=== PATIENT | male | born 1965 | race Two or more races ===

== ENCOUNTER 2024-04-18 05:43 | Inpatient (IN) | payer OTHER ==
[2024-04-18] VITALS (12 sets, daily range): BP systolic 132–178; BP diastolic 79–98; PULSE 90–118; RESP 18–27; TEMP 98.1; O2SAT 85–98
[~2024-04-18] VITALS: Ht 190.5 cm; Wt 109.3 kg
--- NOTE | 2024-04-18 05:54 | ED.PDOC ---
SOB-HPI HPI Comments 59-year-old male with PMHx CHF, COPD, HTN brought in by EMS presents with a chief complaint of SOB. Per EMS, patient woke up this morning and started to have spontaneous onset of SOB. Per EMS, initial saturation was 65% on room air. EMS placed patient on non-rebreather and saturation did not improve. EMS switched patient to CPAP and highest saturation they got was 83%. Patient has been intubated before due to COPD exacerbation. Chief Complaint: Shortness of Breath Time Seen by MD: 05:43 Reviewed notes: Medications, Allergies Information Source: Emergency Med Personnel Mode of Arrival: EMS Severity: Moderate Timing: Minutes Duration: Since onset Context: At Rest PE Risk Factors: None History of: COPD, CHF Prehospital treatment: C-Pap, Oxygen Associated Signs and Symptoms: None Past Medical History PAST MEDICAL HISTORY: CHF, COPD, HTN Surgical History: Denies all surgeries Family History Family History: Reviewed,noncontributory to illness Social History Smoker: Non-Smoker Alcohol: Denies ETOH Use Drugs: Denies Drug Use Lives In: Home Constitutional: denies: chills, diaphoresis, fatigue, fever, malaise, sweats, weakness, others EENTM: denies: blurred vision, double vision, ear bleeding, ear discharge, ear drainage, ear pain, ear ringing, eye pain, eye redness, hearing loss, mouth pain, mouth swelling, nasal discharge, nose bleeding, nose congestion, nose pain, photophobia, tearing, throat pain, throat swelling, voice changes, others Respiratory: reports: shortness of breath; denies: cough, hemoptysis, orthopnea, SOB at rest, SOB with excertion, stridor, wheezing, others Cardiovascular: denies: chest pain, dizzy spells, diaphoresis, Dyspnea on exertion, edema, irregular heart beat, left arm pain, lightheadedness, palpitations, PND, syncope, others Gastrointestinal: denies: abdomen distended, abdominal pain, blood streaked bowels, constipated, diarrhea, dysphagia, difficulty swallowing, hematemesis, melena, nausea, poor appetite, poor fluid intake, rectal bleeding, rectal pain, vomiting, others Genitourinary: denies: burning, dysuria, flank pain, frequency, hematuria, incontinence, penile discharge, penile sore, pain, testicle pain, testicle swelling, urgency, others Neurological: denies: dizziness, fainting, headache, left sided numbness, left sided weakness, numbness, paresthesia, pre-existing deficit, right sided numbness, right sided weakness, seizure, speech problems, tingling, tremors, weakness, others Musculoskeletal: denies: back pain, gout, joint pain, joint swelling, muscle pain, muscle stiffness, neck pain, others Integumetry: denies: bruises, change in color, change in hair/nails, dryness, laceration, lesions, lumps, rash, wounds, others Allergic/Immunocompromised: denies: Difficulty Healing, Frequent Infections, Hives, Itching, others Hematologic/Lymphatic: denies: anemia, blood clots, easy bleeding, easy bruising, swollen glands, others Endocrine: denies: excessive hunger, excessive sweating, excessive thirst, excessive urination, flushing, intolerance to cold, intolerance to heat, unexplained weight gain, unexplained weight loss, others Psychiatric: denies: anxiety, bipolar disorder, depression, hopeless, panic disorder, schizophrenia, sleepless, suicidal, others All Other Systems: Reviewed and Negative Physical Exam General Appearance: No Apparent Distress, Normal HEENT: Normal ENT Inspection, Pharynx Normal, TMs Normal Neck: Full Range of Motion, Non-Tender, Normal, Normal Inspection Respiratory: Chest Non-Tender, Lungs Clear, No Accessory Muscle Use, No Respiratory Distress, Normal Breath Sounds Cardiovascular: No Edema, No JVD, No Murmur, No Gallop, Normal Peripheral Pulses, Regular Rate/Rhythm Breast Exam: Deferred Gastrointestinal: No Organomegaly, Non Tender, No Pulsatile Mass, Normal Bowel Sounds, Soft Genitalia: Deferred Pelvic: Deferred Rectal: Deferred Extremities: No calf tenderness, Normal capillary refill, Normal inspection, Normal range of motion, Non-tender, No pedal edema Musculoskeletal : Apperance: Normal Neurologic: Alert, fur trapper II-XII nml as Tested, No Motor Deficits, Normal Affect, Normal Mood, No Sensory Deficits Cerebellar Function: Normal Reflexes: Normal Skin: Dry, Normal Color, Warm Lymphatic: No Adenopathy Was a procedure done? Was a procedure done?: No Differential Dx Differential Diagnosis: Asthma, Bronchitis, Cardiogenic Shock, CHF, COPD, Pneumonia, Pneumothorax X-Ray, Labs, Meds, VS Vital Signs Date Time Temp Pulse Resp B/P (MAP) Pulse Ox O2 Delivery O2 Flow Rate FiO2 04/18/24 06:47 112 04/18/24 06:45 113 24 185/114 (137) 97 04/18/24 06:30 117 26 223/129 (160) 97 04/18/24 06:15 249/124 04/18/24 06:00 125 30 249/124 (165) 95 04/18/24 05:57 97.6 118 27 252/133 (172) 85 97.6 04/18/24 05:57 118 27 85 Bi-Pap+ 100 100 04/18/24 05:50 119 04/18/24 05:45 120 249/131 Facial BiPAP Mask 100 04/18/24 05:45 97.6 125 30 210/108 (142) 80 Lab Test 04/18/24 06:19 Range/Units White Blood Count Pending Red Blood Count Pending Hemoglobin Pending Hematocrit Pending Mean Corpuscular Volume Pending Mean Corpuscular Hemoglobin Pending Mean Corpuscular Hemoglobin Concent Pending Red Cell Distribution Width Pending Platelet Count Pending Mean Platelet Volume Pending Neutrophils (%) (Auto) Pending Lymphocytes (%) (Auto) Pending Monocytes (%) (Auto) Pending Basophils (%) (Auto) Pending Neutrophils # (Auto) Pending Lymphocytes # (Auto) Pending Monocytes # (Auto) Pending Sodium Level 138 136-145 mmol/L Potassium Level 3.6 3.5-5.1 mmol/L Chloride Level 102 98-107 mmol/L Carbon Dioxide Level 28 20-31 mmol/L Anion Gap 8 5-15 Blood Urea Nitrogen 16 9-23 mg/dL Creatinine 1.75 H 0.700-1.30 mg/dL Glomerular Filtration Rate Calc 45 >90 mL/min BUN/Creatinine Ratio 9.1 L 10.0-20.0 Serum Glucose 165 H 74-106 mg/dL Calcium Level 9.6 8.7-10.4 mg/dL Total Bilirubin 0.4 0.2-1.0 mg/dL Aspartate Amino Transferase (AST) 14 13-40 U/L Alanine Aminotransferase (ALT) 16 7-40 U/L Alkaline Phosphatase 83 46-116 U/L Troponin I High Sensitivity 67 *H </=54 ng/L B-Type Natriuretic Peptide 31.10 0-100 pg/mL Total Protein 8.1 5.7-8.2 g/dL Albumin 4.5 3.2-4.8 g/dL Current Medications Medications (Trade) Dose Ordered Sig/Mari Route Start Time Stop Time Status Last Admin Nitroglycerin (Nitro-Bid) 1 pkg ONCE ONCE TD 04/18/24 06:00 04/18/24 06:02 DC 04/18/24 06:15 Methylprednisolone Sodium Succinate (Solu Medrol) 40 mg ONCE ONCE IV 04/18/24 06:15 04/18/24 06:16 DC 04/18/24 06:19 Time of 1ST Reevaluation: 06:13 Reevaluation 1ST: Unchanged Patient Education/Counseling: Diagnosis, Treatment, Prognosis Family Education/Counseling: No Family Present Departure 1 Departure Time of Disposition: 07:02 (Patient presented with the acute respiratory failure. Patient was setting as he has 5% on room air is placed on BiPAP and patient is feeling improved. Patient had concerns for flash pulmonary edema. Patient was given nitro paste and he has been improving. We will admit patient to the step-down unit for further management) Impression: Primary Impression: Acute respiratory failure Qualified Codes: J96.01 - Acute respiratory failure with hypoxia Disposition: ADMITTED INPATIENT Admit to: [facility] Condition: Guarded Critical Care Note Critical Care Time?: Yes Critical care comment: Acute respiratory failure Authorized and Performed by: Gordon Jimenez MD Total critical care time: Approximately 32 minutes Due to a high probability of clinically significant, life threatening deterioration, the patient required my highest level of preparedness to intervene emergently and I personally spent this critical care time directly and personally managing the patient. This critical care time included obtaining a history; examining the patient; pulse oximetry; ordering and review of studies; arranging urgent treatment with development of a management plan; evaluation of patient's response to treatment; frequent reassessment; and, discussions with other providers. This critical care time was performed to assess and manage the high probability of imminent, life-threatening deterioration that could result in multi-organ failure. It was exclusive of separately billable procedures and treating other patients and teaching time. Please see my other sections and the rest of the note for further information on patient assessment and treatment. Stability Stability form required: No Heart Score Heart Score: Heart Score Response (Comments) Value History N/A 0 EKG N/A 0 Age N/A 0 Risk Factors N/A 0 Troponin N/A 0 Total 0 I personally scribed for GORDON JIMENEZ MD ([email or web address]) on 04/18/24 at 05:54. Electronically submitted by Steve Giraldo ([email or web address]). GORDON JIMENEZ MD Apr 18, 2024 05:54
[2024-04-18] MEDS: NITROGLYCERIN 2% OINT 1GM PKG TD ONE (06:15)
[2024-04-18] MEDS: methylPREDNISolone SOD SUCC 40 MG/ML VL IV ONE (06:19)
--- NOTE | 2024-04-18 06:28 | ECG ---
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
[2024-04-18 06:53] LABS: Hematocrit 41.1 % (41.0-53.0); Hemoglobin 13.1 g/dL (13.5-17.5); Mean Corpuscular Hgb Conc. 31.8 g/dL (32.0-36.0); Mean Corpuscular Volume 84.8 fL (80.0-100.0); Platelet Count (auto) 412 10^3/uL (140-450); Red Blood Cells 4.85 10^6/uL (4.5-5.90); Red Cell Distribution Width 17.5 % (11.8-14.3)
[2024-04-18 06:56] LABS: Alanine Aminotransferase 16 U/L (7-40); Albumin 4.5 g/dL (3.2-4.8); Alkaline Phosphatase 83 U/L (46-116); Anion Gap 8 (5-15); Aspartate Aminotransferase 14 U/L (13-40); BUN/Creatinine Ratio 9.1 (10.0-20.0); Blood Urea Nitrogen 16 mg/dL (9-23); Calcium 9.6 mg/dL (8.7-10.4); Carbon Dioxide 28 mmol/L (20-31); Chloride 102 mmol/L (98-107); Potassium 3.6 mmol/L (3.5-5.1); Sodium 138 mmol/L (136-145)
[2024-04-18 06:57] LABS: Bilirubin, Total 0.4 mg/dL (0.2-1.0); Total Protein 8.1 g/dL (5.7-8.2)
[2024-04-18 06:59] LABS: Glucose 165 mg/dL (74-106)
--- NOTE | 2024-04-18 07:02 | DVH ---
CLINICAL INFORMATION: 59 years old, Male; shortness of breath. TECHNIQUE: Single AP portable chest radiograph was obtained. COMPARISON: None FINDINGS: Lungs: Nonspecific mild perihilar interstitial opacities.Patchy opacity in the right suprahilar regio n, may be infectious or inflammatory in nature. Cardiac: Heart size is within normal limits. Pulmonary vasculature: Unremarkable. Mediastinum/sharon: Unremarkable. Bones: No acute osseous abnormality identified. Other: No other significant findings. IMPRESSION: Patchy opacity in the right suprahilar region, may be infectious or inflammatory in nature. Correlate with clinical findings. If clinically indicated, CT could be obtained to further evaluate.
--- NOTE | 2024-04-18 07:02 | ECG ---
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
[2024-04-18 07:21] LABS: Band Neutrophils % (manual) 0; Basophils % (manual) 0 (0.0-2.0); Blast Cells 0; Metamyelocytes % 0; Myelocytes % 0; Promyelocytes % 0; Reactive Lymphocytes 0
[2024-04-18] MEDS ORDERED: ACETAMINOPHEN 325 MG TAB PO PRN (09:15)
[2024-04-18] MEDS ORDERED: HYDROcodone-ACET 5/325MG TAB PO PRN (09:15)
[2024-04-18] MEDS ORDERED: ONDANSETRON HCL 4 MG/2 ML VIAL IV PRN (09:15)
[2024-04-18] MEDS: methylPREDNISolone SOD SUCC 125 MG/2 ML VL IV ONE (09:30)
--- NOTE | 2024-04-18 09:33 | DVHHP2 ---
History of Present Illness History of Present Illness 59-year-old male with PMHx CHF, COPD, HTN, hypothryoid , is BIBA, presents w c/o SOB x1 day. Per EMS, patient woke up this morning and started to have spontaneous onset of SOB. He has been more short of breath recently and has had worsening sputum production white clear color.. He had a recent viral syndrome with GI symptoms, nausea and vomiting and diarrhea. He has been compliant with his med and using his inhalers daily. His also recently had a viral syndrome upper respiratory. Per EMS, initial saturation was 65% on room air. EMS placed patient on non-rebreather and saturation did not improve. EMS switched patient to CPAP and highest saturation they got was 83%. in ED, able to stablize SpO2 with bipap. Patient has history of intubated due to COPD exacerbation. Negative for other ROS. Denies chest pain, abdominal pain, fevers/chills. Patient quit smoking few years ago, denies illicit drugs or alcohol. Review of Systems Review of Systems Per HPI Allergies: Coded Allergies: Tetracycline (Verified Allergy, Unknown, 04/19/24) Medications Current Medications Medications Dose Ordered Sig/Mari Route Start Time Stop Time Status Last Admin Dose Admin Acetaminophen/ Hydrocodone Bitart 1 tab Q4HP PRN PO 04/18/24 09:15 UNV Ondansetron HCl 4 mg Q4HP PRN IV 04/18/24 09:15 UNV Enoxaparin Sodium 40 mg DAILY SC 04/18/24 10:00 UNV Acetaminophen 650 mg Q6HP PRN PO 04/18/24 09:15 UNV Morphine Sulfate 2 mg Q4HPRN PRN IV 04/18/24 09:15 UNV Pantoprazole Sodium 40 mg DAILY IV 04/18/24 10:00 UNV Albuterol 2.5 mg Q4H NEB 04/18/24 09:30 UNV Ipratropium [place] 0.5 mg Q4HR NEB 04/18/24 10:00 UNV Exam Vital Signs Vital Signs Date Time Temp Pulse Resp B/P (MAP) Pulse Ox O2 Delivery O2 Flow Rate FiO2 04/18/24 08:52 108 27 178/98 97 100 04/18/24 07:40 Facial BiPAP Mask 04/18/24 05:57 97.6 97.6 Exam GEN: Patient is very short of breath, unable to talk. Able to follow commands and secure his airway. Able to be weaned from BiPAP to and NRB HEENT: NC/AT; dry mucous membranes CV: RRR, no m/r/g. LUNGS: Diffuse wheezing in all lung metz expiratory. Also some inspiratory rhonchi. ABD: Soft, NT/ND, NBS, no masses or organomegaly. EXT: skin Warm, well perfused. no rashes. No clubbing, cyanosis, or edema. NEURO: Ambulating with no limitations. No focal deficits. Labs/Xrays Labs Test 04/18/24 09:06 04/18/24 06:19 Range/Units White Blood Count 23.0 H 4.4-10.8 10^3/uL Red Blood Count 4.85 4.5-5.90 10^6/uL Hemoglobin 13.1 L 13.5-17.5 g/dL Hematocrit 41.1 41.0-53.0 % Mean Corpuscular Volume 84.8 80.0-100.0 fL Mean Corpuscular Hemoglobin 27.0 L 28.0-32.0 pg Mean Corpuscular Hemoglobin Concent 31.8 L 32.0-36.0 g/dL Red Cell Distribution Width 17.5 H 11.8-14.3 % Platelet Count 412 140-450 10^3/uL Mean Platelet Volume 7.8 6.9-10.8 fL Neutrophils (%) (Auto) 37.0-80.0 % Lymphocytes (%) (Auto) 10.0-50.0 % Monocytes (%) (Auto) 0.0-12.0 % Eosinophils (%) (Auto) 0.0-7.0 % Basophils (%) (Auto) 0.0-2.0 % Neutrophils # (Auto) 1.6-8.6 10 ^3/uL Lymphocytes # (Auto) 0.4-5.4 10 ^3/uL Monocytes # (Auto) 0-1.3 10 ^3/uL Sodium Level 138 136-145 mmol/L Potassium Level 3.6 3.5-5.1 mmol/L Chloride Level 102 98-107 mmol/L Carbon Dioxide Level 28 20-31 mmol/L Anion Gap 8 5-15 Blood Urea Nitrogen 16 9-23 mg/dL Creatinine 1.75 H 0.700-1.30 mg/dL Glomerular Filtration Rate Calc 45 >90 mL/min BUN/Creatinine Ratio 9.1 L 10.0-20.0 Serum Glucose 165 H 74-106 mg/dL Calcium Level 9.6 8.7-10.4 mg/dL Total Bilirubin 0.4 0.2-1.0 mg/dL Aspartate Amino Transferase (AST) 14 13-40 U/L Alanine Aminotransferase (ALT) 16 7-40 U/L Alkaline Phosphatase 83 46-116 U/L B-Type Natriuretic Peptide 31.10 0-100 pg/mL Total Protein 8.1 5.7-8.2 g/dL Albumin 4.5 3.2-4.8 g/dL Assessment/Plan Assessment/Plan #Acute hypoxic respiratory failure - requiring BiPAP 100%, wean to NRB. #COPD exacerbation - Start Solu-Medrol 40 b.i.d., duo nebs q.4 hours. #CAP, Gram-negative/Gram-positive, atypical likely -flu COVID negative, WBC elevated with neutrophilia left shift, start ceftriaxone azithromycin #Sirs sepsis with end-organ (source respiratory)- IV antibiotics as above #cough - likely acute from COPD vs PNA but at dc hold lisinopril (or change to ARB, ?acei cough?) #Viral gastroenteritis - flu COVID negative, volume resuscitation #Hypertensive emergency- SP nitro paste, continue home meds (hold lisino d/t malachi) #MALACHI: No known baseline, admit creatinine 1.75 . Fluid hydration IV fluid. hold home lisino. #Hyperglycemia-we will likely have hyperglycemia from steroids SSI mild q.4 H #HLD - cont lipitor home dose # hypothyroid - cont synthroid 75mcg. Diet NPO GI prophylaxis Protonix IV 40 daily DVT prophylaxis Lovenox 40 subQ Med tele Full code Plan discussed with: Patient, Spouse My Orders Orders - ADONIS BURNS MD Procedure Category Date Status Time Admit ADMIT 04/18/24 Transmitted 09:15 Code Status CODE 04/18/24 Transmitted 09:15 Hydrocodone-Acet PHA 04/18/24 Logged 5/325mg Tab ([place] 09:15 Ondansetron Hcl PHA 04/18/24 Logged (Zofran) 09:15 Enoxaparin Sodium PHA 04/18/24 Logged (Lovenox) 10:00 Comprehensive LAB 04/19/24 Verified Metabolic Panel 04:00 Npo (Nothing By DIET 04/18/24 Transmitted Mouth) Diet Breakfast Acetaminophen Tablet PHA 04/18/24 Logged (Tylenol Tablet) 09:15 Bedrest With Bathroom ANGEL 04/18/24 In Process Privileg 09:15 Morphine Sulfate PHA 04/18/24 Logged Injection 09:15 Methylprednisolone PHA 04/18/24 Logged Sod Succ (Solu Medrol 09:30 Pantoprazole PHA 04/18/24 Logged (Protonix) 10:00 Albuterol Medneb [facility] 04/18/24 Logged (Ventolin Medneb) 09:30 Ipratropium Medneb [facility] 04/18/24 Logged (Atrovent Medneb) 10:00 Methylprednisolone [facility] 04/18/24 Verified Sod Succ (Solu Medrol 20:00 Date of Service: Apr 18, 2024 Billing Provider: ADONIS BURNS MD Common Visit Codes: [id number] INP/OBS CARE (HIGH) ADONIS BURNS MD Apr 18, 2024 09:33
[2024-04-18] MEDS ORDERED: PRED20TA2 PO (10:22)
[2024-04-18] MEDS ORDERED: LISI20TA56 PO (10:22)
[2024-04-18] MEDS ORDERED: AMLO1TAB22 PO (10:22)
[2024-04-18] MEDS ORDERED: BENZ100C97 PO (10:22)
[2024-04-18] MEDS ORDERED: ATOR-507 PO (10:22)
[2024-04-18] MEDS ORDERED: CHOL20TA PO (10:22)
[2024-04-18] MEDS ORDERED: LEVO25TA6 PO (10:22)
[2024-04-18] MEDS: IPRATROPIUM BROM 0.5 MG/2.5ML INH SOL NEB SCH (10:26)
[2024-04-18] MEDS: ALBUTEROL SULF 2.5 MG/0.5ML(0.5%) NEB SOLN NEB SCH (10:26)
[2024-04-18 11:00] LABS: Rapid Influenza A Negative (Negative); Rapid Influenza B Negative (Negative)
[2024-04-18 11:01] LABS: COVID19 ANTIGEN SOFIA FIA NEGATIVE (NEGATIVE)
[2024-04-18] MEDS: AZITHROMYCIN 500MG/ 250ML 250 ML IV SCH (11:12)
[2024-04-18] MEDS: ENOXAPARIN SOD 40 MG/0.4 ML SYRINGE SC SCH (11:17)
[2024-04-18] MEDS: PANTOPRAZOLE 40 MG/10 ML VIAL INJ IV SCH (11:17)
[2024-04-18] MEDS: IPRATROPIUM BROM 0.5 MG/2.5ML INH SOL ONE (12:13)
[2024-04-18] MEDS: ALBUTEROL SULF 2.5 MG/0.5ML(0.5%) NEB SOLN ONE (12:13)
[2024-04-18 12:18] LABS: Eosinophils % (manual) 36 (0-7); Lymphocytes % (manual) 14 (10.0-50.0); Monocytes % (manual) 7 (0-12); Platelet Estimate Adequate
[2024-04-18] MEDS: amLODIPine BESYLATE 5 MG TAB PO ONE (12:34)
[2024-04-18] MEDS: Benzonatate 100 MG CAPSULES PO SCH (17:06)
[2024-04-18] MEDS: methylPREDNISolone SOD SUCC 40 MG/ML VL IV SCH (21:30)
[2024-04-18] MEDS: ATORVASTATIN 20 MG TAB PO SCH (21:30)
[2024-04-18] MEDS ORDERED: ALBUAER3 IN (23:54)
[2024-04-18] MEDS ORDERED: ALBU0.084 NEB (23:54)
[2024-04-19] VITALS (23 sets, daily range): BP systolic 117–136; BP diastolic 74–88; PULSE 80–102; RESP 18–24; TEMP 97.8–98.8; O2SAT 89–98
[2024-04-19] MEDS: LEVOTHYROXINE SODIUM 25 MCG TAB PO SCH (06:05)
[2024-04-19 06:20] LABS: Alanine Aminotransferase 13 U/L (7-40); Alkaline Phosphatase 68 U/L (46-116); Anion Gap 7 (5-15); BUN/Creatinine Ratio 11.2 (10.0-20.0); Carbon Dioxide 29 mmol/L (20-31); Chloride 105 mmol/L (98-107); Potassium 4.6 mmol/L (3.5-5.1); Sodium 141 mmol/L (136-145)
[2024-04-19 06:22] LABS: Total Protein 7.2 g/dL (5.7-8.2)
[2024-04-19 06:27] LABS: Aspartate Aminotransferase 11 U/L (13-40); Bilirubin, Total 0.2 mg/dL (0.2-1.0); Blood Urea Nitrogen 29 mg/dL (9-23); Glucose 163 mg/dL (74-106)
[2024-04-19] MEDS: amLODIPine BESYLATE 5 MG TAB PO SCH (09:33)
[2024-04-19] MEDS: cefTRIAXone 1GM/50ML D5W 50 ML IV SCH (09:33)
[2024-04-19] MEDS ORDERED: PATIENTS OWN MEDICATION (Atorvastatin Calcium (Lipitor) 1 TAB) PO SCH (10:00)
--- NOTE | 2024-04-19 12:02 | DVHPN2 ---
Subjective The patient is seen at bedside. The patient complained of shortness a breath. Reviewed: Care Plan, H&P, Labs, Medications, Previous Orders, Radiology Changes from previous H/P or p: No Changes Objective Vitals Vital Signs Date Time Temp Pulse Resp B/P (MAP) Pulse Ox O2 Delivery O2 Flow Rate FiO2 04/19/24 09:57 102 20 98 04/19/24 09:54 Nasal Cannula* 4 36 04/19/24 09:33 132/88 04/19/24 08:24 97.8 97.8 Intake/Output Intake and Output 04/19/24 07:00 Intake Total 650 ml Output Total 1000 ml Balance -350 ml Intake Oral 400 ml IV Total 250 ml Output Urine Total 1000 ml General Appearance: Alert, Cooperative, No acute distress HEENT: Atraumatic, PERRLA, EOMI, Mucous membr. moist/pink Neck: Supple Lungs: Clear to auscultation, Normal air movement Cardiovascular: Regular rate, Normal S1, Normal S2, No murmurs, Gallops, Rubs Abdomen: Normal bowel sounds, Soft, No tenderness, No hepatospenomegaly Neuro: Cranial nerves 3-12 NL Psych/Mental Status: Mental status NL Medications Current Medications Medications Dose Ordered Sig/Mari Route Start Time Stop Time Status Last Admin Dose Admin Acetaminophen/ Hydrocodone Bitart 1 tab Q4HP PRN PO 04/18/24 09:15 Ondansetron HCl 4 mg Q4HP PRN IV 04/18/24 09:15 Enoxaparin Sodium 40 mg DAILY SC 04/18/24 10:00 04/19/24 09:32 40 MG Acetaminophen 650 mg Q6HP PRN PO 04/18/24 09:15 Morphine Sulfate 2 mg Q4HPRN PRN IV 04/18/24 09:15 Pantoprazole Sodium 40 mg DAILY IV 04/18/24 10:00 04/19/24 09:32 40 MG Albuterol 2.5 mg Q4H NEB 04/18/24 09:30 04/19/24 09:48 2.5 MG Ipratropium [place] 0.5 mg Q4HR NEB 04/18/24 10:00 04/19/24 09:48 0.5 MG Methylprednisolone Sodium Succinate 40 mg BID IV 04/18/24 20:00 04/19/24 09:32 40 MG Ceftriaxone Sodium 50 ml @ 100 mls/hr DAILY@09 IV 04/19/24 09:00 04/19/24 09:33 100 MLS/HR Azithromycin 250 ml @ 125 mls/hr DAILY IV 04/18/24 10:00 04/19/24 09:32 125 MLS/HR Ipratropium [place] 0.5 mg Q4HPRN PRN NEB 04/18/24 09:45 Albuterol 2.5 mg Q4HPRN PRN NEB 04/18/24 09:45 Amlodipine Besylate 10 mg DAILY PO 04/19/24 10:00 04/19/24 09:33 10 MG Levothyroxine Sodium 75 mcg QAM PO 04/19/24 07:00 04/19/24 06:05 75 MCG Patient Own Medication 1 tab DAILY PO 04/19/24 10:00 UNV Patient Own Medication 1 cap TID PO 04/18/24 14:00 04/19/24 06:05 1 CAP Atorvastatin Calcium 40 mg HS PO 04/18/24 22:00 04/18/24 21:30 40 MG Laboratory Results Laboratory Tests 04/18/24 06:19 04/19/24 05:17 Chemistry Test 04/19/24 05:17 Albumin 4.0 g/dL (3.2-4.8) Calcium Level 10.0 mg/dL (8.7-10.4) Total Protein 7.2 g/dL (5.7-8.2) LFT Test 04/19/24 05:17 Alanine Aminotransferase (ALT) 13 U/L (7-40) Alkaline Phosphatase 68 U/L (46-116) Aspartate Amino Transferase (AST) 11 U/L (13-40) L Total Bilirubin 0.2 mg/dL (0.2-1.0) Labs and/or images reviewed: Labs reviewed by me Assessment/Plan Assessment/Plan #Acute hypoxic respiratory failure - requiring BiPAP 100%, wean to NRB. #COPD exacerbation - Continue Solu-Medrol 40 b.i.d., duo nebs q.4 hours. #CAP, Gram-negative/Gram-positive, atypical likely -flu COVID negative, WBC elevated with neutrophilia left shift, Continue IV antibiotic: Rocephin and azithromax #Sirs sepsis with end-organ (source respiratory)- IV antibiotics as above #cough - likely acute from COPD vs PNA #Viral gastroenteritis - flu COVID negative, volume resuscitation #Hypertensive emergency- SP nitro paste, continue home meds (hold lisino d/t malachi) #MALACHI: No known baseline, admit creatinine 1.75 . Fluid hydration IV fluid. hold home lisinopril. #Hyperglycemia- continue SSI mild q.4 H #HLD - cont lipitor home dose # hypothyroid - cont synthroid 75mcg. Continuing current management. This medical document was created using an electronic medical record system with [employer] dictation system. Although this document has been carefully reviewed, there may still be some phonetic and typographical errors. These areas are purely typographical due to imperfections of the software programs, and do not reflect any compromise in the patient's medical care. Plan discussed with: Patient Date of Service: Apr 19, 2024 Billing Provider: YENI ESQUIVEL MD Common Visit Codes: [id number] INP/OBS CARE(HIGH) YENI ESQUIVEL MD Apr 19, 2024 12:02
[2024-04-20] VITALS (19 sets, daily range): BP systolic 134–161; BP diastolic 85–94; PULSE 88–103; RESP 15–20; TEMP 97.6–98.5; O2SAT 90–100
--- NOTE | 2024-04-20 08:26 | DVHPN2 ---
Subjective The patient is seen at bedside. The patient still complained of shortness a breath. Reviewed: Care Plan, H&P, Labs, Medications, Previous Orders, Radiology Changes from previous H/P or p: No Changes Objective Vitals Vital Signs Date Time Temp Pulse Resp B/P (MAP) Pulse Ox O2 Delivery O2 Flow Rate FiO2 04/20/24 06:06 92 18 100 04/20/24 05:57 Nasal Cannula* 4 36 04/20/24 01:00 98.4 145/85 (105) 98.4 Intake/Output Intake and Output 04/20/24 07:00 Intake Total 1720 ml Output Total 1650 ml Balance 70 ml Intake Oral 1420 ml IV Total 300 ml Output Urine Total 1650 ml # Voids 2 General Appearance: Alert, Cooperative, No acute distress HEENT: Atraumatic, PERRLA, EOMI, Mucous membr. moist/pink Neck: Supple Lungs: Clear to auscultation, Normal air movement Cardiovascular: Regular rate, Normal S1, Normal S2, No murmurs, Gallops, Rubs Abdomen: Normal bowel sounds, Soft, No tenderness, No hepatospenomegaly Neuro: Cranial nerves 3-12 NL Psych/Mental Status: Mental status NL Medications Current Medications Medications Dose Ordered Sig/Mari Route Start Time Stop Time Status Last Admin Dose Admin Acetaminophen/ Hydrocodone Bitart 1 tab Q4HP PRN PO 04/18/24 09:15 Ondansetron HCl 4 mg Q4HP PRN IV 04/18/24 09:15 Enoxaparin Sodium 40 mg DAILY SC 04/18/24 10:00 04/19/24 09:32 40 MG Acetaminophen 650 mg Q6HP PRN PO 04/18/24 09:15 Morphine Sulfate 2 mg Q4HPRN PRN IV 04/18/24 09:15 Pantoprazole Sodium 40 mg DAILY IV 04/18/24 10:00 04/19/24 09:32 40 MG Albuterol 2.5 mg Q4H NEB 04/18/24 09:30 04/20/24 05:57 2.5 MG Ipratropium [place] 0.5 mg Q4HR NEB 04/18/24 10:00 04/20/24 05:57 0.5 MG Methylprednisolone Sodium Succinate 40 mg BID IV 04/18/24 20:00 04/19/24 21:26 40 MG Ceftriaxone Sodium 50 ml @ 100 mls/hr DAILY@09 IV 04/19/24 09:00 04/19/24 09:33 100 MLS/HR Azithromycin 250 ml @ 125 mls/hr DAILY IV 04/18/24 10:00 04/19/24 09:32 125 MLS/HR Ipratropium [place] 0.5 mg Q4HPRN PRN NEB 04/18/24 09:45 Albuterol 2.5 mg Q4HPRN PRN NEB 04/18/24 09:45 Amlodipine Besylate 10 mg DAILY PO 04/19/24 10:00 04/19/24 09:33 10 MG Levothyroxine Sodium 75 mcg QAM PO 04/19/24 07:00 04/20/24 06:47 75 MCG Patient Own Medication 1 tab DAILY PO 04/19/24 10:00 UNV Patient Own Medication 1 cap TID PO 04/18/24 14:00 04/20/24 06:47 1 CAP Atorvastatin Calcium 40 mg HS PO 04/18/24 22:00 04/19/24 21:25 40 MG Laboratory Results Laboratory Tests 04/18/24 06:19 04/19/24 05:17 Labs and/or images reviewed: Labs reviewed by me Assessment/Plan Assessment/Plan #Acute hypoxic respiratory failure - requiring BiPAP 100%, wean to NRB. #COPD exacerbation - Continue Solu-Medrol 40 b.i.d., duo nebs q.4 hours. #CAP, Gram-negative/Gram-positive, atypical likely -flu COVID negative, WBC elevated with neutrophilia left shift, Continue IV antibiotic: Rocephin and azithromax #Sirs sepsis with end-organ (source respiratory)- IV antibiotics as above #cough - likely acute from COPD vs PNA #Viral gastroenteritis - flu COVID negative, volume resuscitation #Hypertensive emergency- SP nitro paste, continue home meds (hold lisino d/t malachi) #MALACHI: No known baseline, admit creatinine 1.75 . Fluid hydration IV fluid. hold home lisinopril. #Hyperglycemia- continue SSI mild q.4 H #HLD - cont lipitor home dose # hypothyroid - cont synthroid 75mcg. Continuing current management. This medical document was created using an electronic medical record system with [employer] direct computerized dictation system. Although this document has been carefully reviewed, there may still be some phonetic and typographical errors. These areas are purely typographical due to imperfections of the software programs, and do not reflect any compromise in the patient's medical care. Plan discussed with: Patient Date of Service: Apr 20, 2024 Billing Provider: YENI ESQUIVEL MD Common Visit Codes: [id number] INP/OBS CARE(HIGH) YENI ESQUIVEL MD Apr 20, 2024 08:26
[2024-04-20] MEDS: hydrALAZINE HCL 20 MG/ML VL IV ONE (18:53)
[2024-04-21] VITALS (22 sets, daily range): BP systolic 133–176; BP diastolic 81–101; PULSE 71–102; RESP 16–19; TEMP 97.8–98.6; O2SAT 93–100
[2024-04-21] MEDS: MORPHINE SULFATE INJ 2 MG/ml SYRG IV PRN (08:14)
[2024-04-21 10:02] LABS: Basophils # (auto) 0 10 ^3/uL (0-0.2); Basophils % (auto) 0.1 % (0.0-2.0); Eosinophils # (auto) 0 10 ^3/uL (0-0.8); Eosinophils % (auto) 0.1 % (0.0-7.0); Hematocrit 35.9 % (41.0-53.0); Hemoglobin 11.5 g/dL (13.5-17.5); Lymphocytes # (auto) 1.2 10 ^3/uL (0.4-5.4); Lymphocytes % (auto) 10.5 % (10.0-50.0); Mean Corpuscular Volume 84.4 fL (80.0-100.0); Monocytes # (auto) 0.7 10 ^3/uL (0-1.3); Neutrophils # (auto) 9.2 10 ^3/uL (1.6-8.6); Neutrophils % (auto) 83.3 % (37.0-80.0); Nucleated Red Blood Cells % 0.1 %; Platelet Count (auto) 311 10^3/uL (140-450); Red Blood Cells 4.26 10^6/uL (4.5-5.90); Red Cell Distribution Width 17.4 % (11.8-14.3)
[2024-04-21 10:13] LABS: Chloride 105 mmol/L (98-107); Potassium 4.7 mmol/L (3.5-5.1); Sodium 140 mmol/L (136-145)
[2024-04-21 10:14] LABS: Anion Gap 5 (5-15); Calcium 9.9 mg/dL (8.7-10.4); Carbon Dioxide 30 mmol/L (20-31)
[2024-04-21 10:19] LABS: BUN/Creatinine Ratio 19.5 (10.0-20.0)
[2024-04-21 10:27] LABS: Blood Urea Nitrogen 38 mg/dL (9-23); Glucose 153 mg/dL (74-106)
--- NOTE | 2024-04-21 12:42 | DVHPN2 ---
Reviewed: Care Plan, H&P, Labs, Medications, Previous Orders, Radiology Changes from previous H/P or p: No Changes Objective Vitals Vital Signs Date Time Temp Pulse Resp B/P (MAP) Pulse Ox O2 Delivery O2 Flow Rate FiO2 04/21/24 10:20 82 16 99 04/21/24 10:14 Nasal Cannula* 3 32 04/21/24 09:28 97.9 176/101 (126) 97.9 Intake/Output Intake and Output 04/21/24 07:00 Intake Total 2200 ml Output Total 2850 ml Balance -650 ml Intake Oral 1900 ml IV Total 300 ml Output Urine Total 2850 ml General Appearance: Alert, Cooperative, No acute distress HEENT: Atraumatic, PERRLA, EOMI, Mucous membr. moist/pink Neck: Supple Lungs: Clear to auscultation, Normal air movement Cardiovascular: Regular rate, Normal S1, Normal S2, No murmurs, Gallops, Rubs Abdomen: Normal bowel sounds, Soft, No tenderness, No hepatospenomegaly Neuro: Cranial nerves 3-12 NL Psych/Mental Status: Mental status NL Medications Current Medications Medications Dose Ordered Sig/Mari Route Start Time Stop Time Status Last Admin Dose Admin Acetaminophen/ Hydrocodone Bitart 1 tab Q4HP PRN PO 04/18/24 09:15 Ondansetron HCl 4 mg Q4HP PRN IV 04/18/24 09:15 Enoxaparin Sodium 40 mg DAILY SC 04/18/24 10:00 04/21/24 08:30 40 MG Acetaminophen 650 mg Q6HP PRN PO 04/18/24 09:15 Morphine Sulfate 2 mg Q4HPRN PRN IV 04/18/24 09:15 04/21/24 08:14 2 MG Pantoprazole Sodium 40 mg DAILY IV 04/18/24 10:00 04/21/24 09:23 40 MG Albuterol 2.5 mg Q4H NEB 04/18/24 09:30 04/21/24 10:14 2.5 MG Ipratropium [place] 0.5 mg Q4HR NEB 04/18/24 10:00 04/21/24 10:14 0.5 MG Methylprednisolone Sodium Succinate 40 mg BID IV 04/18/24 20:00 04/21/24 09:23 40 MG Ceftriaxone Sodium 50 ml @ 100 mls/hr DAILY@09 IV 04/19/24 09:00 04/21/24 08:17 100 MLS/HR Azithromycin 250 ml @ 125 mls/hr DAILY IV 04/18/24 10:00 04/20/24 10:05 125 MLS/HR Ipratropium [place] 0.5 mg Q4HPRN PRN NEB 04/18/24 09:45 Albuterol 2.5 mg Q4HPRN PRN NEB 04/18/24 09:45 Amlodipine Besylate 10 mg DAILY PO 04/19/24 10:00 04/21/24 09:24 10 MG Levothyroxine Sodium 75 mcg QAM PO 04/19/24 07:00 04/21/24 06:27 75 MCG Patient Own Medication 1 tab DAILY PO 04/19/24 10:00 UNV Patient Own Medication 1 cap TID PO 04/18/24 14:00 04/20/24 06:47 1 CAP Atorvastatin Calcium 40 mg HS PO 04/18/24 22:00 04/20/24 22:32 40 MG Laboratory Results Laboratory Tests 04/21/24 09:35 Chemistry Test 04/21/24 09:35 Calcium Level 9.9 mg/dL (8.7-10.4) Labs and/or images reviewed: Labs reviewed by me, Image(s) reviewed by me Assessment/Plan Assessment/Plan Covering for Dr. Carpio #Acute hypoxic respiratory failure - requiring BiPAP 100%, wean to NRB. #COPD exacerbation - Continue Solu-Medrol 40 b.i.d., duo nebs q.4 hours. #CAP, Gram-negative/Gram-positive, atypical likely -flu COVID negative, WBC elevated with neutrophilia left shift, Continue IV antibiotic: Rocephin and azithromycin #Sirs sepsis with end-organ (source respiratory)- IV antibiotics as above #cough - likely acute from COPD vs PNA #Viral gastroenteritis - flu COVID negative, volume resuscitation #Hypertensive emergency- SP nitro paste, continue home meds (hold lisino d/t malachi) #MALACHI: No known baseline, admit creatinine 1.75 . Fluid hydration IV fluid. hold home lisinopril. #Hyperglycemia- continue SSI mild q.4 H #HLD - cont lipitor home dose # hypothyroid - cont synthroid 75mcg. Plan discussed with: Patient Date of Service: Apr 21, 2024 Billing Provider: LOUIS MARSHALL MD Common Visit Codes: [id number] INP/OBS CARE(HIGH) LOUIS MARSHALL MD Apr 21, 2024 12:42
[2024-04-21] MEDS: ALBUTEROL SULF 2.5 MG/0.5ML(0.5%) NEB SOLN NEB PRN (13:13)
[2024-04-21] MEDS: IPRATROPIUM BROM 0.5 MG/2.5ML INH SOL NEB PRN (13:13)
[2024-04-21] MEDS: PANTOPRAZOLE 40 MG/10 ML VIAL INJ IV SCH (21:40)
[2024-04-22] VITALS (18 sets, daily range): BP systolic 127–135; BP diastolic 81–96; PULSE 84–110; RESP 15–21; TEMP 97.6–98; O2SAT 92–99
--- NOTE | 2024-04-22 10:49 | DVHPN2 ---
Reviewed: Care Plan, H&P, Labs, Medications, Previous Orders, Radiology Changes from previous H/P or p: No Changes Objective Vitals Vital Signs Date Time Temp Pulse Resp B/P (MAP) Pulse Ox O2 Delivery O2 Flow Rate FiO2 04/22/24 10:17 88 18 99 04/22/24 10:08 Nasal Cannula 4.0 04/22/24 10:08 36 04/22/24 09:56 132/89 04/22/24 08:37 98.0 98.0 Intake/Output Intake and Output 04/22/24 07:00 Intake Total 2665 ml Output Total 2550 ml Balance 115 ml Intake Oral 2665 ml Output Urine Total 2550 ml General Appearance: Alert, Cooperative, No acute distress HEENT: Atraumatic, PERRLA, EOMI, Mucous membr. moist/pink Neck: Supple Lungs: Clear to auscultation, Normal air movement Cardiovascular: Regular rate, Normal S1, Normal S2, No murmurs, Gallops, Rubs Abdomen: Normal bowel sounds, Soft, No tenderness, No hepatospenomegaly Neuro: Cranial nerves 3-12 NL Psych/Mental Status: Mental status NL Medications Current Medications Medications Dose Ordered Sig/Mari Route Start Time Stop Time Status Last Admin Dose Admin Acetaminophen/ Hydrocodone Bitart 1 tab Q4HP PRN PO 04/18/24 09:15 Ondansetron HCl 4 mg Q4HP PRN IV 04/18/24 09:15 Enoxaparin Sodium 40 mg DAILY SC 04/18/24 10:00 04/22/24 09:56 40 MG Acetaminophen 650 mg Q6HP PRN PO 04/18/24 09:15 Morphine Sulfate 2 mg Q4HPRN PRN IV 04/18/24 09:15 04/21/24 08:14 2 MG Albuterol 2.5 mg Q4H NEB 04/18/24 09:30 04/22/24 10:07 2.5 MG Ipratropium [place] 0.5 mg Q4HR NEB 04/18/24 10:00 04/22/24 10:08 0.5 MG Methylprednisolone Sodium Succinate 40 mg BID IV 04/18/24 20:00 04/22/24 09:56 40 MG Ceftriaxone Sodium 50 ml @ 100 mls/hr DAILY@09 IV 04/19/24 09:00 04/22/24 08:36 100 MLS/HR Azithromycin 250 ml @ 125 mls/hr DAILY IV 04/18/24 10:00 04/22/24 09:56 125 MLS/HR Ipratropium [place] 0.5 mg Q4HPRN PRN NEB 04/18/24 09:45 04/21/24 13:13 0.5 MG Albuterol 2.5 mg Q4HPRN PRN NEB 04/18/24 09:45 04/21/24 13:13 2.5 MG Amlodipine Besylate 10 mg DAILY PO 04/19/24 10:00 04/22/24 09:56 10 MG Levothyroxine Sodium 75 mcg QAM PO 04/19/24 07:00 04/22/24 06:30 75 MCG Patient Own Medication 1 tab DAILY PO 04/19/24 10:00 UNV Patient Own Medication 1 cap TID PO 04/18/24 14:00 04/20/24 06:47 1 CAP Atorvastatin Calcium 40 mg HS PO 04/18/24 22:00 04/21/24 21:39 40 MG Pantoprazole Sodium 40 mg BID IV 04/21/24 22:00 04/22/24 09:56 40 MG Laboratory Results Laboratory Tests 04/21/24 09:35 Labs and/or images reviewed: Labs reviewed by me, Image(s) reviewed by me Assessment/Plan Assessment/Plan Covering for Dr. Carpio #Acute hypoxic respiratory failure - requiring BiPAP 100%, wean to NRB. ON 4 L OF OXYGEN BY NASAL CANNULA #COPD exacerbation - Continue Solu-Medrol 40 b.i.d., duo nebs q.4 hours. #CAP, Gram-negative/Gram-positive, atypical likely FLU TEST NEGATIVE, COVID TEST NEGATIVE, WBC elevated with neutrophilia left shift, Continue IV antibiotic: Rocephin and azithromycin #Sirs sepsis with end-organ (source respiratory)- IV antibiotics as above #cough - likely acute from COPD vs PNA #Viral gastroenteritis - flu COVID negative, volume resuscitation #Hypertensive emergency- SP nitro paste, continue home meds (hold lisino d/t malachi) #MALACHI: No known baseline, admit creatinine 1.75 . Fluid hydration IV fluid. hold home lisinopril. #Hyperglycemia- continue SSI mild q.4 H #HLD - cont lipitor home dose # hypothyroid - cont synthroid 75mcg. Will DC Thursday Plan discussed with: Patient My Orders Orders - LOUIS MARSHALL MD Procedure Category Date Status Time Pantoprazole PHA 04/21/24 In Process (Protonix) 22:00 Date of Service: Apr 22, 2024 Billing Provider: LOUIS MARSHALL MD Common Visit Codes: [id number] INP/OBS CARE(HIGH) LOUIS MARSHALL MD Apr 22, 2024 10:49
[2024-04-23] VITALS (11 sets, daily range): BP systolic 134–146; BP diastolic 80–88; PULSE 78–105; RESP 13–20; TEMP 36.6; O2SAT 90–100
--- NOTE | 2024-04-23 10:51 | DVHPN2 ---
Reviewed: Care Plan, H&P, Labs, Medications, Previous Orders, Radiology Changes from previous H/P or p: No Changes Objective Vitals Vital Signs Date Time Temp Pulse Resp B/P (MAP) Pulse Ox O2 Delivery O2 Flow Rate FiO2 04/23/24 09:33 146/85 04/23/24 09:00 97.8 80 20 97 97.8 04/23/24 08:27 Nasal Cannula* 4 36 Intake/Output Intake and Output 04/23/24 07:00 Intake Total 1300 ml Balance 1300 ml Intake Oral 1300 ml # Voids 5 General Appearance: Alert, Cooperative, No acute distress HEENT: Atraumatic, PERRLA, EOMI, Mucous membr. moist/pink Neck: Supple Lungs: Clear to auscultation, Normal air movement Cardiovascular: Regular rate, Normal S1, Normal S2, No murmurs, Gallops, Rubs Abdomen: Normal bowel sounds, Soft, No tenderness, No hepatospenomegaly Neuro: Cranial nerves 3-12 NL Psych/Mental Status: Mental status NL Medications Current Medications Medications Dose Ordered Sig/Mari Route Start Time Stop Time Status Last Admin Dose Admin Acetaminophen/ Hydrocodone Bitart 1 tab Q4HP PRN PO 04/18/24 09:15 Ondansetron HCl 4 mg Q4HP PRN IV 04/18/24 09:15 Enoxaparin Sodium 40 mg DAILY SC 04/18/24 10:00 04/23/24 09:33 40 MG Acetaminophen 650 mg Q6HP PRN PO 04/18/24 09:15 Morphine Sulfate 2 mg Q4HPRN PRN IV 04/18/24 09:15 04/21/24 08:14 2 MG Albuterol 2.5 mg Q4H NEB 04/18/24 09:30 04/23/24 07:40 2.5 MG Ipratropium [place] 0.5 mg Q4HR NEB 04/18/24 10:00 04/23/24 07:40 0.5 MG Methylprednisolone Sodium Succinate 40 mg BID IV 04/18/24 20:00 04/23/24 09:32 40 MG Ceftriaxone Sodium 50 ml @ 100 mls/hr DAILY@09 IV 04/19/24 09:00 04/23/24 09:25 100 MLS/HR Azithromycin 250 ml @ 125 mls/hr DAILY IV 04/18/24 10:00 04/23/24 09:33 125 MLS/HR Ipratropium [place] 0.5 mg Q4HPRN PRN NEB 04/18/24 09:45 04/21/24 13:13 0.5 MG Albuterol 2.5 mg Q4HPRN PRN NEB 04/18/24 09:45 04/21/24 13:13 2.5 MG Amlodipine Besylate 10 mg DAILY PO 04/19/24 10:00 04/23/24 09:33 10 MG Levothyroxine Sodium 75 mcg QAM PO 04/19/24 07:00 04/23/24 06:30 75 MCG Patient Own Medication 1 tab DAILY PO 04/19/24 10:00 UNV Patient Own Medication 1 cap TID PO 04/18/24 14:00 04/20/24 06:47 1 CAP Atorvastatin Calcium 40 mg HS PO 04/18/24 22:00 04/22/24 21:34 40 MG Pantoprazole Sodium 40 mg BID IV 04/21/24 22:00 04/23/24 09:32 40 MG Laboratory Results Laboratory Tests 04/21/24 09:35 Labs and/or images reviewed: Labs reviewed by me, Image(s) reviewed by me Assessment/Plan Assessment/Plan Covering for Dr. Carpio #Acute hypoxic respiratory failure - requiring BiPAP 100%, wean to NRB. ON 4 L OF OXYGEN BY NASAL CANNULA #COPD exacerbation - Continue Solu-Medrol 40 b.i.d., duo nebs q.4 hours. #CAP, Gram-negative/Gram-positive, atypical likely FLU TEST NEGATIVE, COVID TEST NEGATIVE, WBC elevated with neutrophilia left shift, Continue IV antibiotic: Rocephin and azithromycin #Sirs sepsis with end-organ (source respiratory)- IV antibiotics as above #cough - likely acute from COPD vs PNA #Viral gastroenteritis - flu COVID negative, volume resuscitation #Hypertensive emergency- SP nitro paste, continue home meds (hold lisino d/t malachi) #MALACHI: No known baseline, admit creatinine 1.75 . Fluid hydration IV fluid. hold home lisinopril. #Hyperglycemia- continue SSI mild q.4 H #HLD - cont lipitor home dose # hypothyroid - cont synthroid 75mcg. Patient lives in [place] Has home oxygen Patient requesting to be discharged today Plan discussed with: Patient Date of Service: Apr 23, 2024 Billing Provider: LOUIS MARSHALL MD Common Visit Codes: [id number] INP/OBS CARE(HIGH) LOUIS MARSHALL MD Apr 23, 2024 10:51
[2024-04-23] MEDS ORDERED: AZIT500T66 PO (10:54)
[2024-04-23] MEDS ORDERED: METH4PAK PO (10:54)
[2024-04-23] MEDS ORDERED: HYDR-4902 PO (10:55)
--- NOTE | 2024-04-23 11:01 | DVHDS2 ---
Discharge Summary Date of Admission Apr 18, 2024 at 09:15 Date of Discharge: Apr 23, 2024 Admitting Diagnosis Shortness of breaths Wounds: None Labs/Diagnostic Data: Laboratory Results Test 04/21/24 09:35 04/19/24 05:17 04/18/24 09:29 04/18/24 09:06 White Blood Count 11.0 10^3/uL (4.4-10.8) Red Blood Count 4.26 10^6/uL (4.5-5.90) Hemoglobin 11.5 g/dL (13.5-17.5) Hematocrit 35.9 % (41.0-53.0) Mean Corpuscular Volume 84.4 fL (80.0-100.0) Mean Corpuscular Hemoglobin 27.0 pg (28.0-32.0) Mean Corpuscular Hemoglobin Concent 32.0 g/dL (32.0-36.0) Red Cell Distribution Width 17.4 % (11.8-14.3) Platelet Count 311 10^3/uL (140-450) Mean Platelet Volume 8.0 fL (6.9-10.8) Neutrophils (%) (Auto) 83.3 % (37.0-80.0) Lymphocytes (%) (Auto) 10.5 % (10.0-50.0) Monocytes (%) (Auto) 6.0 % (0.0-12.0) Eosinophils (%) (Auto) 0.1 % (0.0-7.0) Basophils (%) (Auto) 0.1 % (0.0-2.0) Neutrophils # (Auto) 9.2 10 ^3/uL (1.6-8.6) Lymphocytes # (Auto) 1.2 10 ^3/uL (0.4-5.4) Monocytes # (Auto) 0.7 10 ^3/uL (0-1.3) Eosinophils # (Auto) 0 10 ^3/uL (0-0.8) Basophils # (Auto) 0 10 ^3/uL (0-0.2) Nucleated Red Blood Cells 0.1 % Sodium Level 140 mmol/L (136-145) Potassium Level 4.7 mmol/L (3.5-5.1) Chloride Level 105 mmol/L (98-107) Carbon Dioxide Level 30 mmol/L (20-31) Anion Gap 5 (5-15) Blood Urea Nitrogen 38 mg/dL (9-23) Creatinine 1.95 mg/dL (0.700-1.30) Glomerular Filtration Rate Calc 39 mL/min (>90) BUN/Creatinine Ratio 19.5 (10.0-20.0) Serum Glucose 153 mg/dL (74-106) Calcium Level 9.9 mg/dL (8.7-10.4) Total Bilirubin 0.2 mg/dL (0.2-1.0) Aspartate Amino Transferase (AST) 11 U/L (13-40) Alanine Aminotransferase (ALT) 13 U/L (7-40) Alkaline Phosphatase 68 U/L (46-116) Total Protein 7.2 g/dL (5.7-8.2) Albumin 4.0 g/dL (3.2-4.8) Influenza Type A Antigen Negative (Negative) Influenza Type B Antigen Negative (Negative) SARS-CoV-2 Antigen (Rapid) Negative (NEGATIVE) Troponin I High Sensitivity 69 ng/L (</=54) Test 04/18/24 06:19 Differential Total Cells Counted 100.0 (100) Neutrophils % (Manual) 43 (37.0-80.0) Band Neutrophils % (Manual) 0 Lymphocytes % (Manual) 14 (10.0-50.0) Monocytes % (Manual) 7 (0-12) Eosinophils % (Manual) 36 (0-7) Basophils % (Manual) 0 (0.0-2.0) Metamyelocytes % (manual) 0 Myelocytes % (Manual) 0 Promyelocytes % (Manual) 0 Blast Cells % (Manual) 0 Reactive Lymphocytes 0 Platelet Estimate Adequate B-Type Natriuretic Peptide 31.10 pg/mL (0-100) Other Laboratory Tests 04/21/24 09:35 Brief Hx & Hospital Course: Patient was originally seen by Dr. Carpio 59-year-old male with a history of COPD using inhalers at home hypotension hypercholesterolemia hypothyroidism lives in [facility] admitted for acute COPD exacerbation treated with a Solu-Medrol med neb treatment. He was on BiPAP 100 percent slowly wean down to non-rebreather and now on 2 L of oxygen by nasal cannula. He uses home oxygen. Found to have community-acquired pneumonia treated with Rocephin and azithromycin high blood pressure treated with the nitro paste and continued on home meds comorbid conditions treated appropriately Patient requesting to be discharged home. patient on 2 L of oxygen with stable vital signs at the time of discharge . Prescription transmitted to the pharmacy. Reviewed all his previous home medications Consults/Reason for consult None Operations or Procedures None Condition at Discharge: Fair Final Diagnosis/Problems List #Acute hypoxic respiratory failure - requiring BiPAP 100%, wean to NRB. ON 4 L OF OXYGEN BY NASAL CANNULA #COPD exacerbation - Continue Solu-Medrol 40 b.i.d., duo nebs q.4 hours. #CAP, Gram-negative/Gram-positive, atypical likely FLU TEST NEGATIVE, COVID TEST NEGATIVE, WBC elevated with neutrophilia left shift, Continue IV antibiotic: Rocephin and azithromycin #Sirs sepsis with end-organ (source respiratory)- IV antibiotics as above #cough - likely acute from COPD vs PNA #Viral gastroenteritis - flu COVID negative, volume resuscitation #Hypertensive emergency- SP nitro paste, continue home meds (hold lisino d/t malachi) #MALACHI: No known baseline, admit creatinine 1.75 . Fluid hydration IV fluid. hold home lisinopril. #Hyperglycemia- continue SSI mild q.4 H #HLD - cont lipitor home dose # hypothyroid - cont synthroid 75mcg Discharge Disposition: Home Discharge Instruct/Medications Diet: Cardiac 2g Na,low cholest Activity: Light activity Follow Up/Referral: Resume all previous home medications including inhalers Follow up with your primary Dr in [place] Medications: Azithromycin Medrol Dosepak [place] Transmitted to pharmacy 35 (Time Taken Discharge summary 35 minutes) Discharge Statement: "Patient was advised to return to the ER or call 911 if any headaches, dizziness, shortness of breath, chest pain, abdominal pain, bleeding, fevers, or worsening of medical condition. Patient was counseled about treatment plan, medications, possible side effects, patientverbalized understanding. All questions were answered to the best of my ability. This discharge took greater then 30 minutes in planning, reviewing documentation, counseling the patient, and discussing with other team members." ASSESSMENT ASSESSMENT Hospital Course Improved Assessment #Acute hypoxic respiratory failure - requiring BiPAP 100%, wean to NRB. ON 4 L OF OXYGEN BY NASAL CANNULA #COPD exacerbation - Continue Solu-Medrol 40 b.i.d., duo nebs q.4 hours. #CAP, Gram-negative/Gram-positive, atypical likely FLU TEST NEGATIVE, COVID TEST NEGATIVE, WBC elevated with neutrophilia left shift, Continue IV antibiotic: Rocephin and azithromycin #Sirs sepsis with end-organ (source respiratory)- IV antibiotics as above #cough - likely acute from COPD vs PNA #Viral gastroenteritis - flu COVID negative, volume resuscitation #Hypertensive emergency- SP nitro paste, continue home meds (hold lisino d/t malachi) #MALACHI: No known baseline, admit creatinine 1.75 . Fluid hydration IV fluid. hold home lisinopril. #Hyperglycemia- continue SSI mild q.4 H #HLD - cont lipitor home dose # hypothyroid - cont synthroid 75mcg Date of Service: Apr 23, 2024 Billing Provider: LOUIS MARSHALL MD Common Visit Codes: [id number] DISCH DAY >30min LOUIS MARSHALL MD Apr 23, 2024 11:01
== END 2024-04-23 15:00 | disposition home or self-care (01) | DRG 720 ==
LOC: EDBD 05:43 → ER 05:43 → EEVIPCON 05:43 → TELE 09:15 → ER 09:17 → TELE-WESTW 23:26
PROVIDERS: ADMIT Student in an Organized Health Care Education/Training Program; ATTEND Family Medicine
PROC: 5A09357 Assistance with Respiratory Ventilation, Less than 24 Consecutive Hours, Continuous Positive Airway Pressure (ICD-10-PCS; principal; 2024-04-18)
DX: A41.9 Sepsis, unspecified organism (principal); J96.01 Acute respiratory failure with hypoxia; N17.0 Acute kidney failure with tubular necrosis; J15.69 Pneumonia due to other Gram-negative bacteria; J44.1 Chronic obstructive pulmonary disease with (acute) exacerbation; A08.4 Viral intestinal infection, unspecified; E03.9 Hypothyroidism, unspecified; Z20.822 Contact with and (suspected) exposure to COVID-19; E78.5 Hyperlipidemia, unspecified; I16.1 Hypertensive emergency; J15.9 Unspecified bacterial pneumonia; R73.9 Hyperglycemia, unspecified; J44.0 Chronic obstructive pulmonary disease with (acute) lower respiratory infection; E78.00 Pure hypercholesterolemia, unspecified; Z88.1 Allergy status to other antibiotic agents
CPT/HCPCS: 36415; 71045; 80048; 80053; 83880; 84484; 85007; 85025; 85027; 87426; 87804; 93005; 94640; 94660; 96374; 96375; 99291; G0378; J2470

== ENCOUNTER 2024-07-21 17:29 | Inpatient (IN) | payer OTHER ==
[~2024-07-21] VITALS: Ht 188 cm; Wt 91.5 kg
[~2024-07-21 17:29] MED LIST: ALBU0.084 NEB; ALBUAER3 IN; AMLO1TAB22 PO; ATOR-507 PO; AZIT500T66 PO; BENZ100C97 PO; CHOL20TA PO; HYDR-4902 PO; LEVO25TA6 PO; LISI20TA56 PO; METH4PAK PO; PRED20TA2 PO
--- NOTE | 2024-07-21 17:50 | ED.PDOC ---
SOB-HPI HPI Comments 59 y/o M, with PMHX of COPD, HTN, and CHF presents to the ED for CC of shortness of breath. Patient states, that he has been experiencing shortness of breath with associated symptoms of abdominal pain, productive cough, and chills x2 weeks. Upon arrival to the ED, patient was stating at 72% on room air; patient placed on a NC at 8L, stat read at 84% without significant relief. Patient was placed on non-way breathing mask brought O2 stat up to 94%. Patient denies nausea, vomiting, palpitations, chest pain, or dizziness. No other symptoms or modifying factors at this time. Chief Complaint: Shortness of Breath Time Seen by MD: 17:45 Reviewed notes: Nurses Notes, Medications, Allergies Information Source: Patient Mode of Arrival: EMS Severity: Moderate Timing: Weeks Duration: Since onset Context: At Rest PE Risk Factors: None History of: COPD, CHF Prehospital treatment: None Modifying Factors: Nothing Associated Signs and Symptoms: Fever, Cough, Nasal Congestion If cough with SOB: Productive Past Medical History PAST MEDICAL HISTORY: CHF, COPD, HTN Surgical History: Denies all surgeries Family History Family History: Reviewed,noncontributory to illness Social History Smoker: Non-Smoker Alcohol: Denies ETOH Use Drugs: Denies Drug Use Lives In: Home Constitutional: reports: chills; denies: diaphoresis, fatigue, fever, malaise, sweats, weakness, others EENTM: denies: blurred vision, double vision, ear bleeding, ear discharge, ear drainage, ear pain, ear ringing, eye pain, eye redness, hearing loss, mouth pain, mouth swelling, nasal discharge, nose bleeding, nose congestion, nose pain, photophobia, tearing, throat pain, throat swelling, voice changes, others Respiratory: reports: cough, shortness of breath; denies: hemoptysis, orthopnea, SOB at rest, SOB with excertion, stridor, wheezing, others Cardiovascular: denies: chest pain, dizzy spells, diaphoresis, Dyspnea on exertion, edema, irregular heart beat, left arm pain, lightheadedness, palpitations, PND, syncope, others Gastrointestinal: denies: abdomen distended, abdominal pain, blood streaked bowels, constipated, diarrhea, dysphagia, difficulty swallowing, hematemesis, melena, nausea, poor appetite, poor fluid intake, rectal bleeding, rectal pain, vomiting, others Genitourinary: denies: burning, dysuria, flank pain, frequency, hematuria, incontinence, penile discharge, penile sore, pain, testicle pain, testicle swelling, urgency, others Neurological: denies: dizziness, fainting, headache, left sided numbness, left sided weakness, numbness, paresthesia, pre-existing deficit, right sided numbness, right sided weakness, seizure, speech problems, tingling, tremors, weakness, others Musculoskeletal: denies: back pain, gout, joint pain, joint swelling, muscle pain, muscle stiffness, neck pain, others Integumetry: denies: bruises, change in color, change in hair/nails, dryness, laceration, lesions, lumps, rash, wounds, others Allergic/Immunocompromised: denies: Difficulty Healing, Frequent Infections, Hives, Itching, others Hematologic/Lymphatic: denies: anemia, blood clots, easy bleeding, easy bruising, swollen glands, others Endocrine: denies: excessive hunger, excessive sweating, excessive thirst, excessive urination, flushing, intolerance to cold, intolerance to heat, unexplained weight gain, unexplained weight loss, others Psychiatric: denies: anxiety, bipolar disorder, depression, hopeless, panic disorder, schizophrenia, sleepless, suicidal, others All Other Systems: Reviewed and Negative Physical Exam General Appearance: No Apparent Distress, Normal HEENT: Normal ENT Inspection, Pharynx Normal Neck: Full Range of Motion, Non-Tender, Normal, Normal Inspection Respiratory: Crackles Cardiovascular: No Edema, No Murmur, No Gallop, Normal Peripheral Pulses, Regular Rate/Rhythm Breast Exam: Deferred Gastrointestinal: No Organomegaly, Non Tender, No Pulsatile Mass, Normal Bowel Sounds, Soft Genitalia: Deferred Pelvic: Deferred Rectal: Deferred Extremities: Normal range of motion Musculoskeletal : Apperance: Normal Neurologic: Alert, No Motor Deficits, Normal Affect, Normal Mood, No Sensory Deficits Cerebellar Function: Normal Reflexes: Normal Skin: Dry, Normal Color, Warm Lymphatic: No Adenopathy Was a procedure done? Was a procedure done?: No Differential Dx Differential Diagnosis: COPD, Respiratory Distress X-Ray, Labs, Meds, VS Vital Signs Date Time Temp Pulse Resp B/P (MAP) Pulse Ox O2 Delivery O2 Flow Rate FiO2 07/22/24 00:11 98.2 81 19 139/77 (97) 91 98.2 07/21/24 22:00 85 17 165/89 (114) 88 07/21/24 19:36 98.3 90 19 143/93 (110) 88 98.3 07/21/24 19:36 88 Nasal Cannula* 6 44 07/21/24 19:36 98.3 90 26 148/93 (111) 88 98.3 07/21/24 19:36 26 88 Nasal Cannula* 6 44 07/21/24 19:36 90 26 88 Nasal Cannula* 6 44 07/21/24 18:30 98.1 97 26 146/91 (109) 92 98.1 07/21/24 18:30 97 26 92 Nasal Cannula* 6 44 07/21/24 18:17 20 93 Nasal Cannula* 6 44 07/21/24 17:54 28 74 Room Air* 0 21 07/21/24 17:41 105 07/21/24 17:34 100.1 105 28 179/96 (123) 72 100.1 Lab Test 07/21/24 18:44 07/21/24 17:57 07/21/24 17:42 Range/Units Troponin I High Sensitivity 26 23 </=54 ng/L White Blood Count 8.5 4.4-10.8 10^3/uL Red Blood Count 4.35 L 4.5-5.90 10^6/uL Hemoglobin 12.0 L 13.5-17.5 g/dL Hematocrit 36.4 L 41.0-53.0 % Mean Corpuscular Volume 83.9 80.0-100.0 fL Mean Corpuscular Hemoglobin 27.6 L 28.0-32.0 pg Mean Corpuscular Hemoglobin Concent 32.9 32.0-36.0 g/dL Red Cell Distribution Width 16.3 H 11.8-14.3 % Platelet Count 345 140-450 10^3/uL Mean Platelet Volume 7.6 6.9-10.8 fL Neutrophils (%) (Auto) 37.0-80.0 % Lymphocytes (%) (Auto) 10.0-50.0 % Monocytes (%) (Auto) 0.0-12.0 % Eosinophils (%) (Auto) 0.0-7.0 % Basophils (%) (Auto) 0.0-2.0 % Neutrophils # (Auto) 1.6-8.6 10 ^3/uL Lymphocytes # (Auto) 0.4-5.4 10 ^3/uL Monocytes # (Auto) 0-1.3 10 ^3/uL Differential Total Cells Counted 100.0 100 Neutrophils % (Manual) 36 L 37.0-80.0 Band Neutrophils % (Manual) 0 Lymphocytes % (Manual) 22 10.0-50.0 Monocytes % (Manual) 3 0-12 Eosinophils % (Manual) 39 H 0-7 Basophils % (Manual) 0 0.0-2.0 Metamyelocytes % (manual) 0 Myelocytes % (Manual) 0 Promyelocytes % (Manual) 0 Blast Cells % (Manual) 0 Reactive Lymphocytes 0 Platelet Estimate Adequate Anisocytosis (manual) Slight Prothrombin Time 11.4 9.3-11.8 sec Prothrombin Time INR 1.08 0.9-1.15 Activated Partial Thromboplast Time 29.6 24.5-34.5 SEC D-Dimer, Quantitative 0.41 0.0-0.49 mg/L FEU Sodium Level 142 136-145 mmol/L Potassium Level 4.4 3.5-5.1 mmol/L Chloride Level 105 98-107 mmol/L Carbon Dioxide Level 28 20-31 mmol/L Anion Gap 9 5-15 Blood Urea Nitrogen 26 H 9-23 mg/dL Creatinine 2.00 H 0.700-1.30 mg/dL Glomerular Filtration Rate Calc 38 >90 mL/min BUN/Creatinine Ratio 13.0 10.0-20.0 Serum Glucose 146 H 74-106 mg/dL Calcium Level 9.9 8.7-10.4 mg/dL Magnesium Level 2.1 1.6-2.6 mg/dL Total Bilirubin 0.3 0.2-1.0 mg/dL Aspartate Amino Transferase (AST) 15 13-40 U/L Alanine Aminotransferase (ALT) 17 7-40 U/L Alkaline Phosphatase 73 46-116 U/L B-Type Natriuretic Peptide 18.84 0-100 pg/mL Total Protein 8.2 5.7-8.2 g/dL Albumin 4.5 3.2-4.8 g/dL POC Glucose 121 H 70-106 mg/dl Current Medications Medications (Trade) Dose Ordered Sig/Mari Route Start Time Stop Time Status Last Admin Sodium Chloride 1,000 ml @ 150 mls/hr Q6H40M ONCE IV 07/21/24 18:00 07/22/24 00:39 DC 07/21/24 19:53 Magnesium Sulfate/ Dextrose 100 ml @ 100 mls/hr Q1H IV 07/21/24 18:00 07/21/24 19:59 DC 07/21/24 20:55 Methylprednisolone Sodium Succinate 500 mg/Sodium Chloride 100 ml @ 200 mls/hr ONCE ONCE IV 07/21/24 18:00 07/21/24 18:29 DC 07/21/24 18:54 Ipratropium [place] (Atrovent Medneb) 0.5 mg ONCE ONCE NEB 07/21/24 18:00 07/21/24 18:01 DC 07/21/24 18:16 Albuterol (Ventolin Medneb) 2.5 mg ONCE ONCE NEB 07/21/24 18:15 07/21/24 18:16 DC 07/21/24 18:16 Time of 1ST Reevaluation: 18:15 Reevaluation 1ST: Unchanged Patient Education/Counseling: Diagnosis, Treatment Family Education/Counseling: No Family Present Departure 1 Departure Time of Disposition: 01:21 (Patient's presentation is not consistent with pneumonia.Patient presented with acute shortness of breath concerning for acute on chronic COPD Exacerbation, Pneumonia, ACS, CHF, Pneumothorax. Less likely PE, Dissection. Data: 1. I ordered and reviewed the result of at least 3 labs including a CBC, BMP, and Troponin. 2. I independently interpreted the following tests: Chest X-ray shows bibasilar atelectasis .Risk:This patient has a high risk of morbidity due to further diagnostic testing or treatment and may suffer from respiratory or cardiac etiology . Workup reveals a likely COPD Exacerbation and patient should be admitted for further workup. and possible expert consultation.) Impression: Primary Impression: Acute and chronic respiratory failure Disposition: ADMITTED INPATIENT Admit to: Med Surg Condition: Serious Critical Care Note Critical Care Time?: No Stability Stability form required: No Heart Score Heart Score: Heart Score Response (Comments) Value History N/A 0 EKG N/A 0 Age N/A 0 Risk Factors N/A 0 Troponin N/A 0 Total 0 I personally scribed for NEDA WHEAT MD ([email or web address]) on 07/21/24 at 17:50. Electronically submitted by Chanel Sparks ([email or web address]). I personally scribed for NEDA WHEAT MD ([email or web address]) on 07/21/24 at 18:00. Electronically submitted by Chanel Sparks ([email or web address]). NEDA WHEAT MD Jul 21, 2024 17:50 GORDON VILLA MD Jul 22, 2024 01:21
--- NOTE | 2024-07-21 17:51 | ECG ---
[facility] Test Date: 2024-07-21 Test Time: 17:41:06 Pat Name: YANY RODNEY Department: ER Room: [address] [place] [address] Gender: M [employer]: GIBRAN : 1965 Requested By: NEDA WHEAT Order Number: [id number] Reading MD: Amor Decker Measurements Intervals [place] Rate: 105 P: 63 MO: 177 QRS: 41 QRSD: 85 T: 66 QT: 345 QTc: 457 Interpretive Statements Sinus tachycardia Probable left ventricular hypertrophy Baseline wander in lead(s) I,II,aVR,V3 Electronically Signed On 07-22-2024 11:56:58 PDT by Amor Decker Please click the below link to view image of tracing.
[2024-07-21] MEDS: ONDANSETRON ODT 4 MG TAB PO ONE (18:00)
[2024-07-21] MEDS: ALBUTEROL SULF 2.5 MG/0.5ML(0.5%) NEB SOLN NEB ONE (18:16)
[2024-07-21] MEDS: IPRATROPIUM BROM 0.5 MG/2.5ML INH SOL NEB ONE (18:16)
[2024-07-21 18:30] VITALS: PULSE 97; RESP 26; O2SAT 92
[2024-07-21 18:30] LABS: Hematocrit 36.4 % (41.0-53.0); Mean Corpuscular Hemoglobin 27.6 pg (28.0-32.0); Mean Corpuscular Hgb Conc. 32.9 g/dL (32.0-36.0); Mean Corpuscular Volume 83.9 fL (80.0-100.0); Platelet Count (auto) 345 10^3/uL (140-450); Red Blood Cells 4.35 10^6/uL (4.5-5.90); Red Cell Distribution Width 16.3 % (11.8-14.3); White Blood Cell 8.5 10^3/uL (4.4-10.8)
--- NOTE | 2024-07-21 18:36 | DVH ---
EXAM: XR Chest, 1 View CLINICAL INDICATION: cough TECHNIQUE: Frontal view of the chest. COMPARISON: XY CHEST PORTABLE on DOS: 04/18/24 FINDINGS: LUNGS AND PLEURAL SPACES: Bibasilar atelectasis or pneumonia. No pneumothorax. HEART: Unremarkable. No cardiomegaly. MEDIASTINUM: Unremarkable. Normal mediastinal contour. BONES/JOINTS: Unremarkable. No acute fracture. OTHER FINDINGS: . IMPRESSION: Bibasilar atelectasis or pneumonia.
[2024-07-21 18:46] LABS: Alanine Aminotransferase 17 U/L (7-40); Albumin 4.5 g/dL (3.2-4.8); Alkaline Phosphatase 73 U/L (46-116); Anion Gap 9 (5-15); Aspartate Aminotransferase 15 U/L (13-40); Bilirubin, Total 0.3 mg/dL (0.2-1.0); Calcium 9.9 mg/dL (8.7-10.4); Carbon Dioxide 28 mmol/L (20-31); Chloride 105 mmol/L (98-107); Magnesium 2.1 mg/dL (1.6-2.6); Potassium 4.4 mmol/L (3.5-5.1); Sodium 142 mmol/L (136-145)
[2024-07-21 18:52] LABS: INR 1.08 (0.9-1.15); Partial Thromboplastin Time 29.6 SEC (24.5-34.5); Prothrombin Time 11.4 sec (9.3-11.8)
[2024-07-21] MEDS: methylPREDNISolone SOD SUCC 500 MG in SODIUM CHL 0.9% 100 ML IV ONE (18:54)
[2024-07-21 19:23] LABS: Blood Urea Nitrogen 26 mg/dL (9-23); Glucose 146 mg/dL (74-106); Total Protein 8.2 g/dL (5.7-8.2)
[2024-07-21 19:28] LABS: Band Neutrophils % (manual) 0; Basophils % (manual) 0 (0.0-2.0); Blast Cells 0; Metamyelocytes % 0; Myelocytes % 0; Promyelocytes % 0; Reactive Lymphocytes 0
[2024-07-21 19:36] VITALS: PULSE 90; RESP 26; O2SAT 88
[2024-07-21] MEDS: MAGNESIUM SULFATE 1GM/100ML 100 ML IV SCH (19:52)
[2024-07-21] MEDS: SODIUM CHLORIDE 0.9% 1,000 ML IV ONE (19:53)
[2024-07-21 20:49] LABS: Anisocytosis Slight; Eosinophils % (manual) 39 (0-7); Lymphocytes % (manual) 22 (10.0-50.0); Monocytes % (manual) 3 (0-12); Platelet Estimate Adequate
[2024-07-21] MEDS ORDERED: ALBUTEROL SULF 2.5 MG/0.5ML(0.5%) NEB SOLN NEB SCH (22:00)
[2024-07-22] VITALS (17 sets, daily range): BP systolic 135–145; BP diastolic 90–98; PULSE 79–115; RESP 14–21; TEMP 97.6–98.2; O2SAT 18–100
[2024-07-22] MEDS: IPRATROPIUM BROM 0.5 MG/2.5ML INH SOL NEB ONE (01:29)
[2024-07-22] MEDS: ALBUTEROL SULF 2.5 MG/0.5ML(0.5%) NEB SOLN NEB ONE (01:29)
[2024-07-22] MEDS ORDERED: ACETAMINOPHEN 325 MG TAB PO PRN (04:00)
[2024-07-22] MEDS ORDERED: DOCUSATE SOD 100 MG CAP PO PRN (04:00)
[2024-07-22] MEDS ORDERED: ONDANSETRON HCL 4 MG/2 ML VIAL IV PRN (04:00)
[2024-07-22 05:21] LABS: Basophils # (auto) 0 10 ^3/uL (0-0.2); Basophils % (auto) 0.2 % (0.0-2.0); Eosinophils # (auto) 0 10 ^3/uL (0-0.8); Eosinophils % (auto) 0.6 % (0.0-7.0); Hematocrit 36.3 % (41.0-53.0); Hemoglobin 11.8 g/dL (13.5-17.5); Lymphocytes # (auto) 0.5 10 ^3/uL (0.4-5.4); Lymphocytes % (auto) 14.6 % (10.0-50.0); Mean Corpuscular Hemoglobin 27.6 pg (28.0-32.0); Mean Corpuscular Hgb Conc. 32.6 g/dL (32.0-36.0); Mean Corpuscular Volume 84.6 fL (80.0-100.0); Monocytes # (auto) 0.1 10 ^3/uL (0-1.3); Monocytes % (auto) 1.6 % (0.0-12.0); Neutrophils # (auto) 2.9 10 ^3/uL (1.6-8.6); Nucleated Red Blood Cells % 0.1 %; Platelet Count (auto) 313 10^3/uL (140-450); Red Blood Cells 4.29 10^6/uL (4.5-5.90); Red Cell Distribution Width 16.3 % (11.8-14.3); White Blood Cell 3.5 10^3/uL (4.4-10.8)
[2024-07-22] MEDS: AZITHROMYCIN 500MG/ 250ML 250 ML IV ONE (05:42)
[2024-07-22] MEDS: methylPREDNISolone SOD SUCC 125 MG/2 ML VL IV ONE (05:46)
[2024-07-22 05:49] LABS: Alanine Aminotransferase 14 U/L (7-40); Albumin 4.3 g/dL (3.2-4.8); Alkaline Phosphatase 66 U/L (46-116); Anion Gap 5 (5-15); BUN/Creatinine Ratio 13.1 (10.0-20.0); Calcium 9.4 mg/dL (8.7-10.4); Carbon Dioxide 28 mmol/L (20-31); Sodium 141 mmol/L (136-145); Total Protein 8.2 g/dL (5.7-8.2)
[2024-07-22] MEDS: ALBUTEROL SULF 2.5 MG/0.5ML(0.5%) NEB SOLN NEB PRN (05:58)
[2024-07-22] MEDS: IPRATROPIUM BROM 0.5 MG/2.5ML INH SOL NEB PRN (05:59)
[2024-07-22] MEDS ORDERED: NITROGLYCERIN 0.4 MG SL TAB SL PRN (06:00)
[2024-07-22] MEDS: SODIUM CHLOR 0.9% PF (SALINE LOCK) 10ML VIAL/SYR IV SCH (06:00)
[2024-07-22] MEDS ORDERED: MORPHINE SULFATE INJ 2 MG/ml SYRG IV PRN (06:00)
--- NOTE | 2024-07-22 06:01 | DVHHP2 ---
History of Present Illness Reason for Visit: Acute and chronic respiratory failure History of Present Illness The patient is a 59-year-old male with past medical history of CHF, COPD, and hypertension who presented to [facility] ED with complaint of shortness of breaths. Patient reports he has been experiencing shortness of breaths, associated with productive cough, chills for the past 2 weeks, getting worse today that prompted this visit. Patient was seen and evaluated in the ED, laboratory data shows WBC 8.5, platelets 345, sodium 142, potassium 4.4, BUN 26, creatinine 2.00, GFR 38, glucose 146, troponin 26, BNP 18.84. Chest x-ray revealing bibasilar atelectasis or pneumonia. Patient was started on IV antibiotic regimen azithromycin, please see medication orders section in the computer. On my assessment, patient denies chest pain, no headache, no dizziness, no diaphoresis, currently on oxygen, no nausea, no vomiting, no fever, no chills. Patient was admitted for further evaluation and medical management. Past Medical History CHF, COPD, HTN Past Surgical History Denies all surgeries Family History Reviewed, noncontributory to the management of this case. Past Social History The patient lives at home, denies smoking, alcohol or illicit drugs abuse. Review of Systems Constitutional: No: Fever, Chills, Sweats, Weakness, Malaise, Other Eyes: No: Pain, Vision change, Conjunctivae inflammation, Eyelid inflammation, Other, Redness ENT: No: Ear pain, Ear discharge, Nose pain, Nose discharge, Nose congestion, Mouth pain, Mouth swelling, Throat pain, Throat swelling, Other Respiratory: Cough, Shortness of breath; No: Dry, SOB with excertion, Wheezing, Hemoptysis, Pleuritic Pain, Sputum, Wheezing, Other Cardiovascular: No: Chest Pain, Palpitations, Orthopnea, Paroxysmal Noc. Dyspnea, Edema, Lt Headedness, Other Gastrointestinal: No: Nausea, Vomiting, Abdominal Pain, Diarrhea, Constipation, Melena, Hematochezia, Other Genitourinary: No Dysuria, No Frequency, No Incontinence, No Hematuria, No Retention, No Other Musculoskeletal: No: other, neck pain, shoulder pain, arm pain, back pain, hand pain, leg pain, foot pain Skin: No: Rash, Lesions, Jaundice, Bruising, Other Neurological: No: Weakness, Numbness, Incoordination, Change in speech, Confusion, Seizures, Other Allergies: Coded Allergies: Tetracycline (Verified Allergy, Unknown, 04/19/24) Medications Current Medications Medications Dose Ordered Sig/Mari Route Start Time Stop Time Status Last Admin Dose Admin Amlodipine Besylate 5 mg DAILY PO 07/22/24 10:00 Hydralazine HCl 10 mg Q6HP PRN IV 07/22/24 04:00 Albuterol 2.5 mg Q4HPRN PRN NEB 07/22/24 04:00 07/22/24 05:58 2.5 MG Ipratropium [place] 0.5 mg Q4HPRN PRN NEB 07/22/24 04:00 07/22/24 05:59 0.5 MG Methylprednisolone Sodium Succinate 40 mg BID IV 07/22/24 22:00 Azithromycin 250 ml @ 125 mls/hr DAILY IV 07/23/24 10:00 Metoprolol Tartrate 25 mg BID PO 07/22/24 10:00 Levothyroxine Sodium 75 mcg QAM@0600 PO 07/22/24 06:00 Sodium Chloride 10 ml Q8HR IV 07/22/24 06:00 Acetaminophen/ Hydrocodone Bitart 1 tab Q4HP PRN PO 07/22/24 04:00 Ondansetron HCl 4 mg Q4HP PRN IV 07/22/24 04:00 Docusate Sodium 100 mg BIDPRN PRN PO 07/22/24 04:00 Acetaminophen 650 mg Q6HP PRN PO 07/22/24 04:00 Atorvastatin Calcium 10 mg HS PO 07/22/24 22:00 Exam Vital Signs Vital Signs Date Time Temp Pulse Resp B/P (MAP) Pulse Ox O2 Delivery O2 Flow Rate FiO2 07/22/24 03:00 84 19 118/75 (89) 90 07/22/24 01:29 Nasal Cannula* 6 44 07/22/24 00:11 98.2 98.2 General Appearance: Alert, Oriented X3, Cooperative, No acute distress HEENT: Atraumatic, PERRLA, EOMI, Mucous membr. moist/pink Respiratory: Normal air movement, Other (Diminished breath sounds) Cardiovascular: Regular rate, Normal S1, Normal S2, No murmurs Abdominal: Normal bowel sounds, Soft, No tenderness, No hepatospenomegaly, No masses Extremities: No clubbing, No cyanosis, No edema, Normal pulses, No tenderness/swelling Skin: No rashes, No breakdown, No significant lesion Neuro: Normal gait, Normal speech, Strength at 5/5 X4 ext, Normal tone, Sensation intact, Cranial nerves 3-12 NL, Reflexes 2+ Psych/Mental Status: Mental status NL, Mood NL Labs/Xrays Labs Test 07/22/24 04:40 07/21/24 18:44 07/21/24 17:57 07/21/24 17:42 Range/Units White Blood Count 3.5 #L 4.4-10.8 10^3/uL Red Blood Count 4.29 L 4.5-5.90 10^6/uL Hemoglobin 11.8 L 13.5-17.5 g/dL Hematocrit 36.3 L 41.0-53.0 % Mean Corpuscular Volume 84.6 80.0-100.0 fL Mean Corpuscular Hemoglobin 27.6 L 28.0-32.0 pg Mean Corpuscular Hemoglobin Concent 32.6 32.0-36.0 g/dL Red Cell Distribution Width 16.3 H 11.8-14.3 % Platelet Count 313 140-450 10^3/uL Mean Platelet Volume 7.7 6.9-10.8 fL Neutrophils (%) (Auto) 83.0 H 37.0-80.0 % Lymphocytes (%) (Auto) 14.6 10.0-50.0 % Monocytes (%) (Auto) 1.6 0.0-12.0 % Eosinophils (%) (Auto) 0.6 0.0-7.0 % Basophils (%) (Auto) 0.2 0.0-2.0 % Neutrophils # (Auto) 2.9 1.6-8.6 10 ^3/uL Lymphocytes # (Auto) 0.5 0.4-5.4 10 ^3/uL Monocytes # (Auto) 0.1 0-1.3 10 ^3/uL Eosinophils # (Auto) 0 0-0.8 10 ^3/uL Basophils # (Auto) 0 0-0.2 10 ^3/uL Nucleated Red Blood Cells 0.1 % Troponin I High Sensitivity 26 </=54 ng/L Differential Total Cells Counted 100.0 100 Neutrophils % (Manual) 36 L 37.0-80.0 Band Neutrophils % (Manual) 0 Lymphocytes % (Manual) 22 10.0-50.0 Monocytes % (Manual) 3 0-12 Eosinophils % (Manual) 39 H 0-7 Basophils % (Manual) 0 0.0-2.0 Metamyelocytes % (manual) 0 Myelocytes % (Manual) 0 Promyelocytes % (Manual) 0 Blast Cells % (Manual) 0 Reactive Lymphocytes 0 Platelet Estimate Adequate Anisocytosis (manual) Slight Prothrombin Time 11.4 9.3-11.8 sec Prothrombin Time INR 1.08 0.9-1.15 Activated Partial Thromboplast Time 29.6 24.5-34.5 SEC D-Dimer, Quantitative 0.41 0.0-0.49 mg/L FEU Magnesium Level 2.1 1.6-2.6 mg/dL B-Type Natriuretic Peptide 18.84 0-100 pg/mL POC Glucose 121 H 70-106 mg/dl PATIENT: YANY RODNEY MACCT: [id number] UNIT: [id number] : 1965 LOC: ER ROOM / BED: / AGE / SEX: 59 / M ADM STATUS: REG ER SERVICE [id number] ORDERING PHYSICIAN: NEDA WHEAT MD PROCEDURE(s): CXRP - CHEST PORTABLE REASON: cough ORDER NUMBER(s): [id number], ACCESSION NUMBER(s): [id number] EXAM: XR Chest, 1 View CLINICAL INDICATION: cough TECHNIQUE: Frontal view of the chest. COMPARISON: XY CHEST PORTABLE on DOS: 04/18/24 FINDINGS: LUNGS AND PLEURAL SPACES: Bibasilar atelectasis or pneumonia. No pneumothorax. HEART: Unremarkable. No cardiomegaly. MEDIASTINUM: Unremarkable. Normal mediastinal contour. BONES/JOINTS: Unremarkable. No acute fracture. OTHER FINDINGS: . IMPRESSION: Bibasilar atelectasis or pneumonia. Assessment/Plan Assessment/Plan Acute and chronic respiratory failure Acute renal injury Hypertensive urgency Pneumonia, unspecified organism Plan 1. Admit to telemetry unit 2. Breathing treatment 3. Pain control management 4. IV antibiotic management 5. Management of fluids and electrolytes 6. Consultation for hospitalist 7. Diagnostic test chest x-ray 8. DVT prophylaxis-on aspirin 9. Repeat labs CBC, CMP in a.m. 10. Home medication reviewed and reconciled 11. Continue with current medical management 12. Treatment plan discussed with patient and RN. Patient verbalized understanding. Plan discussed with: Patient, Other (N) My Orders Orders - JAMSHID SEXTON DNP Procedure Category Date Status Time Comprehensive LAB 07/22/24 In Process Metabolic Panel 04:00 Amlodipine Tablet PHA 07/22/24 In Process (Norvasc Tablet) 10:00 Hydralazine Injection PHA 07/22/24 In Process (Apresoline Inject 04:00 Albuterol Medneb PHA 07/22/24 In Process (Ventolin Medneb) 04:00 Ipratropium Medneb PHA 07/22/24 In Process (Atrovent Medneb) 04:00 *[facility] CONS 07/22/24 Transmitted -[place] 03:46 Methylprednisolone PHA 07/22/24 In Process Sod Succ (Solu Medrol 22:00 Metoprolol Tartrate PHA 07/22/24 In Process Tablet (Lopressor Ta 10:00 Levothyroxine Tablet PHA 07/22/24 In Process (Synthroid Tablet) 06:00 Thyroid Stimulating LAB 07/22/24 In Process Hormone 03:46 Allergies ANGEL 07/22/24 In Process 03:46 Code Status CODE 07/22/24 Transmitted 03:46 Sodium Chloride Lock PHA 07/22/24 In Process (Saline Lock Ns) 06:00 Oxygen Per Hour RT 07/22/24 Transmitted 03:46 Hydrocodone-Acet PHA 07/22/24 In Process 5/325mg Tab ([place] 04:00 Ondansetron Hcl PHA 07/22/24 In Process (Zofran) 04:00 Docusate Sodium PHA 07/22/24 In Process Capsule ([place] 04:00 Complete Blood Count LAB 07/23/24 Verified 04:00 Comprehensive LAB 07/23/24 Verified Metabolic Panel 04:00 Cardiac DIET 07/22/24 Transmitted Diet-2gna,Lofat,Lochol Breakfast Condition: Serious ANGEL 07/22/24 In Process 03:46 Acetaminophen Tablet PHA 07/22/24 In Process (Tylenol Tablet) 04:00 Bedrest With Bathroom ANGEL 07/22/24 In Process Privileg 03:46 Sequential ANGEL 07/22/24 In Process Compression Device Atorvastatin (Lipitor) PHA 07/22/24 In Process 22:00 Azithromycin 500mg/ PHA 07/23/24 In Process 250ml (Zithromax 50 10:00 Problem List: (1) Acute and chronic respiratory failure (2) Acute renal injury (3) Hypertensive urgency (4) Pneumonia, unspecified organism Date of Service: Jul 22, 2024 Billing Provider: JAMSHID SEXTON DNP Common Visit Codes: [id number] INP/OBS CARE (HIGH) JAMSHID SEXTON DNP Jul 22, 2024 06:01
[2024-07-22 06:11] LABS: Aspartate Aminotransferase 10 U/L (13-40); Bilirubin, Total 0.2 mg/dL (0.2-1.0); Blood Urea Nitrogen 25 mg/dL (9-23); Chloride 108 mmol/L (98-107); Glucose 143 mg/dL (74-106)
[2024-07-22 06:13] LABS: Potassium 5.8 mmol/L (3.5-5.1)
[2024-07-22] MEDS: LEVOTHYROXINE SODIUM 25 MCG TAB PO SCH (06:26)
[2024-07-22] MEDS: SODIUM ZIRCONIUM CYCL 10 GM PAK PO ONE (06:47)
[2024-07-22] MEDS: DEXTROSE (50%) 50ML SYRG IV ONE (06:47)
[2024-07-22] MEDS: SODIUM BICARB 8.4% 50Meq/50ml SYR INJ IV ONE (06:48)
[2024-07-22] MEDS: CALCIUM GLUC 1,000mg/50ml-NS 50 ML IV ONE (06:48)
[2024-07-22] MEDS: InsuLIN REG 1unit/0.01ml Soln (100units/ml) IV ONE (06:49)
[2024-07-22 10:59] LABS: COVID19 ANTIGEN SOFIA FIA NEGATIVE (NEGATIVE); Rapid Influenza A Negative (Negative); Rapid Influenza B Negative (Negative)
[2024-07-22] MEDS: METOPROLOL TARTRATE 25 MG TAB PO SCH (11:14)
[2024-07-22] MEDS: amLODIPine BESYLATE 5 MG TAB PO SCH (11:14)
--- NOTE | 2024-07-22 17:37 | DVHINCON2 ---
Date of service: Jul 22, 2024 Referring Physician Hospitalist Reason for Consultation Acute kidney injury History of Present Illness 59-year-old male with past medical history of congestive heart failure, hypertension, COPD. Patient had a recent COPD exacerbation in March of 2024. Patient presents to the hospital now voiding that due to his unstable living condition that he has not been able to get routine medical care and has had progressive shortness of breath. His ER course is notable for significant wheezing and shortness of breath. Patient was started on albuterol nebulizers. Of note he was noted to have elevated creatinine level and elevated potassium level. Nephrology consulted due to acute kidney injury. During the course of my interview patient has notable audible wheezes On patient's home medication list that he provided he reports that he takes weekly Procrit injections Lisinopril Add spironolactone Past Medical History Hypertension Former smoker COPD Congestive heart failure Allergies: Coded Allergies: Tetracycline (Verified Allergy, Unknown, 04/19/24) Home Meds Active Scripts Hydrocodone-Acetaminophen (Hydrocodone Bitartrate/AC 5-325 mg) 1 Tab Tab, 1 TAB PO QID PRN, #30 TAB Prov:LOUIS MARSHALL MD 04/23/24 Methylprednisolone (Medrol Dosepak) 4 Mg Miguel, 4 MG PO UD, #21 TAB UAD Prov:LOUIS MARSHALL MD 04/23/24 Azithromycin (Azithromycin) 500 Mg Tab, 1 TAB PO DAILY, #10 TAB Prov:LOUIS MARSHALL MD 04/23/24 Reported Medications Benzonatate (Benzonatate) 100 Mg Cap, 1 CAP PO TID, #30 CAP 04/18/24 Albuterol Sulfate (Albuterol Sulfate) 0.083 % Neb, 1 VIAL NEB Q4HPRN, #50 VIAL 04/18/24 Albuterol Sulfate (VENTOLIN MDI) 90 Mcg Ih, 90 MCG IN, INH 04/18/24 Cholecalciferol (Vitamin D3) 20 Mcg Tab, 25 MCG PO, TAB 04/18/24 Amlodipine Besylate (Amlodipine Besylate) 5 Mg Tab, 10 MG PO DAILY, MG 04/18/24 Levothyroxine Sodium (Levothyroxine Sodium) 25 Mcg Tab, 75 MCG PO QAM, MCG 04/18/24 Lisinopril (Lisinopril) 20 Mg Tab, 20 MG PO DAILY for 30 Days, MG 04/18/24 Atorvastatin Calcium (Lipitor) 40 Mg Tab, 1 TAB PO DAILY, #30 TAB 5 Refills 04/18/24 Benzonatate (Benzonatate) 100 Mg Cap, 1 CAP PO TID, #30 CAP 04/18/24 Prednisone (Prednisone) 20 Mg Tab, 40 MG PO DAILY, MG 04/18/24 Current Medications Current Medications Medications (Trade) Dose Ordered Sig/Mari Route PRN Reason Start Time Stop Time Status Last Admin Magnesium Sulfate/ Dextrose 100 ml @ 100 mls/hr Q1H IV 07/21/24 18:00 07/21/24 19:59 DC 07/21/24 20:55 Albuterol (Ventolin Medneb) 2.5 mg TID NEB 07/21/24 22:00 07/21/24 18:39 DC Amlodipine Besylate (Norvasc Tablet) 5 mg DAILY PO 07/22/24 10:00 07/22/24 11:14 Hydralazine HCl (Apresoline Injection) 10 mg Q6HP PRN IV SBP>150 07/22/24 04:00 Albuterol (Ventolin Medneb) 2.5 mg Q4HPRN PRN NEB SHORTNESS OF BREATH 07/22/24 04:00 07/22/24 10:54 Ipratropium [place] (Atrovent Medneb) 0.5 mg Q4HPRN PRN NEB SHORTNESS OF BREATH 07/22/24 04:00 07/22/24 10:54 Methylprednisolone Sodium Succinate (Solu Medrol) 40 mg BID IV 07/22/24 22:00 Azithromycin 250 ml @ 125 mls/hr DAILY IV 07/23/24 10:00 Metoprolol Tartrate (Lopressor Tablet) 25 mg BID PO 07/22/24 10:00 07/22/24 11:14 Levothyroxine Sodium (Synthroid Tablet) 75 mcg QAM@0600 PO 07/22/24 06:00 07/22/24 06:26 Sodium Chloride (Saline Lock Ns) 10 ml Q8HR IV 07/22/24 06:00 07/22/24 14:09 Acetaminophen/ Hydrocodone Bitart ([place] 5/325MG Tab) 1 tab Q4HP PRN PO MODERATE PAIN (4-6 PAIN SCALE) 07/22/24 04:00 Ondansetron HCl (Zofran) 4 mg Q4HP PRN IV NAUSEA / VOMITING 07/22/24 04:00 Docusate Sodium (Colace Capsule) 100 mg BIDPRN PRN PO FOR CONSTIPATION 07/22/24 04:00 Acetaminophen (Tylenol Tablet) 650 mg Q6HP PRN PO PAIN SCALE 1-3 OR TEMP>100.4 07/22/24 04:00 Atorvastatin Calcium (Lipitor) 10 mg HS PO 07/22/24 22:00 Nitroglycerin (Ntrostat Sublingual) 0.4 mg Q5MINP PRN SL FOR CHEST PAIN 07/22/24 06:00 Morphine Sulfate 2 mg Q30M PRN IV FOR CHEST PAIN 07/22/24 06:00 Zirconium Oxide (Lokelma) 10 gm TID PO 07/22/24 15:18 07/24/24 15:17 Family History: FH: cancer FH: hepatic cirrhosis Review of Systems Shortness of breath H&P Exam Vital Signs/I&O Vital Sign Date Time Temp Pulse Resp B/P (MAP) Pulse Ox O2 Delivery O2 Flow Rate FiO2 07/22/24 15:00 80 19 146/87 (106) 07/22/24 13:00 96 07/22/24 12:44 Simple Mask* 6 50 07/22/24 09:00 98.4 98.4 Intake and Output 07/21/24 07/22/24 19:00 07:00 Intake Total 1475 ml Balance 1475 ml Intake IV Total 1475 ml Physical Exam Middle-aged male Appears in distress due to shortness of breath Audible expiratory wheezes No pitting edema Abdomen is soft Regular rate and rhythm Labs/Diagnostic Data Labs/Diagnostic Data Laboratory Tests Test 07/22/24 16:05 07/22/24 10:26 07/22/24 06:41 07/22/24 04:40 Range/Units Potassium Level 5.1 5.8 *H 3.5-5.1 mmol/L Influenza Type A Antigen Negative Negative Influenza Type B Antigen Negative Negative SARS-CoV-2 Antigen (Rapid) Negative NEGATIVE POC Glucose 154 H 70-106 mg/dl White Blood Count 3.5 #L 4.4-10.8 10^3/uL Red Blood Count 4.29 L 4.5-5.90 10^6/uL Hemoglobin 11.8 L 13.5-17.5 g/dL Hematocrit 36.3 L 41.0-53.0 % Mean Corpuscular Volume 84.6 80.0-100.0 fL Mean Corpuscular Hemoglobin 27.6 L 28.0-32.0 pg Mean Corpuscular Hemoglobin Concent 32.6 32.0-36.0 g/dL Red Cell Distribution Width 16.3 H 11.8-14.3 % Platelet Count 313 140-450 10^3/uL Mean Platelet Volume 7.7 6.9-10.8 fL Neutrophils (%) (Auto) 83.0 H 37.0-80.0 % Lymphocytes (%) (Auto) 14.6 10.0-50.0 % Monocytes (%) (Auto) 1.6 0.0-12.0 % Eosinophils (%) (Auto) 0.6 0.0-7.0 % Basophils (%) (Auto) 0.2 0.0-2.0 % Neutrophils # (Auto) 2.9 1.6-8.6 10 ^3/uL Lymphocytes # (Auto) 0.5 0.4-5.4 10 ^3/uL Monocytes # (Auto) 0.1 0-1.3 10 ^3/uL Eosinophils # (Auto) 0 0-0.8 10 ^3/uL Basophils # (Auto) 0 0-0.2 10 ^3/uL Nucleated Red Blood Cells 0.1 % Sodium Level 141 136-145 mmol/L Chloride Level 108 H 98-107 mmol/L Carbon Dioxide Level 28 20-31 mmol/L Anion Gap 5 5-15 Blood Urea Nitrogen 25 H 9-23 mg/dL Creatinine 1.91 H 0.700-1.30 mg/dL Glomerular Filtration Rate Calc 40 >90 mL/min BUN/Creatinine Ratio 13.1 10.0-20.0 Serum Glucose 143 H 74-106 mg/dL Hemoglobin A1c 6.3 H <5.7 % A1C Calcium Level 9.4 8.7-10.4 mg/dL Total Bilirubin 0.2 0.2-1.0 mg/dL Aspartate Amino Transferase (AST) 10 L 13-40 U/L Alanine Aminotransferase (ALT) 14 7-40 U/L Alkaline Phosphatase 66 46-116 U/L Total Protein 8.2 5.7-8.2 g/dL Albumin 4.3 3.2-4.8 g/dL Thyroid Stimulating Hormone (TSH) 0.31 L 0.55-4.78 uIU/mL Test 07/21/24 18:44 07/21/24 17:57 07/21/24 17:42 Range/Units Troponin I High Sensitivity 26 23 </=54 ng/L White Blood Count 8.5 4.4-10.8 10^3/uL Red Blood Count 4.35 L 4.5-5.90 10^6/uL Hemoglobin 12.0 L 13.5-17.5 g/dL Hematocrit 36.4 L 41.0-53.0 % Mean Corpuscular Volume 83.9 80.0-100.0 fL Mean Corpuscular Hemoglobin 27.6 L 28.0-32.0 pg Mean Corpuscular Hemoglobin Concent 32.9 32.0-36.0 g/dL Red Cell Distribution Width 16.3 H 11.8-14.3 % Platelet Count 345 140-450 10^3/uL Mean Platelet Volume 7.6 6.9-10.8 fL Neutrophils (%) (Auto) 37.0-80.0 % Lymphocytes (%) (Auto) 10.0-50.0 % Monocytes (%) (Auto) 0.0-12.0 % Eosinophils (%) (Auto) 0.0-7.0 % Basophils (%) (Auto) 0.0-2.0 % Neutrophils # (Auto) 1.6-8.6 10 ^3/uL Lymphocytes # (Auto) 0.4-5.4 10 ^3/uL Monocytes # (Auto) 0-1.3 10 ^3/uL Differential Total Cells Counted 100.0 100 Neutrophils % (Manual) 36 L 37.0-80.0 Band Neutrophils % (Manual) 0 Lymphocytes % (Manual) 22 10.0-50.0 Monocytes % (Manual) 3 0-12 Eosinophils % (Manual) 39 H 0-7 Basophils % (Manual) 0 0.0-2.0 Metamyelocytes % (manual) 0 Myelocytes % (Manual) 0 Promyelocytes % (Manual) 0 Blast Cells % (Manual) 0 Reactive Lymphocytes 0 Platelet Estimate Adequate Anisocytosis (manual) Slight Prothrombin Time 11.4 9.3-11.8 sec Prothrombin Time INR 1.08 0.9-1.15 Activated Partial Thromboplast Time 29.6 24.5-34.5 SEC D-Dimer, Quantitative 0.41 0.0-0.49 mg/L FEU Sodium Level 142 136-145 mmol/L Potassium Level 4.4 3.5-5.1 mmol/L Chloride Level 105 98-107 mmol/L Carbon Dioxide Level 28 20-31 mmol/L Anion Gap 9 5-15 Blood Urea Nitrogen 26 H 9-23 mg/dL Creatinine 2.00 H 0.700-1.30 mg/dL Glomerular Filtration Rate Calc 38 >90 mL/min BUN/Creatinine Ratio 13.0 10.0-20.0 Serum Glucose 146 H 74-106 mg/dL Calcium Level 9.9 8.7-10.4 mg/dL Magnesium Level 2.1 1.6-2.6 mg/dL Total Bilirubin 0.3 0.2-1.0 mg/dL Aspartate Amino Transferase (AST) 15 13-40 U/L Alanine Aminotransferase (ALT) 17 7-40 U/L Alkaline Phosphatase 73 46-116 U/L B-Type Natriuretic Peptide 18.84 0-100 pg/mL Total Protein 8.2 5.7-8.2 g/dL Albumin 4.5 3.2-4.8 g/dL POC Glucose 121 H 70-106 mg/dl Assessment Acute kidney injury on chronic kidney disease stage IIIA Hypertension Acute COPD exacerbation with possible superimposed pneumonia Hyperkalemia - likely medication induced in the setting of lisinopril and spironolactone Hypertension Increase nebulizer treatments Blood pressure control Potassium restriction Resume home blood pressure medications Avoid hypotension Patient reports at home he takes Procrit on weekly injections however currently hemoglobin is greater than 11 therefore that is contraindicated at this time. We will continue to hold Plan discussed with: Patient JOON WHITE MD Jul 22, 2024 17:37
[2024-07-22] MEDS ORDERED: SPIR25TA8 PO (18:03)
[2024-07-22] MEDS ORDERED: EPOE10004 IJ (18:03)
[2024-07-22] MEDS ORDERED: NAP500T PO (18:03)
[2024-07-22] MEDS ORDERED: MAGN400T40 PO (18:03)
[2024-07-22] MEDS: SODIUM ZIRCONIUM CYCL 10 GM PAK PO SCH (18:46)
[2024-07-22] MEDS: methylPREDNISolone SOD SUCC 40 MG/ML VL IV SCH (21:43)
[2024-07-22] MEDS: ATORVASTATIN 20 MG TAB PO SCH (21:44)
[2024-07-22] MEDS: HYDROcodone-ACET 5/325MG TAB PO PRN (21:47)
[2024-07-22] MEDS: IPRATROPIUM BROM 0.5 MG/2.5ML INH SOL NEB SCH (23:17)
[2024-07-22] MEDS: ALBUTEROL SULF 2.5 MG/0.5ML(0.5%) NEB SOLN NEB SCH (23:18)
[2024-07-23] VITALS (21 sets, daily range): BP systolic 130–152; BP diastolic 79–102; PULSE 73–94; RESP 16–20; TEMP 97.3–97.8; O2SAT 91–100
[2024-07-23] MEDS: hydrALAZINE HCL 20 MG/ML VL IV PRN (00:32)
[2024-07-23 07:53] LABS: Basophils # (auto) 0 10 ^3/uL (0-0.2); Basophils % (auto) 0.1 % (0.0-2.0); Eosinophils # (auto) 0 10 ^3/uL (0-0.8); Hematocrit 34.5 % (41.0-53.0); Hemoglobin 11.4 g/dL (13.5-17.5); Lymphocytes # (auto) 1.1 10 ^3/uL (0.4-5.4); Lymphocytes % (auto) 8.6 % (10.0-50.0); Mean Corpuscular Hemoglobin 27.9 pg (28.0-32.0); Mean Corpuscular Hgb Conc. 33.2 g/dL (32.0-36.0); Mean Corpuscular Volume 84.3 fL (80.0-100.0); Monocytes # (auto) 0.7 10 ^3/uL (0-1.3); Monocytes % (auto) 5.4 % (0.0-12.0); Neutrophils # (auto) 11.3 10 ^3/uL (1.6-8.6); Neutrophils % (auto) 85.9 % (37.0-80.0); Platelet Count (auto) 332 10^3/uL (140-450); Red Cell Distribution Width 16.1 % (11.8-14.3); White Blood Cell 13.1 10^3/uL (4.4-10.8)
--- NOTE | 2024-07-23 08:14 | DVHPN2 ---
Progress Note Date Seen: Jul 23, 2024 Medical Necessity Reason Pt with a Central, PICC or Fol: No Subjective Patient reports: Feels better Review of Systems: RESPIRATORY:Abnormal Objective vital signs Vital Sign Date Time Temp Pulse Resp B/P (MAP) Pulse Ox O2 Delivery O2 Flow Rate FiO2 07/23/24 06:38 84 16 100 07/23/24 06:33 Simple Mask* 6 50 07/23/24 05:00 97.3 130/79 (96) 97.3 Total Intake and Output 07/22/24 07/22/24 07/23/24 15:00 23:00 07:00 Intake Total 200 ml 500 ml Balance 200 ml 500 ml medications Current Medications Medications Dose Ordered Sig/Mari Route Start Time Stop Time Status Last Admin Dose Admin Amlodipine Besylate 5 mg DAILY PO 07/22/24 10:00 07/22/24 11:14 5 MG Hydralazine HCl 10 mg Q6HP PRN IV 07/22/24 04:00 07/23/24 00:32 10 MG Methylprednisolone Sodium Succinate 40 mg BID IV 07/22/24 22:00 07/22/24 21:43 40 MG Azithromycin 250 ml @ 125 mls/hr DAILY IV 07/23/24 10:00 Metoprolol Tartrate 25 mg BID PO 07/22/24 10:00 07/22/24 21:45 25 MG Levothyroxine Sodium 75 mcg QAM@0600 PO 07/22/24 06:00 07/23/24 05:08 75 MCG Sodium Chloride 10 ml Q8HR IV 07/22/24 06:00 07/23/24 05:10 10 ML Acetaminophen/ Hydrocodone Bitart 1 tab Q4HP PRN PO 07/22/24 04:00 07/22/24 21:47 1 TAB Ondansetron HCl 4 mg Q4HP PRN IV 07/22/24 04:00 Docusate Sodium 100 mg BIDPRN PRN PO 07/22/24 04:00 Acetaminophen 650 mg Q6HP PRN PO 07/22/24 04:00 Atorvastatin Calcium 10 mg HS PO 07/22/24 22:00 07/22/24 21:44 10 MG Nitroglycerin 0.4 mg Q5MINP PRN SL 07/22/24 06:00 Morphine Sulfate 2 mg Q30M PRN IV 07/22/24 06:00 Zirconium Oxide 10 gm TID PO 07/22/24 15:18 07/24/24 15:17 07/23/24 07:00 10 GM Albuterol 2.5 mg Q4HR NEB 07/22/24 22:00 07/23/24 06:33 2.5 MG Ipratropium [place] 0.5 mg Q4HR NEB 07/22/24 22:00 07/23/24 06:33 0.5 MG Examination: GENERAL:Normal, LUNGS:Abnormal laboratory and microbiology Laboratory Tests 07/23/24 06:45 Test 07/23/24 06:45 Range/Units Serum Glucose Pending Problem List/Assessment/Plan Problem List/Assessment/Plan Acute kidney injury on chronic kidney disease stage IIIA Hypertension Acute COPD exacerbation with possible superimposed pneumonia Hyperkalemia - likely medication induced in the setting of lisinopril and spironolactone Hypertension Increase nebulizer treatments Blood pressure control Potassium restriction Resume home blood pressure medications Avoid hypotension recommend outpatient followup prior to resuming aldactone and lisinopril. rec new ECHO to determine EF Patient reports at home he takes Procrit on weekly injections however currently hemoglobin is greater than 11 therefore that is contraindicated at this time. We will continue to hold Plan discussed with: Patient My Orders My Orders Orders - JOON WHITE MD Procedure Category Date Status Time Cardiac DIET 07/22/24 Transmitted Diet-2gna,Lofat,Lochol Dinner Sodium Zirconium PHA 07/22/24 In Process Cyclosilicate 15:18 JOON WHITE MD Jul 23, 2024 08:14
[2024-07-23 08:23] LABS: Alanine Aminotransferase 13 U/L (7-40); Alkaline Phosphatase 66 U/L (46-116); Anion Gap 12 (5-15); BUN/Creatinine Ratio 17.7 (10.0-20.0); Blood Urea Nitrogen 38 mg/dL (9-23); Calcium 9.7 mg/dL (8.7-10.4); Carbon Dioxide 26 mmol/L (20-31); Chloride 102 mmol/L (98-107); Glucose 136 mg/dL (74-106); Sodium 140 mmol/L (136-145); Total Protein 8.1 g/dL (5.7-8.2)
[2024-07-23 08:24] LABS: Albumin 4.2 g/dL (3.2-4.8)
[2024-07-23 08:26] LABS: Aspartate Aminotransferase 8 U/L (13-40); Bilirubin, Total 0.2 mg/dL (0.2-1.0)
[2024-07-23] MEDS: AZITHROMYCIN 500MG/ 250ML 250 ML IV SCH (10:10)
--- NOTE | 2024-07-23 14:54 | MEDREC ---
[facility] ASP Intervention Section I [facility] ASP Intervention: Review courses of therapy (Per dr. Paz's note, patient has Acute COPD exacerbation with possible superimposed pneumonia. Please consider adding Ceftriaxone to current regimen for empiric treatment) DWAYNE DAVIES Jul 23, 2024 14:54
[2024-07-23 15:00] LABS: Urine Bacteria None Seen /hpf (None Seen)
[2024-07-23 15:14] LABS: Urine Blood TRACE /uL (Negative); Urine Clarity Clear (Clear); Urine Color Colorless (Yellow); Urine Protein, UAD 1+ (Negative); Urine Specific Gravity 1.015 (1.001-1.035); Urine Squamous Epithelial Cell FEW /hpf (<5); Urine Urobilinogen Normal (Negative); Urine WBC < 1 /HPF (0-3)
[2024-07-23] MEDS: FUROSEMIDE 40 MG/4 ML VIAL IV SCH (17:48)
--- NOTE | 2024-07-23 23:03 | DVHPN2 ---
Subjective The patient is seen and examined at bedside. Complain of shortness for breath. Complain of wheezing. Reviewed: Care Plan, H&P, Labs, Medications, Previous Orders, Radiology Changes from previous H/P or p: No Changes Eyes: No Pain, No Vision change, No Conjunctivae inflammation, No Eyelid inflammation, No Other, No Redness ENT: No Ear pain, No Ear discharge, No Nose pain, No Nose discharge, No Nose congestion, No Mouth pain, No Mouth swelling, No Throat pain, No Throat swelling, No Other Cardiovascular: No Chest Pain, No Palpitations, No Orthopnea, No Paroxysmal Noc. Dyspnea, No Edema, No Lt Headedness, No Other Respiratory: Cough; No Dry; Shortness of breath; No SOB with excertion, No Wheezing, No Hemoptysis, No Pleuritic Pain, No Sputum, No Other Gastrointestinal: No Nausea, No Vomiting, No Abdominal Pain, No Diarrhea, No Constipation, No Melena, No Hematochezia, No Other Genitourinary: No Dysuria, No Frequency, No Incontinence, No Hematuria, No Retention, No Other Musculoskeletal: No other, No neck pain, No shoulder pain, No arm pain, No back pain, No hand pain, No leg pain, No foot pain Skin: No Rash, No Lesions, No Jaundice, No Bruising, No Other Objective Vitals Vital Signs Date Time Temp Pulse Resp B/P (MAP) Pulse Ox O2 Delivery O2 Flow Rate FiO2 07/23/24 22:17 97 154/87 07/23/24 21:00 97.5 18 92 97.5 07/23/24 18:32 Room Air 0.0 07/23/24 18:32 21 Intake/Output Intake and Output 07/23/24 07:00 Intake Total 700 ml Balance 700 ml Intake Oral 700 ml # Voids 1 General Appearance: Alert, Oriented X3, Cooperative, No acute distress HEENT: Atraumatic, PERRLA, EOMI, Mucous membr. moist/pink Neck: Supple Lungs: Clear to auscultation, Normal air movement Cardiovascular: Regular rate, Normal S1, Normal S2, No murmurs, Gallops, Rubs Abdomen: Normal bowel sounds, Soft, No tenderness Neuro: Cranial nerves 3-12 NL Psych/Mental Status: Mental status NL Medications Current Medications Medications Dose Ordered Sig/Mari Route Start Time Stop Time Status Last Admin Dose Admin Amlodipine Besylate 5 mg DAILY PO 07/22/24 10:00 07/23/24 10:09 5 MG Hydralazine HCl 10 mg Q6HP PRN IV 07/22/24 04:00 07/23/24 00:32 10 MG Methylprednisolone Sodium Succinate 40 mg BID IV 07/22/24 22:00 07/23/24 22:15 40 MG Azithromycin 250 ml @ 125 mls/hr DAILY IV 07/23/24 10:00 07/23/24 10:10 125 MLS/HR Metoprolol Tartrate 25 mg BID PO 07/22/24 10:00 07/23/24 22:17 25 MG Levothyroxine Sodium 75 mcg QAM@0600 PO 07/22/24 06:00 07/23/24 05:08 75 MCG Sodium Chloride 10 ml Q8HR IV 07/22/24 06:00 07/23/24 14:19 10 ML Acetaminophen/ Hydrocodone Bitart 1 tab Q4HP PRN PO 07/22/24 04:00 07/22/24 21:47 1 TAB Ondansetron HCl 4 mg Q4HP PRN IV 07/22/24 04:00 Docusate Sodium 100 mg BIDPRN PRN PO 07/22/24 04:00 Acetaminophen 650 mg Q6HP PRN PO 07/22/24 04:00 Atorvastatin Calcium 10 mg HS PO 07/22/24 22:00 07/23/24 22:19 10 MG Nitroglycerin 0.4 mg Q5MINP PRN SL 07/22/24 06:00 Morphine Sulfate 2 mg Q30M PRN IV 07/22/24 06:00 Zirconium Oxide 10 gm TID PO 07/22/24 15:18 07/24/24 15:17 07/23/24 22:15 10 GM Albuterol 2.5 mg Q4HR NEB 07/22/24 22:00 07/23/24 22:49 2.5 MG Ipratropium [place] 0.5 mg Q4HR NEB 07/22/24 22:00 07/23/24 22:49 0.5 MG Furosemide 40 mg BIDD IV 07/23/24 18:00 07/23/24 17:48 40 MG Laboratory Results Laboratory Tests 07/23/24 06:45 Chemistry Test 07/23/24 06:45 Albumin 4.2 g/dL (3.2-4.8) Calcium Level 9.7 mg/dL (8.7-10.4) Total Protein 8.1 g/dL (5.7-8.2) LFT Test 07/23/24 06:45 Alanine Aminotransferase (ALT) 13 U/L (7-40) Alkaline Phosphatase 66 U/L (46-116) Aspartate Amino Transferase (AST) 8 U/L (13-40) L Total Bilirubin 0.2 mg/dL (0.2-1.0) Urinalysis Test 07/23/24 14:29 Urine Color Colorless (Yellow) Urine Clarity Clear (Clear) Urine pH 6.0 (5.0-9.0) Urine Specific [place] 1.015 (1.001-1.035) Urine Protein 1+ (Negative) H Urine Ketones Negative (Negative) Urine Blood Trace /uL (Negative) H Urine Nitrite Negative (Negative) Urine Bilirubin Negative (Negative) Urine Urobilinogen Normal mg/dL (Negative) Urine Leukocyte Esterase Negative /uL (Negative) Urine RBC None seen /hpf (0 - 3) Urine Microscopic WBC < 1 /HPF (0-3) Urine Squamous Epithelial Cells Few /hpf (<5) Urine Bacteria None seen /hpf (None Seen) Urine Glucose 1+ mg/dL (Normal) H Labs and/or images reviewed: Labs reviewed by me Assessment/Plan Assessment/Plan Acute and chronic respiratory failure COPD exacerbation Acute renal injury Hypertensive urgency Pneumonia, possible Gram-positive bacteria pneumonia Continuing current management. Continuing with IV antibiotic Rocephin and Zithromax. Continuing with Lasix. We will monitor closely his kidney function. Continuing hypertensive medication. Continuing Solu-Medrol IV. This medical document was created using an electronic medical record system with [employer] direct computerized dictation system. Although this document has been carefully reviewed, there may still be some phonetic and typographical errors. These areas are purely typographical due to imperfections of the software programs, and do not reflect any compromise in the patient's medical care. Plan discussed with: Patient My Orders Orders - YENI ESQUIVEL MD Procedure Category Date Status Time Furosemide Injection PHA 07/23/24 In Process (Lasix Injection) 18:00 Date of Service: Jul 23, 2024 Billing Provider: YENI ESQUIVEL MD Common Visit Codes: [id number] INP/OBS CARE(HIGH) YENI ESQUIVEL MD Jul 23, 2024 23:03
[2024-07-24] VITALS (14 sets, daily range): BP systolic 132–151; BP diastolic 73–89; PULSE 79–96; RESP 18–20; TEMP 97.8–98.2; O2SAT 90–99
[2024-07-24 08:02] LABS: Chloride 99 mmol/L (98-107); Potassium 4.2 mmol/L (3.5-5.1); Sodium 138 mmol/L (136-145)
[2024-07-24 08:03] LABS: Anion Gap 11 (5-15); Carbon Dioxide 28 mmol/L (20-31)
[2024-07-24 08:04] LABS: Calcium 9.9 mg/dL (8.7-10.4)
[2024-07-24 08:09] LABS: BUN/Creatinine Ratio 20.2 (10.0-20.0)
[2024-07-24 08:12] LABS: Blood Urea Nitrogen 41 mg/dL (9-23); Glucose 174 mg/dL (74-106)
--- NOTE | 2024-07-24 12:09 | DVHPN2 ---
Progress Note Date Seen: Jul 24, 2024 Medical Necessity Reason Pt with a Central, PICC or Fol: No Subjective Patient reports: Feels better Review of Systems: RESPIRATORY:Abnormal Objective vital signs Vital Sign Date Time Temp Pulse Resp B/P (MAP) Pulse Ox O2 Delivery O2 Flow Rate FiO2 07/24/24 10:11 94 139/89 07/24/24 10:00 92 Room Air* 0 21 07/24/24 09:15 20 07/24/24 09:00 97.8 97.8 Total Intake and Output 07/23/24 07/23/24 07/24/24 15:00 23:00 07:00 Intake Total 450 ml 300 ml Balance 450 ml 300 ml medications Current Medications Medications Dose Ordered Sig/Mari Route Start Time Stop Time Status Last Admin Dose Admin Amlodipine Besylate 5 mg DAILY PO 07/22/24 10:00 07/24/24 10:11 5 MG Hydralazine HCl 10 mg Q6HP PRN IV 07/22/24 04:00 07/23/24 00:32 10 MG Methylprednisolone Sodium Succinate 40 mg BID IV 07/22/24 22:00 07/24/24 10:10 40 MG Azithromycin 250 ml @ 125 mls/hr DAILY IV 07/23/24 10:00 07/24/24 10:11 125 MLS/HR Metoprolol Tartrate 25 mg BID PO 07/22/24 10:00 07/24/24 10:11 25 MG Levothyroxine Sodium 75 mcg QAM@0600 PO 07/22/24 06:00 07/24/24 05:37 75 MCG Sodium Chloride 10 ml Q8HR IV 07/22/24 06:00 07/24/24 05:38 10 ML Acetaminophen/ Hydrocodone Bitart 1 tab Q4HP PRN PO 07/22/24 04:00 07/22/24 21:47 1 TAB Ondansetron HCl 4 mg Q4HP PRN IV 07/22/24 04:00 Docusate Sodium 100 mg BIDPRN PRN PO 07/22/24 04:00 Acetaminophen 650 mg Q6HP PRN PO 07/22/24 04:00 Atorvastatin Calcium 10 mg HS PO 07/22/24 22:00 07/23/24 22:19 10 MG Nitroglycerin 0.4 mg Q5MINP PRN SL 07/22/24 06:00 Morphine Sulfate 2 mg Q30M PRN IV 07/22/24 06:00 Zirconium Oxide 10 gm TID PO 07/22/24 15:18 07/24/24 15:17 07/24/24 05:38 10 GM Albuterol 2.5 mg Q4HR NEB 07/22/24 22:00 07/24/24 09:08 2.5 MG Ipratropium [place] 0.5 mg Q4HR NEB 07/22/24 22:00 07/24/24 09:08 0.5 MG Furosemide 40 mg BIDD IV 07/23/24 18:00 07/24/24 05:52 40 MG Examination: GENERAL:Normal, LUNGS:Abnormal laboratory and microbiology Laboratory Tests 07/24/24 06:45 07/23/24 06:45 Test 07/24/24 06:45 Range/Units Serum Glucose 174 H 74-106 mg/dL Problem List/Assessment/Plan Problem List/Assessment/Plan Acute kidney injury on chronic kidney disease stage IIIA Hypertension Acute COPD exacerbation with possible superimposed pneumonia Hyperkalemia - likely medication induced in the setting of lisinopril and spironolactone Hypertension continue neb treatments Blood pressure control improved off lisinopril and aldactone-> resume in outpatient after reassessment Potassium restriction Avoid hypotension recommend outpatient followup prior to resuming aldactone and lisinopril. rec new ECHO to determine EF Patient reports at home he takes Procrit on weekly injections however currently hemoglobin is greater than 11 therefore that is contraindicated at this time. We will continue to hold from renal standpoint he is stable to f/u in clinic, will sign off Plan discussed with: Patient JOON WHITE MD Jul 24, 2024 12:09
[2024-07-24] MEDS ORDERED: METH4PAK PO (14:58)
[2024-07-24] MEDS ORDERED: AZIT-185 PO (14:58)
--- NOTE | 2024-07-24 15:05 | DVHDS2 ---
Discharge Summary Date of Admission Jul 22, 2024 at 05:59 Date of Discharge: Jul 24, 2024 Admitting Diagnosis Acute and chronic respiratory failure COPD exacerbation Acute renal injury Hypertensive urgency Pneumonia, possible Gram-positive bacteria pneumonia Labs/Diagnostic Data: Laboratory Results Test 07/24/24 06:45 07/23/24 14:29 07/23/24 11:47 07/23/24 06:45 Sodium Level 138 mmol/L (136-145) Potassium Level 4.2 mmol/L (3.5-5.1) Chloride Level 99 mmol/L (98-107) Carbon Dioxide Level 28 mmol/L (20-31) Anion Gap 11 (5-15) Blood Urea Nitrogen 41 mg/dL (9-23) Creatinine 2.03 mg/dL (0.700-1.30) Glomerular Filtration Rate Calc 38 mL/min (>90) BUN/Creatinine Ratio 20.2 (10.0-20.0) Serum Glucose 174 mg/dL (74-106) Calcium Level 9.9 mg/dL (8.7-10.4) Urine Color Colorless (Yellow) Urine Clarity Clear (Clear) Urine pH 6.0 (5.0-9.0) Urine Specific [place] 1.015 (1.001-1.035) Urine Protein 1+ (Negative) Urine Ketones Negative (Negative) Urine Blood Trace /uL (Negative) Urine Nitrite Negative (Negative) Urine Bilirubin Negative (Negative) Urine Urobilinogen Normal mg/dL (Negative) Urine Leukocyte Esterase Negative /uL (Negative) Urine RBC None seen /hpf (0 - 3) Urine Microscopic WBC < 1 /HPF (0-3) Urine Squamous Epithelial Cells Few /hpf (<5) Urine Bacteria None seen /hpf (None Seen) Urine Glucose 1+ mg/dL (Normal) White Blood Count 13.1 10^3/uL (4.4-10.8) Red Blood Count 4.10 10^6/uL (4.5-5.90) Hemoglobin 11.4 g/dL (13.5-17.5) Hematocrit 34.5 % (41.0-53.0) Mean Corpuscular Volume 84.3 fL (80.0-100.0) Mean Corpuscular Hemoglobin 27.9 pg (28.0-32.0) Mean Corpuscular Hemoglobin Concent 33.2 g/dL (32.0-36.0) Red Cell Distribution Width 16.1 % (11.8-14.3) Platelet Count 332 10^3/uL (140-450) Mean Platelet Volume 7.8 fL (6.9-10.8) Neutrophils (%) (Auto) 85.9 % (37.0-80.0) Lymphocytes (%) (Auto) 8.6 % (10.0-50.0) Monocytes (%) (Auto) 5.4 % (0.0-12.0) Eosinophils (%) (Auto) 0.0 % (0.0-7.0) Basophils (%) (Auto) 0.1 % (0.0-2.0) Neutrophils # (Auto) 11.3 10 ^3/uL (1.6-8.6) Lymphocytes # (Auto) 1.1 10 ^3/uL (0.4-5.4) Monocytes # (Auto) 0.7 10 ^3/uL (0-1.3) Eosinophils # (Auto) 0 10 ^3/uL (0-0.8) Basophils # (Auto) 0 10 ^3/uL (0-0.2) Nucleated Red Blood Cells 0.0 % Total Bilirubin 0.2 mg/dL (0.2-1.0) Aspartate Amino Transferase (AST) 8 U/L (13-40) Alanine Aminotransferase (ALT) 13 U/L (7-40) Alkaline Phosphatase 66 U/L (46-116) Total Protein 8.1 g/dL (5.7-8.2) Albumin 4.2 g/dL (3.2-4.8) Test 07/22/24 10:26 07/22/24 06:41 07/22/24 04:40 07/21/24 18:44 Influenza Type A Antigen Negative (Negative) Influenza Type B Antigen Negative (Negative) SARS-CoV-2 Antigen (Rapid) Negative (NEGATIVE) POC Glucose 154 mg/dl (70-106) Hemoglobin A1c 6.3 % A1C (<5.7) Thyroid Stimulating Hormone (TSH) 0.31 uIU/mL (0.55-4.78) Troponin I High Sensitivity 26 ng/L (</=54) Test 07/21/24 17:57 Differential Total Cells Counted 100.0 (100) Neutrophils % (Manual) 36 (37.0-80.0) Band Neutrophils % (Manual) 0 Lymphocytes % (Manual) 22 (10.0-50.0) Monocytes % (Manual) 3 (0-12) Eosinophils % (Manual) 39 (0-7) Basophils % (Manual) 0 (0.0-2.0) Metamyelocytes % (manual) 0 Myelocytes % (Manual) 0 Promyelocytes % (Manual) 0 Blast Cells % (Manual) 0 Reactive Lymphocytes 0 Platelet Estimate Adequate Anisocytosis (manual) Slight Prothrombin Time 11.4 sec (9.3-11.8) Prothrombin Time INR 1.08 (0.9-1.15) Activated Partial Thromboplast Time 29.6 SEC (24.5-34.5) D-Dimer, Quantitative 0.41 mg/L FEU (0.0-0.49) Magnesium Level 2.1 mg/dL (1.6-2.6) B-Type Natriuretic Peptide 18.84 pg/mL (0-100) Other Laboratory Tests 07/24/24 06:45 07/23/24 06:45 Brief Hx & Hospital Course: This is a 59 years old male with past medical history congestive heart failure, COPD, hypertension come to emergency department because severe shortness for breath. The patient also had productive cough with yellow sputum and chills for two weeks. The patient was found to have pneumonia with Gram-positive bacteria. The patient was put on IV antibiotic with Rocephin 1 g IV q.day and Zithromax 500 mg IV q.day. the patient also received DuoNeb as needed. Patient does have history of COPD and this is exacerbation so we add Solu-Medrol 60 mg IV Q 8 hours. Patient subsequently doing better. Patient does receive Lasix IV in the hospital. Patient will be discharged home today. Advised the patient to follow up with primary care physician 1-2 weeks. Follow up with operational intelligence officer per schedule. Activity as tolerated. Diet per home diet. Recommend low-salt low- cholesterol diet. Physical exam: HEENT: Normocephalic atraumatic pupils equal react to light and accommodation. Extraocular muscles intact, conjunctiva pink, oropharynx moist, no thrush, no exudate. Lymphatic: No lymphadenopathy Cardiovascular exam: S1, S2 was heard. No murmurs, rubs, gallops Lung: Clear on auscultation bilaterally, no wheeze, rale, rhonchi. GI: Abdominal soft, nondistended, nontenderness, positive bowel sounds. Extremity: No crepitus, cyanosis, edema. Pedal pulses present bilateral. Full range of motion. Skin: Normal turgor, no rash. Psych: Alert, oriented x3. Neurology: No focal deficits, cranial nerve II to XII grossly intact. This medical document was created using an electronic medical record system with [employer] direct computerized dictation system. Although this document has been carefully reviewed, there may still be some phonetic and typographical errors. These areas are purely typographical due to imperfections of the software programs, and do not reflect any compromise in the patient's medical care. Condition at Discharge: Stable Final Diagnosis/Problems List Acute and chronic respiratory failure COPD exacerbation Acute renal injury Hypertensive urgency Pneumonia, possible Gram-positive bacteria pneumonia Discharge Disposition: Home Discharge Instruct/Medications Diet: Regular Activity: No Restrictions, As Tolerated Follow Up/Referral: pcp 1-2 weeks Medications: see med list zpak until finish medro dose wili until finish Discharge Statement: "Patient was advised to return to the ER or call 911 if any headaches, dizziness, shortness of breath, chest pain, abdominal pain, bleeding, fevers, or worsening of medical condition. Patient was counseled about treatment plan, medications, possible side effects, patientverbalized understanding. All questions were answered to the best of my ability. This discharge took greater then 30 minutes in planning, reviewing documentation, counseling the patient, and discussing with other team members." ASSESSMENT ASSESSMENT Assessment copd exacerbation Date of Service: Jul 24, 2024 Billing Provider: YENI ESQUIVEL MD Common Visit Codes: 06545-HER/OBS DISCH DAY >30min YENI ESQUIVEL MD Jul 24, 2024 15:05
[2024-07-25 08:07] LABS: Complement C3 152 mg/dL (82-167)
[2024-07-25 16:07] LABS: Anti-Centromere B Antibody <0.2 AI (0.0-0.9); Anti-Jo-1 Antibody <0.2 AI (0.0-0.9); Anti-Nuclear Antibody Direct Positive (Negative); Anti-dsDNA Antibody <1 IU/mL (0-9); Antichromatin Antibody <0.2 AI (0.0-0.9); Antiscleroderma-70 Antibody <0.2 AI (0.0-0.9); RNP Antibody >8.0 AI (0.0-0.9); Sjogren's Anti-SS-A Antibody <0.2 AI (0.0-0.9); Sjogren's Anti-SS-B Antibody <0.2 AI (0.0-0.9); Smith Antibody <0.2 AI (0.0-0.9)
[2024-07-25 18:07] LABS: Antimyeloperoxidase (MPO) Ab <0.2 units (0.0-0.9); Antiproteinase 3 (PR-3) Ab <0.2 units (0.0-0.9)
[2024-07-26 20:07] LABS: Cytoplasmic (C-ANCA) <1:20 titer (Neg:<1:20); Perinuclear (P-ANCA) <1:20 titer (Neg:<1:20)
== END 2024-07-24 16:02 | disposition home or self-care (01) | DRG 133 ==
LOC: ER 17:29 → OVERFLOW 07-22 05:59 → TELE-EAST 07-22 16:18
PROVIDERS: ADMIT Internal Medicine; ATTEND Internal Medicine
DX: J96.20 Acute and chronic respiratory failure, unspecified whether with hypoxia or hypercapnia (principal); J15.69 Pneumonia due to other Gram-negative bacteria; I13.0 Hypertensive heart and chronic kidney disease with heart failure and stage 1 through stage 4 chronic kidney disease, or unspecified chronic kidney disease; N17.9 Acute kidney failure, unspecified; I50.9 Heart failure, unspecified; J15.9 Unspecified bacterial pneumonia; J44.0 Chronic obstructive pulmonary disease with (acute) lower respiratory infection; J44.1 Chronic obstructive pulmonary disease with (acute) exacerbation; Z20.822 Contact with and (suspected) exposure to COVID-19; N18.31 Chronic kidney disease, stage 3a; E87.5 Hyperkalemia; I16.0 Hypertensive urgency; Z88.1 Allergy status to other antibiotic agents; Z87.891 Personal history of nicotine dependence; Z79.2 Long term (current) use of antibiotics; Z79.899 Other long term (current) drug therapy
CPT/HCPCS: 36415; 71045; 80048; 80053; 81001; 82962; 83036; 83516; 83520; 83735; 83880; 84132; 84443; 84484; 85007; 85025; 85027; 85379; 85610; 85730; 86038; 86160; 86225; 86235; 86256; 87426; 87804; 93005; 94640; 96361; 96365; G0378; J1815

== ENCOUNTER 2024-09-17 00:31 | Inpatient (IN) | payer OTHER ==
[~2024-09-17] VITALS: Ht 177.8 cm; Wt 106.9 kg
[2024-09-17] VITALS (13 sets, daily range): BP systolic 139–166; BP diastolic 93–103; PULSE 80–113; RESP 17–21; TEMP 98.5–100.2; O2SAT 88–98
[~2024-09-17 00:31] MED LIST changes: -AMLO1TAB22 PO; +AZIT-185 PO; -AZIT500T66 PO; -BENZ100C97 PO; -CHOL20TA PO; +EPOE10004 IJ; -HYDR-4902 PO; +MAGN400T40 PO; +NAP500T PO; -PRED20TA2 PO; +SPIR25TA8 PO
--- NOTE | 2024-09-17 00:53 | ED.PDOC ---
SOB-HPI HPI Comments 59-year-old male came to ER via EMS for shortness a breath. Patient does have history of hypertension and COPD. Patient has poor compliance to his medications. States for the past few hours patient has been having dry cough with shortness of breath and wheezing with chest tightness, progressively worsening. Patient was saturating 81% on room air on scene. Patient was given breathing treatments for EN route to the emergency room. Blood pressure on scene was 243/128 mmHg Chief Complaint: Shortness of Breath Time Seen by MD: 00:53 Reviewed notes: Conference Services Manager Notes Information Source: Patient, Emergency Med Personnel Mode of Arrival: EMS Severity: Moderate Timing: Hours Duration: Since onset Context: At Rest, With Light Exertion History of: COPD Prehospital treatment: Breathing Tx, Oxygen Modifying Factors: Nothing Associated Signs and Symptoms: Wheeze, Cough, Chest Pain Quality: Aching, Tightness Radiation: No Radiation Location: Chest (R), Chest (L) If cough with SOB: Non-Productive Past Medical History PAST MEDICAL HISTORY: COPD, HTN, Thyroid Surgical History: Denies all surgeries Family History Family History: Reviewed,noncontributory to illness Social History Smoker: Non-Smoker Alcohol: Denies ETOH Use Drugs: Denies Drug Use Lives In: Home Constitutional: denies: chills, diaphoresis, fatigue, fever, malaise, sweats, weakness, others EENTM: denies: blurred vision, double vision, ear bleeding, ear discharge, ear drainage, ear pain, ear ringing, eye pain, eye redness, hearing loss, mouth pain, mouth swelling, nasal discharge, nose bleeding, nose congestion, nose pain, photophobia, tearing, throat pain, throat swelling, voice changes, others Respiratory: reports: SOB at rest, shortness of breath, wheezing; denies: cough, hemoptysis, orthopnea, SOB with excertion, stridor, others Cardiovascular: reports: chest pain, diaphoresis; denies: dizzy spells, Dyspnea on exertion, edema, irregular heart beat, left arm pain, lightheadedness, palpitations, PND, syncope, others Gastrointestinal: denies: abdomen distended, abdominal pain, blood streaked bowels, constipated, diarrhea, dysphagia, difficulty swallowing, hematemesis, melena, nausea, poor appetite, poor fluid intake, rectal bleeding, rectal pain, vomiting, others Genitourinary: denies: burning, dysuria, flank pain, frequency, hematuria, incontinence, penile discharge, penile sore, pain, testicle pain, testicle swelling, urgency, others Neurological: denies: dizziness, fainting, headache, left sided numbness, left sided weakness, numbness, paresthesia, pre-existing deficit, right sided numbness, right sided weakness, seizure, speech problems, tingling, tremors, weakness, others Musculoskeletal: denies: back pain, gout, joint pain, joint swelling, muscle pain, muscle stiffness, neck pain, others Integumetry: denies: bruises, change in color, change in hair/nails, dryness, laceration, lesions, lumps, rash, wounds, others Allergic/Immunocompromised: denies: Difficulty Healing, Frequent Infections, Hives, Itching, others Hematologic/Lymphatic: denies: anemia, blood clots, easy bleeding, easy bruising, swollen glands, others Endocrine: denies: excessive hunger, excessive sweating, excessive thirst, excessive urination, flushing, intolerance to cold, intolerance to heat, unexplained weight gain, unexplained weight loss, others Psychiatric: denies: anxiety, bipolar disorder, depression, hopeless, panic disorder, schizophrenia, sleepless, suicidal, others Physical Exam General Appearance: Moderate Distress HEENT: Normal ENT Inspection, Pharynx Normal, TMs Normal Neck: Full Range of Motion, Non-Tender, Normal, Normal Inspection Respiratory: Chest Non-Tender, No Accessory Muscle Use, Respiratory Distress, Wheezing Cardiovascular: No Edema, No JVD, No Murmur, No Gallop, Normal Peripheral Pulses, Regular Rate/Rhythm Breast Exam: Deferred Gastrointestinal: No Organomegaly, Non Tender, No Pulsatile Mass, Normal Bowel Sounds, Soft Genitalia: Deferred Pelvic: Deferred Rectal: Deferred Extremities: No calf tenderness, Normal capillary refill, Normal inspection, Normal range of motion, Non-tender, No pedal edema Musculoskeletal : Apperance: Normal Neurologic: Alert, associate store manager II-XII nml as Tested, No Motor Deficits, Normal Affect, Normal Mood, No Sensory Deficits Cerebellar Function: Normal Reflexes: Normal Skin: Dry, Normal Color, Warm Lymphatic: No Adenopathy Was a procedure done? Was a procedure done?: No Differential Dx Differential Diagnosis: Asthma, Bronchitis, CHF, COPD, Myocardial infarction, Panic Attack, Pneumonia, Respiratory Distress X-Ray, Labs, Meds, VS Vital Signs Date Time Temp Pulse Resp B/P (MAP) Pulse Ox O2 Delivery O2 Flow Rate FiO2 09/17/24 03:47 105 23 161/93 (115) 97 09/17/24 03:09 105 25 174/94 09/17/24 02:47 174/101 09/17/24 02:39 102 16 168/106 09/17/24 02:38 168/108 09/17/24 01:22 207/115 09/17/24 01:17 22 96 Nasal Cannula* 5 40 09/17/24 00:41 98.2 109 20 243/148 (179) 95 98.2 09/17/24 00:37 105 Lab Test 09/17/24 02:15 09/17/24 01:13 09/17/24 01:09 Range/Units Troponin I High Sensitivity 27 26 </=54 ng/L White Blood Count 8.5 4.4-10.8 10^3/uL Red Blood Count 4.68 4.5-5.90 10^6/uL Hemoglobin 12.7 L 13.5-17.5 g/dL Hematocrit 38.6 L 41.0-53.0 % Mean Corpuscular Volume 82.4 80.0-100.0 fL Mean Corpuscular Hemoglobin 27.0 L 28.0-32.0 pg Mean Corpuscular Hemoglobin Concent 32.8 32.0-36.0 g/dL Red Cell Distribution Width 16.3 H 11.8-14.3 % Platelet Count 226 140-450 10^3/uL Mean Platelet Volume 7.5 6.9-10.8 fL Neutrophils (%) (Auto) 79.0 37.0-80.0 % Lymphocytes (%) (Auto) 8.9 L 10.0-50.0 % Monocytes (%) (Auto) 5.8 0.0-12.0 % Eosinophils (%) (Auto) 6.1 0.0-7.0 % Basophils (%) (Auto) 0.2 0.0-2.0 % Neutrophils # (Auto) 6.7 1.6-8.6 10 ^3/uL Lymphocytes # (Auto) 0.8 0.4-5.4 10 ^3/uL Monocytes # (Auto) 0.5 0-1.3 10 ^3/uL Eosinophils # (Auto) 0.5 0-0.8 10 ^3/uL Basophils # (Auto) 0 0-0.2 10 ^3/uL Nucleated Red Blood Cells 0.1 % Prothrombin Time 10.9 9.3-11.8 sec Prothrombin Time INR 1.03 0.9-1.15 Activated Partial Thromboplast Time 30.2 24.5-34.5 SEC Sodium Level 136 136-145 mmol/L Potassium Level 3.6 3.5-5.1 mmol/L Chloride Level 103 98-107 mmol/L Carbon Dioxide Level 22 20-31 mmol/L Anion Gap 11 5-15 Blood Urea Nitrogen 16 9-23 mg/dL Creatinine 1.87 H 0.700-1.30 mg/dL Glomerular Filtration Rate Calc 41 >90 mL/min BUN/Creatinine Ratio 8.6 L 10.0-20.0 Serum Glucose 153 H 74-106 mg/dL Calcium Level 8.7 8.7-10.4 mg/dL Magnesium Level 3.6 H 1.6-2.6 mg/dL Total Bilirubin 0.5 0.2-1.0 mg/dL Aspartate Amino Transferase (AST) 16 13-40 U/L Alanine Aminotransferase (ALT) 16 7-40 U/L Alkaline Phosphatase 63 46-116 U/L B-Type Natriuretic Peptide 72.60 0-100 pg/mL Total Protein 7.8 5.7-8.2 g/dL Albumin 4.5 3.2-4.8 g/dL Blood Gas Specimen Type Venous Blood Gas Sample Site Other Blood Gas Patient Temperature 37.0 Arterial Blood Date Drawn [id number] Melvin Test N/a Venous Blood pH 7.300 L 7.320-7.430 Venous Blood pCO2 at Patient Temp 44.2 38.0-54.0 mmHg Venous Blood pO2 at Patient Temp 81.1 H 23.0-48.0 mmHg Venous Blood HCO3 21.3 L 22.0-29.0 mmol/L Venous Blood Base Excess -5.1 L -2.0-3.0 mmol/L Blood Gas Liter Flow 5.00 Blood Gas Modality Nasal cannula FiO2 % 40.0 Blood Gas Comments Vbg Current Medications Medications (Trade) Dose Ordered Sig/Mari Route Start Time Stop Time Status Last Admin Methylprednisolone Sodium Succinate (Solu Medrol) 125 mg ONCE ONCE IV 09/17/24 00:45 09/17/24 00:48 DC 09/17/24 01:22 Albuterol (Ventolin Medneb) 5 mg ONCE ONCE NEB 09/17/24 00:45 09/17/24 00:48 DC 09/17/24 01:17 Ipratropium [place] (Atrovent Medneb) 0.5 mg ONCE ONCE NEB 09/17/24 00:45 09/17/24 00:48 DC 09/17/24 01:17 Hydralazine HCl (Apresoline Injection) 20 mg ONCE ONCE IV 09/17/24 00:45 09/17/24 00:48 DC 09/17/24 01:22 Morphine Sulfate 4 mg ONCE ONCE IV 09/17/24 02:15 09/17/24 02:16 DC 09/17/24 02:39 Ondansetron HCl (Zofran) 4 mg ONCE ONCE IV 09/17/24 02:15 09/17/24 02:16 DC 09/17/24 02:30 Hydralazine HCl (Apresoline Injection) 10 mg ONCE ONCE IV 09/17/24 02:45 09/17/24 02:46 DC 09/17/24 02:47 Time of 1ST Reevaluation: 00:48 Reevaluation 1ST: Unchanged Patient Education/Counseling: Diagnosis, Treatment Family Education/Counseling: No Family Present Departure 1 Departure Time of Disposition: 04:39 Impression: Primary Impression: Acute respiratory failure Additional Impression: COPD exacerbation Disposition: ADMITTED INPATIENT Admit to: Med Surg Condition: Guarded Discharged With: Self Comments Shortness of Breath - COPD Exacerbation Chief Complaint: Shortness of breath History of Present Illness: 59-year-old male with a history of COPD and hypertension presents with shortness of breath for the last two days. Per EMS report, patient was found to have oxygen saturation of 85% on room air at home. He was placed on supplemental oxygen via nasal cannula at 4L/min with improvement in oxygen saturation to mid- 90s. Patient demonstrates bilateral wheezing on examination and continues to show signs of mild respiratory distress despite initial treatment. Review of Systems: Respiratory: Positive for shortness of breath and wheezing All other systems reviewed and negative Past Medical History: 1. Chronic Obstructive Pulmonary Disease (COPD) 2. Hypertension Vital Signs: O2 Saturation: 85% on room air at home O2 Saturation: Mid-90s on 4L NC in ED Physical Exam: Respiratory: - Bilateral wheezing noted on auscultation - Mild respiratory distress present Lab Results: Chemistry Panel: - Creatinine: 1.87 (Elevated) - Otherwise unremarkable Cardiac Markers: - Troponin: 26 (Normal) - BNP: 73 (Normal) Imaging and Other Relevant Results: Chest X-ray: - Interstitial prominence noted - Findings may be related to reactive airway disease - Possible early CHF changes, though less likely given normal BNP Medical Decision Making: Summary Statement: 59-year-old male with history of COPD presenting with acute shortness of breath and hypoxia, requiring supplemental oxygen. Problem List: 1. COPD exacerbation 2. Hypoxic respiratory failure 3. Renal insufficiency Differential Diagnosis: 1. COPD exacerbation 2. Pneumonia 3. Congestive heart failure 4. Acute bronchitis 5. Pulmonary embolism ED Course: Patient received bronchodilator nebulizer treatment, magnesium, and Solu-Medrol with partial improvement. Continues to require supplemental oxygen. Decision made to admit for ongoing management of COPD exacerbation and hypoxic respiratory failure. Assessment and Plan: 1. COPD Exacerbation with Hypoxic Respiratory Failure: - Admit to hospital for continued management - Continue bronchodilator treatments - Continue systemic steroids - Supplemental oxygen via nasal cannula to maintain O2 saturation >92% 2. Renal Insufficiency: - Monitor renal function - Adjust medications as needed based on renal function - Further workup as inpatient Billing Information: ICD-10: J44.1 - COPD with acute exacerbation ICD-10: J96.01 - Acute respiratory failure with hypoxia ICD-10: N18.9 - Chronic kidney disease, unspecified Critical Care Note Critical Care Time?: Yes (35 min-critical care time only) Critical care comment: Shortness of breath, hypoxemia Total critical care time: Approximately 36 minutes Due to a high probability of clinically significant, life threatening deterioration, the patient required my highest level of preparedness to intervene emergently and I personally spent this critical care time directly and personally managing the patient. This critical care time included obtaining a history; examining the patient; pulse oximetry; ordering and review of studies; arranging urgent treatment with development of a management plan; evaluation of patient's response to treatment; frequent reassessment; and, discussions with other providers. This critical care time was performed to assess and manage the high probability of imminent, life-threatening deterioration that could result in multi-organ failure. It was exclusive of separately billable procedures and treating other patients. Stability Stability form required: No Heart Score Heart Score: Heart Score Response (Comments) Value History N/A 0 EKG N/A 0 Age N/A 0 Risk Factors N/A 0 Troponin N/A 0 Total 0 I personally scribed for MICHELLE ALDRIDGE MD ([email or web address]) on 09/17/24 at 00:53. Electronically submitted by Amaury Silveira ([email or web address]). MICHELLE ALDRIDGE MD September 17, 2024 00:53
[2024-09-17] MEDS: IPRATROPIUM BROM 0.5 MG/2.5ML INH SOL NEB ONE (01:17)
[2024-09-17] MEDS: ALBUTEROL SULF 2.5 MG/0.5ML(0.5%) NEB SOLN NEB ONE (01:17)
[2024-09-17] MEDS: methylPREDNISolone SOD SUCC 125 MG/2 ML VL IV ONE (01:22)
[2024-09-17] MEDS: hydrALAZINE HCL 20 MG/ML VL IV ONE ×3 (01:22→02:47)
[2024-09-17 01:29] LABS: Basophils # (auto) 0 10 ^3/uL (0-0.2); Basophils % (auto) 0.2 % (0.0-2.0); Eosinophils # (auto) 0.5 10 ^3/uL (0-0.8); Eosinophils % (auto) 6.1 % (0.0-7.0); Hematocrit 38.6 % (41.0-53.0); Hemoglobin 12.7 g/dL (13.5-17.5); Lymphocytes # (auto) 0.8 10 ^3/uL (0.4-5.4); Lymphocytes % (auto) 8.9 % (10.0-50.0); Mean Corpuscular Hgb Conc. 32.8 g/dL (32.0-36.0); Mean Corpuscular Volume 82.4 fL (80.0-100.0); Monocytes # (auto) 0.5 10 ^3/uL (0-1.3); Monocytes % (auto) 5.8 % (0.0-12.0); Neutrophils # (auto) 6.7 10 ^3/uL (1.6-8.6); Nucleated Red Blood Cells % 0.1 %; Platelet Count (auto) 226 10^3/uL (140-450); Red Blood Cells 4.68 10^6/uL (4.5-5.90); Red Cell Distribution Width 16.3 % (11.8-14.3); White Blood Cell 8.5 10^3/uL (4.4-10.8)
[2024-09-17 01:45] LABS: INR 1.03 (0.9-1.15); Partial Thromboplastin Time 30.2 SEC (24.5-34.5); Prothrombin Time 10.9 sec (9.3-11.8)
[2024-09-17 01:49] LABS: Alanine Aminotransferase 16 U/L (7-40); Albumin 4.5 g/dL (3.2-4.8); Alkaline Phosphatase 63 U/L (46-116); Anion Gap 11 (5-15); Aspartate Aminotransferase 16 U/L (13-40); BUN/Creatinine Ratio 8.6 (10.0-20.0); Blood Urea Nitrogen 16 mg/dL (9-23); Carbon Dioxide 22 mmol/L (20-31); Chloride 103 mmol/L (98-107); Potassium 3.6 mmol/L (3.5-5.1); Total Protein 7.8 g/dL (5.7-8.2)
[2024-09-17 01:50] LABS: Bilirubin, Total 0.5 mg/dL (0.2-1.0)
[2024-09-17 01:52] LABS: Calcium 8.7 mg/dL (8.7-10.4); Glucose 153 mg/dL (74-106); Magnesium 3.6 mg/dL (1.6-2.6); Sodium 136 mmol/L (136-145)
[2024-09-17] MEDS: ONDANSETRON HCL 4 MG/2 ML VIAL IV ONE (02:30)
[2024-09-17] MEDS: MORPHINE SULFATE 4 MG/ML SYR/VIAL IV ONE (02:39)
--- NOTE | 2024-09-17 04:15 | DVH ---
EXAM: XY CHEST PORTABLE HISTORY: SOB COMPARISON: XY CHEST PORTABLE on DOS: 07/21/24, XY CHEST PORTABLE on DOS: 04/18/24 TECHNIQUE: Portable AP view of the chest was performed. FINDINGS: No pneumothorax or consolidative infiltrates. There is central interstitial prominence, slightly gr eater on the right. The heart is not enlarged. IMPRESSION: Mild central interstitial prominence may be due to reactive airways disease or mild CHF.
[2024-09-17] MEDS ORDERED: DOCUSATE SOD 100 MG CAP PO PRN (05:15)
[2024-09-17] MEDS ORDERED: ONDANSETRON HCL 4 MG/2 ML VIAL IV PRN (05:15)
--- NOTE | 2024-09-17 05:20 | DVHHP2 ---
History of Present Illness Reason for Visit: COPD with acute exacerbation History of Present Illness The patient is a 59-year-old male with past medical history of thyroid disease, hypertension, hyperlipidemia, COPD who presented to [facility] ED with complaint of shortness of breaths. Patient reports symptoms progressively get worse with wheezing, dry cough with yellow sputum, increased work of breathing, chest tightness, getting worse that prompted this visit. Patient was seen and evaluated in the ED, laboratory data shows WBC 8.5, platelets 225, sodium 136, potassium 3.6, BUN 16, creatinine 1.87, GFR 41, glucose 153, magnesium 3.6, BNP 72.60, troponin 26, blood pressure 243/148 trending down to 161/93, heart rate 105, temperature 98.2 F, O2 saturation 95% on oxygen. Chest x-ray revealing mild central interstitial prominence may be due to reactive airways disease or mild CHF. Patient was started on IV antibiotic regimen azithromycin, given breathing treatment, please see medication orders section in the computer. On my assessment, patient denies chest pain, no headache, no dizziness, no diaphoresis, currently on oxygen, no nausea, no vomiting, no fever, no chills. Patient was admitted for further evaluation and medical management. Past Medical History COPD, HTN, Thyroid, HLD Past Surgical History Denies all surgeries Family History Reviewed, noncontributory to the management of this case. Past Social History The patient lives at home, denies smoking, alcohol or illicit drugs abuse. Review of Systems Constitutional: No: Fever, Chills, Sweats, Weakness, Malaise, Other Eyes: No: Pain, Vision change, Conjunctivae inflammation, Eyelid inflammation, Other, Redness ENT: No: Ear pain, Ear discharge, Nose pain, Nose discharge, Nose congestion, Mouth pain, Mouth swelling, Throat pain, Throat swelling, Other Respiratory: Cough, Shortness of breath, Wheezing, Other (SOB at rest); No: Dry, SOB with excertion, Hemoptysis, Pleuritic Pain, Sputum, Wheezing Cardiovascular: Other (Chest tightness, diaphoresis); No: Chest Pain, Palpitations, Orthopnea, Paroxysmal Noc. Dyspnea, Edema, Lt Headedness Gastrointestinal: No: Nausea, Vomiting, Abdominal Pain, Diarrhea, Constipation, Melena, Hematochezia, Other Genitourinary: No Dysuria, No Frequency, No Incontinence, No Hematuria, No Retention, No Other Musculoskeletal: No: other, neck pain, shoulder pain, arm pain, back pain, hand pain, leg pain, foot pain Skin: No: Rash, Lesions, Jaundice, Bruising, Other Neurological: No: Weakness, Numbness, Incoordination, Change in speech, Confusion, Seizures, Other Allergies: Coded Allergies: Tetracycline (Verified Allergy, Unknown, 04/19/24) Medications Current Medications Medications Dose Ordered Sig/Mari Route Start Time Stop Time Status Last Admin Dose Admin Methylprednisolone Sodium Succinate 40 mg Q8HR IV 09/17/24 06:00 UNV Atorvastatin Calcium 20 mg HS PO 09/17/24 22:00 UNV Hydralazine HCl 10 mg Q6HP PRN IV 09/17/24 05:15 UNV Amlodipine Besylate 5 mg DAILY PO 09/17/24 10:00 UNV Albuterol 2.5 mg Q4HPRN PRN NEB 09/17/24 05:15 UNV Ipratropium [place] 0.5 mg Q4HPRN PRN NEB 09/17/24 05:15 UNV Levothyroxine Sodium 25 mcg QAM@0600 PO 09/17/24 06:00 UNV Sodium Chloride 1,000 ml @ 60 mls/hr [id number] IV 09/17/24 05:15 UNV Acetaminophen/ Hydrocodone Bitart 1 tab Q4HP PRN PO 09/17/24 05:15 UNV Ondansetron HCl 4 mg Q4HP PRN IV 09/17/24 05:15 UNV Docusate Sodium 100 mg BIDPRN PRN PO 09/17/24 05:15 UNV Acetaminophen 650 mg Q6HP PRN PO 09/17/24 05:15 UNV Exam Vital Signs Vital Signs Date Time Temp Pulse Resp B/P (MAP) Pulse Ox O2 Delivery O2 Flow Rate FiO2 09/17/24 03:47 105 23 161/93 (115) 97 09/17/24 01:17 Nasal Cannula* 5 40 09/17/24 00:41 98.2 98.2 General Appearance: Alert, Oriented X3, Cooperative, No acute distress HEENT: Atraumatic, PERRLA, EOMI, Mucous membr. moist/pink Respiratory: Normal air movement, Other (Wheezing) Cardiovascular: Regular rate, Normal S1, Normal S2, No murmurs Abdominal: Normal bowel sounds, Soft, No tenderness, No hepatospenomegaly, No masses Extremities: No clubbing, No cyanosis, No edema, Normal pulses, No tenderness/swelling Skin: No rashes, No breakdown, No significant lesion Neuro: Normal speech, Normal tone, Sensation intact, Cranial nerves 3-12 NL, Reflexes 2+, Other (Generalized weakness) Psych/Mental Status: Mental status NL, Mood NL Labs/Xrays Labs Test 09/17/24 02:15 09/17/24 01:13 09/17/24 01:09 Range/Units Troponin I High Sensitivity 27 </=54 ng/L White Blood Count 8.5 4.4-10.8 10^3/uL Red Blood Count 4.68 4.5-5.90 10^6/uL Hemoglobin 12.7 L 13.5-17.5 g/dL Hematocrit 38.6 L 41.0-53.0 % Mean Corpuscular Volume 82.4 80.0-100.0 fL Mean Corpuscular Hemoglobin 27.0 L 28.0-32.0 pg Mean Corpuscular Hemoglobin Concent 32.8 32.0-36.0 g/dL Red Cell Distribution Width 16.3 H 11.8-14.3 % Platelet Count 226 140-450 10^3/uL Mean Platelet Volume 7.5 6.9-10.8 fL Neutrophils (%) (Auto) 79.0 37.0-80.0 % Lymphocytes (%) (Auto) 8.9 L 10.0-50.0 % Monocytes (%) (Auto) 5.8 0.0-12.0 % Eosinophils (%) (Auto) 6.1 0.0-7.0 % Basophils (%) (Auto) 0.2 0.0-2.0 % Neutrophils # (Auto) 6.7 1.6-8.6 10 ^3/uL Lymphocytes # (Auto) 0.8 0.4-5.4 10 ^3/uL Monocytes # (Auto) 0.5 0-1.3 10 ^3/uL Eosinophils # (Auto) 0.5 0-0.8 10 ^3/uL Basophils # (Auto) 0 0-0.2 10 ^3/uL Nucleated Red Blood Cells 0.1 % Prothrombin Time 10.9 9.3-11.8 sec Prothrombin Time INR 1.03 0.9-1.15 Activated Partial Thromboplast Time 30.2 24.5-34.5 SEC Sodium Level 136 136-145 mmol/L Potassium Level 3.6 3.5-5.1 mmol/L Chloride Level 103 98-107 mmol/L Carbon Dioxide Level 22 20-31 mmol/L Anion Gap 11 5-15 Blood Urea Nitrogen 16 9-23 mg/dL Creatinine 1.87 H 0.700-1.30 mg/dL Glomerular Filtration Rate Calc 41 >90 mL/min BUN/Creatinine Ratio 8.6 L 10.0-20.0 Serum Glucose 153 H 74-106 mg/dL Calcium Level 8.7 8.7-10.4 mg/dL Magnesium Level 3.6 H 1.6-2.6 mg/dL Total Bilirubin 0.5 0.2-1.0 mg/dL Aspartate Amino Transferase (AST) 16 13-40 U/L Alanine Aminotransferase (ALT) 16 7-40 U/L Alkaline Phosphatase 63 46-116 U/L B-Type Natriuretic Peptide 72.60 0-100 pg/mL Total Protein 7.8 5.7-8.2 g/dL Albumin 4.5 3.2-4.8 g/dL Blood Gas Specimen Type Venous Blood Gas Sample Site Other Blood Gas Patient Temperature 37.0 Arterial Blood Date Drawn [id number] Melvin Test N/a Venous Blood pH 7.300 L 7.320-7.430 Venous Blood pCO2 at Patient Temp 44.2 38.0-54.0 mmHg Venous Blood pO2 at Patient Temp 81.1 H 23.0-48.0 mmHg Venous Blood HCO3 21.3 L 22.0-29.0 mmol/L Venous Blood Base Excess -5.1 L -2.0-3.0 mmol/L Blood Gas Liter Flow 5.00 Blood Gas Modality Nasal cannula FiO2 % 40.0 Blood Gas Comments Vbg PATIENT: YANY RODNEY MACCT: [id number] UNIT: [id number] : 1965 LOC: ER ROOM / BED: / AGE / SEX: 59 / M ADM STATUS: REG ER SERVICE 0044 ORDERING PHYSICIAN: MICHELLE ALDRIDGE MD PROCEDURE(s): CXRP - CHEST PORTABLE REASON: SOB ORDER NUMBER(s): [id number], ACCESSION NUMBER(s): [id number] EXAM: XY CHEST PORTABLE HISTORY: SOB COMPARISON: XY CHEST PORTABLE on DOS: 07/21/24, XY CHEST PORTABLE on DOS: 04/18/24 TECHNIQUE: Portable AP view of the chest was performed. FINDINGS: No pneumothorax or consolidative infiltrates. There is central interstitial prominence, slightly greater on the right. The heart is not enlarged. IMPRESSION: Mild central interstitial prominence may be due to reactive airways disease or mild CHF. Assessment/Plan Assessment/Plan Acute respiratory failure Acute renal injury Hypertensive urgency Pneumonia, unspecified organism COPD with acute exacerbation Plan 1. Admit to telemetry units 2. Breathing treatment 3. Pain control management 4. IV antibiotic management 5. Management of fluids and electrolytes 6. Consultation for hospitalist 7. Diagnostic test chest x-ray 8. DVT prophylaxis-on SCDs 9. Repeat labs CBC, CMP in a.m. 10. Home medication reviewed and reconciled 11. Continue with current medical management 12. Treatment plan discussed with patient and RN. Patient verbalized understanding. Plan discussed with: Patient, Other (RN) My Orders Orders - JAMSHID SEXTON DNP Procedure Category Date Status Time Complete Blood Count LAB 09/17/24 Logged 05:01 Comprehensive LAB 09/17/24 Logged Metabolic Panel 05:01 Methylprednisolone PHA 09/17/24 Logged Sod Succ (Solu Medrol 06:00 Atorvastatin (Lipitor) PHA 09/17/24 Logged 22:00 Hydralazine Injection PHA 09/17/24 Logged (Apresoline Inject 05:15 Amlodipine Tablet PHA 09/17/24 Logged (Norvasc Tablet) 10:00 Amlodipine Tablet PHA 09/17/24 Logged (Norvasc Tablet) 05:15 Albuterol Medneb PHA 09/17/24 Logged (Ventolin Medneb) 05:15 Ipratropium Med[place] PHA 09/17/24 Logged (Atrovent Medneb) 05:15 Levothyroxine Tablet PHA 09/17/24 Logged (Synthroid Tablet) 06:00 Thyroid Stimulating LAB 09/17/24 Logged Hormone 05:01 Allergies ANGEL 09/17/24 In Process 05:01 Code Status CODE 09/17/24 Transmitted 05:01 Sodium Chloride 0.9% PHA 09/17/24 Logged 05:15 Oxygen Per Hour RT 09/17/24 Transmitted 05:01 Hydrocodone-Acet PHA 09/17/24 Logged 5/325mg Tab ([place] 05:15 Ondansetron Hcl PHA 09/17/24 Logged (Zofran) 05:15 Docusate Sodium PHA 09/17/24 Logged Capsule (Colace 05:15 Complete Blood Count LAB 09/18/24 Verified 04:00 Comprehensive LAB 09/18/24 Verified Metabolic Panel 04:00 Cardiac DIET 09/17/24 Transmitted Diet-2gna,Lofat,Lochol Breakfast Condition: Serious ANGEL 09/17/24 In Process 05:01 Acetaminophen Tablet PHA 09/17/24 Logged (Tylenol Tablet) 05:15 Bedrest With Bathroom ANGEL 09/17/24 In Process Privileg 05:01 Sequential [facility] 09/17/24 In Process Compression Device Admit ADMIT 09/17/24 Verified 05:18 Nitroglycerin [facility] 09/17/24 Verified Sublingual (Ntrostat 05:30 Morphine Sulfate [facility] 09/17/24 Verified Injection 05:30 Stat Ekg For Chest [facility] 09/17/24 Verified Pain 05:18 Notify Md Of Changes [facility] 09/17/24 Verified From Base 05:18 Home Office Claims Examiner For [facility] 09/17/24 Verified 24 Hours 05:18 Emergency Dysrhythmia [facility] 09/17/24 Verified Protocol 05:18 Rhythm Strips Once [facility] 09/17/24 Verified Every Shift 05:18 Oxygen By Nasal RT 09/17/24 Verified Cannula 05:18 Famotidine Injection [facility] 09/17/24 Verified (Pepcid Injection) 10:00 Problem List: (1) COPD with acute exacerbation (2) Acute respiratory failure (3) Hypertensive urgency (4) Acute renal injury (5) Pneumonia, unspecified organism Date of Service: September 17, 2024 Billing Provider: JAMSHID SEXTON DNP Common Visit Codes: [id number] INP/OBS CARE (HIGH) JAMSHID SEXTON DNP September 17, 2024 05:20
[2024-09-17] MEDS ORDERED: NITROGLYCERIN 0.4 MG SL TAB SL PRN (05:30)
[2024-09-17] MEDS ORDERED: MORPHINE SULFATE INJ 2 MG/ml SYRG IV PRN (05:30)
[2024-09-17 05:34] LABS: Urine Bacteria None Seen /hpf (None Seen)
[2024-09-17 05:42] LABS: Basophils # (auto) 0 10 ^3/uL (0-0.2); Basophils % (auto) 0.2 % (0.0-2.0); Eosinophils # (auto) 0 10 ^3/uL (0-0.8); Eosinophils % (auto) 0.5 % (0.0-7.0); Hematocrit 39.9 % (41.0-53.0); Hemoglobin 13.2 g/dL (13.5-17.5); Lymphocytes # (auto) 0.3 10 ^3/uL (0.4-5.4); Lymphocytes % (auto) 3.1 % (10.0-50.0); Mean Corpuscular Hemoglobin 27.3 pg (28.0-32.0); Mean Corpuscular Hgb Conc. 33.2 g/dL (32.0-36.0); Mean Corpuscular Volume 82.5 fL (80.0-100.0); Monocytes # (auto) 0.2 10 ^3/uL (0-1.3); Neutrophils # (auto) 7.8 10 ^3/uL (1.6-8.6); Neutrophils % (auto) 94.2 % (37.0-80.0); Nucleated Red Blood Cells % 0.1 %; Platelet Count (auto) 240 10^3/uL (140-450); Red Blood Cells 4.83 10^6/uL (4.5-5.90); Red Cell Distribution Width 16.7 % (11.8-14.3); White Blood Cell 8.2 10^3/uL (4.4-10.8)
[2024-09-17 05:47] LABS: Urine Blood 1+ /uL (Negative); Urine Clarity Clear (Clear); Urine Color Light-Yellow (Yellow); Urine Protein, UAD 3+ (Negative); Urine Specific Gravity 1.016 (1.001-1.035); Urine Squamous Epithelial Cell None Seen /hpf (<5); Urine Urobilinogen Normal (Negative); Urine WBC 3 /HPF (0-3)
[2024-09-17 06:01] LABS: Alanine Aminotransferase 17 U/L (7-40); Albumin 4.6 g/dL (3.2-4.8); Alkaline Phosphatase 69 U/L (46-116); Anion Gap 11 (5-15); Aspartate Aminotransferase 22 U/L (13-40); BUN/Creatinine Ratio 9.1 (10.0-20.0); Blood Urea Nitrogen 17 mg/dL (9-23); Calcium 9.4 mg/dL (8.7-10.4); Carbon Dioxide 22 mmol/L (20-31); Chloride 103 mmol/L (98-107); Potassium 4.2 mmol/L (3.5-5.1); Total Protein 8.1 g/dL (5.7-8.2)
[2024-09-17 06:02] LABS: Bilirubin, Total 0.5 mg/dL (0.2-1.0); Glucose 145 mg/dL (74-106); Sodium 136 mmol/L (136-145)
[2024-09-17] MEDS: LEVOTHYROXINE SODIUM 25 MCG TAB PO SCH (06:23)
[2024-09-17] MEDS: amLODIPine BESYLATE 5 MG TAB PO ONE (06:24)
[2024-09-17] MEDS: SODIUM CHLORIDE 0.9% 1,000 ML IV SCH (06:28)
[2024-09-17] MEDS: IPRATROPIUM BROM 0.5 MG/2.5ML INH SOL NEB PRN (06:40)
[2024-09-17] MEDS: ALBUTEROL SULF 2.5 MG/0.5ML(0.5%) NEB SOLN NEB PRN (06:40)
[2024-09-17] MEDS: AZITHROMYCIN 500MG/ 250ML 250 ML IV ONE (06:50)
[2024-09-17] MEDS: hydrALAZINE HCL 20 MG/ML VL IV PRN (08:33)
[2024-09-17] MEDS: methylPREDNISolone SOD SUCC 40 MG/ML VL IV SCH (09:19)
[2024-09-17] MEDS: FAMOTIDINE (10MG/ML) 2ML VL IV SCH (10:00)
[2024-09-17] MEDS: ACETAMINOPHEN 325 MG TAB PO PRN (10:04)
[2024-09-17 15:58] LABS: COVID19 ANTIGEN SOFIA FIA NEGATIVE (NEGATIVE)
[2024-09-17 15:59] LABS: Rapid Influenza A Negative (Negative); Rapid Influenza B Negative (Negative)
[2024-09-17] MEDS: ATORVASTATIN 20 MG TAB PO SCH (21:55)
[2024-09-17] MEDS: HYDROcodone-ACET 5/325MG TAB PO PRN (22:04)
[2024-09-17] MEDS: ALBUTEROL SULF 2.5 MG/0.5ML(0.5%) NEB SOLN NEB SCH (22:21)
[2024-09-17] MEDS: IPRATROPIUM BROM 0.5 MG/2.5ML INH SOL NEB SCH (22:21)
[2024-09-18] VITALS (18 sets, daily range): BP systolic 126–153; BP diastolic 78–94; PULSE 90–108; RESP 16–21; TEMP 97.8–98.7; O2SAT 94–100
[2024-09-18 07:17] LABS: Basophils # (auto) 0 10 ^3/uL (0-0.2); Basophils % (auto) 0.1 % (0.0-2.0); Eosinophils # (auto) 0 10 ^3/uL (0-0.8); Hematocrit 40.3 % (41.0-53.0); Hemoglobin 13.3 g/dL (13.5-17.5); Lymphocytes # (auto) 0.6 10 ^3/uL (0.4-5.4); Lymphocytes % (auto) 6.5 % (10.0-50.0); Mean Corpuscular Hemoglobin 27.7 pg (28.0-32.0); Mean Corpuscular Hgb Conc. 33.1 g/dL (32.0-36.0); Mean Corpuscular Volume 83.6 fL (80.0-100.0); Monocytes # (auto) 0.5 10 ^3/uL (0-1.3); Monocytes % (auto) 5.5 % (0.0-12.0); Neutrophils # (auto) 8.1 10 ^3/uL (1.6-8.6); Neutrophils % (auto) 87.9 % (37.0-80.0); Platelet Count (auto) 258 10^3/uL (140-450); Red Blood Cells 4.82 10^6/uL (4.5-5.90); Red Cell Distribution Width 17.4 % (11.8-14.3); White Blood Cell 9.2 10^3/uL (4.4-10.8)
[2024-09-18 07:39] LABS: Alanine Aminotransferase 15 U/L (7-40); Albumin 4.5 g/dL (3.2-4.8); Alkaline Phosphatase 59 U/L (46-116); Anion Gap 10 (5-15); Calcium 9.5 mg/dL (8.7-10.4); Carbon Dioxide 24 mmol/L (20-31); Chloride 104 mmol/L (98-107); Sodium 138 mmol/L (136-145)
[2024-09-18 07:40] LABS: Bilirubin, Total 0.3 mg/dL (0.2-1.0)
[2024-09-18 07:47] LABS: Aspartate Aminotransferase 11 U/L (13-40); Blood Urea Nitrogen 30 mg/dL (9-23); Glucose 158 mg/dL (74-106)
[2024-09-18] MEDS: amLODIPine BESYLATE 5 MG TAB PO SCH (09:26)
[2024-09-18] MEDS: AZITHROMYCIN 500MG/ 250ML 250 ML IV SCH (09:26)
--- NOTE | 2024-09-18 17:44 | DVHPN2 ---
Subjective I am assuming the care of the patient from today onwards. Patient is here for acute hypoxic respiratory failure with underlying chronic respiratory failure secondary to COPD exacerbation and possibly suspected pneumonia. Patient is still complaining of lot of phlegm. Changes from previous H/P or p: No Changes Eyes: No Pain, No Vision change, No Conjunctivae inflammation, No Eyelid inflammation, No Other, No Redness ENT: No Ear pain, No Ear discharge, No Nose pain, No Nose discharge, No Nose congestion, No Mouth pain, No Mouth swelling, No Throat pain, No Throat swelling, No Other Cardiovascular: No Chest Pain, No Palpitations, No Orthopnea, No Paroxysmal Noc. Dyspnea, No Edema, No Lt Headedness; Other (Chest tightness, diaphoresis) Respiratory: Cough; No Dry; Shortness of breath; No SOB with excertion; W heezing; No Hemoptysis, No Pleuritic Pain, No Sputum; Other (SOB at rest) Gastrointestinal: No Nausea, No Vomiting, No Abdominal Pain, No Diarrhea, No Constipation, No Melena, No Hematochezia, No Other Genitourinary: No Dysuria, No Frequency, No Incontinence, No Hematuria, No Retention, No Other Musculoskeletal: No other, No neck pain, No shoulder pain, No arm pain, No back pain, No hand pain, No leg pain, No foot pain Skin: No Rash, No Lesions, No Jaundice, No Bruising, No Other Objective Vitals Vital Signs Date Time Temp Pulse Resp B/P (MAP) Pulse Ox O2 Delivery O2 Flow Rate FiO2 09/18/24 17:01 98.5 98 21 144/94 (111) 97 98.5 09/18/24 08:00 Nasal Cannula* 4 36 Intake/Output Intake and Output 09/18/24 07:00 Intake Total 1290 ml Output Total 800 ml Balance 490 ml Intake Oral 780 ml IV Total 510 ml Output Urine Total 800 ml Exam HEENT pupils are reactive Neck is supple CV is S1-S2 regular rate and rhythm Respiratory bilateral expiratory rhonchi GI posterior bowel sound Extremity no edema 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 Medications Current Medications Medications Dose Ordered Sig/Mari Route Start Time Stop Time Status Last Admin Dose Admin Methylprednisolone Sodium Succinate 40 mg Q8HR@0100,0900,1700 IV 09/17/24 09:00 09/18/24 17:20 40 MG Atorvastatin Calcium 20 mg HS PO 09/17/24 22:00 09/17/24 21:55 20 MG Hydralazine HCl 10 mg Q6HP PRN IV 09/17/24 05:15 09/17/24 16:57 10 MG Amlodipine Besylate 5 mg DAILY PO 09/18/24 10:00 09/18/24 09:26 5 MG Levothyroxine Sodium 25 mcg QAM@0600 PO 09/17/24 06:00 09/18/24 06:18 25 MCG Sodium Chloride 1,000 ml @ 60 mls/hr [id number] IV 09/17/24 05:15 09/17/24 22:08 60 MLS/HR Acetaminophen/ Hydrocodone Bitart 1 tab Q4HP PRN PO 09/17/24 05:15 09/17/24 22:04 1 TAB Ondansetron HCl 4 mg Q4HP PRN IV 09/17/24 05:15 Docusate Sodium 100 mg BIDPRN PRN PO 09/17/24 05:15 Acetaminophen 650 mg Q6HP PRN PO 09/17/24 05:15 09/18/24 17:20 650 MG Nitroglycerin 0.4 mg Q5MINP PRN SL 09/17/24 05:30 Morphine Sulfate 2 mg Q30M PRN IV 09/17/24 05:30 Famotidine 20 mg Q12HR IV 09/17/24 10:00 09/18/24 08:59 20 MG Azithromycin 250 ml @ 125 mls/hr DAILY IV 09/18/24 10:00 09/18/24 09:26 125 MLS/HR Albuterol 2.5 mg Q4HR NEB 09/17/24 22:00 09/18/24 14:12 2.5 MG Ipratropium [place] 0.5 mg Q4HR NEB 09/17/24 22:00 09/18/24 14:12 0.5 MG Ceftriaxone Sodium 50 ml @ 100 mls/hr DAILY@09 IV 09/18/24 17:45 UNV Laboratory Results Laboratory Tests 09/18/24 06:53 Chemistry Test 09/18/24 06:53 Albumin 4.5 g/dL (3.2-4.8) Calcium Level 9.5 mg/dL (8.7-10.4) Total Protein 8.0 g/dL (5.7-8.2) LFT Test 09/18/24 06:53 Alanine Aminotransferase (ALT) 15 U/L (7-40) Alkaline Phosphatase 59 U/L (46-116) Aspartate Amino Transferase (AST) 11 U/L (13-40) L Total Bilirubin 0.3 mg/dL (0.2-1.0) Urinalysis Test 09/17/24 05:20 Urine Color Light-yellow (Yellow) Urine Clarity Clear (Clear) Urine pH 6.0 (5.0-9.0) Urine Specific [place] 1.016 (1.001-1.035) Urine Protein 3+ (Negative) H Urine Ketones Negative (Negative) Urine Blood 1+ /uL (Negative) H Urine Nitrite Negative (Negative) Urine Bilirubin Negative (Negative) Urine Urobilinogen Normal mg/dL (Negative) Urine Leukocyte Esterase Negative /uL (Negative) Urine RBC 1 /hpf (0 - 3) Urine Microscopic WBC 3 /HPF (0-3) Urine Squamous Epithelial Cells None seen /hpf (<5) Urine Bacteria None seen /hpf (None Seen) Urine Glucose 1+ mg/dL (Normal) H Assessment/Plan Assessment/Plan 59-year-old male with a known history of chronic respiratory failure, COPD, hypertension, hypothyroidism presented to the hospital with increasing shortness a breath wheezing cough and phlegm found to have 1. Acute on chronic hypoxic respiratory failure secondary to acute COPD exacerbation and pneumonia 2. Acute COPD exacerbation 3. Pneumonia 4. Hypertension 5. Hypothyroidism -continue IV antibiotics, O2 supplementation, IV steroids, med nebs, add Pulmicort -incentive spirometry. Plan discussed with: Patient My Orders Orders - BRENT ROWAN MD Procedure Category Date Status Time Ceftriaxone Ivpb PHA 09/18/24 Verified Rocephin 17:45 Budesonide PHA 09/18/24 Verified (Inhalation) 22:00 Date of Service: September 18, 2024 Billing Provider: BRENT ROWAN MD Common Visit Codes: [id number] INP/OBS CARE(MOD) BRENT ROWAN MD September 18, 2024 17:44
[2024-09-18] MEDS: cefTRIAXone 1GM/50ML D5W 50 ML IV SCH (18:24)
[2024-09-18] MEDS: BUDESONIDE (INHALATION) 0.5 MG/2 ML NEB NEB SCH (22:40)
[2024-09-19] VITALS (20 sets, daily range): BP systolic 136–148; BP diastolic 83–98; PULSE 84–99; RESP 18–21; TEMP 98.2–98.5; O2SAT 92–100
--- NOTE | 2024-09-19 16:00 | DVHPN2 ---
Subjective Patient is here for acute hypoxic respiratory failure with underlying chronic respiratory failure secondary to COPD exacerbation and possibly suspected pneumonia. Patient is still complaining of lot of phlegm. Please send sputum for Gram stain and culture. Changes from previous H/P or p: No Changes Eyes: No Pain, No Vision change, No Conjunctivae inflammation, No Eyelid inflammation, No Other, No Redness ENT: No Ear pain, No Ear discharge, No Nose pain, No Nose discharge, No Nose congestion, No Mouth pain, No Mouth swelling, No Throat pain, No Throat swelling, No Other Cardiovascular: No Chest Pain, No Palpitations, No Orthopnea, No Paroxysmal Noc. Dyspnea, No Edema, No Lt Headedness; Other (Chest tightness, diaphoresis) Respiratory: Cough; No Dry; Shortness of breath; No SOB with excertion; W heezing; No Hemoptysis, No Pleuritic Pain, No Sputum; Other (SOB at rest) Gastrointestinal: No Nausea, No Vomiting, No Abdominal Pain, No Diarrhea, No Constipation, No Melena, No Hematochezia, No Other Genitourinary: No Dysuria, No Frequency, No Incontinence, No Hematuria, No Retention, No Other Musculoskeletal: No other, No neck pain, No shoulder pain, No arm pain, No back pain, No hand pain, No leg pain, No foot pain Skin: No Rash, No Lesions, No Jaundice, No Bruising, No Other Objective Vitals Vital Signs Date Time Temp Pulse Resp B/P (MAP) Pulse Ox O2 Delivery O2 Flow Rate FiO2 09/19/24 14:30 92 20 100 09/19/24 14:26 Nasal Cannula* 4 36 09/19/24 12:41 161/99 09/19/24 09:28 98.2 98.2 Intake/Output Intake and Output 09/19/24 07:00 Intake Total 3940 ml Output Total 1700 ml Balance 2240 ml Intake Oral 2100 ml IV Total 1840 ml Output Urine Total 1700 ml # Voids 1 Exam HEENT pupils are reactive Neck is supple CV is S1-S2 regular rate and rhythm Respiratory bilateral expiratory rhonchi GI posterior bowel sound 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 Medications Current Medications Medications Dose Ordered Sig/Mari Route Start Time Stop Time Status Last Admin Dose Admin Methylprednisolone Sodium Succinate 40 mg Q8HR@0100,0900,1700 IV 09/17/24 09:00 09/19/24 08:23 40 MG Atorvastatin Calcium 20 mg HS PO 09/17/24 22:00 09/18/24 21:30 20 MG Hydralazine HCl 10 mg Q6HP PRN IV 09/17/24 05:15 09/19/24 12:41 10 MG Amlodipine Besylate 5 mg DAILY PO 09/18/24 10:00 09/19/24 10:27 5 MG Levothyroxine Sodium 25 mcg QAM@0600 PO 09/17/24 06:00 09/19/24 06:02 25 MCG Sodium Chloride 1,000 ml @ 60 mls/hr [id number] IV 09/17/24 05:15 09/18/24 21:34 60 MLS/HR Acetaminophen/ Hydrocodone Bitart 1 tab Q4HP PRN PO 09/17/24 05:15 09/17/24 22:04 1 TAB Ondansetron HCl 4 mg Q4HP PRN IV 09/17/24 05:15 Docusate Sodium 100 mg BIDPRN PRN PO 09/17/24 05:15 Acetaminophen 650 mg Q6HP PRN PO 09/17/24 05:15 09/19/24 08:23 650 MG Nitroglycerin 0.4 mg Q5MINP PRN SL 09/17/24 05:30 Morphine Sulfate 2 mg Q30M PRN IV 09/17/24 05:30 Famotidine 20 mg Q12HR IV 09/17/24 10:00 09/19/24 10:27 20 MG Azithromycin 250 ml @ 125 mls/hr DAILY IV 09/18/24 10:00 09/19/24 10:27 125 MLS/HR Albuterol 2.5 mg Q4HR NEB 09/17/24 22:00 09/19/24 14:20 2.5 MG Ipratropium [place] 0.5 mg Q4HR NEB 09/17/24 22:00 09/19/24 14:20 0.5 MG Ceftriaxone Sodium 50 ml @ 100 mls/hr DAILY@09 IV 09/18/24 17:45 09/19/24 08:23 100 MLS/HR Budesonide 0.5 mg BID NEB 09/18/24 22:00 09/19/24 09:49 0.5 MG Laboratory Results Laboratory Tests 09/18/24 06:53 Urinalysis Test 09/17/24 05:20 Urine Color Light-yellow (Yellow) Urine Clarity Clear (Clear) Urine pH 6.0 (5.0-9.0) Urine Specific [place] 1.016 (1.001-1.035) Urine Protein 3+ (Negative) H Urine Ketones Negative (Negative) Urine Blood 1+ /uL (Negative) H Urine Nitrite Negative (Negative) Urine Bilirubin Negative (Negative) Urine Urobilinogen Normal mg/dL (Negative) Urine Leukocyte Esterase Negative /uL (Negative) Urine RBC 1 /hpf (0 - 3) Urine Microscopic WBC 3 /HPF (0-3) Urine Squamous Epithelial Cells None seen /hpf (<5) Urine Bacteria None seen /hpf (None Seen) Urine Glucose 1+ mg/dL (Normal) H Assessment/Plan Assessment/Plan 59-year-old male with a known history of chronic respiratory failure, COPD, hypertension, hypothyroidism presented to the hospital with increasing shortness a breath wheezing cough and phlegm found to have 1. Acute on chronic hypoxic respiratory failure secondary to acute COPD exacerbation and pneumonia 2. Acute COPD exacerbation 3. Pneumonia 4. Hypertension 5. Hypothyroidism -continue IV antibiotics, O2 supplementation, IV steroids, med nebs, add Pulmicort -incentive spirometry. Plan discussed with: Patient My Orders Orders - BRENT ROWAN MD Procedure Category Date Status Time Ceftriaxone 1gm/50ml PHA 09/18/24 In Process D5w (Rocephin) 17:45 Budesonide PHA 09/18/24 In Process (Inhalation) 22:00 Communication Order ORDERS 09/18/24 Transmitted 17:54 Respiratory Culture SARAY 09/19/24 In Process W/ Gs 14:23 Date of Service: September 19, 2024 Billing Provider: BRENT ROWAN MD Common Visit Codes: [id number] INP/OBS CARE(MOD) BRENT ROWAN MD September 19, 2024 16:00
[2024-09-20] VITALS (19 sets, daily range): BP systolic 135–161; BP diastolic 80–103; PULSE 84–104; RESP 16–20; TEMP 97.6–98.7; O2SAT 93–100
--- NOTE | 2024-09-20 12:30 | ECG ---
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
--- NOTE | 2024-09-20 14:57 | DVH ---
Procedure: CT CHEST WITHOUT CONTRAST Study Date and Requested Time: 09/20 02:21 PM History: Pneumonia Comparison: Chest radiograph 09/17/2024 Dose: CTDI: 20.22 mGy DLP: 766.7 mGycm Technique: Multiplanar images obtained through the chest without contrast Findings: The thyroid gland is unremarkable. Heart size is within normal limits. No evidence of aortic aneurysm. Mild dilatation of the pulmonary trunk up to 31 mm. No significant mediastinal or hilar lymphadenopathy. No pneumothorax, pleural effusion or focal airspace consolidation. Subtle tree-in-bud opacities of th e right lower lobe with bibasilar atelectasis. Small varicose veins of the left upper abdominal quadrant. Otherwise, Partial view of the upper abdo men is unremarkable. Minimal body wall edema. No destructive osseous lesions noted. Impression: Minimal tree-in-bud opacities of the right lower lobe which may represent infectious bronchiolitis. N o focal consolidation. Mild dilatation of the pulmonary trunk up to 31 mm. Correlate for possible mild pulmonary arterial h ypertension.
--- NOTE | 2024-09-20 15:19 | DVHPN2 ---
Subjective Patient is here for acute hypoxic respiratory failure with underlying chronic respiratory failure secondary to COPD exacerbation and possibly suspected pneumonia. Patient is still complaining of lot of phlegm. Sputum for Gram stain shows multiple bacteria. CT chest has been ordered. Changes from previous H/P or p: No Changes Eyes: No Pain, No Vision change, No Conjunctivae inflammation, No Eyelid inflammation, No Other, No Redness ENT: No Ear pain, No Ear discharge, No Nose pain, No Nose discharge, No Nose congestion, No Mouth pain, No Mouth swelling, No Throat pain, No Throat swelling, No Other Cardiovascular: No Chest Pain, No Palpitations, No Orthopnea, No Paroxysmal Noc. Dyspnea, No Edema, No Lt Headedness; Other (Chest tightness, diaphoresis) Respiratory: Cough; No Dry; Shortness of breath; No SOB with excertion; W heezing; No Hemoptysis, No Pleuritic Pain, No Sputum; Other (SOB at rest) Gastrointestinal: No Nausea, No Vomiting, No Abdominal Pain, No Diarrhea, No Constipation, No Melena, No Hematochezia, No Other Genitourinary: No Dysuria, No Frequency, No Incontinence, No Hematuria, No Retention, No Other Musculoskeletal: No other, No neck pain, No shoulder pain, No arm pain, No back pain, No hand pain, No leg pain, No foot pain Skin: No Rash, No Lesions, No Jaundice, No Bruising, No Other Objective Vitals Vital Signs Date Time Temp Pulse Resp B/P (MAP) Pulse Ox O2 Delivery O2 Flow Rate FiO2 09/20/24 13:00 97.9 97 16 161/99 (119) 93 97.9 09/20/24 08:00 Nasal Cannula* 4 36 Intake/Output Intake and Output 09/20/24 07:00 Intake Total 2405 ml Output Total 1400 ml Balance 1005 ml Intake Oral 1000 ml IV Total 1405 ml Output Urine Total 1400 ml Exam HEENT pupils are reactive Neck is supple CV is S1-S2 regular rate and rhythm Respiratory bilateral expiratory rhonchi GI posterior bowel sound Extremity no edema [employer] no motor deficit Medications Current Medications Medications Dose Ordered Sig/Mari Route Start Time Stop Time Status Last Admin Dose Admin Methylprednisolone Sodium Succinate 40 mg Q8HR@0100,0900,1700 IV 09/17/24 09:00 09/20/24 09:43 40 MG Atorvastatin Calcium 20 mg HS PO 09/17/24 22:00 09/19/24 21:14 20 MG Hydralazine HCl 10 mg Q6HP PRN IV 09/17/24 05:15 09/19/24 12:41 10 MG Amlodipine Besylate 5 mg DAILY PO 09/18/24 10:00 09/20/24 09:44 5 MG Levothyroxine Sodium 25 mcg QAM@0600 PO 09/17/24 06:00 09/20/24 06:08 25 MCG Acetaminophen/ Hydrocodone Bitart 1 tab Q4HP PRN PO 09/17/24 05:15 09/17/24 22:04 1 TAB Ondansetron HCl 4 mg Q4HP PRN IV 09/17/24 05:15 Docusate Sodium 100 mg BIDPRN PRN PO 09/17/24 05:15 Acetaminophen 650 mg Q6HP PRN PO 09/17/24 05:15 09/19/24 08:23 650 MG Nitroglycerin 0.4 mg Q5MINP PRN SL 09/17/24 05:30 Morphine Sulfate 2 mg Q30M PRN IV 09/17/24 05:30 Famotidine 20 mg Q12HR IV 09/17/24 10:00 09/20/24 09:43 20 MG Azithromycin 250 ml @ 125 mls/hr DAILY IV 09/18/24 10:00 09/20/24 11:32 125 MLS/HR Albuterol 2.5 mg Q4HR NEB 09/17/24 22:00 09/20/24 14:58 2.5 MG Ipratropium [place] 0.5 mg Q4HR NEB 09/17/24 22:00 09/20/24 14:58 0.5 MG Ceftriaxone Sodium 50 ml @ 100 mls/hr DAILY@09 IV 09/18/24 17:45 09/20/24 09:43 100 MLS/HR Budesonide 0.5 mg BID NEB 09/18/24 22:00 09/20/24 06:27 0.5 MG Laboratory Results Laboratory Tests 09/18/24 06:53 Urinalysis Test 09/17/24 05:20 Urine Color Light-yellow (Yellow) Urine Clarity Clear (Clear) Urine pH 6.0 (5.0-9.0) Urine Specific [place] 1.016 (1.001-1.035) Urine Protein 3+ (Negative) H Urine Ketones Negative (Negative) Urine Blood 1+ /uL (Negative) H Urine Nitrite Negative (Negative) Urine Bilirubin Negative (Negative) Urine Urobilinogen Normal mg/dL (Negative) Urine Leukocyte Esterase Negative /uL (Negative) Urine RBC 1 /hpf (0 - 3) Urine Microscopic WBC 3 /HPF (0-3) Urine Squamous Epithelial Cells None seen /hpf (<5) Urine Bacteria None seen /hpf (None Seen) Urine Glucose 1+ mg/dL (Normal) H Microbiology Microbiology Date/Time Source Procedure Growth Status 09/19/24 14:30 Sputum Gram Stain - Final Resulted 09/19/24 14:30 Sputum Respiratory Culture - Preliminary Resulted Assessment/Plan Assessment/Plan 59-year-old male with a known history of chronic respiratory failure, COPD, hypertension, hypothyroidism presented to the hospital with increasing shortness a breath wheezing cough and phlegm found to have 1. Acute on chronic hypoxic respiratory failure secondary to acute COPD exacerbation and pneumonia 2. Acute COPD exacerbation 3. Pneumonia 4. Hypertension 5. Hypothyroidism -CT chest showed possible infectious bronchiolitis. -continue IV antibiotics, O2 supplementation, IV steroids, med nebs, add Pulmicort -incentive spirometry. -pulmonary consultation for possible bronchoscopy. Plan discussed with: Patient My Orders Orders - BRENT ROWAN MD Procedure Category Date Status Time Chest Without Contrast CT 09/20/24 Resulted 13:50 *Consult CONS 09/20/24 Transmitted / 14:45 Date of Service: September 20, 2024 Billing Provider: BRENT ROWAN MD Common Visit Codes: [id number] INP/OBS CARE(MOD) BRENT ROWAN MD September 20, 2024 15:19
--- NOTE | 2024-09-20 20:29 | DVHINCON2 ---
Date of service: September 20, [address] Reddy Reason for Consultation Acute respiratory failure History of Present Illness History Source: Patient Exam Limitations: No limitations HPI Patient is a 59-year old gentleman with a history of previous nicotine dependency and probable COPD who presented with shortness of breath, cough and green mucus production. Was seen in the emergency room where she was admitted for symptoms consistent with acute exacerbation of COPD and started on IV antibiotics. Pulmonology was consulted to assist in management. Home Meds Active Scripts Methylprednisolone (Medrol Dosepak) 4 Mg Miguel, 4 MG PO UD, #21 TAB UAD Prov:YENI ESQUIVEL MD 07/24/24 Azithromycin (ZITHROMAX TABLET) 250 Mg Tb, 250 MG PO DAILY, #6 TAB take 2 tabs first day by mouth and then 1 tab daily until finish Prov:YENI ESQUIVEL MD 07/24/24 Reported Medications Epoetin Billy-Epbx (Retacrit) 10,000 Unit/Ml Inj, 06464 UNIT IJ QWEEKLY, INJ 07/22/24 Magnesium Oxide (MAGNESIUM OXIDE) 400 Mg Tab, 2 TAB PO DAILY, TAB 07/22/24 Naproxen (NAPROSYN TABLET) 500 Mg Tb, 500 MG PO BID, TAB 07/22/24 Spironolactone (Spironolactone) 25 Mg Tab, 25 MG PO DAILY@BREAKFAST, TAB 07/22/24 Albuterol Sulfate (Albuterol Sulfate) 0.083 % Neb, 1 VIAL NEB Q4HPRN, #50 VIAL 04/18/24 Albuterol Sulfate (VENTOLIN MDI) 90 Mcg Ih, 90 MCG IN, INH 04/18/24 Levothyroxine Sodium (Levothyroxine Sodium) 25 Mcg Tab, 75 MCG PO QAM, MCG 04/18/24 Lisinopril (Lisinopril) 20 Mg Tab, 20 MG PO DAILY for 30 Days, MG 04/18/24 Atorvastatin Calcium (Lipitor) 40 Mg Tab, 1 TAB PO DAILY, #30 TAB 5 Refills 04/18/24 Past Medical History Cardiac: No pertinent Hx Pulmonary: COPD Central Nervous System: No pertinent Hx GI: No pertinent Hx Hemotology/Oncology: No pertinent Hx Hepatobiliary: No pertinent Hx Psychiatric: No pertinent Hx Musculoskeletal: No pertinent Hx Rheumotologic: No pertinent Hx Infectious Disease: No peritnent Hx ENT: No pertinent Hx Renal/: No pertinent Hx Endocrine: No pertinent Hx Dermatology: No pertinent Hx Past Surgical History: No pertinent Hx Family History: Cancer Patient Family History: FH: cancer G8 MOTHER grandma grandpa FH: hepatic cirrhosis G8 FATHER Smoker: Quit Alocohol: None Drugs: None Lives with: With family Domestic Violence: Neg Review of Systems Constitutional: No symptom reported Ears, Nose, & Throat: No symptom reported Eyes: No symptom reported Pulmonary/Respiratory: Dyspnea, Cough Cardiovascular: No symptom reported Gastrointestinal: No symptom reported Genitourinary: No symptom reported Musculoskeletal: No symptom reported Skin: No symptom reported Psychiatric: No symptom reported Endocrine: No symptom reported Hemotologic/Lymphatic: No symptom reported H&P Exam Vital Signs Vital Signs Date Time Temp Pulse Resp B/P (MAP) Pulse Ox O2 Delivery O2 Flow Rate FiO2 09/20/24 18:24 89 20 99 09/20/24 18:16 Nasal Cannula* 4 36 09/20/24 17:00 98.1 149/91 (110) 98.1 General Appeara: Well developed, Well nourished, Normal Appearance Head Exam: Normal inspection Neck Exam: Normal inspection, Non-tender, Normal alignment Eye Exam: bilateral eye Normal inspection, bilateral eye PERRL, bilateral eye EOMI Ear Exam: bilateral ear Auricle normal, bilateral ear Canal normal, bilateral ear TM normal Nasal Exam: Normal inspection Mouth: Normal Inspection Pulmonary/Respiratory: Decreased breath sounds Cardiovascular/Chest: Normal inspection Peripheral Pulses: 4+ Radial (R), 4+ Radial (L), 4+ Brachial (R), 4+ Brachial (L) Abdominal Exam: Normal bowel sounds Labs/Xrays Labs Test 09/18/24 06:53 09/17/24 15:11 09/17/24 15:00 09/17/24 05:20 Range/Units White Blood Count 9.2 4.4-10.8 10^3/uL Red Blood Count 4.82 4.5-5.90 10^6/uL Hemoglobin 13.3 L 13.5-17.5 g/dL Hematocrit 40.3 L 41.0-53.0 % Mean Corpuscular Volume 83.6 80.0-100.0 fL Mean Corpuscular Hemoglobin 27.7 L 28.0-32.0 pg Mean Corpuscular Hemoglobin Concent 33.1 32.0-36.0 g/dL Red Cell Distribution Width 17.4 H 11.8-14.3 % Platelet Count 258 140-450 10^3/uL Mean Platelet Volume 7.4 6.9-10.8 fL Neutrophils (%) (Auto) 87.9 H 37.0-80.0 % Lymphocytes (%) (Auto) 6.5 L 10.0-50.0 % Monocytes (%) (Auto) 5.5 0.0-12.0 % Eosinophils (%) (Auto) 0.0 0.0-7.0 % Basophils (%) (Auto) 0.1 0.0-2.0 % Neutrophils # (Auto) 8.1 1.6-8.6 10 ^3/uL Lymphocytes # (Auto) 0.6 0.4-5.4 10 ^3/uL Monocytes # (Auto) 0.5 0-1.3 10 ^3/uL Eosinophils # (Auto) 0 0-0.8 10 ^3/uL Basophils # (Auto) 0 0-0.2 10 ^3/uL Nucleated Red Blood Cells 0.0 % Sodium Level 138 136-145 mmol/L Potassium Level 5.0 3.5-5.1 mmol/L Chloride Level 104 98-107 mmol/L Carbon Dioxide Level 24 20-31 mmol/L Anion Gap 10 5-15 Blood Urea Nitrogen 30 #H 9-23 mg/dL Creatinine 2.15 H 0.700-1.30 mg/dL Glomerular Filtration Rate Calc 35 >90 mL/min BUN/Creatinine Ratio 14.0 10.0-20.0 Serum Glucose 158 H 74-106 mg/dL Calcium Level 9.5 8.7-10.4 mg/dL Total Bilirubin 0.3 0.2-1.0 mg/dL Aspartate Amino Transferase (AST) 11 L 13-40 U/L Alanine Aminotransferase (ALT) 15 7-40 U/L Alkaline Phosphatase 59 46-116 U/L Total Protein 8.0 5.7-8.2 g/dL Albumin 4.5 3.2-4.8 g/dL Influenza Type A Antigen Negative Negative Influenza Type B Antigen Negative Negative SARS-CoV-2 Antigen (Rapid) Negative NEGATIVE Urine Color Light-yellow Yellow Urine Clarity Clear Clear Urine pH 6.0 5.0-9.0 Urine Specific [place] 1.016 1.001-1.035 Urine Protein 3+ H Negative Urine Ketones Negative Negative Urine Blood 1+ H Negative /uL Urine Nitrite Negative Negative Urine Bilirubin Negative Negative Urine Urobilinogen Normal Negative mg/dL Urine Leukocyte Esterase Negative Negative /uL Urine RBC 1 0 - 3 /hpf Urine Microscopic WBC 3 0-3 /HPF Urine Squamous Epithelial Cells None seen <5 /hpf Urine Bacteria None seen None Seen /hpf Urine Glucose 1+ H Normal mg/dL Test 09/17/24 02:15 09/17/24 01:13 09/17/24 01:09 Range/Units Troponin I High Sensitivity 27 </=54 ng/L Thyroid Stimulating Hormone (TSH) 0.62 0.55-4.78 uIU/mL Prothrombin Time 10.9 9.3-11.8 sec Prothrombin Time INR 1.03 0.9-1.15 Activated Partial Thromboplast Time 30.2 24.5-34.5 SEC Hemoglobin A1c 6.1 H <5.7 % A1C Magnesium Level 3.6 H 1.6-2.6 mg/dL B-Type Natriuretic Peptide 72.60 0-100 pg/mL Blood Gas Specimen Type Venous Blood Gas Sample Site Other Blood Gas Patient Temperature 37.0 Arterial Blood Date Drawn [id number] Melvin Test N/a Venous Blood pH 7.300 L 7.320-7.430 Venous Blood pCO2 at Patient Temp 44.2 38.0-54.0 mmHg Venous Blood pO2 at Patient Temp 81.1 H 23.0-48.0 mmHg Venous Blood HCO3 21.3 L 22.0-29.0 mmol/L Venous Blood Base Excess -5.1 L -2.0-3.0 mmol/L Blood Gas Liter Flow 5.00 Blood Gas Modality Nasal cannula FiO2 % 40.0 Blood Gas Comments Vbg Microbiology Date/Time Source Procedure Growth Status 09/19/24 14:30 Sputum Gram Stain - Final Resulted 09/19/24 14:30 Sputum Respiratory Culture - Preliminary Resulted Assessment/Plan Plan Impression Acute hypoxemic respiratory failure Acute COPD exacerbation Atypical pneumonia Former smoker Patient seen and examined Events Low oxygen requirements On 2 liters nasal cannula Vital signs stable Labs and imaging reviewed CT of the chest shows minimal tree-in-bud opacities of the right lower lobe Management Supplemental oxygen Titrate to maintain sats 90% or above Incentive spirometry Antibiotics Obtain cultures Bronchodilators Steroids for COPD management Monitor renal function Monitor electrolytes Supplement as needed DVT prophylaxis Plan discussed with: Patient CECILIA FONSECA MD September 20, 2024 20:29
[2024-09-21] VITALS (20 sets, daily range): BP systolic 149–163; BP diastolic 95–111; PULSE 82–114; RESP 16–20; TEMP 97.7–98.9; O2SAT 92–100
--- NOTE | 2024-09-21 16:17 | DVHPN2 ---
Subjective Patient has stated that he has 30% better, maybe one more day of med nebs IV antibiotics and Solu-Medrol. Patient is still complaining of cough with phlegm Changes from previous H/P or p: No Changes Eyes: No Pain, No Vision change, No Conjunctivae inflammation, No Eyelid inflammation, No Other, No Redness ENT: No Ear pain, No Ear discharge, No Nose pain, No Nose discharge, No Nose congestion, No Mouth pain, No Mouth swelling, No Throat pain, No Throat swelling, No Other Cardiovascular: No Chest Pain, No Palpitations, No Orthopnea, No Paroxysmal Noc. Dyspnea, No Edema, No Lt Headedness; Other (Chest tightness, diaphoresis) Respiratory: Cough; No Dry; Shortness of breath; No SOB with excertion; W heezing; No Hemoptysis, No Pleuritic Pain, No Sputum; Other (SOB at rest) Gastrointestinal: No Nausea, No Vomiting, No Abdominal Pain, No Diarrhea, No Constipation, No Melena, No Hematochezia, No Other Genitourinary: No Dysuria, No Frequency, No Incontinence, No Hematuria, No Retention, No Other Musculoskeletal: No other, No neck pain, No shoulder pain, No arm pain, No back pain, No hand pain, No leg pain, No foot pain Skin: No Rash, No Lesions, No Jaundice, No Bruising, No Other Objective Vitals Vital Signs Date Time Temp Pulse Resp B/P (MAP) Pulse Ox O2 Delivery O2 Flow Rate FiO2 09/21/24 14:30 96 18 100 09/21/24 13:00 97.7 163/103 (123) 97.7 09/21/24 08:20 Nasal Cannula* 4 36 Intake/Output Intake and Output 09/21/24 07:00 Intake Total 1500 ml Output Total 1125 ml Balance 375 ml Intake Oral 1500 ml Output Urine Total 1125 ml # Voids 4 Exam HEENT pupils are reactive Neck is supple CV is S1-S2 regular rate and rhythm Respiratory bilateral expiratory rhonchi GI posterior bowel sound Extremity no edema [employer] no motor deficit Medications Current Medications Medications Dose Ordered Sig/Mari Route Start Time Stop Time Status Last Admin Dose Admin Methylprednisolone Sodium Succinate 40 mg Q8HR@0100,0900,1700 IV 09/17/24 09:00 09/21/24 09:34 40 MG Atorvastatin Calcium 20 mg HS PO 09/17/24 22:00 09/20/24 21:18 20 MG Hydralazine HCl 10 mg Q6HP PRN IV 09/17/24 05:15 09/21/24 05:28 10 MG Amlodipine Besylate 5 mg DAILY PO 09/18/24 10:00 09/21/24 09:41 5 MG Levothyroxine Sodium 25 mcg QAM@0600 PO 09/17/24 06:00 09/21/24 05:28 25 MCG Acetaminophen/ Hydrocodone Bitart 1 tab Q4HP PRN PO 09/17/24 05:15 09/17/24 22:04 1 TAB Ondansetron HCl 4 mg Q4HP PRN IV 09/17/24 05:15 Docusate Sodium 100 mg BIDPRN PRN PO 09/17/24 05:15 Acetaminophen 650 mg Q6HP PRN PO 09/17/24 05:15 09/19/24 08:23 650 MG Nitroglycerin 0.4 mg Q5MINP PRN SL 09/17/24 05:30 Morphine Sulfate 2 mg Q30M PRN IV 09/17/24 05:30 Famotidine 20 mg Q12HR IV 09/17/24 10:00 09/21/24 09:41 20 MG Azithromycin 250 ml @ 125 mls/hr DAILY IV 09/18/24 10:00 09/21/24 09:33 125 MLS/HR Albuterol 2.5 mg Q4HR NEB 09/17/24 22:00 09/21/24 14:16 2.5 MG Ipratropium [place] 0.5 mg Q4HR NEB 09/17/24 22:00 09/21/24 14:16 0.5 MG Ceftriaxone Sodium 50 ml @ 100 mls/hr DAILY@09 IV 09/18/24 17:45 09/21/24 09:33 100 MLS/HR Budesonide 0.5 mg BID NEB 09/18/24 22:00 09/21/24 06:01 0.5 MG Laboratory Results Laboratory Tests 09/18/24 06:53 Urinalysis Test 09/17/24 05:20 Urine Color Light-yellow (Yellow) Urine Clarity Clear (Clear) Urine pH 6.0 (5.0-9.0) Urine Specific [place] 1.016 (1.001-1.035) Urine Protein 3+ (Negative) H Urine Ketones Negative (Negative) Urine Blood 1+ /uL (Negative) H Urine Nitrite Negative (Negative) Urine Bilirubin Negative (Negative) Urine Urobilinogen Normal mg/dL (Negative) Urine Leukocyte Esterase Negative /uL (Negative) Urine RBC 1 /hpf (0 - 3) Urine Microscopic WBC 3 /HPF (0-3) Urine Squamous Epithelial Cells None seen /hpf (<5) Urine Bacteria None seen /hpf (None Seen) Urine Glucose 1+ mg/dL (Normal) H Microbiology Microbiology Date/Time Source Procedure Growth Status 09/19/24 14:30 Sputum Gram Stain - Final Resulted 09/19/24 14:30 Sputum Respiratory Culture - Preliminary Resulted Assessment/Plan Assessment/Plan 59-year-old male with a known history of chronic respiratory failure, COPD, hypertension, hypothyroidism presented to the hospital with increasing shortness a breath wheezing cough and phlegm found to have 1. Acute on chronic hypoxic respiratory failure secondary to acute COPD exacerbation and pneumonia 2. Acute COPD exacerbation, slowly improving 3. Pneumonia 4. Hypertension 5. Hypothyroidism -CT chest showed possible infectious bronchiolitis. -continue IV antibiotics, O2 supplementation, IV steroids, med nebs, Pulmicort -incentive spirometry. -pulmonary consultation appreciated, no bronchoscopy indicated. Plan discussed with: Patient Date of Service: September 21, 2024 Billing Provider: BRENT ROWAN MD Common Visit Codes: [id number] INP/OBS CARE(MOD), NOT BILLABLE BRENT ROWAN MD September 21, 2024 16:17
--- NOTE | 2024-09-21 18:19 | DVHPN2 ---
Progress Note - Dictate Date Seen: September 21, 2024 Medical Necessity Reason Pt with a Central, PICC or Fol: No vital signs Vital Sign Date Time Temp Pulse Resp B/P (MAP) Pulse Ox O2 Delivery O2 Flow Rate FiO2 09/21/24 17:00 98.1 91 16 149/111 (124) 93 98.1 09/21/24 08:20 Nasal Cannula* 4 36 Total Intake and Output 09/20/24 09/20/24 09/21/24 15:00 23:00 07:00 Intake Total 800 ml 700 ml Output Total 1125 ml Balance 800 ml -425 ml medications Current Medications Medications Dose Ordered Sig/Mari Route Start Time Stop Time Status Last Admin Dose Admin Methylprednisolone Sodium Succinate 40 mg Q8HR@0100,0900,1700 IV 09/17/24 09:00 09/21/24 16:55 40 MG Atorvastatin Calcium 20 mg HS PO 09/17/24 22:00 09/20/24 21:18 20 MG Hydralazine HCl 10 mg Q6HP PRN IV 09/17/24 05:15 09/21/24 05:28 10 MG Amlodipine Besylate 5 mg DAILY PO 09/18/24 10:00 09/21/24 09:41 5 MG Levothyroxine Sodium 25 mcg QAM@0600 PO 09/17/24 06:00 09/21/24 05:28 25 MCG Acetaminophen/ Hydrocodone Bitart 1 tab Q4HP PRN PO 09/17/24 05:15 09/17/24 22:04 1 TAB Ondansetron HCl 4 mg Q4HP PRN IV 09/17/24 05:15 Docusate Sodium 100 mg BIDPRN PRN PO 09/17/24 05:15 Acetaminophen 650 mg Q6HP PRN PO 09/17/24 05:15 09/19/24 08:23 650 MG Nitroglycerin 0.4 mg Q5MINP PRN SL 09/17/24 05:30 Morphine Sulfate 2 mg Q30M PRN IV 09/17/24 05:30 Famotidine 20 mg Q12HR IV 09/17/24 10:00 09/21/24 09:41 20 MG Azithromycin 250 ml @ 125 mls/hr DAILY IV 09/18/24 10:00 09/21/24 09:33 125 MLS/HR Albuterol 2.5 mg Q4HR NEB 09/17/24 22:00 09/21/24 14:16 2.5 MG Ipratropium [place] 0.5 mg Q4HR NEB 09/17/24 22:00 09/21/24 14:16 0.5 MG Ceftriaxone Sodium 50 ml @ 100 mls/hr DAILY@09 IV 09/18/24 17:45 09/21/24 09:33 100 MLS/HR Budesonide 0.5 mg BID NEB 09/18/24 22:00 09/21/24 06:01 0.5 MG laboratory and microbiology Laboratory Tests 09/18/24 06:53 Test 09/18/24 06:53 Range/Units Serum Glucose 158 H 74-106 mg/dL Assessment/Plan Impression Acute hypoxemic respiratory failure Acute COPD exacerbation Atypical pneumonia Former smoker Patient seen and examined Events Low oxygen requirements On 2 liters nasal cannula No acute events Labs and imaging reviewed CT of the chest shows minimal tree-in-bud opacities of the right lower lobe Management Supplemental oxygen Titrate to maintain sats 90% or above Incentive spirometry Continue antibiotics F/u cultures Bronchodilators Steroids for COPD management Monitor renal function Monitor electrolytes Supplement as needed DVT prophylaxis Dietary Evaluation Review Comments: monitor PO intake to meet 75% of his needs Expected Outcomes/Goals: gradual wt loss Plan discussed with: Patient CECILIA FONSECA MD September 21, 2024 18:19
[2024-09-22] VITALS (10 sets, daily range): BP systolic 155–159; BP diastolic 87–99; PULSE 87–104; RESP 16–20; TEMP 36.1; O2SAT 92–100
--- NOTE | 2024-09-22 12:54 | DVHPN2 ---
Progress Note - Dictate Date Seen: September 22, 2024 Medical Necessity Reason Pt with a Central, PICC or Fol: No vital signs Vital Sign Date Time Temp Pulse Resp B/P (MAP) Pulse Ox O2 Delivery O2 Flow Rate FiO2 09/22/24 10:26 97 18 100 09/22/24 09:00 96.9 159/98 (118) 96.9 09/22/24 07:55 Nasal Cannula* 2 28 Total Intake and Output 09/21/24 09/21/24 09/22/24 15:00 23:00 07:00 Intake Total 300 ml 825 ml 825 ml Balance 300 ml 825 ml 825 ml medications Current Medications Medications Dose Ordered Sig/Mari Route Start Time Stop Time Status Last Admin Dose Admin Methylprednisolone Sodium Succinate 40 mg Q8HR@0100,0900,1700 IV 09/17/24 09:00 09/22/24 08:42 40 MG Atorvastatin Calcium 20 mg HS PO 09/17/24 22:00 09/21/24 21:52 20 MG Hydralazine HCl 10 mg Q6HP PRN IV 09/17/24 05:15 09/22/24 05:06 10 MG Amlodipine Besylate 5 mg DAILY PO 09/18/24 10:00 09/22/24 08:53 5 MG Levothyroxine Sodium 25 mcg QAM@0600 PO 09/17/24 06:00 09/22/24 05:04 25 MCG Acetaminophen/ Hydrocodone Bitart 1 tab Q4HP PRN PO 09/17/24 05:15 09/22/24 05:03 1 TAB Ondansetron HCl 4 mg Q4HP PRN IV 09/17/24 05:15 Docusate Sodium 100 mg BIDPRN PRN PO 09/17/24 05:15 Acetaminophen 650 mg Q6HP PRN PO 09/17/24 05:15 09/19/24 08:23 650 MG Nitroglycerin 0.4 mg Q5MINP PRN SL 09/17/24 05:30 Morphine Sulfate 2 mg Q30M PRN IV 09/17/24 05:30 Famotidine 20 mg Q12HR IV 09/17/24 10:00 09/22/24 08:43 20 MG Azithromycin 250 ml @ 125 mls/hr DAILY IV 09/18/24 10:00 09/22/24 08:43 125 MLS/HR Albuterol 2.5 mg Q4HR NEB 09/17/24 22:00 09/22/24 10:20 2.5 MG Ipratropium [place] 0.5 mg Q4HR NEB 09/17/24 22:00 09/22/24 10:20 0.5 MG Ceftriaxone Sodium 50 ml @ 100 mls/hr DAILY@09 IV 09/18/24 17:45 09/22/24 08:42 100 MLS/HR Budesonide 0.5 mg BID NEB 09/18/24 22:00 09/22/24 06:57 0.5 MG laboratory and microbiology Laboratory Tests 09/18/24 06:53 Test 09/18/24 06:53 Range/Units Serum Glucose 158 H 74-106 mg/dL Assessment/Plan Impression Acute hypoxemic respiratory failure Acute COPD exacerbation Atypical pneumonia Former smoker Patient seen and examined Events Low oxygen requirements On 2 liters nasal cannula No acute events Labs and imaging reviewed CT of the chest shows minimal tree-in-bud opacities of the right lower lobe Management Supplemental oxygen Titrate to maintain sats 90% or above Incentive spirometry Continue antibiotics F/u cultures Bronchodilators Steroids for COPD management Monitor renal function Monitor electrolytes Supplement as needed DVT prophylaxis Dietary Evaluation Review Comments: monitor PO intake to meet 75% of his needs Expected Outcomes/Goals: gradual wt loss Plan discussed with: Other (hospitalist) CECILIA FONSECA MD September 22, 2024 12:54
[2024-09-22] MEDS ORDERED: CEFD300C2 PO (13:12)
[2024-09-22] MEDS ORDERED: PRED20TA2 PO (13:12)
[2024-09-22] MEDS ORDERED: AZIT500T66 PO (13:12)
--- NOTE | 2024-09-22 13:14 | DVHDS2 ---
Discharge Summary Date of Admission September 17, 2024 at 05:18 Date of Discharge: September 22, 2024 Labs/Diagnostic Data: Laboratory Results Test 09/18/24 06:53 09/17/24 15:11 09/17/24 15:00 09/17/24 05:20 White Blood Count 9.2 10^3/uL (4.4-10.8) Red Blood Count 4.82 10^6/uL (4.5-5.90) Hemoglobin 13.3 g/dL (13.5-17.5) Hematocrit 40.3 % (41.0-53.0) Mean Corpuscular Volume 83.6 fL (80.0-100.0) Mean Corpuscular Hemoglobin 27.7 pg (28.0-32.0) Mean Corpuscular Hemoglobin Concent 33.1 g/dL (32.0-36.0) Red Cell Distribution Width 17.4 % (11.8-14.3) Platelet Count 258 10^3/uL (140-450) Mean Platelet Volume 7.4 fL (6.9-10.8) Neutrophils (%) (Auto) 87.9 % (37.0-80.0) Lymphocytes (%) (Auto) 6.5 % (10.0-50.0) Monocytes (%) (Auto) 5.5 % (0.0-12.0) Eosinophils (%) (Auto) 0.0 % (0.0-7.0) Basophils (%) (Auto) 0.1 % (0.0-2.0) Neutrophils # (Auto) 8.1 10 ^3/uL (1.6-8.6) Lymphocytes # (Auto) 0.6 10 ^3/uL (0.4-5.4) Monocytes # (Auto) 0.5 10 ^3/uL (0-1.3) Eosinophils # (Auto) 0 10 ^3/uL (0-0.8) Basophils # (Auto) 0 10 ^3/uL (0-0.2) Nucleated Red Blood Cells 0.0 % Sodium Level 138 mmol/L (136-145) Potassium Level 5.0 mmol/L (3.5-5.1) Chloride Level 104 mmol/L (98-107) Carbon Dioxide Level 24 mmol/L (20-31) Anion Gap 10 (5-15) Blood Urea Nitrogen 30 mg/dL (9-23) Creatinine 2.15 mg/dL (0.700-1.30) Glomerular Filtration Rate Calc 35 mL/min (>90) BUN/Creatinine Ratio 14.0 (10.0-20.0) Serum Glucose 158 mg/dL (74-106) Calcium Level 9.5 mg/dL (8.7-10.4) Total Bilirubin 0.3 mg/dL (0.2-1.0) Aspartate Amino Transferase (AST) 11 U/L (13-40) Alanine Aminotransferase (ALT) 15 U/L (7-40) Alkaline Phosphatase 59 U/L (46-116) Total Protein 8.0 g/dL (5.7-8.2) Albumin 4.5 g/dL (3.2-4.8) Influenza Type A Antigen Negative (Negative) Influenza Type B Antigen Negative (Negative) SARS-CoV-2 Antigen (Rapid) Negative (NEGATIVE) Urine Color Light-yellow (Yellow) Urine Clarity Clear (Clear) Urine pH 6.0 (5.0-9.0) Urine Specific [place] 1.016 (1.001-1.035) Urine Protein 3+ (Negative) Urine Ketones Negative (Negative) Urine Blood 1+ /uL (Negative) Urine Nitrite Negative (Negative) Urine Bilirubin Negative (Negative) Urine Urobilinogen Normal mg/dL (Negative) Urine Leukocyte Esterase Negative /uL (Negative) Urine RBC 1 /hpf (0 - 3) Urine Microscopic WBC 3 /HPF (0-3) Urine Squamous Epithelial Cells None seen /hpf (<5) Urine Bacteria None seen /hpf (None Seen) Urine Glucose 1+ mg/dL (Normal) Test 09/17/24 02:15 09/17/24 01:13 09/17/24 01:09 Troponin I High Sensitivity 27 ng/L (</=54) Thyroid Stimulating Hormone (TSH) 0.62 uIU/mL (0.55-4.78) Prothrombin Time 10.9 sec (9.3-11.8) Prothrombin Time INR 1.03 (0.9-1.15) Activated Partial Thromboplast Time 30.2 SEC (24.5-34.5) Hemoglobin A1c 6.1 % A1C (<5.7) Magnesium Level 3.6 mg/dL (1.6-2.6) B-Type Natriuretic Peptide 72.60 pg/mL (0-100) Blood Gas Specimen Type Venous Blood Gas Sample Site Other Blood Gas Patient Temperature 37.0 Arterial Blood Date Drawn [id number] Melvin Test N/a Venous Blood pH 7.300 (7.320-7.430) Venous Blood pCO2 at Patient Temp 44.2 mmHg (38.0-54.0) Venous Blood pO2 at Patient Temp 81.1 mmHg (23.0-48.0) Venous Blood HCO3 21.3 mmol/L (22.0-29.0) Venous Blood Base Excess -5.1 mmol/L (-2.0-3.0) Blood Gas Liter Flow 5.00 Blood Gas Modality Nasal cannula FiO2 % 40.0 Blood Gas Comments Vbg Other Laboratory Tests 09/18/24 06:53 Brief Hx & Hospital Course: 59-year-old male with a known history of chronic respiratory failure, COPD, hypertension, hypothyroidism presented to the hospital with increasing shortness a breath wheezing cough and phlegm found to have acute on chronic hypoxic respiratory failure secondary to acute COPD exacerbation as well as pneumonia/infectious bronchiolitis. Patient was treated with the O2 supplementation, med nebs, Solu-Medrol, IV antibiotics. Pulmonary evaluated the patient no indication for bronchoscopy. Patient was having lot of phlegm and cough. Patient improved significantly over the days. Patient is currently requesting to go home , patient is stable to be discharged home with p.o. antibiotics. Patient needs to follow up with the PCP as well as pulmonary with a in one week. Patient is currently understand verbalized understanding and agreeable to plan. Condition at Discharge: Stable Final Diagnosis/Problems List 59-year-old male with a known history of chronic respiratory failure, COPD, hypertension, hypothyroidism presented to the hospital with increasing shortness a breath wheezing cough and phlegm found to have 1. Acute on chronic hypoxic respiratory failure secondary to acute COPD exacerbation and pneumonia 2. Acute COPD exacerbation, slowly improving 3. Pneumonia 4. Hypertension 5. Hypothyroidism Discharge Disposition: Home SNF Discharge Will this Physician continue t: No Discharge Instruct/Medications Diet: Cardiac 2g Na,low cholest Activity: No Restrictions, As Tolerated Activity comment: As tolerated Follow Up/Referral: Follow up with the PCP in one week Follow up with Dr. Brent Hall in in 1-2 weeks with a repeat chest x-ray. New Medications: Azithromycin (Azithromycin) 500 Mg Tab 1 TAB PO DAILY, #5 TAB Cefdinir (Cefdinir) 300 Mg Cap 1 CAP PO BID, #5 CAP Prednisone (Prednisone) 20 Mg Tab 20 MG PO BID for 5 Days, #10 MG Continued Medications: Albuterol Sulfate (Ventolin Mdi) 90 Mcg Ih 90 MCG IN, INH Albuterol Sulfate (Albuterol Sulfate) 0.083 % Neb 1 VIAL NEB Q4HPRN, #50 VIAL Atorvastatin Calcium (Lipitor) 40 Mg Tab 1 TAB PO DAILY, #30 TAB 5 Refills Azithromycin (Zithromax Tablet) 250 Mg Tb 250 MG PO DAILY, #6 TAB take 2 tabs first day by mouth and then 1 tab daily until finish Epoetin Billy-Epbx (Retacrit) 10,000 Unit/[place] [id number] UNIT IJ QWEEKLY, INJ Levothyroxine Sodium (Levothyroxine Sodium) 25 Mcg Tab 75 MCG PO QAM, MCG Lisinopril (Lisinopril) 20 Mg Tab 20 MG PO DAILY for 30 Days, MG Magnesium Oxide (Magnesium Oxide) 400 Mg Tab 2 TAB PO DAILY, TAB Naproxen (Naprosyn Tablet) 500 Mg Tb 500 MG PO BID, TAB Spironolactone (Spironolactone) 25 Mg Tab 25 MG PO DAILY@BREAKFAST, TAB Discontinued Medications: Methylprednisolone (Medrol Dosepak) 4 Mg Miguel 4 MG PO UD, #21 TAB UAD Discharge Statement: "Patient was advised to return to the ER or call 911 if any headaches, dizziness, shortness of breath, chest pain, abdominal pain, bleeding, fevers, or worsening of medical condition. Patient was counseled about treatment plan, medications, possible side effects, patientverbalized understanding. All questions were answered to the best of my ability. This discharge took greater then 30 minutes in planning, reviewing documentation, counseling the patient, and discussing with other team members." ASSESSMENT ASSESSMENT Assessment 59-year-old male with a known history of chronic respiratory failure, COPD, hypertension, hypothyroidism presented to the hospital with increasing shortness a breath wheezing cough and phlegm found to have 1. Acute on chronic hypoxic respiratory failure secondary to acute COPD exacerbation and pneumonia 2. Acute COPD exacerbation, slowly improving 3. Pneumonia 4. Hypertension 5. Hypothyroidism Date of Service: September 22, 2024 Billing Provider: BRENT ROWAN MD Common Visit Codes: 92681-KNC/OBS DISCH DAY >30min BRENT ROWAN MD September 22, 2024 13:13
== END 2024-09-22 14:16 | disposition home or self-care (01) | DRG 133 ==
LOC: EDBD 00:31 → ER 00:31 → EDSEX 00:31 → OVERFLOW 05:18 → TELE-EAST 09:51
PROVIDERS: ADMIT Internal Medicine; ATTEND Internal Medicine
DX: J96.21 Acute and chronic respiratory failure with hypoxia (principal); N17.9 Acute kidney failure, unspecified; J15.69 Pneumonia due to other Gram-negative bacteria; J44.1 Chronic obstructive pulmonary disease with (acute) exacerbation; J15.9 Unspecified bacterial pneumonia; J21.9 Acute bronchiolitis, unspecified; I10 Essential (primary) hypertension; I16.0 Hypertensive urgency; E03.9 Hypothyroidism, unspecified; E78.5 Hyperlipidemia, unspecified; Z87.891 Personal history of nicotine dependence; Z79.899 Other long term (current) drug therapy; Z88.1 Allergy status to other antibiotic agents
CPT/HCPCS: 36415; 36600; 71045; 71250; 80053; 81001; 82805; 83036; 83735; 83880; 84443; 84484; 85025; 85610; 85730; 87070; 87205; 87426; 87804; 93005; 94640; 96365; 96375; 99291; G0378; J2405; J3490

== ENCOUNTER 2024-10-17 09:03 | Inpatient (IN) | payer OTHER ==
[2024-10-17] VITALS (38 sets, daily range): BP systolic 84–245; BP diastolic 42–131; PULSE 70–110; RESP 16–42; TEMP 96.3–99; O2SAT 92–100
[~2024-10-17] VITALS: Ht 188 cm; Wt 109.0 kg
[~2024-10-17 09:03] MED LIST changes: +AZIT500T66 PO; +CEFD300C2 PO; -METH4PAK PO; +PRED20TA2 PO
--- NOTE | 2024-10-17 09:25 | ED.PDOC ---
SOB-HPI HPI Comments 59 year old male presents to the ED with a chief complaint of shortness of breath onset 4 days. Patient states he was discharged from [facility] about 1 week ago, was admitted due to Pneumonia. Patient has also been experiencing productive cough, nausea, vomiting, diarrhea. Upon ED arrival, O2 sat was 87% on RA, was placed on 4L O2 was 94%. PMHx COPD, HTN, DM, HLD, thyroid disease. Denies chest pain, dizziness, headache, abdominal pain, dysuria, hematuria, hematemesis, fevers, chills. No other symptoms or modifying factors present at this time. Chief Complaint: Shortness of Breath Time Seen by MD: 09:18 Reviewed notes: Medications, Allergies Information Source: Patient Mode of Arrival: Ambulatory Severity: Moderate Timing: Days Duration: Since onset Context: At Rest PE Risk Factors: None History of: COPD, Recent URI, Recent Antibiotic Prehospital treatment: None Modifying Factors: Nothing Associated Signs and Symptoms: Cough If cough with SOB: Productive Past Medical History PAST MEDICAL HISTORY: COPD, DM, High Lipids, HTN, Thyroid Surgical History: Denies all surgeries Family History Family History: Reviewed,noncontributory to illness Social History Smoker: Quit Greater Than 1 Year Alcohol: Denies ETOH Use Drugs: Denies Drug Use Lives In: Home Constitutional: denies: chills, diaphoresis, fatigue, fever, malaise, sweats, weakness, others EENTM: denies: blurred vision, double vision, ear bleeding, ear discharge, ear drainage, ear pain, ear ringing, eye pain, eye redness, hearing loss, mouth pain, mouth swelling, nasal discharge, nose bleeding, nose congestion, nose pain, photophobia, tearing, throat pain, throat swelling, voice changes, others Respiratory: reports: cough, shortness of breath; denies: hemoptysis, orthopnea, SOB at rest, SOB with excertion, stridor, wheezing, others Cardiovascular: denies: chest pain, dizzy spells, diaphoresis, Dyspnea on exertion, edema, irregular heart beat, left arm pain, lightheadedness, palpitations, PND, syncope, others Gastrointestinal: reports: diarrhea, nausea, vomiting; denies: abdomen distended, abdominal pain, blood streaked bowels, constipated, dysphagia, difficulty swallowing, hematemesis, melena, poor appetite, poor fluid intake, rectal bleeding, rectal pain, others Genitourinary: denies: burning, dysuria, flank pain, frequency, hematuria, incontinence, penile discharge, penile sore, pain, testicle pain, testicle swelling, urgency, others Neurological: denies: dizziness, fainting, headache, left sided numbness, left sided weakness, numbness, paresthesia, pre-existing deficit, right sided numbness, right sided weakness, seizure, speech problems, tingling, tremors, weakness, others Musculoskeletal: denies: back pain, gout, joint pain, joint swelling, muscle pain, muscle stiffness, neck pain, others Integumetry: denies: bruises, change in color, change in hair/nails, dryness, laceration, lesions, lumps, rash, wounds, others Allergic/Immunocompromised: denies: Difficulty Healing, Frequent Infections, Hives, Itching, others Hematologic/Lymphatic: denies: anemia, blood clots, easy bleeding, easy bruising, swollen glands, others Endocrine: denies: excessive hunger, excessive sweating, excessive thirst, excessive urination, flushing, intolerance to cold, intolerance to heat, unexplained weight gain, unexplained weight loss, others Psychiatric: denies: anxiety, bipolar disorder, depression, hopeless, panic disorder, schizophrenia, sleepless, suicidal, others All Other Systems: Reviewed and Negative Physical Exam General Appearance: Moderate Distress, Normal HEENT: Normal ENT Inspection, Pharynx Normal, TMs Normal Neck: Full Range of Motion, Non-Tender, Normal, Normal Inspection Respiratory: Chest Non-Tender, No Accessory Muscle Use, Other (Coarse breath sounds) Cardiovascular: No Edema, No JVD, No Murmur, No Gallop, Normal Peripheral Pulses, Regular Rate/Rhythm Breast Exam: Deferred Gastrointestinal: No Organomegaly, Non Tender, No Pulsatile Mass, Normal Bowel Sounds, Soft Genitalia: Deferred Pelvic: Deferred Rectal: Deferred Extremities: No calf tenderness, Normal capillary refill, Non-tender, Swelling (1+) Musculoskeletal : Apperance: Normal Neurologic: Alert, traffic technician II-XII nml as Tested, No Motor Deficits, Normal Affect, Normal Mood, No Sensory Deficits Cerebellar Function: NOT DONE Reflexes: NOT DONE Skin: Dry, Normal Color, Warm Peripheral Pulses: 3+ Radial (R), 3+ Radial (L) Lymphatic: No Adenopathy Was a procedure done? 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 Physician Indication: Hypotension, CVP monitoring Room prepared for procedure: Yes Manager In Training performed hand hygien: Yes Maximal sterile barrier precau: Mask/Eye shield, Sterile gown Skin Preparation: Chlorhexidine gluconate, Providine iodine Skin preparation completely dr: Yes Insertion site: Right, Internal jugular Central line catheter type: Gja-roavvpqy-yxq dialysis Number of lumens: 3 Antiseptic ointment applied to: Yes Post Assessment: Chest X-Ray Intubation Indication: Respiratory Insufficiency Prep: Preoxygenation Pretreated with: Sedation, Other Medicated with: Other (etomidate 20 mg, Rocuronium 100 mg) Intubation Approach: Orotracheal Intubation size: cm (24) Informed consent obtained: Yes Risks/benefits/alt described: Yes Differential Dx Differential Diagnosis: Asthma, Bronchitis, CHF X-Ray, Labs, Meds, VS Vital Signs Date Time Temp Pulse Resp B/P (MAP) Pulse Ox O2 Delivery O2 Flow Rate FiO2 10/17/24 13:15 103 21 131/89 (103) 91 10/17/24 13:00 97 19 113/68 (83) 92 10/17/24 12:45 113/68 10/17/24 12:45 100 22 127/75 (92) 98 10/17/24 12:35 99 22 127/75 (92) 100 45 10/17/24 12:30 102 20 127/77 (94) 100 10/17/24 12:15 106 20 144/88 (106) 100 10/17/24 12:11 83 10/17/24 12:00 117 17 144/88 (106) 99 10/17/24 11:45 114 20 194/118 (143) 99 10/17/24 11:45 194/118 10/17/24 11:41 114 10/17/24 11:30 114 20 194/118 (143) 99 10/17/24 11:15 119 20 194/118 (143) 99 10/17/24 11:00 114 8 225/129 (161) 87 10/17/24 11:00 129 Ambu-Bag 10/17/24 10:45 153 21 218/125 (156) 82 10/17/24 10:45 225/129 10/17/24 10:41 110 20 245/131 97 100 10/17/24 10:41 218/125 10/17/24 10:41 110 20 245/131 (169) 97 100 10/17/24 10:40 58 10/17/24 10:30 91 28 121/83 (96) 56 10/17/24 10:15 93 19 121/83 (96) 93 10/17/24 10:00 87 19 121/83 (96) 94 10/17/24 09:40 98.6 99 20 121/83 (96) 94 98.6 10/17/24 09:40 Nasal Cannula* 4 36 10/17/24 09:37 90 10/17/24 09:23 98.6 97 24 127/79 (95) 94 98.6 Lab Test 10/17/24 12:30 10/17/24 09:38 10/17/24 09:15 Range/Units Blood Gas Specimen Type Arterial Blood Gas Sample Site Right radial Blood Gas Patient Temperature 37.0 Arterial Blood Date Drawn [id number] Arterial Blood pH 7.133 *L 7.350-7.450 Arterial Blood Partial Pressure CO2 67.9 *H 35.0-48.0 mmHg Arterial Blood Partial Pressure O2 341.3 *H 83.0-108.0 mmHg Arterial Blood HCO3 22.2 21.0-28.0 mmol/L Arterial Blood Oxygen Saturation 99.7 H 94.0-98.0 % Arterial Blood Base Excess -7.8 L -2.0-3.0 mmol/L Arterial Blood Oxyhemoglobin 98.2 H 94.0-98.0 % Arterial Blood Carboxyhemoglobin 0.7 0.5-1.5 % Arterial Blood Methemoglobin 0.8 0.0-1.5 % Melvin Test Modified Blood Gas Total Hemoglobin 13.00 L 13.5-17.5 g/dL Blood Gas Modality Vent - p/c FiO2 % 100.0 Blood Gas Inspiratory Pressure 22.0 Blood Gas PEEP or CPAP 10.0 Blood Gas Critical Value Read Back Yes Blood Gas Notified Whom wu Torre md Blood Gas Notified Time [id number] Blood Gas Notified By Alice pierre i. White Blood Count 5.9 4.4-10.8 10^3/uL Red Blood Count 5.04 4.5-5.90 10^6/uL Hemoglobin 13.9 13.5-17.5 g/dL Hematocrit 41.3 41.0-53.0 % Mean Corpuscular Volume 81.9 80.0-100.0 fL Mean Corpuscular Hemoglobin 27.7 L 28.0-32.0 pg Mean Corpuscular Hemoglobin Concent 33.8 32.0-36.0 g/dL Red Cell Distribution Width 15.9 H 11.8-14.3 % Platelet Count 265 140-450 10^3/uL Mean Platelet Volume 7.9 6.9-10.8 fL Neutrophils (%) (Auto) 37.0-80.0 % Lymphocytes (%) (Auto) 10.0-50.0 % Monocytes (%) (Auto) 0.0-12.0 % Eosinophils (%) (Auto) 0.0-7.0 % Basophils (%) (Auto) 0.0-2.0 % Neutrophils # (Auto) 1.6-8.6 10 ^3/uL Lymphocytes # (Auto) 0.4-5.4 10 ^3/uL Monocytes # (Auto) 0-1.3 10 ^3/uL Differential Total Cells Counted 100.0 100 Neutrophils % (Manual) 46 37.0-80.0 Band Neutrophils % (Manual) 0 Lymphocytes % (Manual) 38 10.0-50.0 Monocytes % (Manual) 1 0-12 Eosinophils % (Manual) 14 H 0-7 Basophils % (Manual) 0 0.0-2.0 Metamyelocytes % (manual) 0 Myelocytes % (Manual) 1 Promyelocytes % (Manual) 0 Blast Cells % (Manual) 0 Reactive Lymphocytes 0 Platelet Estimate Adequate D-Dimer, Quantitative 1.66 H 0.0-0.49 mg/L FEU Sodium Level 139 136-145 mmol/L Potassium Level 3.7 3.5-5.1 mmol/L Chloride Level 104 98-107 mmol/L Carbon Dioxide Level 24 20-31 mmol/L Anion Gap 11 5-15 Blood Urea Nitrogen 33 H 9-23 mg/dL Creatinine 2.73 H 0.700-1.30 mg/dL Glomerular Filtration Rate Calc 26 >90 mL/min BUN/Creatinine Ratio 12.1 10.0-20.0 Serum Glucose 115 H 74-106 mg/dL Lactic Acid Level 1.2 0.4-2.0 mmol/L Calcium Level 10.0 8.7-10.4 mg/dL Troponin I High Sensitivity 17 </=54 ng/L Thyroid Stimulating Hormone (TSH) 3.02 0.55-4.78 uIU/mL POC Glucose 116 H 70-106 mg/dl Current Medications Medications (Trade) Dose Ordered Sig/Mari Route Start Time Stop Time Status Last Admin Methylprednisolone Sodium Succinate (Solu Medrol) 125 mg ONCE ONCE IV 10/17/24 09:30 10/17/24 09:31 DC 10/17/24 10:30 Piperacillin Sod/ Tazobactam Sod 100 ml @ 100 mls/hr ONCE ONCE IV 10/17/24 09:30 10/17/24 10:29 DC 10/17/24 10:25 Azithromycin 250 ml @ 125 mls/hr ONCE ONCE IV 10/17/24 09:30 10/17/24 11:29 DC 10/17/24 10:25 Sodium Chloride 1,000 ml @ 1,000 mls/hr Q1H ONCE IV 10/17/24 09:30 10/17/24 10:29 DC 10/17/24 10:25 Sodium Chloride 1,000 ml @ 150 mls/hr Q6H40M ONCE IV 10/17/24 09:30 10/17/24 16:09 DC 10/17/24 12:30 Midazolam HCl 50 ml @ 1 mls/hr Q24H IV 10/17/24 11:00 10/17/24 17:04 Etomidate 20 mg ONCE ONCE IV 10/17/24 11:00 10/17/24 11:01 DC 10/17/24 10:40 Rocuronium [place] 100 mg ONCE ONCE IV 10/17/24 11:00 10/17/24 11:01 DC 10/17/24 10:41 Magnesium Sulfate/ Dextrose 100 ml @ 100 mls/hr Q1H IV 10/17/24 11:00 10/17/24 12:59 DC 10/17/24 12:36 Sodium Bicarbonate 50 ml ONCE ONCE IV 10/17/24 11:00 10/17/24 11:02 DC 10/17/24 11:10 Albuterol (Ventolin Medneb) 20 mg ONCE ONCE NEB 10/17/24 11:15 10/17/24 11:27 DC 10/17/24 11:47 Ipratropium [place] (Atrovent Medneb) 1 mg ONCE ONCE NEB 10/17/24 11:15 10/17/24 11:27 DC 10/17/24 11:47 Patient alert. Complaining of shortness a breath. Saturation is low on arrival. Placed on oxygen. On examination mild swelling of bilateral lower extremity pain No sign of any DVT. No discoloration. Possible pneumonitis. Establish intravenous access. Was given steroid. Was given Zosyn. Was given azithromycin. Possible sepsis. Monitoring fluid. Reviewed his previous visit. Explained to the patient. Continue monitoring. [address] [address] Ph: [phone] DIAGNOSTIC IMAGING Diagnostic Imaging Report : [id number] Signed PATIENT: YANY RODNEY MACCT: [id number] UNIT: [id number] : 1965 LOC: ER ROOM / BED: / AGE / SEX: 59 / M ADM STATUS: REG ER SERVICE 0 ORDERING PHYSICIAN: MAURI TORRE MD PROCEDURE(s): CXRP - CHEST PORTABLE REASON: sob ORDER NUMBER(s): [id number], ACCESSION NUMBER(s): [id number] EXAM: XY CHEST PORTABLE Indication: sob Technique: Single frontal view of the chest was obtained Comparison: XY CHEST PORTABLE on DOS: 09/17/24, XY CHEST PORTABLE on DOS: 07/21/24, XY CHEST PORTABLE on DOS: 04/18/24 FINDINGS: Lines and Tubes: None Lungs: No focal consolidation. Pleura: No effusion. No pneumothorax. Cardiomediastinal contours: Unremarkable Bones: No acute osseous abnormality. IMPRESSION: No acute cardiopulmonary disease. ATED BY: GEORGE POPE MD DICTATED DATE/TIME: 10/17/24 1001 SIGNED BY: GEORGE POPE MD SIGNED DATE/TIME: 10/17/24 1001 CC: [address] [address] Ph: [phone] DIAGNOSTIC IMAGING Diagnostic Imaging Report : [id number] Signed PATIENT: YANY RODNEY MACCT: [id number] UNIT: [id number] : 1965 LOC: ER ROOM / BED: / AGE / SEX: 59 / M ADM STATUS: REG ER SERVICE 1044 ORDERING PHYSICIAN: MAURI TORRE MD PROCEDURE(s): CXR1 - CHEST XRAY 1 VIEW REASON: S/P INTUBATION ORDER NUMBER(s): [id number], ACCESSION NUMBER(s): [id number] CHEST RADIOGRAPH Indication: S/P INTUBATION Technique: Single frontal view of the chest was obtained COMPARISON: XY CHEST PORTABLE on DOS: 10/17/24, XY CHEST PORTABLE on DOS: 09/17/24 , XY CHEST PORTABLE on DOS: 07/21/24, XY CHEST PORTABLE on DOS: 04/18/24 FINDINGS: Lines and Tubes: Right central venous catheter in satisfactory position. Endotracheal tube in satisfactory position. Lungs: Right middle lobe airspace disease. Pleura: No effusion. No pneumothorax. Cardiomediastinal contours: Unremarkable Bones: Unremarkable IMPRESSION: Right central venous catheter and endotracheal tube in satisfactory position. ATED BY: MARK SHARP MD DICTATED DATE/TIME: 10/17/24 112 SIGNED BY: MARK SHARP MD SIGNED DATE/TIME: 10/17/24 112 CC: Time of 1ST Reevaluation: 09:48 Reevaluation 1ST: Unchanged Patient Education/Counseling: Diagnosis, Treatment, Prognosis Family Education/Counseling: No Family Present SEPSIS Sepsis Screen Physician Orders Chest Portable (10/17/24 09:21) Blood Culture (10/17/24 09:21) Chest Xray 1 View (10/17/24 10:44) Midazolam Drip 50 Mg/50ml (Versed Drip 5 (10/17/24 11:00) Ventilator Orders (10/17/24 10:41) Abg W/ Co-Ox (10/17/24 12:00) Respiratory Culture W/ Gs (10/17/24 11:00) Chest Xray 1 View (10/17/24 11:40) Nm Vq Scan (10/17/24 11:55) Bilat Lower Dvt (10/17/24 11:59) Ventilator Orders (10/17/24 12:35) Abg W/ Co-Ox (10/17/24 14:00) Levothyroxine Tablet (Synthroid Tablet) (10/18/24 07:00) Vital Signs Date Time Temp Pulse Resp B/P (MAP) Pulse Ox O2 Delivery O2 Flow Rate FiO2 10/17/24 13:15 103 21 131/89 (103) 91 10/17/24 13:00 97 19 113/68 (83) 92 10/17/24 12:45 113/68 10/17/24 12:45 100 22 127/75 (92) 98 10/17/24 12:35 99 22 127/75 (92) 100 45 10/17/24 12:30 102 20 127/77 (94) 100 10/17/24 12:15 106 20 144/88 (106) 100 10/17/24 12:11 83 10/17/24 12:00 117 17 144/88 (106) 99 10/17/24 11:45 114 20 194/118 (143) 99 10/17/24 11:45 194/118 10/17/24 11:41 114 10/17/24 11:30 114 20 194/118 (143) 99 10/17/24 11:15 119 20 194/118 (143) 99 10/17/24 11:00 114 8 225/129 (161) 87 10/17/24 11:00 129 Ambu-Bag 10/17/24 10:45 153 21 218/125 (156) 82 10/17/24 10:45 225/129 10/17/24 10:41 110 20 245/131 97 100 10/17/24 10:41 218/125 10/17/24 10:41 110 20 245/131 (169) 97 100 10/17/24 10:40 58 10/17/24 10:30 91 28 121/83 (96) 56 10/17/24 10:15 93 19 121/83 (96) 93 10/17/24 10:00 87 19 121/83 (96) 94 10/17/24 09:40 98.6 99 20 121/83 (96) 94 98.6 10/17/24 09:40 Nasal Cannula* 4 36 10/17/24 09:37 90 10/17/24 09:23 98.6 97 24 127/79 (03) 94 98.6 Laboratory Tests Test 10/17/24 09:38 Lactic Acid Level 1.2 mmol/L (0.4-2.0) White Blood Count 5.9 10^3/uL (4.4-10.8) Medications Medications Dose Ordered Sig/Mari Route Start Time Stop Time Status Last Admin Dose Admin Albuterol 20 mg ONCE ONCE NEB 10/17/24 11:15 10/17/24 11:27 DC 10/17/24 11:47 Azithromycin 250 ml @ 125 mls/hr ONCE ONCE IV 10/17/24 09:30 10/17/24 11:29 DC 10/17/24 10:25 Etomidate 20 mg ONCE ONCE IV 10/17/24 11:00 10/17/24 11:01 DC 10/17/24 10:40 Ipratropium [place] 1 mg ONCE ONCE NEB 10/17/24 11:15 10/17/24 11:27 DC 10/17/24 11:47 Magnesium Sulfate/ Dextrose 100 ml @ 100 mls/hr Q1H IV 10/17/24 11:00 10/17/24 12:59 DC 10/17/24 12:36 Methylprednisolone Sodium Succinate 125 mg ONCE ONCE IV 10/17/24 09:30 10/17/24 09:31 DC 10/17/24 10:30 Midazolam HCl 50 ml @ 1 mls/hr Q24H IV 10/17/24 11:00 10/17/24 17:04 Piperacillin Sod/ Tazobactam Sod 100 ml @ 100 mls/hr ONCE ONCE IV 10/17/24 09:30 10/17/24 10:29 DC 10/17/24 10:25 Rocuronium [place] 100 mg ONCE ONCE IV 10/17/24 11:00 10/17/24 11:01 DC 10/17/24 10:41 Sodium Bicarbonate 50 ml ONCE ONCE IV 10/17/24 11:00 10/17/24 11:02 DC 10/17/24 11:10 Sodium Chloride 1,000 ml @ 150 mls/hr Q6H40M ONCE IV 10/17/24 09:30 10/17/24 16:09 DC 10/17/24 12:30 Sodium Chloride 1,000 ml @ 1,000 mls/hr Q1H ONCE IV 10/17/24 09:30 10/17/24 10:29 DC 10/17/24 10:25 Departure 1 Departure Time of Disposition: 09:28 Impression: Primary Impression: Acute respiratory failure Qualified Codes: J96.01 - Acute respiratory failure with hypoxia Additional Impression: Pneumonitis Disposition: ADMITTED INPATIENT Admit to: Med Surg Condition: Guarded Critical Care Note Critical Care Time?: Yes (45 min-critical care time only) Critical care comment: Placed on oxygen Stability Stability form required: No Heart Score Heart Score: Heart Score Response (Comments) Value History Slightly Suspicious 0 EKG Normal 0 Age 45-64 1 Risk Factors >3 or Hx ASHD 2 Troponin Normal limit 0 Total 3 I personally scribed for MAURI TORRE MD ([email or web address]) on 10/17/24 at 09:25. Electronically submitted by Maeve Tan ([email or web address]). I personally scribed for MAURI TORRE MD ([email or web address]) on 10/17/24 at 10:44. Electronically submitted by Maeve Tan ([email or web address]). I personally scribed for MAURI TORRE MD ([email or web address]) on 10/17/24 at 11:30. Electronically submitted by Maeve Tan ([email or web address]). I personally scribed for MAURI TORRE MD ([email or web address]) on 10/17/24 at 11:31. Electronically submitted by Maeve Tan ([email or web address]). MAURI TORRE MD Oct 17, 2024 09:25
--- NOTE | 2024-10-17 10:03 | DVH ---
EXAM: XY CHEST PORTABLE Indication: sob Technique: Single frontal view of the chest was obtained Comparison: XY CHEST PORTABLE on DOS: 09/17/24, XY CHEST PORTABLE on DOS: 07/21/24, XY CHEST PORTABLE o n DOS: 04/18/24 FINDINGS: Lines and Tubes: None Lungs: No focal consolidation. Pleura: No effusion. No pneumothorax. Cardiomediastinal contours: Unremarkable Bones: No acute osseous abnormality. IMPRESSION: No acute cardiopulmonary disease.
[2024-10-17 10:04] LABS: Hematocrit 41.3 % (41.0-53.0); Hemoglobin 13.9 g/dL (13.5-17.5); Mean Corpuscular Hemoglobin 27.7 pg (28.0-32.0); Mean Corpuscular Hgb Conc. 33.8 g/dL (32.0-36.0); Mean Corpuscular Volume 81.9 fL (80.0-100.0); Platelet Count (auto) 265 10^3/uL (140-450); Red Blood Cells 5.04 10^6/uL (4.5-5.90); Red Cell Distribution Width 15.9 % (11.8-14.3); White Blood Cell 5.9 10^3/uL (4.4-10.8)
[2024-10-17 10:09] LABS: Band Neutrophils % (manual) 0; Basophils % (manual) 0 (0.0-2.0); Blast Cells 0; Metamyelocytes % 0; Promyelocytes % 0; Reactive Lymphocytes 0
[2024-10-17 10:15] LABS: Chloride 104 mmol/L (98-107); Potassium 3.7 mmol/L (3.5-5.1); Sodium 139 mmol/L (136-145)
[2024-10-17 10:16] LABS: Anion Gap 11 (5-15); Carbon Dioxide 24 mmol/L (20-31)
[2024-10-17 10:21] LABS: BUN/Creatinine Ratio 12.1 (10.0-20.0); Blood Urea Nitrogen 33 mg/dL (9-23); Glucose 115 mg/dL (74-106)
[2024-10-17] MEDS: PIPERACILLIN-TAZOB 3.375GM 100 ML IV ONE (10:25)
[2024-10-17] MEDS: SODIUM CHLORIDE 0.9% 1,000 ML IV ONE ×2 (10:25→12:30)
[2024-10-17] MEDS: AZITHROMYCIN 500MG/ 250ML 250 ML IV ONE (10:25)
[2024-10-17 10:27] LABS: Eosinophils % (manual) 14 (0-7); Lymphocytes % (manual) 38 (10.0-50.0); Monocytes % (manual) 1 (0-12); Myelocytes % 1
[2024-10-17 10:28] LABS: Platelet Estimate Adequate
[2024-10-17] MEDS: methylPREDNISolone SOD SUCC 125 MG/2 ML VL IV ONE (10:30)
[2024-10-17] MEDS: ETOMIDATE (2MG/ML) 20ML VIAL IV ONE ×2 (10:40→10:50)
[2024-10-17] MEDS: ROCURONIUM 10MG/ML 10ML VIAL IV ONE ×2 (10:41→10:50)
[2024-10-17] MEDS: MIDAZOLAM DRIP 50 mg/50mL 50 ML IV ONE (10:43)
[2024-10-17] MEDS ORDERED: IPRATROPIUM BROM 0.5 MG/2.5ML INH SOL NEB ONE (10:45)
[2024-10-17] MEDS: MIDAZOLAM DRIP 50 mg/50mL 50 ML IV SCH (10:45)
[2024-10-17] MEDS ORDERED: ALBUTEROL SULF 2.5 MG/0.5ML(0.5%) NEB SOLN NEB ONE (10:45)
[2024-10-17] MEDS: MAGNESIUM SULFATE 1GM/100ML 100 ML IV SCH (11:00)
--- NOTE | 2024-10-17 11:00 | RESUS ---
CODE BLUE ASSESSSMENT History of Events History of Events: PT BROUGHT TO ER BED 8 FROM TRIAGE. PT BEGAN TO DESATT TO 70s. RT AT BEDSIDE. PT THEN STOPPED BREATHING, NO PALPABLE PULES FELT. CPR INITIATED BY ER STAFF. Initial Information Date: Oct 17, 2024 Time: 10:38 Location of Arrest: ER Arrest Witnessed: Yes CPR started initial time: 10:38 CPR started by whom: Hospital Staff Type of arrest: Witnessed Spontaneous Respirations: No Pulse Present: No Monitoring: ECG, Pulse Oximetry, Telemetry Crash Cart Opened and Supplies: Yes Airway Ventilation Breathing at Onset: Agonal Oxygen Delivery Method: Ambu-Bag Time of first Assisted Ventila: 10:38 Artificial Ventilation: Bag/Mask, Bag/Endo tube Intubation Time: 10:41 Intubation Size: 8.0 cuffed Intubated by: DR TORRE Intubated orally: Yes Tube secured at: 24 Confirmation: Auscultation, Exhaled CO2, Chest X-ray Circulation Circulation : Time: 10:41 Pulse Rate (adult): 129 Blood Pressure Systolic: 225 Blood Pressure Diastolic: 129 Medications & Response Medications and Responses : Medication Time: 10:39 ADULT Medications Given ADULT: Epinephrine 1 mg Route of Administration: IV EKG Rhythm: PEA Time Code Ended Time Code Ended: 10:40 Post Arrest Status: Ventilated Outcome of code: Successful ROSC Time of ROSC: 10:40 HONEY MOSQUEDA Oct 17, 2024 11:00
[2024-10-17] MEDS: SODIUM BICARB 8.4% 50Meq/50ml SYR Vial IV ONE (11:10)
--- NOTE | 2024-10-17 11:27 | DVH ---
CHEST RADIOGRAPH Indication: S/P INTUBATION Technique: Single frontal view of the chest was obtained COMPARISON: XY CHEST PORTABLE on DOS: 10/17/24, XY CHEST PORTABLE on DOS: 09/17/24, XY CHEST PORTABLE o n DOS: 07/21/24, XY CHEST PORTABLE on DOS: 04/18/24 FINDINGS: Lines and Tubes: Right central venous catheter in satisfactory position. Endotracheal tube in satisf actory position. Lungs: Right middle lobe airspace disease. Pleura: No effusion. No pneumothorax. Cardiomediastinal contours: Unremarkable Bones: Unremarkable IMPRESSION: Right central venous catheter and endotracheal tube in satisfactory position.
[2024-10-17] MEDS: IPRATROPIUM BROM 0.5 MG/2.5ML INH SOL NEB ONE (11:47)
[2024-10-17] MEDS: ALBUTEROL SULF 2.5 MG/0.5ML(0.5%) NEB SOLN NEB ONE (11:47)
--- NOTE | 2024-10-17 12:29 | DVH ---
CHEST RADIOGRAPH Indication: POST OGT PLACEMENT Technique: Single frontal view of the chest was obtained Comparison: XY CHEST XRAY 1 VIEW on DOS: 10/17/24, XY CHEST PORTABLE on DOS: 10/17/24, XY CHEST PORTABL E on DOS: 09/17/24, XY CHEST PORTABLE on DOS: 07/21/24, XY CHEST PORTABLE on DOS: 04/18/24, XY CHEST XR AY 1 VIEW on DOS: 10/17/24 FINDINGS: Lines and Tubes: Right central venous catheter in satisfactory position. Endotracheal tube in satisf actory position. Lungs: Right middle lobe airspace disease. Pleura: No effusion. No pneumothorax. Cardiomediastinal contours: Unremarkable Bones: Unremarkable IMPRESSION: Right central venous catheter and endotracheal tube in satisfactory position. NG tube tip in the stomach.
[2024-10-17 12:47] LABS: Base Excess -7.8 mmol/L (-2.0-3.0)
--- NOTE | 2024-10-17 13:05 | DVH ---
Procedure: US BiLat Lower DVT Study Date and Requested Time: 10/17/2024 12:10 PM History: R/O DVT Comparison: None Technique: Multiple high resolution jacinto-scale images with and without compression obtained of the bi lateral lower extremity veins, including the common femoral vein, deep femoral vein, proximal mid and distal superficial femoral vein, and popliteal vein. Additional limited images of the greater saphen ous vein also obtained. Augmentation performed as indicated. Color and spectral doppler flow images o btained as indicated. Findings: No visible intraluminal venous thrombus. No evidence of incompressibility or abnormal color or spectr al Doppler flow visualized in the bilateral lower extremity veins including, the common femoral vein, deep femoral vein, proximal mid and distal superficial femoral vein, and popliteal vein. Greater sap henous vein grossly unremarkable. Impression: No sonographic evidence of bilateral lower extremity deep venous thrombosis.
--- NOTE | 2024-10-17 13:05 | ECG ---
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
[2024-10-17] MEDS ORDERED: DEXTROSE (50%) 50ML SYRG IV PRN (13:30)
[2024-10-17] MEDS ORDERED: NITROGLYCERIN 0.4 MG SL TAB SL PRN (13:30)
[2024-10-17] MEDS ORDERED: ONDANSETRON HCL 4 MG/2 ML VIAL IV PRN (13:30)
[2024-10-17] MEDS ORDERED: MORPHINE SULFATE INJ 2 MG/ml SYRG IV PRN (13:30)
[2024-10-17] MEDS ORDERED: DOCUSATE SOD 100 MG CAP PO PRN (13:30)
[2024-10-17] MEDS ORDERED: ACETAMINOPHEN 325 MG TAB PO PRN (13:30)
[2024-10-17] MEDS: fentaNYL Drip 2500mCg/250mlNS 250 ML IV SCH (13:45)
--- NOTE | 2024-10-17 13:47 | DVHHP2 ---
History of Present Illness Reason for Visit: Shortness of breath History of Present Illness Be Zhong is a 59-year-old male with past medical history of COPD, hypertension, hyperlipidemia, diabetes, and hypothyroidism who came in due to shortness of breath. The patient was recently admitted here and discharged on 09/22/2024 with PO antibiotics. He came back to the ER today due to worsening shortness of breath and a rash on his upper body. When he was first in the ER he was placed on 4L/NC when he arrived to his bed with oxygenation saturation 91- 94%. While in the ER his work of breathing increased, his oxygenation dropped, he became unresponsive, and a code blue was called. On my assessment the patient is intubated and sedated. His oxygenation is doing well on the current vent settings. Cardiovascular: HTN, hyperipidemia Pulmonary: COPD Endocrine: Diabetes, Hypothyroidism Past Surgical History: None Smoke: No ALCOHOL: none Drugs: None Lives: with Family Domestic Violence: Neg Review of Systems Constitutional: No: Fever, Chills, Sweats, Weakness, Malaise, Other Eyes: No: Pain, Vision change, Conjunctivae inflammation, Eyelid inflammation, Other, Redness ENT: No: Ear pain, Ear discharge, Nose pain, Nose discharge, Nose congestion, Mouth pain, Mouth swelling, Throat pain, Throat swelling, Other Respiratory: Cough, Shortness of breath, SOB with excertion; No: Dry, Wheezing, Hemoptysis, Pleuritic Pain, Sputum, Wheezing, Other Cardiovascular: No: Chest Pain, Palpitations, Orthopnea, Paroxysmal Noc. Dyspnea, Edema, Lt Headedness, Other Gastrointestinal: No: Nausea, Vomiting, Abdominal Pain, Diarrhea, Constipation, Melena, Hematochezia, Other Genitourinary: No Dysuria, No Frequency, No Incontinence, No Hematuria, No Retention, No Other Musculoskeletal: No: other, neck pain, shoulder pain, arm pain, back pain, hand pain, leg pain, foot pain Skin: No: Rash, Lesions, Jaundice, Bruising, Other Neurological: No: Weakness, Numbness, Incoordination, Change in speech, Confusion, Seizures, Other Allergies: Coded Allergies: Tetracycline (Verified Allergy, Unknown, 04/19/24) Medications Current Medications Medications Dose Ordered Sig/Mari Route Start Time Stop Time Status Last Admin Dose Admin Midazolam HCl 50 ml @ 1 mls/hr Q24H IV 10/17/24 11:00 10/17/24 10:45 5 MLS/HR Levothyroxine Sodium 75 mcg QAM PO 10/18/24 07:00 UNV Patient Own Medication 1 tab DAILY PO 10/18/24 10:00 UNV Ondansetron HCl 4 mg Q4HP PRN IV 10/17/24 13:30 UNV Docusate Sodium 100 mg BIDPRN PRN PO 10/17/24 13:30 UNV Enoxaparin Sodium 40 mg DAILY SC 10/18/24 10:00 UNV Acetaminophen 650 mg Q6HP PRN PO 10/17/24 13:30 UNV Nitroglycerin 0.4 mg Q5MINP PRN SL 10/17/24 13:30 UNV Morphine Sulfate 2 mg Q30M PRN IV 10/17/24 13:30 UNV Albuterol 2.5 mg Q6HWA NEB 10/17/24 18:00 UNV Ipratropium [place] 0.[address] [facility] 10/17/24 18:00 UNV Methylprednisolone Sodium Succinate 40 mg BID IV 10/17/24 22:00 UNV Ceftriaxone Sodium 50 ml @ 100 mls/hr DAILY@09 IV 10/18/24 09:00 UNV Sodium Chloride 1,000 ml @ 75 mls/hr [id number] IV 10/17/24 13:30 UNV Exam Vital Signs Vital Signs Date Time Temp Pulse Resp B/P (MAP) Pulse Ox O2 Delivery O2 Flow Rate FiO2 10/17/24 12:11 83 10/17/24 11:45 194/118 10/17/24 11:00 Ambu-Bag 10/17/24 10:41 20 97 100 10/17/24 09:40 98.6 98.6 10/17/24 09:40 4 General Appearance: Other (Intubated and sedated) HEENT: Atraumatic, PERRLA Respiratory: Other (Diminshed breath sounds, intubated) Cardiovascular: Normal S1, Normal S2 Abdominal: Normal bowel sounds, Soft, No tenderness Extremities: No clubbing, No cyanosis, No edema, Normal pulses, No tend erness/swelling Skin: No breakdown, No significant lesion Neuro: Other (intubated and sedated) Labs/Xrays Labs Test 10/17/24 12:30 10/17/24 09:38 10/17/24 09:15 Range/Units Blood Gas Specimen Type Arterial Blood Gas Sample Site Right radial Blood Gas Patient Temperature 37.0 Arterial Blood Date Drawn Arterial Blood pH 7.133 *L 7.350-7.450 Arterial Blood Partial Pressure CO2 67.9 *H 35.0-48.0 mmHg Arterial Blood Partial Pressure O2 341.3 *H 83.0-108.0 mmHg Arterial Blood HCO3 22.2 21.0-28.0 mmol/L Arterial Blood Oxygen Saturation 99.7 H 94.0-98.0 % Arterial Blood Base Excess -7.8 L -2.0-3.0 mmol/L Arterial Blood Oxyhemoglobin 98.2 H 94.0-98.0 % Arterial Blood Carboxyhemoglobin 0.7 0.5-1.5 % Arterial Blood Methemoglobin 0.8 0.0-1.5 % Melvin Test Modified Blood Gas Total Hemoglobin 13.00 L 13.5-17.5 g/dL Blood Gas Modality Vent - p/c FiO2 % 100.0 Blood Gas Inspiratory Pressure 22.0 Blood Gas PEEP or CPAP 10.0 Blood Gas Critical Value Read Back Yes Blood Gas Notified Whom wu Fernandes md Blood Gas Notified Time Blood Gas Notified By Alice pierre i. White Blood Count 5.9 4.4-10.8 10^3/uL Red Blood Count 5.04 4.5-5.90 10^6/uL Hemoglobin 13.9 13.5-17.5 g/dL Hematocrit 41.3 41.0-53.0 % Mean Corpuscular Volume 81.9 80.0-100.0 fL Mean Corpuscular Hemoglobin 27.7 L 28.0-32.0 pg Mean Corpuscular Hemoglobin Concent 33.8 32.0-36.0 g/dL Red Cell Distribution Width 15.9 H 11.8-14.3 % Platelet Count 265 140-450 10^3/uL Mean Platelet Volume 7.9 6.9-10.8 fL Neutrophils (%) (Auto) 37.0-80.0 % Lymphocytes (%) (Auto) 10.0-50.0 % Monocytes (%) (Auto) 0.0-12.0 % Eosinophils (%) (Auto) 0.0-7.0 % Basophils (%) (Auto) 0.0-2.0 % Neutrophils # (Auto) 1.6-8.6 10 ^3/uL Lymphocytes # (Auto) 0.4-5.4 10 ^3/uL Monocytes # (Auto) 0-1.3 10 ^3/uL Differential Total Cells Counted 100.0 100 Neutrophils % (Manual) 46 37.0-80.0 Band Neutrophils % (Manual) 0 Lymphocytes % (Manual) 38 10.0-50.0 Monocytes % (Manual) 1 0-12 Eosinophils % (Manual) 14 H 0-7 Basophils % (Manual) 0 0.0-2.0 Metamyelocytes % (manual) 0 Myelocytes % (Manual) 1 Promyelocytes % (Manual) 0 Blast Cells % (Manual) 0 Reactive Lymphocytes 0 Platelet Estimate Adequate D-Dimer, Quantitative 1.66 H 0.0-0.49 mg/L FEU Sodium Level 139 136-145 mmol/L Potassium Level 3.7 3.5-5.1 mmol/L Chloride Level 104 98-107 mmol/L Carbon Dioxide Level 24 20-31 mmol/L Anion Gap 11 5-15 Blood Urea Nitrogen 33 H 9-23 mg/dL Creatinine 2.73 H 0.700-1.30 mg/dL Glomerular Filtration Rate Calc 26 >90 mL/min BUN/Creatinine Ratio 12.1 10.0-20.0 Serum Glucose 115 H 74-106 mg/dL Lactic Acid Level 1.2 0.4-2.0 mmol/L Calcium Level 10.0 8.7-10.4 mg/dL Troponin I High Sensitivity 17 </=54 ng/L POC Glucose 116 H 70-106 mg/dl Procedure: US BiLat Lower DVT Accession Technique: Multiple high resolution jacinto-scale images with and without compression obtained of the bilateral lower extremity veins, including the common femoral vein, deep femoral vein, proximal mid and distal superficial femoral vein, and popliteal vein. Additional limited images of the greater saphenous vein also obtained. Augmentation performed as indicated. Color and spectral doppler flow images obtained as indicated. Findings: No visible intraluminal venous thrombus. No evidence of incompressibility or abnormal color or spectral Doppler flow visualized in the bilateral lower extremity veins including, the common femoral vein, deep femoral vein, proximal mid and distal superficial femoral vein, and popliteal vein. Greater saphenous vein grossly unremarkable. Impression: No sonographic evidence of bilateral lower extremity deep venous thrombosis. CHEST RADIOGRAPH FINDINGS: Lines and Tubes: Right central venous catheter in satisfactory position. Endotracheal tube in satisfactory position. Lungs: Right middle lobe airspace disease. Pleura: No effusion. No pneumothorax. Cardiomediastinal contours: Unremarkable Bones: Unremarkable IMPRESSION: Right central venous catheter and endotracheal tube in satisfactory position. NG tube tip in the stomach. Assessment/Plan Assessment/Plan Assessment: Acute respiratory failure, Elevated D-dimer, Acute kidney failure, COPD, Hypertension, Hyperlipidemia, Diabetes, Hypothyroidism, Plan: Admit to ICU, IV Antibiotics, IV hydration, IV steroids, Breathing treatments as needed, ABG in am. 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 Procedure Category Date Status Time Nm Vq Scan NM 10/17/24 Logged 11:55 Bilat Lower Dvt US 10/17/24 Resulted 11:59 Levothyroxine Tablet PHA 10/18/24 Logged (Synthroid Tablet) 07:00 (Nf) Atorvastatin PHA 10/18/24 Logged Calcium (Lipitor) 10:00 Admit ADMIT 10/17/24 Transmitted 13:17 Code Status CODE 10/17/24 Transmitted 13:17 Ondansetron Hcl PHA 10/17/24 Logged (Zofran) 13:30 Docusate Sodium PHA 10/17/24 Logged Capsule (Colace 13:30 Enoxaparin Sodium PHA 10/18/24 Logged (Lovenox) 10:00 Complete Blood Count LAB 10/18/24 Verified 04:00 Comprehensive LAB 10/18/24 Verified Metabolic Panel 04:00 Npo (Nothing By DIET 10/17/24 Transmitted Mouth) Diet Lunch Condition: Critical [facility] 10/17/24 In Process 13:17 Acetaminophen Tablet PHA 10/17/24 Logged (Tylenol Tablet) 13:30 Nitroglycerin PHA 10/17/24 Logged Sublingual (Ntrostat 13:30 Morphine Sulfate PHA 10/17/24 Logged Injection 13:30 Stat Ekg For Chest [facility] 10/17/24 In Process Pain 13:17 Notify Md Of Changes [facility] 10/17/24 In Process From Base 13:17 Transformation Coach For [facility] 10/17/24 In Process 24 Hours 13:17 Emergency Dysrhythmia [facility] 10/17/24 In Process Protocol 13:17 Rhythm Strips Once [facility] 10/17/24 In Process Every Shift 13:17 Oxygen By Nasal RT 10/17/24 Transmitted Cannula 13:17 Albuterol Medneb PHA 10/17/24 Logged (Ventolin Medneb) 18:00 Ipratropium Medneb PHA 10/17/24 Logged (Atrovent Medneb) 18:00 Methylprednisolone PHA 10/17/24 Logged Sod Succ (Solu Medrol 22:00 Ceftriaxone 1gm/50ml PHA 10/18/24 Logged D5w (Rocephin) 09:00 Sodium Chloride 0.9% PHA 10/17/24 Logged 13:30 Thyroid Stimulating LAB 10/17/24 Transmitted Hormone 13:22 Glucose Blood PHA 10/17/24 Transmitted (Accu-Chek Comfort 18:00 Mild Sliding Scale PHA 10/17/24 Transmitted Npo - Q6hr 18:00 Dextrose 50% Syringe PHA 10/17/24 Transmitted 13:30 Date of Service: Oct 17, 2024 Billing Provider: HOME NULL Common Visit Codes: [id number] INP/OBS CARE (HIGH) HOME NULL Oct 17, 2024 13:47
[2024-10-17] MEDS: SODIUM CHLORIDE 0.9% 1,000 ML IV SCH (13:50)
[2024-10-17 14:10] LABS: Base Excess -4.2 mmol/L (-2.0-3.0)
[2024-10-17] MEDS: NOREPINEPHRINE 8 MG/250ML KIT 250 ML IV ONE (17:05)
[2024-10-17] MEDS ORDERED: AML5T PO (17:30)
[2024-10-17] MEDS ORDERED: METF-370 PO (17:30)
[2024-10-17] MEDS ORDERED: ATOR-507 PO (17:30)
[2024-10-17] MEDS ORDERED: CHOL400C15 PO (17:30)
[2024-10-17] MEDS ORDERED: CHLO25TA2 PO (17:30)
[2024-10-17] MEDS: InsuLIN REG 1unit/0.01ml Soln (100units/ml) SC SCH (18:00)
[2024-10-17] MEDS: ACCU-CHEK COMFORT CURVE STRIP VI SCH (18:00)
[2024-10-17] MEDS: NOREPINEPHRINE 8 MG/250ML KIT 250 ML IV SCH (18:05)
[2024-10-17] MEDS: ALBUTEROL SULF 2.5 MG/0.5ML(0.5%) NEB SOLN NEB SCH (18:16)
[2024-10-17] MEDS: IPRATROPIUM BROM 0.5 MG/2.5ML INH SOL NEB SCH (18:16)
[2024-10-17] MEDS ORDERED: EPINEPHrine HCL 1 MG/10 ML SYRG IV ONE (21:09)
[2024-10-17] MEDS: methylPREDNISolone SOD SUCC 40 MG/ML VL IV SCH (22:15)
[2024-10-17] MEDS: ATORVASTATIN 20 MG TAB PO SCH (22:15)
[2024-10-18] VITALS (99 sets, daily range): BP systolic 93–129; BP diastolic 52–78; PULSE 57–81; RESP 18–22; TEMP 97–98.6; O2SAT 93–100
[2024-10-18 03:48] LABS: Hematocrit 35.5 % (41.0-53.0); Hemoglobin 11.6 g/dL (13.5-17.5); Mean Corpuscular Hemoglobin 27.2 pg (28.0-32.0); Mean Corpuscular Hgb Conc. 32.7 g/dL (32.0-36.0); Platelet Count (auto) 247 10^3/uL (140-450); Red Blood Cells 4.27 10^6/uL (4.5-5.90); Red Cell Distribution Width 15.7 % (11.8-14.3); White Blood Cell 6.9 10^3/uL (4.4-10.8)
[2024-10-18 03:49] LABS: Albumin 3.7 g/dL (3.2-4.8); Alkaline Phosphatase 77 U/L (46-116); Anion Gap 11 (5-15); Aspartate Aminotransferase 27 U/L (<34); BUN/Creatinine Ratio 12.9 (10.0-20.0); Carbon Dioxide 23 mmol/L (20-31); Chloride 105 mmol/L (98-107); Potassium 4.8 mmol/L (3.5-5.1); Sodium 139 mmol/L (136-145); Total Protein 6.8 g/dL (5.7-8.2)
[2024-10-18 03:56] LABS: Alanine Aminotransferase 45 U/L (7-40); Bilirubin, Total 0.2 mg/dL (0.2-1.0); Blood Urea Nitrogen 43 mg/dL (9-23); Calcium 8.1 mg/dL (8.7-10.4); Glucose 113 mg/dL (74-106)
[2024-10-18 04:25] LABS: Basophils % (manual) 0 (0.0-2.0); Blast Cells 0; Metamyelocytes % 0; Promyelocytes % 0; Reactive Lymphocytes 0
[2024-10-18 05:36] LABS: Band Neutrophils % (manual) 1; Eosinophils % (manual) 3 (0-7); Lymphocytes % (manual) 14 (10.0-50.0); Monocytes % (manual) 4 (0-12); Myelocytes % 3
[2024-10-18 05:37] LABS: Platelet Estimate Adequate
[2024-10-18] MEDS: SODIUM CHLORIDE 0.9% 500 ML IV ONE (05:47)
[2024-10-18] MEDS: LEVOTHYROXINE SODIUM 25 MCG TAB PO SCH (06:03)
[2024-10-18] MEDS: SODIUM CHLORIDE 0.9% 1,000 ML IV SCH (06:57)
--- NOTE | 2024-10-18 08:16 | ECG ---
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
--- NOTE | 2024-10-18 08:23 | DVHCONRES ---
Date Seen: Oct 18, 2024 Resident Creating Document: ARIES MARION RESIDENT Reason for Consultation s/p CPR, trop level History of Present Illness Patient is a 59-year-old male with past medical history of type 2 diabetes, COPD on home oxygen 2 L, hypertension, dyslipidemia, hypothyroidism, questionable CHF, s/p intubation in the past for COPD exacerbation, who comes in due to shortness of breath. According to records, patient came in yesterday on 10/17/2024 for shortness of breaths, rash involving bilateral upper extremities and diarrhea that has been ongoing for the last 4 days. Patient was discharged from the [facility] on 09/22/2024 after being treated for acute respiratory failure due to pneumonia causing COPD exacerbation and was discharged home with azithromycin, cefdinir and prednisolone. Of note, this is patient's 4th hospitalization at the [facility] in the last 6 months for pneumonia/COPD exacerbation. Patient has also been intubated at least once before in the past secondary to his COPD exacerbation. Review of systems could not be obtained as patient is sedated, intubated and mechanically ventilated. Past Medical History type 2 diabetes, COPD on home oxygen 2 L, hypertension, dyslipidemia, hypothyroidism, questionable CHF, s/p intubation in the past for COPD exacerbation Past Surgical History Previously denied Family History: FH: cancer G8 MOTHER grandma grandpa FH: hepatic cirrhosis G8 FATHER Social History Previously denied smoking, alcohol or use of any drugs. Accurate and up to date information could not be obtained as patient is sedated and mechanically ventilated. Allergies: Coded Allergies: Tetracycline (Verified Allergy, Unknown, 04/19/24) Home Meds Active Scripts Cefdinir (Cefdinir) 300 Mg Cap, 1 CAP PO BID, #5 CAP Prov:BRENT ROWAN MD 09/22/24 Reported Medications Chlorthalidone (Chlorthalidone) 25 Mg Tab, 25 MG PO DAILY, TAB 10/17/24 Atorvastatin Calcium (Lipitor) 40 Mg Tab, 1 TAB PO QPM, #90 TAB 1 Refill 10/17/24 Cholecalciferol (VITAMIN D3) 400 Unit Cap, 25 MCG PO DAILY, CAP 10/17/24 Metformin Hydrochloride (Metformin Hcl) 500 Mg Tab, 500 MG PO DAILY for 30 Days, MG 10/17/24 Amlodipine Besylate (NORVASC TABLET) 5 Mg Tb, 10 MG PO DAILY, TAB 10/17/24 Epoetin Billy-Epbx (Retacrit) 10,000 Unit/Ml Inj, 98238 UNIT IJ QWEEKLY, INJ 07/22/24 Magnesium Oxide (MAGNESIUM OXIDE) 400 Mg Tab, 2 TAB PO DAILY, TAB 07/22/24 Naproxen (NAPROSYN TABLET) 500 Mg Tb, 500 MG PO BID, TAB 07/22/24 Spironolactone (Spironolactone) 25 Mg Tab, 25 MG PO DAILY@BREAKFAST, TAB 07/22/24 Albuterol Sulfate (Albuterol Sulfate) 0.083 % Neb, 1 VIAL NEB Q4HPRN, #50 VIAL 04/18/24 Albuterol Sulfate (VENTOLIN MDI) 90 Mcg Ih, 90 MCG IN, INH 04/18/24 Levothyroxine Sodium (Levothyroxine Sodium) 25 Mcg Tab, 75 MCG PO QAM, MCG 04/18/24 Lisinopril (Lisinopril) 20 Mg Tab, 20 MG PO DAILY for 30 Days, MG 04/18/24 Atorvastatin Calcium (Lipitor) 40 Mg Tab, 1 TAB PO DAILY, #30 TAB 5 Refills 04/18/24 Discontinued Scripts Prednisone (Prednisone) 20 Mg Tab, 20 MG PO BID for 5 Days, #10 MG Prov:BRENT ROWAN MD 09/22/24 Azithromycin (Azithromycin) 500 Mg Tab, 1 TAB PO DAILY, #5 TAB Prov:BRENT ROWAN MD 09/22/24 Azithromycin (ZITHROMAX TABLET) 250 Mg Tb, 250 MG PO DAILY, #6 TAB take 2 tabs first day by mouth and then 1 tab daily until finish Prov:YENI ESQUIVEL MD 07/24/24 Current Medications Current Medications Medications (Trade) Dose Ordered Sig/Mari Route PRN Reason Start Time Stop Time Status Last Admin Midazolam HCl 50 ml @ 1 mls/hr Q24H IV 10/17/24 11:00 10/18/24 06:32 Magnesium Sulfate/ Dextrose 100 ml @ 100 mls/hr Q1H IV 10/17/24 11:00 10/17/24 12:59 DC 10/17/24 12:36 Levothyroxine Sodium (Synthroid Tablet) 75 mcg QAM PO 10/18/24 07:00 10/18/24 06:03 Patient Own Medication 1 tab DAILY PO 10/18/24 10:00 Cancel Ondansetron HCl (Zofran) 4 mg Q4HP PRN IV NAUSEA / VOMITING 10/17/24 13:30 Docusate Sodium (Colace Capsule) 100 mg BIDPRN PRN PO FOR CONSTIPATION 10/17/24 13:30 Enoxaparin Sodium (Lovenox) 40 mg DAILY SC 10/18/24 10:00 Acetaminophen (Tylenol Tablet) 650 mg Q6HP PRN PO PAIN SCALE 1-3 OR TEMP>100.4 10/17/24 13:30 Nitroglycerin (Ntrostat Sublingual) 0.4 mg Q5MINP PRN SL FOR CHEST PAIN 10/17/24 13:30 Morphine Sulfate 2 mg Q30M PRN IV FOR CHEST PAIN 10/17/24 13:30 Albuterol (Ventolin Medneb) 2.5 mg Q6HWA [facility] 10/17/24 18:00 10/18/24 05:30 Ipratropium [place] (Atrovent Medneb) 0.5 mg Q6HWA [facility] 10/17/24 18:00 10/18/24 05:30 Methylprednisolone Sodium Succinate (Solu Medrol) 40 mg BID IV 10/17/24 22:00 10/17/24 22:15 Ceftriaxone Sodium 50 ml @ 100 mls/hr DAILY@09 IV 10/18/24 09:00 Sodium Chloride 1,000 ml @ 75 mls/hr [id number] IV 10/17/24 13:30 10/18/24 05:05 DC 10/18/24 00:49 Diagnostic Test (Pha) (Accu-Chek Comfort Curve T) 1 strip Q6HR 10/17/24 18:00 10/18/24 05:55 Insulin Human Regular (InsuLIN R) Q6HR SC 10/17/24 18:00 10/17/24 18:00 Dextrose 50 ml UD PRN IV Blood Sugar LESS THAN 60 10/17/24 13:30 Fentanyl Citrate 250 ml @ 2.5 mls/hr Q24H IV 10/17/24 13:45 10/18/24 07:58 Atorvastatin Calcium (Lipitor) 40 mg HS PO 10/17/24 22:00 10/17/24 22:15 Norepinephrine Bitartrate 250 ml @ 3.75 mls/hr Q24H IV 10/17/24 16:45 10/17/24 18:05 Azithromycin 250 ml @ 125 mls/hr DAILY IV 10/18/24 10:00 Sodium Chloride 1,000 ml @ 100 mls/hr Q10H IV 10/18/24 05:15 10/18/24 06:57 Review of Systems Patient seen and examined at bedside. Review of systems could not be accurately completed as patient intubated Vital Signs Vital Signs Date Time Temp Pulse Resp B/P (MAP) Pulse Ox O2 Delivery O2 Flow Rate FiO2 10/18/24 07:58 122/73 10/18/24 07:10 73 22 98 35 10/18/24 06:00 Mechanical Ventilator+ 10/18/24 04:45 98.2 208.8 10/17/24 09:40 4 Physical Exam Head Exam: Normal inspection Neck Exam: Normal inspection. Non-tender. Normal alignment Pulmonary/Respiratory: Chest non-tender. Scattered wheezes Cardiovascular/Chest: Regular rate and rhythm. No murmurs. No JVD. Peripheral Pulses: 2+ Radial (R). 2+ Radial (L). 2+ Pedal (R). 2+ Pedal (L) Abdominal Exam: Normal bowel sounds. Soft. normal abdomen Ankle Exam: Negative ankle edema Lower extremities: Negative lower extremity edema Labs/Diagnostic Data Labs Test 10/18/24 05:55 10/18/24 05:37 10/18/24 03:05 10/18/24 01:05 Range/Units POC Glucose 129 H 70-106 mg/dl Blood Gas Specimen Type Arterial Blood Gas Sample Site Left radial Blood Gas Patient Temperature 37.0 Arterial Blood Date Drawn [id number] Arterial Blood pH 7.415 7.350-7.450 Arterial Blood Partial Pressure CO2 31.2 L 35.0-48.0 mmHg Arterial Blood Partial Pressure O2 94.0 83.0-108.0 mmHg Arterial Blood HCO3 19.6 L 21.0-28.0 mmol/L Arterial Blood Oxygen Saturation 96.6 94.0-98.0 % Arterial Blood Base Excess -4.0 L -2.0-3.0 mmol/L Arterial Blood Oxyhemoglobin 96.1 94.0-98.0 % Arterial Blood Carboxyhemoglobin 0.2 L 0.5-1.5 % Arterial Blood Methemoglobin 0.3 0.0-1.5 % Melvin Test Modified Blood Gas Total Hemoglobin 12.40 L 13.5-17.5 g/dL Blood Gas Set Respiration Rate 22.0 Blood Gas Modality Vent - p/c FiO2 % 35.0 Blood Gas Inspiratory Pressure 22.0 Blood Gas PEEP or CPAP 10.0 White Blood Count 6.9 4.4-10.8 10^3/uL Red Blood Count 4.27 L 4.5-5.90 10^6/uL Hemoglobin 11.6 #L 13.5-17.5 g/dL Hematocrit 35.5 #L 41.0-53.0 % Mean Corpuscular Volume 83.0 80.0-100.0 fL Mean Corpuscular Hemoglobin 27.2 L 28.0-32.0 pg Mean Corpuscular Hemoglobin Concent 32.7 32.0-36.0 g/dL Red Cell Distribution Width 15.7 H 11.8-14.3 % Platelet Count 247 140-450 10^3/uL Mean Platelet Volume 7.8 6.9-10.8 fL Neutrophils (%) (Auto) 37.0-80.0 % Lymphocytes (%) (Auto) 10.0-50.0 % Monocytes (%) (Auto) 0.0-12.0 % Basophils (%) (Auto) 0.0-2.0 % Neutrophils # (Auto) 1.6-8.6 10 ^3/uL Lymphocytes # (Auto) 0.4-5.4 10 ^3/uL Monocytes # (Auto) 0-1.3 10 ^3/uL Differential Total Cells Counted 100.0 100 Neutrophils % (Manual) 75 37.0-80.0 Band Neutrophils % (Manual) 1 Lymphocytes % (Manual) 14 10.0-50.0 Monocytes % (Manual) 4 0-12 Eosinophils % (Manual) 3 0-7 Basophils % (Manual) 0 0.0-2.0 Metamyelocytes % (manual) 0 Myelocytes % (Manual) 3 Promyelocytes % (Manual) 0 Blast Cells % (Manual) 0 Reactive Lymphocytes 0 Platelet Estimate Adequate Sodium Level 139 136-145 mmol/L Potassium Level 4.8 3.5-5.1 mmol/L Chloride Level 105 98-107 mmol/L Carbon Dioxide Level 23 20-31 mmol/L Anion Gap 11 5-15 Blood Urea Nitrogen 43 #H 9-23 mg/dL Creatinine 3.34 H 0.700-1.30 mg/dL Glomerular Filtration Rate Calc 21 >90 mL/min BUN/Creatinine Ratio 12.9 10.0-20.0 Serum Glucose 113 H 74-106 mg/dL Calcium Level 8.1 L 8.7-10.4 mg/dL Total Bilirubin 0.2 0.2-1.0 mg/dL Aspartate Amino Transferase (AST) 27 <34 U/L Alanine Aminotransferase (ALT) 45 H 7-40 U/L Alkaline Phosphatase 77 46-116 U/L Total Protein 6.8 5.7-8.2 g/dL Albumin 3.7 3.2-4.8 g/dL Troponin I High Sensitivity 142 *H </=54 ng/L Test 10/17/24 12:30 10/17/24 09:38 Range/Units Blood Gas Critical Value Read Back Yes Blood Gas Notified Whom wu Fernandes md Blood Gas Notified Time [id number] Blood Gas Notified By Store Group Manager estefanía pierre Eosinophils (%) (Auto) 0.0-7.0 % D-Dimer, Quantitative 1.66 H 0.0-0.49 mg/L FEU Lactic Acid Level 1.2 0.4-2.0 mmol/L Thyroid Stimulating Hormone (TSH) 3.02 0.55-4.78 uIU/mL Assessment NSTEMI possibly type 2 secondary to sepsis and renal failure MALACHI likely hemodynamically mediated on possible CKD EKG showing early repolarization abnormalities Sepsis possibly due to pneumonia COPD exacerbation Plan: Continue current management Continue antibiotics EKG showing early repolarization abnormalities which are likely benign and stress-related, unlikely ischemia, however, due to risk patient's profile, he would likely benefit from a stress test should he make a complete recovery. Please call back at that time for the finalization of the plan. Thank you so much for the opportunity to consult on your patient. In case of any questions or concerns please feel free to reach out. Plan discussed with Dr. Siegel Plan discussed with: Patient, Other (RN) Visit Coding Cardiology RES Date of Service: Oct 18, 2024 Billing Provider: TRUONG SIEGEL MD Cardiology Common Codes: [id number] INP/OBS CARE (High) ARIES MARION Oct 18, 2024 08:23
[2024-10-18] MEDS: cefTRIAXone 1GM/50ML D5W 50 ML IV SCH (09:11)
[2024-10-18] MEDS: ENOXAPARIN SOD 40 MG/0.4 ML SYRINGE SC SCH (09:12)
[2024-10-18] MEDS: AZITHROMYCIN 500MG/ 250ML 250 ML IV SCH (09:15)
[2024-10-18] MEDS ORDERED: PATIENTS OWN MEDICATION (Atorvastatin Calcium (Lipitor) 1 TAB) PO SCH (10:00)
--- NOTE | 2024-10-18 11:53 | DVHPNRES ---
Progress Note Date Seen: Oct 18, 2024 Resident Creating Document: ANGIE WRIGHT MD Has the PT tested + for MRSA If YES, has PT been informed?: No Medical Necessity Reason Pt with a Central, PICC or Fol: Yes The following are medically ne: Central Line Medical Necessity Reason Information from patient chart as patient is intubated and sedated. Patient is a 59-year-old male with medical history significant for type 2 diabetes, COPD on home oxygen 2 L, hypertension, dyslipidemia, hypothyroidism, questionable CHF who comes in due to shortness of breath and rash involving bilateral upper extremities and diarrhea that has been ongoing for the last 4 days on 10/17/2024. Upon arrival tot ED, patient was placed on 4L/NC with oxygenation saturation 91-94%. While in the ER his work of breathing increased, his oxygenation dropped, he became unresponsive, and a code blue was called and patient was sedated, intubated and mechanically ventilated. Labs works shows wbc was unremarkable, cr was elevated above baseline (2.15), Troponin 17 then went up to 142. D-dimer was 1.66 H, Venous Doppler was negative for DVT. CXR : IMPRESSION: No acute cardiopulmonary disease. Blood culture, no growth so far. Subjective Review of Systems Sedated, intubated and mechanically ventilated Objective vital signs Vital Sign Date Time Temp Pulse Resp B/P (MAP) Pulse Ox O2 Delivery O2 Flow Rate FiO2 10/18/24 10:30 97.9 78 22 119/70 (86) 95 208.2 10/18/24 10:00 35 10/18/24 10:00 Mechanical Ventilator+ 10/17/24 09:40 4 Total Intake and Output 10/17/24 10/17/24 10/18/24 15:00 23:00 07:00 Intake Total 1658.5 ml 945.0 ml 1222.50 ml Output Total 1250 ml 200 ml Balance 1658.5 ml -305.0 ml 1022.50 ml medications Current Medications Medications Dose Ordered Sig/Mari Route Start Time Stop Time Status Last Admin Dose Admin Midazolam HCl 50 ml @ 1 mls/hr Q24H IV 10/17/24 11:00 10/18/24 09:34 15 MLS/HR Levothyroxine Sodium 75 mcg QAM PO 10/18/24 07:00 10/18/24 06:03 75 MCG Patient Own Medication 1 tab DAILY PO 10/18/24 10:00 Cancel Ondansetron HCl 4 mg Q4HP PRN IV 10/17/24 13:30 Docusate Sodium 100 mg BIDPRN PRN PO 10/17/24 13:30 Enoxaparin Sodium 40 mg DAILY SC 10/18/24 10:00 10/18/24 09:12 40 MG Acetaminophen 650 mg Q6HP PRN PO 10/17/24 13:30 Nitroglycerin 0.4 mg Q5MINP PRN SL 10/17/24 13:30 Morphine Sulfate 2 mg Q30M PRN IV 10/17/24 13:30 Albuterol 2.5 mg Q6HWA NEB 10/17/24 18:00 10/18/24 05:30 2.5 MG Ipratropium [place] 0.5 mg Q6HWA NEB 10/17/24 18:00 10/18/24 05:30 0.5 MG Methylprednisolone Sodium Succinate 40 mg BID IV 10/17/24 22:00 10/18/24 09:12 40 MG Ceftriaxone Sodium 50 ml @ 100 mls/hr DAILY@09 IV 10/18/24 09:00 10/18/24 09:11 100 MLS/HR Diagnostic Test (Pha) 1 strip Q6HR 10/17/24 18:00 10/18/24 05:55 1 STRIP Insulin Human Regular Q6HR SC 10/17/24 18:00 10/17/24 18:00 3 UNITS Dextrose 50 ml UD PRN IV 10/17/24 13:30 Fentanyl Citrate 250 ml @ 2.5 mls/hr Q24H IV 10/17/24 13:45 10/18/24 07:58 15 MLS/HR Atorvastatin Calcium 40 mg HS PO 10/17/24 22:00 10/17/24 22:15 40 MG Norepinephrine Bitartrate 250 ml @ 3.75 mls/hr Q24H IV 10/17/24 16:45 10/17/24 18:05 3.75 MLS/HR Azithromycin 250 ml @ 125 mls/hr DAILY IV 10/18/24 10:00 10/18/24 09:15 125 MLS/HR Sodium Chloride 1,000 ml @ 100 mls/hr Q10H IV 10/18/24 05:15 10/18/24 06:57 100 MLS/HR Examination General Appearance: sedated and intubated HEENT: Atraumatic, PERRLA, EOMI, Mucous membrane moist/pink Respiratory: tachypneic, FIO2 35 Cardiovascular: Regular rate, Normal S1, Normal S2, No murmurs, no chest wall tenderness Abdominal: NO distention, no tenderness, bowel sounds present, no scars noted Extremities: No clubbing, No cyanosis, No edema, Normal pulses, No tenderness/swelling Skin: No rashes, No breakdown, No significant lesion Neuro: in bed Psych/Mental Status: unable to assess laboratory and microbiology Laboratory Tests 10/18/24 03:05 Test 10/18/24 03:05 Range/Units Serum Glucose 113 H 74-106 mg/dL Microbiology Date/Time Source Procedure Growth Status 10/17/24 09:38 Blood Blood Culture - Preliminary NO GROWTH AFTER 24 HOURS OF INCUBATION. Resulted Problem List/Assessment/Plan Problem List/Assessment/Plan ASSESSMENT AND PLAN Respiratory: Acute respiratory hypoxic failure, Possible COPD exacerbation R/o Pneumonia Azithromycin and Ceftriaxone Daily Cxr daily CBC Cardiovascular: Nstemi II likely due to the demand ischemia Hypertension EKG showing early repolarization abnormalities Trend troponin get ekg, if trending up Cardiology following Metabolic/endocrine: Hyperlipidemia, Diabetes, Hypothyroidism Obesity grade 1, BMI: 31.1 Mild sliding scale accu checks Genitourinary: Acute kidney failure due to like VMN CKD Fluid follow CMP Urine na, protein, creatinine Hematology Elevated D-dimer DVT ruled out IV access: Right IJ Central line, 10/17/2024 Payne's catheter placed: 10/17/2024 Drips: Versed Fentanyl levophed ( off) Antibiotic: Azithromycin and Ceftriaxone Advance care discussed with nurse and family Critical care time is >45 minutes Case and plan discussed with Dr. Hall. Plan discussed with: Other (Nurse) Dietary Evaluation Review Comments: Nutrition Recommendation 1. TF Vital AF 1.2 Jeyson @ 75 ml/hr. start @ 20ml/hr, increase 10ml/hr Q4H until goal is reached. TF at goal volume provides 100% energy & protein needs - 2160 kcal, 135 gm protein, 1460 ml free water 2. Water flush 180ml Q6H if allowed 3. TPN if NPO> 7 days Expected Outcomes/Goals: To meet >75% estimated needs within 7 days Fu 2-3 days Date of Service: Oct 18, 2024 Billing Provider: CECILIA HALL MD Common Visit Codes: NOT BILLABLE ANGIE AZAR RESIDENT Oct 18, 2024 11:53 CECILIA HALL MD Oct 24, 2024 18:04
--- NOTE | 2024-10-18 14:11 | ECG ---
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
--- NOTE | 2024-10-18 15:18 | ECG ---
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
[2024-10-18 15:47] LABS: Base Excess -7.4 mmol/L (-2.0-3.0)
[2024-10-18 21:02] LABS: Base Excess -4.6 mmol/L (-2.0-3.0)
[2024-10-19] VITALS (92 sets, daily range): BP systolic 105–175; BP diastolic 51–100; PULSE 56–116; RESP 12–26; TEMP 97–99.3; O2SAT 90–99
[2024-10-19 03:46] LABS: Hematocrit 30.7 % (41.0-53.0); Hemoglobin 10.2 g/dL (13.5-17.5); Mean Corpuscular Hgb Conc. 33.2 g/dL (32.0-36.0); Mean Corpuscular Volume 84.3 fL (80.0-100.0); Platelet Count (auto) 226 10^3/uL (140-450); Red Blood Cells 3.64 10^6/uL (4.5-5.90); Red Cell Distribution Width 15.9 % (11.8-14.3); White Blood Cell 6.7 10^3/uL (4.4-10.8)
[2024-10-19 03:55] LABS: Basophils % (manual) 0 (0.0-2.0); Blast Cells 0; Eosinophils % (manual) 0 (0-7); Metamyelocytes % 0; Myelocytes % 0; Promyelocytes % 0; Reactive Lymphocytes 0
[2024-10-19 04:03] LABS: Alanine Aminotransferase 32 U/L (7-40); Albumin 3.4 g/dL (3.2-4.8); Alkaline Phosphatase 60 U/L (46-116); Anion Gap 9 (5-15); Aspartate Aminotransferase 15 U/L (<34); BUN/Creatinine Ratio 16.2 (10.0-20.0); Carbon Dioxide 22 mmol/L (20-31); Potassium 4.7 mmol/L (3.5-5.1); Sodium 141 mmol/L (136-145); Total Protein 6.2 g/dL (5.7-8.2)
[2024-10-19 04:22] LABS: Bilirubin, Total 0.2 mg/dL (0.2-1.0); Blood Urea Nitrogen 50 mg/dL (9-23); Chloride 110 mmol/L (98-107); Glucose 113 mg/dL (74-106)
--- NOTE | 2024-10-19 05:03 | DVH ---
EXAM: XY CHEST PORTABLE HISTORY: et tube position COMPARISON: XY CHEST XRAY 1 VIEW on DOS: 10/17/24, XY CHEST XRAY 1 VIEW on DOS: 10/17/24, XY CHEST PORT ABLE on DOS: 10/17/24, XY CHEST PORTABLE on DOS: 09/17/24, XY CHEST PORTABLE on DOS: 07/21/24, CT scan o f the chest dated 09/20/2024 TECHNIQUE: Portable upright AP view of the chest was performed. FINDINGS: Endotracheal tube is re-identified with its tip 3 cm above the uriel. OG tube and right IJ central l ine are re-identified. There is right middle lobe infiltrate, similar to that seen previously. The l eft lung is clear. No pneumothorax. The left costophrenic angle is not imaged here. The heart is not enlarged. IMPRESSION: 1. Mechanical ventilation with tubes and lines as above. 2. Right middle lobe pneumonia.
[2024-10-19 05:09] LABS: Band Neutrophils % (manual) 4; Lymphocytes % (manual) 14 (10.0-50.0); Monocytes % (manual) 7 (0-12); Platelet Estimate Adequate
[2024-10-19 07:31] LABS: Base Excess -6.1 mmol/L (-2.0-3.0)
--- NOTE | 2024-10-19 11:16 | DVHPNRES ---
Progress Note Date Seen: Oct 19, 2024 Resident Creating Document: ANGIE AZAR RESIDENT Has the PT tested + for MRSA If YES, has PT been informed?: No Medical Necessity Reason Pt with a Central, PICC or Fol: Yes The following are medically ne: Central Line Medical Necessity Reason Patient seem and examined. He is remains intubated, but with his eyes opened, following command. He was able to write. His lab this morning cbc is unremarkable, creatinine level is slightly improved. CXR today showed mechanical ventilation with tubes and lines as above.Right middle lobe pneumonia. He is on antibiotics and fentanyl only. Subjective Review of Systems intubated response by nodding his head Objective vital signs Vital Sign Date Time Temp Pulse Resp B/P (MAP) Pulse Ox O2 Delivery O2 Flow Rate FiO2 10/19/24 09:45 66 22 117/66 (83) 96 30 10/19/24 08:00 Mechanical Ventilator+ 10/19/24 06:45 98.1 208.6 10/17/24 09:40 4 Total Intake and Output 10/18/24 10/18/24 10/19/24 15:00 23:00 07:00 Intake Total 1390 ml 1025 ml 1038.0 ml Output Total 450 ml 1100 ml Balance 1390 ml 575 ml -62.0 ml medications Current Medications Medications Dose Ordered Sig/Mari Route Start Time Stop Time Status Last Admin Dose Admin Midazolam HCl 50 ml @ 1 mls/hr Q24H IV 10/17/24 11:00 10/19/24 06:30 7 MLS/HR Levothyroxine Sodium 75 mcg QAM PO 10/18/24 07:00 10/19/24 06:27 75 MCG Patient Own Medication 1 tab DAILY PO 10/18/24 10:00 Cancel Ondansetron HCl 4 mg Q4HP PRN IV 10/17/24 13:30 Docusate Sodium 100 mg BIDPRN PRN PO 10/17/24 13:30 Enoxaparin Sodium 40 mg DAILY SC 10/18/24 10:00 10/19/24 09:22 40 MG Acetaminophen 650 mg Q6HP PRN PO 10/17/24 13:30 Nitroglycerin 0.4 mg Q5MINP PRN SL 10/17/24 13:30 Morphine Sulfate 2 mg Q30M PRN IV 10/17/24 13:30 Albuterol 2.5 mg Q6HWA NEB 10/17/24 18:00 10/19/24 05:57 2.5 MG Ipratropium [place] 0.5 mg Q6HWA NEB 10/17/24 18:00 10/19/24 05:57 0.5 MG Methylprednisolone Sodium Succinate 40 mg BID IV 10/17/24 22:00 10/19/24 09:20 40 MG Ceftriaxone Sodium 50 ml @ 100 mls/hr DAILY@09 IV 10/18/24 09:00 10/19/24 09:17 100 MLS/HR Diagnostic Test (Pha) 1 strip Q6HR 10/17/24 18:00 10/19/24 06:27 1 STRIP Insulin Human Regular Q6HR SC 10/17/24 18:00 10/17/24 18:00 3 UNITS Dextrose 50 ml UD PRN IV 10/17/24 13:30 Fentanyl Citrate 250 ml @ 2.5 mls/hr Q24H IV 10/17/24 13:45 10/19/24 01:43 15 MLS/HR Atorvastatin Calcium 40 mg HS PO 10/17/24 22:00 10/18/24 21:22 40 MG Norepinephrine Bitartrate 250 ml @ 3.75 mls/hr Q24H IV 10/17/24 16:45 10/17/24 18:05 3.75 MLS/HR Azithromycin 250 ml @ 125 mls/hr DAILY IV 10/18/24 10:00 10/19/24 10:48 125 MLS/HR Sodium Chloride 1,000 ml @ 100 mls/hr Q10H IV 10/18/24 05:15 10/19/24 10:48 100 MLS/HR Examination General Appearance: intubated, awake and following command HEENT: Atraumatic, eyes opened Respiratory: tachypneic, FIO2 35 Cardiovascular: Regular rate, Normal S1, Normal S2, No murmurs, no chest wall tenderness Abdominal: NO distention, no tenderness, bowel sounds present, no scars noted Extremities: No clubbing, No cyanosis, No edema, Normal pulses, No tenderness/swelling Skin: No rashes, No breakdown, No significant lesion Neuro: in bed Psych/Mental Status: unable to assess laboratory and microbiology Laboratory Tests 10/19/24 02:40 Test 10/19/24 02:40 Range/Units Serum Glucose 113 H 74-106 mg/dL Microbiology Date/Time Source Procedure Growth Status 10/17/24 16:16 Nose MRSA Screen - Final Complete 10/17/24 11:10 Sputum Gram Stain - Final Resulted 10/17/24 11:10 Sputum Respiratory Culture - Preliminary Resulted 10/17/24 09:38 Blood Blood Culture - Preliminary NO GROWTH AFTER 48 HOURS OF INCUBATION. Resulted Problem List/Assessment/Plan Problem List/Assessment/Plan ASSESSMENT AND PLAN Neurology: Intubated, but awake and following commands - Sedative holiday Respiratory: Acute respiratory hypoxic failure, likely COPD exacerbation Possible Pneumonia gram negative/gram positive Azithromycin and Ceftriaxone -Sedation holiday now and the Cpap Daily Cxr daily CBC Cardiovascular: Nstemi II likely due to the demand ischemia Hypertension EKG showing early repolarization abnormalities Trend troponin get ekg, if trending up Cardiology following Metabolic/endocrine: Hyperlipidemia, Diabetes, Hypothyroidism Obesity grade 1, BMI: 31.1 Mild sliding scale accu checks Genitourinary: Acute kidney failure due to like VMN CKD Creatinine is improving Fluid follow CMP Urine na, protein, creatinine Hematology Elevated D-dimer DVT ruled out IV access: Right IJ Central line, 10/17/2024 Payne's catheter placed: 10/17/2024 Drips: Versed,Fentanyl and Levophed: of Antibiotic: Azithromycin and Ceftriaxone Extubated: 10/19/2024 passed swallow evaluation full diet ( diabetes) Patients wants to go home because is his mother's . Disposition: Telemetry Advance care discussed with nurse and family Critical care time is >45 minutes Case and plan discussed with Dr. Fonseca. Plan discussed with: Patient, Other My Orders My Orders Orders - ANGIE AZAR RESIDENT Procedure Category Date Status Time Abg W/ Co-Ox RT 10/18/24 Logged 15:20 Chest Portable XY 10/19/24 Resulted 00:51 Electrocardigram EKG 10/19/24 Logged 10:13 Troponin-I Hs LAB 10/19/24 Verified 11:06 Troponin-I Hs LAB 10/19/24 Verified 12:06 Dietary Evaluation Review Comments: Nutrition Recommendation 1. TF Vital AF 1.2 Jeyson @ 75 ml/hr. start @ 20ml/hr, increase 10ml/hr Q4H until goal is reached. TF at goal volume provides 100% energy & protein needs - 2160 kcal, 135 gm protein, 1460 ml free water 2. Water flush 180ml Q6H if allowed 3. TPN if NPO> 7 days Expected Outcomes/Goals: To meet >75% estimated needs within 7 days Fu 2-3 days Date of Service: Oct 19, 2024 Billing Provider: CECILIA FONSECA MD Common Visit Codes: NOT BILLABLE ANGIE AZAR RESIDENT Oct 19, 2024 11:16 CECILIA FONSECA MD Oct 24, 2024 18:05
[2024-10-19 13:04] LABS: Base Excess -4.6 mmol/L (-2.0-3.0)
[2024-10-19] MEDS: hydrALAZINE HCL 20 MG/ML VL IV ONE (18:46)
[2024-10-19] MEDS ORDERED: ALBUTEROL SULF 2.5 MG/0.5ML(0.5%) NEB SOLN NEB PRN (21:00)
[2024-10-19] MEDS ORDERED: IPRATROPIUM BROM 0.5 MG/2.5ML INH SOL NEB PRN (21:00)
[2024-10-19] MEDS: ALBUTEROL SULF 2.5 MG/0.5ML(0.5%) NEB SOLN NEB SCH (21:21)
[2024-10-19] MEDS: IPRATROPIUM BROM 0.5 MG/2.5ML INH SOL NEB SCH (21:21)
[2024-10-19] MEDS: amLODIPine BESYLATE 5 MG TAB PO ONE (21:30)
[2024-10-19] MEDS ORDERED: NAPROXEN 500 MG TAB PO SCH (22:00)
[2024-10-20] VITALS (23 sets, daily range): BP systolic 139–165; BP diastolic 82–100; PULSE 71–100; RESP 16–20; TEMP 97.6–99.2; O2SAT 95–100
--- NOTE | 2024-10-20 07:47 | ECG ---
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
[2024-10-20] MEDS: amLODIPine BESYLATE 5 MG TAB PO SCH (09:20)
[2024-10-20] MEDS: CHLORTHALIDONE 25 MG TAB PO SCH (09:21)
[2024-10-20] MEDS: SPIRONOLACTONE 25 MG TAB PO SCH (09:22)
[2024-10-20] MEDS ORDERED: metFORMIN HYDROCHLORIDE 500 MG TAB PO SCH (10:00)
--- NOTE | 2024-10-20 19:14 | DVHPNRES ---
Progress Note Date Seen: Oct 20, 2024 Resident Creating Document: ANGIE AZAR RESIDENT Has the PT tested + for MRSA If YES, has PT been informed?: No Medical Necessity Reason Pt with a Central, PICC or Fol: Yes The following are medically ne: Central Line Medical Necessity Reason Patient seen and examined. He is doing well. Eating, drinking and communicating without any problems. This is the second time since the year 2024 patient has been intubated. Per the patient, he has uses oxygen ( 2L) at home but he has run out. Will repeat ABG and 6 minutes walk in the morning for home oxygen. With everything been equal, will discharge the patient tomorrow. Subjective Review of Systems Constitutional: Denies fever no chills no feeling of malaise HEENT: Denies headache, ear pain, ear discharges, conjunctivitis, nasal discharge throat pain Cardiovascular: Denies chest pain, palpitation, orthopnea, PND, or pedal edema Respiratory: On oxygen at home at baseline; Denies cough, sputum production, hemoptysis, GI: Denies abdominal pain, nausea, vomiting, diarrhea, hematemesis, hematochezia, : Denies frequency, urgency, hematuria, Endocrine: Denies unintentional weight gain or weight loss, feeling of hot flashes, Magno: Denies easy bruising, bleeding disorders, epistaxis Musculoskeletal: Denies joint pains, muscle aches Psych: No evidence of depression, [place], suicidal ideation Objective vital signs Vital Sign Date Time Temp Pulse Resp B/P (MAP) Pulse Ox O2 Delivery O2 Flow Rate FiO2 10/20/24 18:20 87 18 99 10/20/24 17:00 98.7 139/96 (110) 98.7 10/20/24 14:35 Nasal Cannula 2.0 10/20/24 14:35 28 Total Intake and Output 10/19/24 10/19/24 10/20/24 15:00 23:00 07:00 Intake Total 1173.5 ml 800 ml 200 ml Output Total 950 ml 1550 ml Balance 1173.5 ml -150 ml -1350 ml medications Current Medications Medications Dose Ordered Sig/Mari Route Start Time Stop Time Status Last Admin Dose Admin Levothyroxine Sodium 75 mcg QAM PO 10/18/24 07:00 10/20/24 06:46 75 MCG Patient Own Medication 1 tab DAILY PO 10/18/24 10:00 Cancel Ondansetron HCl 4 mg Q4HP PRN IV 10/17/24 13:30 Docusate Sodium 100 mg BIDPRN PRN PO 10/17/24 13:30 Enoxaparin Sodium 40 mg DAILY SC 10/18/24 10:00 10/20/24 09:21 40 MG Acetaminophen 650 mg Q6HP PRN PO 10/17/24 13:30 Nitroglycerin 0.4 mg Q5MINP PRN SL 10/17/24 13:30 Morphine Sulfate 2 mg Q30M PRN IV 10/17/24 13:30 Methylprednisolone Sodium Succinate 40 mg BID IV 10/17/24 22:00 10/20/24 09:21 40 MG Ceftriaxone Sodium 50 ml @ 100 mls/hr DAILY@09 IV 10/18/24 09:00 10/20/24 09:22 100 MLS/HR Diagnostic Test (Pha) 1 strip Q6HR 10/17/24 18:00 10/20/24 12:00 1 STRIP Insulin Human Regular Q6HR SC 10/17/24 18:00 10/20/24 06:45 2 UNITS Dextrose 50 ml UD PRN IV 10/17/24 13:30 Atorvastatin Calcium 40 mg HS PO 10/17/24 22:00 10/19/24 21:30 40 MG Azithromycin 250 ml @ 125 mls/hr DAILY IV 10/18/24 10:00 10/20/24 09:22 125 MLS/HR Sodium Chloride 1,000 ml @ 100 mls/hr Q10H IV 10/18/24 05:15 10/19/24 21:51 100 MLS/HR Amlodipine Besylate 10 mg DAILY PO 10/20/24 10:00 10/20/24 09:20 10 MG Chlorthalidone 25 mg DAILY PO 10/20/24 10:00 10/20/24 09:21 25 MG Metformin HCl 500 mg DAILY PO 10/20/24 10:00 UNV Naproxen 500 mg BID PO 10/19/24 22:00 UNV Spironolactone 25 mg DAILY@BREAKFAST PO 10/20/24 08:00 10/20/24 09:22 25 MG Hydralazine HCl 10 mg Q6HP PRN IV 10/19/24 18:15 Albuterol 2.5 mg Q4HR NEB 10/19/24 21:00 10/20/24 18:31 2.5 MG Ipratropium [place] 0.5 mg Q4HR NEB 10/19/24 21:00 10/20/24 18:31 0.5 MG Albuterol 2.5 mg Q2HPRN PRN NEB 10/19/24 21:00 Ipratropium [place] 0.5 mg Q2HPRN PRN NEB 10/19/24 21:00 Examination General Appearance: Alert, Oriented X3, Cooperative, No acute distress HEENT: Atraumatic, PERRLA, EOMI, Mucous membrane moist/pink Respiratory: reduced air entry lower lobe. Cardiovascular: Regular rate, Normal S1, Normal S2, No murmurs, no chest wall tenderness Abdominal: NO distention, no tenderness, bowel sounds present, no scars noted Extremities: No clubbing, No cyanosis, No edema, Normal pulses, No tenderness/swelling Skin: No rashes, No breakdown, No significant lesion Neuro: Normal gait, Normal speech, Strength at 5/5 X4 ext, Normal tone, Sensation intact, Cranial nerves 3-12 NL, Reflexes 2+ Psych/Mental Status: Mental status NL, Mood NL laboratory and microbiology Laboratory Tests 10/19/24 02:40 Test 10/19/24 02:40 Range/Units Serum Glucose 113 H 74-106 mg/dL Microbiology Date/Time Source Procedure Growth Status 10/17/24 16:16 Nose MRSA Screen - Final Complete 10/17/24 11:10 Sputum Gram Stain - Final Complete 10/17/24 11:10 Sputum Respiratory Culture - Final Complete 10/17/24 09:38 Blood Blood Culture - Preliminary NO GROWTH AFTER 72 HOURS OF INCUBATION. Resulted Problem List/Assessment/Plan Problem List/Assessment/Plan ASSESSMENT AND PLAN Neurology: awake, alert and stable and mentally stable Respiratory: Acute respiratory hypoxic failure, Likely COPD exacerbation likely aspiration pneumonia Possible pneumonia gram negative/gram positive Azithromycin and Ceftriaxone -Daily Cxr - daily CBC Cardiovascular: Nstemi II likely due to the demand ischemia Hypertension EKG showing early repolarization abnormalities Trending down Ekg: No acute ekg findings Metabolic/endocrine: Hyperlipidemia, Diabetes, Hypothyroidism Obesity grade 1, BMI: 31.1 Mild sliding scale accu checks Genitourinary: Acute kidney failure due to like VMN CKD Creatinine is improving Fluid follow CMP Urine na, protein, creatinine Hematology Elevated D-dimer DVT ruled out IV access: Right IJ Central line, 10/17/2024 Payne's catheter placed: 10/17/2024, Discontinued 10/19/2024 Drips: Versed,Fentanyl and Levophed: off Antibiotic: Azithromycin and Ceftriaxone Extubated: 10/19/2024 passed swallow evaluation full diet ( diabetes) Patients wants to go home because is his mother's . Disposition: Telemetry Plan: Assess in the morning. If all stable, will discharge home on levofloxacin 750 for 10 days Goal of care discussed for more than 30 minutes: Full code Case and plan discussed with Dr. Hall. 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 TF Vital AF 1.2 Jeyson @ 75 ml/hr. start @ 20ml/hr, increase 10ml/hr Q4H until goal is reached. TF at goal volume provides 100% energy & protein needs - 2160 kcal, 135 gm protein, 1460 ml free water 2. Water flush 180ml Q6H if allowed 3. TPN if NPO> 7 days Expected Outcomes/Goals: To meet >75% estimated needs within 7 days Fu 2-3 days ANGIE AZAR Oct 20, 2024 19:14
[2024-10-21] VITALS (14 sets, daily range): BP systolic 144–156; BP diastolic 67–91; PULSE 78–129; RESP 17–19; TEMP 36.7; O2SAT 96–100
[2024-10-21 06:06] LABS: Hematocrit 30.6 % (41.0-53.0); Hemoglobin 10.3 g/dL (13.5-17.5); Mean Corpuscular Hemoglobin 27.7 pg (28.0-32.0); Mean Corpuscular Hgb Conc. 33.5 g/dL (32.0-36.0); Mean Corpuscular Volume 82.7 fL (80.0-100.0); Platelet Count (auto) 224 10^3/uL (140-450); Red Blood Cells 3.71 10^6/uL (4.5-5.90); Red Cell Distribution Width 16.1 % (11.8-14.3); White Blood Cell 8.6 10^3/uL (4.4-10.8)
[2024-10-21] MEDS: hydrALAZINE HCL 20 MG/ML VL IV PRN (06:18)
[2024-10-21 06:26] LABS: Basophils % (manual) 0 (0.0-2.0); Blast Cells 0; Eosinophils % (manual) 0 (0-7); Promyelocytes % 0; Reactive Lymphocytes 0
[2024-10-21 06:28] LABS: Alanine Aminotransferase 25 U/L (7-40); Albumin 3.8 g/dL (3.2-4.8); Alkaline Phosphatase 60 U/L (46-116); Anion Gap 9 (5-15); Aspartate Aminotransferase 16 U/L (<34); Calcium 9.2 mg/dL (8.7-10.4); Carbon Dioxide 24 mmol/L (20-31); Potassium 4.5 mmol/L (3.5-5.1); Sodium 140 mmol/L (136-145); Total Protein 6.8 g/dL (5.7-8.2)
[2024-10-21 06:31] LABS: Bilirubin, Total 0.2 mg/dL (0.2-1.0); Blood Urea Nitrogen 49 mg/dL (9-23); Chloride 107 mmol/L (98-107); Glucose 160 mg/dL (74-106)
[2024-10-21 07:03] LABS: Band Neutrophils % (manual) 3; Lymphocytes % (manual) 18 (10.0-50.0); Metamyelocytes % 2; Monocytes % (manual) 6 (0-12); Myelocytes % 1; Platelet Estimate Adequate
--- NOTE | 2024-10-21 11:27 | DVHDSRES ---
Discharge Summary Date of Admission Resident Creating Document: ANGIE AZAR Oct 17, 2024 at 13:17 Date of Discharge: Oct 21, 2024 Admitting Diagnosis Acute respiratory failure Labs/Diagnostic Data: PATIENT: YANY RODNEY MACCT: [id number] UNIT: [id number] : 1965 LOC: ICU WEST ROOM / BED: [address] [place] [address] AGE / SEX: 59 / M ADM STATUS: ADM IN SERVICE 0051 ORDERING PHYSICIAN: ANGIE AZAR PROCEDURE(s): CXRP - CHEST PORTABLE REASON: et tube position ORDER NUMBER(s): [id number], ACCESSION NUMBER(s): [id number] EXAM: XY CHEST PORTABLE HISTORY: et tube position COMPARISON: XY CHEST XRAY 1 VIEW on DOS: 10/17/24, XY CHEST XRAY 1 VIEW on DOS: 10/17/24, XY CHEST PORTABLE on DOS: 10/17/24, XY CHEST PORTABLE on DOS: 09/17/24, XY CHEST PORTABLE on DOS: 07/21/24, CT scan of the chest dated 09/20/2024 TECHNIQUE: Portable upright AP view of the chest was performed. FINDINGS: Endotracheal tube is re-identified with its tip 3 cm above the uriel. OG tube and right IJ central line are re-identified. There is right middle lobe infiltrate, similar to that seen previously. The left lung is clear. No pneumothorax. The left costophrenic angle is not imaged here. The heart is not enlarged. IMPRESSION: 1. Mechanical ventilation with tubes and lines as above. 2. Right middle lobe pneumonia. ATED BY: MAIDA GALVEZ MD DICTATED DATE/TIME: 10/19/24 0501 PATIENT: YANY RODNEY MACCT: [id number] UNIT: [id number] : 1965 LOC: ER ROOM / BED: / AGE / SEX: 59 / M ADM STATUS: REG ER SERVICE 1159 ORDERING PHYSICIAN: HOME NULL CHEMICAL ETCH OPERATOR PROCEDURE(s): BLDVT - BiLat Lower DVT REASON: R/O DVT ORDER NUMBER(s): [id number], ACCESSION NUMBER(s): [id number] Procedure: US BiLat Lower DVT Study Date and Requested Time: 10/17/2024 12:10 PM History: R/O DVT Comparison: None Technique: Multiple high resolution jacinto-scale images with and without compression obtained of the bilateral lower extremity veins, including the common femoral vein, deep femoral vein, proximal mid and distal superficial femoral vein, and popliteal vein. Additional limited images of the greater saphenous vein also obtained. Augmentation performed as indicated. Color and spectral doppler flow images obtained as indicated. Findings: No visible intraluminal venous thrombus. No evidence of incompressibility or abnormal color or spectral Doppler flow visualized in the bilateral lower extremity veins including, the common femoral vein, deep femoral vein, proximal mid and distal superficial femoral vein, and popliteal vein. Greater saphenous vein grossly unremarkable. Impression: No sonographic evidence of bilateral lower extremity deep venous thrombosis. ATED BY: KATHERINE LAO DO DICTATED DATE/TIME: 10/17/24 1302 PATIENT: YANY RODNEY MACCT: [id number] UNIT: [id number] : 1965 LOC: ER ROOM / BED: / AGE / SEX: 59 / M ADM STATUS: REG ER SERVICE 1140 ORDERING PHYSICIAN: MAURI FERNANDES MD PROCEDURE(s): CXR1 - CHEST XRAY 1 VIEW REASON: POST OGT PLACEMENT ORDER NUMBER(s): [id number], ACCESSION NUMBER(s): [id number] CHEST RADIOGRAPH Indication: POST OGT PLACEMENT Technique: Single frontal view of the chest was obtained Comparison: XY CHEST XRAY 1 VIEW on DOS: 10/17/24, XY CHEST PORTABLE on DOS: 10/17/24, XY CHEST PORTABLE on DOS: 09/17/24, XY CHEST PORTABLE on DOS: 07/21/24, XY CHEST PORTABLE on DOS: 04/18/24, XY CHEST XRAY 1 VIEW on DOS: 10/17/24 FINDINGS: Lines and Tubes: Right central venous catheter in satisfactory position. Endotracheal tube in satisfactory position. Lungs: Right middle lobe airspace disease. Pleura: No effusion. No pneumothorax. Cardiomediastinal contours: Unremarkable Bones: Unremarkable IMPRESSION: Right central venous catheter and endotracheal tube in satisfactory position. NG tube tip in the stomach. ATED BY: SURI GONSALEZ MD DICTATED DATE/TIME: 10/17/24 1227 PATIENT: YANY RODNEY MACCT: [id number] UNIT: [id number] : 1965 LOC: ER ROOM / BED: / AGE / SEX: 59 / M ADM STATUS: REG ER SERVICE 1044 ORDERING PHYSICIAN: MAURI FERNANDES MD PROCEDURE(s): CXR1 - CHEST XRAY 1 VIEW REASON: S/P INTUBATION ORDER NUMBER(s): [id number], ACCESSION NUMBER(s): [id number] CHEST RADIOGRAPH Indication: S/P INTUBATION Technique: Single frontal view of the chest was obtained COMPARISON: XY CHEST PORTABLE on DOS: 10/17/24, XY CHEST PORTABLE on DOS: 09/17/24, XY CHEST PORTABLE on DOS: 07/21/24, XY CHEST PORTABLE on DOS: 04/18/24 FINDINGS: Lines and Tubes: Right central venous catheter in satisfactory position. Endotracheal tube in satisfactory position. Lungs: Right middle lobe airspace disease. Pleura: No effusion. No pneumothorax. Cardiomediastinal contours: Unremarkable Bones: Unremarkable IMPRESSION: Right central venous catheter and endotracheal tube in satisfactory position. ATED BY: MARK MANN MD DICTATED DATE/TIME: 10/17/24 1124 PATIENT: YANY RODNEY MACCT: [id number] UNIT: [id number] : 1965 LOC: ER ROOM / BED: / AGE / SEX: 59 / M ADM STATUS: REG ER SERVICE 0921 ORDERING PHYSICIAN: MAURI FERNANDES MD PROCEDURE(s): CXRP - CHEST PORTABLE REASON: sob ORDER NUMBER(s): [id number], ACCESSION NUMBER(s): [id number] EXAM: XY CHEST PORTABLE Indication: sob Technique: Single frontal view of the chest was obtained Comparison: XY CHEST PORTABLE on DOS: 09/17/24, XY CHEST PORTABLE on DOS: 07/21/24, XY CHEST PORTABLE on DOS: 04/18/24 FINDINGS: Lines and Tubes: None Lungs: No focal consolidation. Pleura: No effusion. No pneumothorax. Cardiomediastinal contours: Unremarkable Bones: No acute osseous abnormality. IMPRESSION: No acute cardiopulmonary disease. ATED BY: GEORGE ALEJO MD DICTATED DATE/TIME: 10/17/24 1001 Laboratory Results Test 10/21/24 06:07 10/21/24 05:46 10/20/24 19:14 10/19/24 12:50 POC Glucose 182 mg/dl (70-106) White Blood Count 8.6 10^3/uL (4.4-10.8) Red Blood Count 3.71 10^6/uL (4.5-5.90) Hemoglobin 10.3 g/dL (13.5-17.5) Hematocrit 30.6 % (41.0-53.0) Mean Corpuscular Volume 82.7 fL (80.0-100.0) Mean Corpuscular Hemoglobin 27.7 pg (28.0-32.0) Mean Corpuscular Hemoglobin Concent 33.5 g/dL (32.0-36.0) Red Cell Distribution Width 16.1 % (11.8-14.3) Platelet Count 224 10^3/uL (140-450) Mean Platelet Volume 7.0 fL (6.9-10.8) Neutrophils (%) (Auto) % (37.0-80.0) Lymphocytes (%) (Auto) % (10.0-50.0) Monocytes (%) (Auto) % (0.0-12.0) Basophils (%) (Auto) % (0.0-2.0) Neutrophils # (Auto) 10 ^3/uL (1.6-8.6) Lymphocytes # (Auto) 10 ^3/uL (0.4-5.4) Monocytes # (Auto) 10 ^3/uL (0-1.3) Differential Total Cells Counted 100.0 (100) Neutrophils % (Manual) 70 (37.0-80.0) Band Neutrophils % (Manual) 3 Lymphocytes % (Manual) 18 (10.0-50.0) Monocytes % (Manual) 6 (0-12) Eosinophils % (Manual) 0 (0-7) Basophils % (Manual) 0 (0.0-2.0) Metamyelocytes % (manual) 2 Myelocytes % (Manual) 1 Promyelocytes % (Manual) 0 Blast Cells % (Manual) 0 Reactive Lymphocytes 0 Platelet Estimate Adequate Sodium Level 140 mmol/L (136-145) Potassium Level 4.5 mmol/L (3.5-5.1) Chloride Level 107 mmol/L (98-107) Carbon Dioxide Level 24 mmol/L (20-31) Anion Gap 9 (5-15) Blood Urea Nitrogen 49 mg/dL (9-23) Creatinine 2.23 mg/dL (0.700-1.30) Glomerular Filtration Rate Calc 34 mL/min (>90) BUN/Creatinine Ratio 22.0 (10.0-20.0) Serum Glucose 160 mg/dL (74-106) Calcium Level 9.2 mg/dL (8.7-10.4) Total Bilirubin 0.2 mg/dL (0.2-1.0) Aspartate Amino Transferase (AST) 16 U/L (<34) Alanine Aminotransferase (ALT) 25 U/L (7-40) Alkaline Phosphatase 60 U/L (46-116) Total Protein 6.8 g/dL (5.7-8.2) Albumin 3.8 g/dL (3.2-4.8) Troponin I High Sensitivity 53 ng/L (</=54) Blood Gas Specimen Type Arterial Blood Gas Sample Site Right radial Blood Gas Patient Temperature 37.0 Arterial Blood Date Drawn [id number] Arterial Blood pH 7.296 (7.350-7.450) Arterial Blood Partial Pressure CO2 45.7 mmHg (35.0-48.0) Arterial Blood Partial Pressure O2 90.8 mmHg (83.0-108.0) Arterial Blood HCO3 21.8 mmol/L (21.0-28.0) Arterial Blood Oxygen Saturation 95.6 % (94.0-98.0) Arterial Blood Base Excess -4.6 mmol/L (-2.0-3.0) Arterial Blood Oxyhemoglobin 95.2 % (94.0-98.0) Arterial Blood Carboxyhemoglobin 0.2 % (0.5-1.5) Arterial Blood Methemoglobin 0.2 % (0.0-1.5) Melvin Test Modified Blood Gas Total Hemoglobin 11.40 g/dL (13.5-17.5) Blood Gas Modality Vent - cpap FiO2 % 30.0 Blood Gas Pressure Support 7 Blood Gas PEEP or CPAP 5.0 Test 10/19/24 07:20 10/18/24 20:53 10/17/24 12:30 10/17/24 09:38 Blood Gas Set Respiration Rate 22.0 Blood Gas Tidal Volume 550.0 Blood Gas Spontaneous Rate 22 Blood Gas Spontaneous Tidal Volume 575 Blood Gas Inspiratory Pressure 21.0 Bl Gas Inspiratory/Expiratory Ratio 1:2 Blood Gas Critical Value Read Back Yes Blood Gas Notified Whom wu Fernandes md Blood Gas Notified Time [id number] Blood Gas Notified By Cap Sewer estefanía pierre Eosinophils (%) (Auto) % (0.0-7.0) D-Dimer, Quantitative 1.66 mg/L FEU (0.0-0.49) Lactic Acid Level 1.2 mmol/L (0.4-2.0) Thyroid Stimulating Hormone (TSH) 3.02 uIU/mL (0.55-4.78) Other Laboratory Tests 10/21/24 05:46 Brief Hx & Hospital Course: History of presenting illness: Yany Rodney is a 59-year-old male with past medical history of COPD, hypertension, hyperlipidemia, diabetes, and hypothyroidism who came in due to shortness of breath. The patient was recently admitted here and discharged on 09/22/2024 with PO antibiotics. He came back to the ER today due to worsening shortness of breath and a rash on his upper body. When he was first in the ER he was placed on 4L/NC when he arrived to his bed with oxygenation saturation 91- 94%. While in the ER his work of breathing increased, his oxygenation dropped, he became unresponsive, and a code blue was called. Brief hospital course Patient is a 59-year-old male with medical history significant for type 2 diabetes, COPD on home oxygen 2 L, hypertension, dyslipidemia, hypothyroidism, questionable CHF who presented to the ED on 10/17/2024 due to shortness of breath and rash involving bilateral upper extremities and diarrhea that has been ongoing for the last 4 days on 10/17/2024. Upon arrival to the ED, patient was placed on 4L/NC with oxygenation saturation 91-94%. While in the ER his work of breathing increased, his oxygenation dropped, he became unresponsive, and a code blue was called and patient was sedated, intubated and mechanically ventilated. He received Versed Fentanyl and Levophed for blood pressure support. Labs works showed wbc was unremarkable, Creatinine was elevated (baseline 2.15), Troponin 17 -->142. D-dimer was 1.66 H, Venous Doppler was negative for DVT. Initial CXR was negative for acute cardiopulmonary disease. Blood culture, no growth so far. Patient blood work showed elevated troponin with questionable changes on EKG. Position Classification Specialist was consulted and decided no intervention indicated. Rather the elevated troponin was due to demand ischemia. He received antibiotic for COPD exacerbation. Repeat Cxr showed infiltration in the right middle lobe. He was managed according. On 10/19/2024, he was extubated, passed swallow evaluation started him on oral feeds starting with fluid and advanced as tolerated. Patient was transferred to the floor on Telemetry on 4L oxygen which was gradually decreased. Currently on 2L of oxygen. Patient has not complaint over night. No obvious rashes noted on his skin. He sating good, kidney function improving and he is overall stable. Will discharge patient home today on levofloxacin 750 mg daily for 10 days. Review of Systems Constitutional: Denies fever no chills no feeling of malaise HEENT: Denies headache, ear pain, ear discharges, conjunctivitis, nasal discharge throat pain Cardiovascular: Denies chest pain, palpitation, orthopnea, PND, or pedal edema Respiratory: Denies shortness of breath, cough cough, sputum production, hemoptysis, GI: Denies abdominal pain, nausea, vomiting, diarrhea, hematemesis, hematochezia, : Denies frequency, urgency, hematuria, Endocrine: Denies unintentional weight gain or weight loss, feeling of hot flashes, Magno: Denies easy bruising, bleeding disorders, epistaxis Musculoskeletal: Denies joint pains, muscle aches Psych: No evidence of depression, [place], suicidal ideation Examination General Appearance: Alert, Oriented X3, Cooperative, No acute distress HEENT: Atraumatic, PERRLA, EOMI, Mucous membrane moist/pink Respiratory: Clear to auscultation, Normal air movement on 2L litters oxygen, slide reduced right mid Cardiovascular: Regular rate, Normal S1, Normal S2, No murmurs, no chest wall tenderness Abdominal: NO distention, no tenderness, bowel sounds present, no scars noted Extremities: No clubbing, No cyanosis, No edema, Normal pulses, No tenderness/swelling Skin: No rashes, No breakdown, No significant lesion Neuro: Normal gait, Normal speech, Strength at 5/5 X4 ext, Normal tone, Sensation intact, Cranial nerves 3-12 NL, Reflexes 2+ Psych/Mental Status: Mental status NL, Mood NL Diagnoses Acute respiratory hypoxic failure, COPD exacerbation Likely aspiration pneumonia Pneumonia gram negative/Gram positive metabolic acidosis Nstemi II likely due to the demand ischemia Hypertension Hyperlipidemia, Diabetes, Hypothyroidism Acute kidney failure due to like VMN CKD Obesity grade 1, BMI: 31.1 Discharge plan Home with levofloxacin 750 mg for 10 days Home with home oxygen follow at the discharge clinic in 7 days follow up pcp/ pulmonology for continuity of care Continue home medication Medication review by PCP Discharge plan discussed with Dr. Hall Consults/Reason for consult Cardiology: trop level in an intubated patient Condition at Discharge: Good Final Diagnosis/Problems List Acute respiratory hypoxic failure, Likely COPD exacerbation likely aspiration pneumonia Possible pneumonia gram negative/gram positive Nstemi II likely due to the demand ischemia Hypertension EKG showing early repolarization abnormalities Hyperlipidemia, Diabetes, Hypothyroidism Obesity grade 1, BMI: 31.1 Acute kidney failure due to like VMN CKD Discharge Disposition: Home Discharge Statement: "Patient was advised to return to the ER or call 911 if any headaches, dizziness, shortness of breath, chest pain, abdominal pain, bleeding, fevers, or worsening of medical condition. Patient was counseled about treatment plan, medications, possible side effects, patientverbalized understanding. All questions were answered to the best of my ability. This discharge took greater then 30 minutes in planning, reviewing documentation, counseling the patient, and discussing with other team members." ASSESSMENT ASSESSMENT Assessment ANGIE AZAR RESIDENT Oct 21, 2024 11:27
[2024-10-21] MEDS ORDERED: ACET-1882 PO (14:57)
[2024-10-21] MEDS ORDERED: LEVO750T40 PO (14:57)
== END 2024-10-21 16:36 | disposition home or self-care (01) | DRG 133 ==
LOC: ER 09:03 → OVERFLOW 13:17 → ICU WEST 13:22 → TELE-EAST 10-19 23:33
PROVIDERS: ADMIT Internal Medicine Pulmonary Disease; ATTEND Internal Medicine Pulmonary Disease
PROC: 05HM33Z Insertion of Infusion Device into Right Internal Jugular Vein, Percutaneous Approach (ICD-10-PCS; principal; 2024-10-17)
PROC: 5A1945Z Respiratory Ventilation, 24-96 Consecutive Hours (ICD-10-PCS; 2024-10-17)
PROC: 0BH17EZ Insertion of Endotracheal Airway into Trachea, Via Natural or Artificial Opening (ICD-10-PCS; 2024-10-17)
PROC: 5A12012 Performance of Cardiac Output, Single, Manual (ICD-10-PCS; 2024-10-17)
DX: J96.01 Acute respiratory failure with hypoxia (principal); N17.0 Acute kidney failure with tubular necrosis; I21.A1 Myocardial infarction type 2; J15.69 Pneumonia due to other Gram-negative bacteria; J69.0 Pneumonitis due to inhalation of food and vomit; J44.1 Chronic obstructive pulmonary disease with (acute) exacerbation; J15.9 Unspecified bacterial pneumonia; E87.20 Acidosis, unspecified; Z68.29 Body mass index [BMI] 29.0-29.9, adult; E66.9 Obesity, unspecified; E03.9 Hypothyroidism, unspecified; J98.4 Other disorders of lung; E78.5 Hyperlipidemia, unspecified; I12.9 Hypertensive chronic kidney disease with stage 1 through stage 4 chronic kidney disease, or unspecified chronic kidney disease; E11.22 Type 2 diabetes mellitus with diabetic chronic kidney disease; N18.9 Chronic kidney disease, unspecified; Z88.1 Allergy status to other antibiotic agents; Z87.891 Personal history of nicotine dependence
CPT/HCPCS: 31500; 36415; 36556; 36600; 71045; 80048; 80053; 82805; 82962; 83605; 84443; 84484; 85007; 85027; 85379; 87040; 87070; 87081; 87205; 92950; 93005; 93970; 94002; 94003; 94640; 94644; 96365; 99152; 99291; G0378; J1815; J2543

== ENCOUNTER 2025-01-16 19:28 | Inpatient (IN) | payer OTHER ==
[~2025-01-16] VITALS: Ht 188 cm; Wt 108.0 kg
[~2025-01-16 19:28] MED LIST changes: +ACET-1882 PO; +AML5T PO; -AZIT-185 PO; -AZIT500T66 PO; +CHLO25TA2 PO; +CHOL400C15 PO; +LEVO750T40 PO; -LISI20TA56 PO; +METF-370 PO; -NAP500T PO; -PRED20TA2 PO
--- NOTE | 2025-01-16 19:56 | ECG ---
[facility] Test Date: 2025-01-16 Test Time: 19:54:57 Pat Name: YANY RODNEY Department: ED Room: [address] [place] [address] Gender: M Apparatus Operator: BART : 1965 Requested By: MICHELLE ALDRIDGE Order Number: [id number] Reading MD: Amor Decker Measurements Intervals [place] Rate: 86 P: 48 SD: 152 QRS: 46 QRSD: 92 T: 76 QT: 374 QTc: 448 Interpretive Statements Sinus rhythm Electronically Signed On 01-17-2025 15:43:24 PDT by Amor Decker Please click the below link to view image of tracing.
[2025-01-16] MEDS: IPRATROPIUM BROM 0.5 MG/2.5ML INH SOL NEB ONE (20:11)
[2025-01-16] MEDS: ALBUTEROL SULF 2.5 MG/0.5ML(0.5%) NEB SOLN NEB ONE (20:11)
--- NOTE | 2025-01-16 20:11 | ED.PDOC ---
History of Present Illness HPI Comments 59 y/o obese M presents with c/c shortness of breath. Significant history for CKF, COPD - on home O2 (2LPM), DM II, HLD, HTN, NSTEMI II, PNA, hypothyroidism, and former tobacco cigarette use. Patient reports on becoming short of breath after running out his albuterol and nebulizer inhaler at around 1400, this afternoon. He comments on being unable to obtain a refill on his medications from his pharmacy until 01/19/25. Breathing worsens with mild exertion. No endorsement of any recent strenuous activities, sick contacts, travel, or further pertinent events or history. Denial of any chest pain, cough, congestion, or further associated symptoms. Chief Complaint: Shortness of Breath Time Seen by MD: 19:50 Reviewed Notes: Nurses Notes, Medications, Allergies Allergies: Coded Allergies: Tetracycline (Verified Allergy, Unknown, 04/19/24) Home Meds Active Scripts Ipratropium [place] Hfa (Atrovent Hfa) 17 Mcg Aer, 2 PUFF INH QID PRN, #12.9 GRAMS 5 Refills Prov:MICHELLE ALDRIDGE MD 01/16/25 Prednisone (Prednisone) 20 Mg Tab, 20 MG PO BID for 5 Days, #10 TAB Prov:MICHELLE ALDRIDGE MD 01/16/25 Azithromycin (Azithromycin) 500 Mg Tab, 1 TAB PO DAILY for 5 Days, #5 TAB Prov:MICHELLE ALDRIDGE MD 01/16/25 Albuterol Sulfate (Albuterol Sulfate) 0.083 % Neb, 1 VIAL NEB Q4HPRN PRN, #50 VIAL 5 Refills Prov:MICHELLE LADRIDGE MD 01/16/25 Levofloxacin Hemihydrate (LEVOFLOXACIN) 750 Mg Tab, 1 TAB PO DAILY, #5 TAB Prov:ANGIE AZAR RESIDENT 10/21/24 Acetaminophen (Acetaminophen) 325 Mg Tab, 650 MG PO Q6HP PRN for 30 Days, #240 TAB Prov:ANGIE AZAR RESIDENT 10/21/24 Cefdinir (Cefdinir) 300 Mg Cap, 1 CAP PO BID, #5 CAP Prov:BRENT ROWAN MD 09/22/24 Reported Medications Chlorthalidone (Chlorthalidone) 25 Mg Tab, 25 MG PO DAILY, TAB 10/17/24 Atorvastatin Calcium (Lipitor) 40 Mg Tab, 1 TAB PO QPM, #90 TAB 1 Refill 10/17/24 Cholecalciferol (VITAMIN D3) 400 Unit Cap, 25 MCG PO DAILY, CAP 10/17/24 Metformin Hydrochloride (Metformin Hcl) 500 Mg Tab, 500 MG PO DAILY for 30 Days, MG 10/17/24 Amlodipine Besylate (NORVASC TABLET) 5 Mg Tb, 10 MG PO DAILY, TAB 10/17/24 Epoetin Billy-Epbx (Retacrit) 10,000 Unit/Ml Inj, 81287 UNIT IJ QWEEKLY, INJ 07/22/24 Magnesium Oxide (MAGNESIUM OXIDE) 400 Mg Tab, 2 TAB PO DAILY, TAB 07/22/24 Spironolactone (Spironolactone) 25 Mg Tab, 25 MG PO DAILY@BREAKFAST, TAB 07/22/24 Albuterol Sulfate (Albuterol Sulfate) 0.083 % Neb, 1 VIAL NEB Q4HPRN, #50 VIAL 04/18/24 Albuterol Sulfate (VENTOLIN MDI) 90 Mcg Ih, 90 MCG IN, INH 04/18/24 Levothyroxine Sodium (Levothyroxine Sodium) 25 Mcg Tab, 75 MCG PO QAM, MCG 04/18/24 Atorvastatin Calcium (Lipitor) 40 Mg Tab, 1 TAB PO DAILY, #30 TAB 5 Refills 04/18/24 Information Source: Patient Mode of Arrival: Ambulatory Severity: Moderate Timing: Hours Duration: Since onset Prehospital treatment: None Past Medical History PAST MEDICAL HISTORY: CKF, COPD (on home O2 (2LPM)), DM (type II), High Lipids, HTN, MS (NSTEMI type II ), Thyroid (hypothyroidism) Past Medical History (Other): Pneuomnia Surgical History: Denies all surgeries Family History Family History: Reviewed,noncontributory to illness Social History Smoker: Quit Greater Than 1 Year Alcohol: Denies ETOH Use Drugs: Denies Drug Use Lives In: Home All Other Systems: Reviewed and Negative (Comprehensive review of systems are negative unless stated in HPI) Physical Exam General Appearance: No Apparent Distress, Obese HEENT: Normal ENT Inspection, Pharynx Normal, TMs Normal Neck: Full Range of Motion, Non-Tender, Normal, Normal Inspection Respiratory: Chest Non-Tender, Lungs Clear, No Accessory Muscle Use, Respirato ry Distress (mild ), Wheezing (scattered, bilaterally) Cardiovascular: No Edema, No JVD, No Murmur, No Gallop, Normal Peripheral Pulses, Regular Rate/Rhythm Breast Exam: Deferred Gastrointestinal: No Organomegaly, Non Tender, No Pulsatile Mass, Normal Bowel Sounds, Soft Genitalia: Deferred Pelvic: Deferred Rectal: Deferred Extremities: No calf tenderness, Normal capillary refill, Normal inspection, Normal range of motion, Non-tender, No pedal edema Musculoskeletal : Apperance: Normal Neurologic: Alert, bulldogger II-XII nml as Tested, No Motor Deficits, Normal Affect, Normal Mood, No Sensory Deficits Cerebellar Function: Normal Reflexes: Normal Skin: Dry, Normal Color, Warm Lymphatic: No Adenopathy Was a procedure done? Was a procedure done?: No EKG EKG : Pulse Rate (adult): 86 [place]: Normal Cardiac Rhythm: NSR Block: None Hypertrophy: None ST: Normal Differential Dx Considerations may include: acute COPD exacerbation, URI, PNA, viral syndrome, MS, PE, anxiety, among others X-Ray, Labs, Meds, VS Vital Signs Date Time Temp Pulse Resp B/P (MAP) Pulse Ox O2 Delivery O2 Flow Rate FiO2 01/17/25 00:21 20 94 Nasal Cannula* 6 44 01/16/25 20:13 20 93 Nasal Cannula* 4 36 01/16/25 20:11 86 01/16/25 19:54 86 01/16/25 19:34 99.1 89 20 161/113 92 99.1 Lab Test 01/17/25 00:41 01/16/25 22:07 01/16/25 20:06 Range/Units Troponin I High Sensitivity Pending 26 </=54 ng/L White Blood Count 7.1 4.4-10.8 10^3/uL Red Blood Count 4.91 4.5-5.90 10^6/uL Hemoglobin 13.3 L 13.5-17.5 g/dL Hematocrit 41.0 41.0-53.0 % Mean Corpuscular Volume 83.5 80.0-100.0 fL Mean Corpuscular Hemoglobin 27.1 L 28.0-32.0 pg Mean Corpuscular Hemoglobin Concent 32.5 32.0-36.0 g/dL Red Cell Distribution Width 16.0 H 11.8-14.3 % Platelet Count 236 140-450 10^3/uL Mean Platelet Volume 7.8 6.9-10.8 fL Neutrophils (%) (Auto) 62.4 37.0-80.0 % Lymphocytes (%) (Auto) 19.2 10.0-50.0 % Monocytes (%) (Auto) 5.2 0.0-12.0 % Eosinophils (%) (Auto) 12.9 H 0.0-7.0 % Basophils (%) (Auto) 0.3 0.0-2.0 % Neutrophils # (Auto) 4.4 1.6-8.6 10 ^3/uL Lymphocytes # (Auto) 1.4 0.4-5.4 10 ^3/uL Monocytes # (Auto) 0.4 0-1.3 10 ^3/uL Eosinophils # (Auto) 0.9 H 0-0.8 10 ^3/uL Basophils # (Auto) 0 0-0.2 10 ^3/uL Nucleated Red Blood Cells 0.1 % Sodium Level 141 136-145 mmol/L Potassium Level 4.1 3.5-5.1 mmol/L Chloride Level 107 98-107 mmol/L Carbon Dioxide Level 24 20-31 mmol/L Anion Gap 10 5-15 Blood Urea Nitrogen 23 9-23 mg/dL Creatinine 2.05 H 0.700-1.30 mg/dL Glomerular Filtration Rate Calc 37 >90 mL/min BUN/Creatinine Ratio 11.2 10.0-20.0 Serum Glucose 99 74-106 mg/dL Lactic Acid Level 1.5 0.4-2.0 mmol/L Calcium Level 9.2 8.7-10.4 mg/dL Total Bilirubin 0.4 0.2-1.0 mg/dL Aspartate Amino Transferase (AST) 18 13-40 U/L Alanine Aminotransferase (ALT) 15 7-40 U/L Alkaline Phosphatase 62 46-116 U/L B-Type Natriuretic Peptide 24.42 0-100 pg/mL Total Protein 8.2 5.7-8.2 g/dL Albumin 4.6 3.2-4.8 g/dL Blood Gas Specimen Type Arterial Blood Gas Sample Site Right radial Blood Gas Patient Temperature 37.0 Arterial Blood Date Drawn [id number] Arterial Blood pH 7.381 7.350-7.450 Arterial Blood Partial Pressure CO2 43.7 35.0-48.0 mmHg Arterial Blood Partial Pressure O2 68.4 L 83.0-108.0 mmHg Arterial Blood HCO3 25.3 21.0-28.0 mmol/L Arterial Blood Oxygen Saturation 93.2 L 94.0-98.0 % Arterial Blood Base Excess 0.0 -2.0-3.0 mmol/L Arterial Blood Oxyhemoglobin 91.9 L 94.0-98.0 % Arterial Blood Carboxyhemoglobin 1.0 0.5-1.5 % Arterial Blood Methemoglobin 0.4 0.0-1.5 % Melvin Test Modified Blood Gas Total Hemoglobin 13.80 13.5-17.5 g/dL Blood Gas Liter Flow 4.00 Blood Gas Modality Nasal cannula FiO2 % 36.0 Current Medications Medications (Trade) Dose Ordered Sig/Mari Route Start Time Stop Time Status Last Admin Albuterol (Ventolin Medneb) 10 mg ONCE ONCE [facility] 01/16/25 20:00 01/16/25 20:01 DC 01/16/25 20:11 Ipratropium [place] (Atrovent Medneb) 0.5 mg ONCE ONCE [facility] 01/16/25 20:00 01/16/25 20:01 DC 01/16/25 20:11 Albuterol (Ventolin Medneb) 5 mg ONCE ONCE [facility] 01/17/25 00:15 01/17/25 00:16 DC 01/17/25 00:18 [place] [id number] Ph: [phone] DIAGNOSTIC IMAGING Diagnostic Imaging Report : [id number] Signed PATIENT: YANY RODNEY ACCT: [id number] UNIT: [id number] : 1965 LOC: ER ROOM / BED: / AGE / SEX: 59 / M ADM STATUS: REG ER SERVICE 47 ORDERING PHYSICIAN: MICHELLE ALDRIDGE MD PROCEDURE(s): CXR1 - CHEST XRAY 1 VIEW REASON: SOB ORDER NUMBER(s): [id number], ACCESSION NUMBER(s): [id number] CHEST RADIOGRAPH Indication: SOB Technique: Single frontal view of the chest was obtained COMPARISON: XY CHEST PORTABLE on DOS: 10/19/24, XY CHEST XRAY 1 VIEW on DOS: 10/17/24, XY CHEST XRAY 1 VIEW on DOS: 10/17/24, XY CHEST PORTABLE on DOS: 10/17/24, CT CHEST WITHOUT CONTRAST on DOS: 09/20/24 FINDINGS: Dense opacity along the periphery of both mid lungs worse than left. No pleural effusions. Cardiac silhouette and sharon are within normal limits. Bones and soft tissues demonstrate no significant abnormality. IMPRESSION: Dense opacity along the periphery of both lungs. It is uncertain if this related to overlying soft tissue or represents true airspace disease. Please correlate with a strong concern for pneumonia. ATED BY: SURI GONSALEZ MD DICTATED DATE/TIME: 01/16/252016 SIGNED BY: SURI GONSALEZ MD SIGNED DATE/TIME: 01/16/252016 CC: Time of 1ST Reevaluation: 20:20 Reevaluation 1ST: Unchanged Patient Education/Counseling: Treatment, Need For Follow Up Family Education/Counseling: No Family Present SEPSIS Sepsis Screen Date sepsis recognized/suspect: Jan 16, 2025 Time Sepsis recognized/suspect: 1938 Recent Procedure: No On Antibiotic Therapy: No Respiratory Rate >20: No Heart Rate >90: No Temp<36 C (96.8 F) or >38.3 C: No SBP <90 or MAP <65 mmHG: No New Acute Mental Status Change: No Is the patient on CPAP, BIPAP,: No Physician Orders Chest Xray 1 View (01/16/25 19:48) Abg W/ Co-Ox (01/16/25 19:48) Troponin-I Hs (01/17/25 00:00) Troponin-I Hs (01/17/25 03:00) Troponin-I Hs (01/17/25 06:00) Blood Culture (01/16/25 21:19) Vital Signs Date Time Temp Pulse Resp B/P (MAP) Pulse Ox O2 Delivery O2 Flow Rate FiO2 01/17/25 00:21 20 94 Nasal Cannula* 6 44 01/16/25 20:13 20 93 Nasal Cannula* 4 36 01/16/25 20:11 86 01/16/25 19:54 86 01/16/25 19:34 99.1 89 20 161/113 92 99.1 Laboratory Tests Test 01/16/25 22:07 Lactic Acid Level 1.5 mmol/L (0.4-2.0) White Blood Count 7.1 10^3/uL (4.4-10.8) Medications Medications Dose Ordered Sig/Mari Route Start Time Stop Time Status Last Admin Dose Admin Albuterol 5 mg ONCE ONCE NEB 01/17/25 00:15 01/17/25 00:16 DC 01/17/25 00:18 Albuterol 10 mg ONCE ONCE NEB 01/16/25 20:00 01/16/25 20:01 DC 01/16/25 20:11 Ipratropium [place] 0.5 mg ONCE ONCE NEB 01/16/25 20:00 01/16/25 20:01 DC 01/16/25 20:11 Departure 1 Departure Time of Disposition: :06 Impression: Primary Impression: Pneumonitis Additional Impressions: Pneumonia, unspecified organism COPD with acute exacerbation Acute and chronic respiratory failure Acute renal injury Disposition: ADMITTED INPATIENT Condition: Guarded e-Prescriptions Ipratropium [place] Hfa (Atrovent Hfa) 17 Mcg Aer 2 PUFF INH QID PRN, #12.9 GRAMS 5 Refills Prov: MICHELLE ALDRIDGE MD 01/16/25 Prednisone (Prednisone) 20 Mg Tab 20 MG PO BID for 5 Days, #10 TAB Prov: MICHELLE ALDRIDGE MD 01/16/25 Azithromycin (Azithromycin) 500 Mg Tab 1 TAB PO DAILY for 5 Days, #5 TAB Prov: MICHELLE ALDRIDGE MD 01/16/25 Albuterol Sulfate (Albuterol Sulfate) 0.083 % Neb 1 VIAL NEB Q4HPRN PRN, #50 VIAL 5 Refills Prov: MICHELLE ALDRIDGE MD 01/16/25 Discharged With: Self Comments Patient initially declined admission and was going to leave against medical advice. Chest x-ray shows dense infiltrate consistent with pneumonia. Lab review shows acute renal injury with creatinine elevated at 2. Patient has respiratory distress on re-evaluation. After hours of considering his options the patient then decided that he is willing to be admitted. Patient will need to be admitted for pneumonia and acute renal injury and respiratory failure with hypoxia Critical Care Note Critical Care Time?: Yes (35 min-critical care time only) Critical care comment: Total critical care time: Approximately 36 minutes Due to a high probability of clinically significant, life threatening deterioration, the patient required my highest level of preparedness to intervene emergently and I personally spent this critical care time directly and personally managing the patient. This critical care time included obtaining a history; examining the patient; pulse oximetry; ordering and review of studies; arranging urgent treatment with development of a management plan; evaluation of patient's response to treatment; frequent reassessment; and, discussions with ot her providers. This critical care time was performed to assess and manage the high probability of imminent, life-threatening deterioration that could result in multi-organ failure. It was exclusive of separately billable procedures and treating other patients. Stability Stability form required: No Heart Score Heart Score: Heart Score Response (Comments) Value History Slightly Suspicious 0 EKG Normal 0 Age 45-64 1 Risk Factors >3 or Hx ASHD 2 Troponin Normal limit 0 Total 3 I personally scribed for MICHELLE ALDRIDGE MD ([email or web address]) on 01/16/25 at 20:11. Electronically submitted by Jose Main ([email or web address]). I personally scribed for MICHELLE ALDRIDGE MD ([email or web address]) on 01/16/25 at 20:33. Electronically submitted by Jose Main ([email or web address]). I personally scribed for MICHELLE ALDRIDGE MD ([email or web address]) on 01/16/25 at 22:59. Electronically submitted by Jose Main ([email or web address]). MICHELLE ALDRIDGE MD Jan 16, 2025 20:11
[2025-01-16 20:18] LABS: Base Excess 0.0 mmol/L (-2.0-3.0)
--- NOTE | 2025-01-16 20:19 | DVH ---
CHEST RADIOGRAPH Indication: SOB Technique: Single frontal view of the chest was obtained COMPARISON: XY CHEST PORTABLE on DOS: 10/19/24, XY CHEST XRAY 1 VIEW on DOS: 10/17/24, XY CHEST XRAY 1 VIEW on DOS: 10/17/24, XY CHEST PORTABLE on DOS: 10/17/24, CT CHEST WITHOUT CONTRAST on DOS: 09/20/24 FINDINGS: Dense opacity along the periphery of both mid lungs worse than left. No pleural effusions. Cardiac silhouette and sharon are within normal limits. Bones and soft tissues demonstrate no significa nt abnormality. IMPRESSION: Dense opacity along the periphery of both lungs. It is uncertain if this related to overlying soft ti ssue or represents true airspace disease. Please correlate with a strong concern for pneumonia.
[2025-01-16] MEDS ORDERED: AZIT500T66 PO (21:46)
[2025-01-16] MEDS ORDERED: IPRIH INH (21:46)
[2025-01-16] MEDS ORDERED: ALBU0.084 NEB (21:46)
[2025-01-16] MEDS ORDERED: PRED20TA2 PO (21:46)
[2025-01-16 22:24] LABS: Hematocrit 41.0 % (41.0-53.0); Hemoglobin 13.3 g/dL (13.5-17.5); Mean Corpuscular Hemoglobin 27.1 pg (28.0-32.0); Mean Corpuscular Volume 83.5 fL (80.0-100.0); Nucleated Red Blood Cells % 0.1 %
[2025-01-16 22:40] LABS: Alanine Aminotransferase 15 U/L (7-40); Albumin 4.6 g/dL (3.2-4.8); Alkaline Phosphatase 62 U/L (46-116); Anion Gap 10 (5-15); BUN/Creatinine Ratio 11.2 (10.0-20.0); Blood Urea Nitrogen 23 mg/dL (9-23); Calcium 9.2 mg/dL (8.7-10.4); Carbon Dioxide 24 mmol/L (20-31); Chloride 107 mmol/L (98-107); Glucose 99 mg/dL (74-106); Potassium 4.1 mmol/L (3.5-5.1); Sodium 141 mmol/L (136-145); Total Protein 8.2 g/dL (5.7-8.2)
[2025-01-16 22:41] LABS: Bilirubin, Total 0.4 mg/dL (0.2-1.0)
[2025-01-17] MEDS: ALBUTEROL SULF 2.5 MG/0.5ML(0.5%) NEB SOLN NEB ONE (00:18)
[2025-01-17] MEDS ORDERED: ONDANSETRON HCL 4 MG/2 ML VIAL IV PRN (04:00)
[2025-01-17] MEDS ORDERED: DEXTROSE (50%) 50ML SYRG IV PRN (04:00)
[2025-01-17] MEDS ORDERED: ALBUTEROL SULF 2.5 MG/0.5ML(0.5%) NEB SOLN NEB PRN (04:00)
[2025-01-17 04:05] VITALS: BP 161/113; PULSE 86; RESP 20; TEMP 99.1; O2SAT 94
--- NOTE | 2025-01-17 04:38 | DVHHP2 ---
History of Present Illness Reason for Visit: Shortness for breath History of Present Illness 59-year-old female presents for evaluation of shortness for breath. Patient with a history of COPD and asthma currently using 2 L of nasal cannula oxygen at home reports a one day history of worsening shortness for breath with associated nonproductive cough. She has been using her nebulizer and med nebs without relief of the symptoms. No fever or chills. Denies chest pain Past Medical History COPD, diabetes mellitus, chronic kidney disease, asthma, diabetes mellitus, dyslipidemia, hypertension, mi, thyroid Past Surgical History Denies Family History Noncontributory Smoke: Quit ALCOHOL: none Drugs: None Lives: with Family Review of Systems Review of Systems Review of systems are currently negative otherwise addressed in HPI. Allergies: Coded Allergies: Latex (Verified Allergy, Unknown, 01/17/25) Tetracycline (Verified Allergy, Unknown, 04/19/24) Medications Current Medications Medications Dose Ordered Sig/Mari Route Start Time Stop Time Status Last Admin Dose Admin Azithromycin 250 ml @ 125 mls/hr DAILY IV 01/17/25 10:00 Ceftriaxone Sodium 50 ml @ 100 mls/hr DAILY@09 IV 01/17/25 09:00 Albuterol 2.5 mg Q6HPRN PRN NEB 01/17/25 04:00 Amlodipine Besylate 10 mg DAILY PO 01/17/25 10:00 Atorvastatin Calcium 40 mg HS PO 01/17/25 22:00 Levothyroxine Sodium 75 mcg QAM@0600 PO 01/17/25 06:00 Spironolactone 25 mg DAILY PO 01/17/25 10:00 Diagnostic Test (Pha) 1 strip ACHS 01/17/25 07:00 Insulin Human Regular ACHS SC 01/17/25 07:00 Dextrose 50 ml UD PRN IV 01/17/25 04:00 Ondansetron HCl 4 mg Q4HP PRN IV 01/17/25 04:00 Acetaminophen 650 mg Q6HP PRN PO 01/17/25 04:00 Exam Vital Signs Vital Signs Date Time Temp Pulse Resp B/P (MAP) Pulse Ox O2 Delivery O2 Flow Rate FiO2 01/17/25 04:05 99.1 86 20 161/113 94 6.0 44 99.1 01/17/25 00:21 Nasal Cannula* Exam Gen: 59-year-old female in mild distress Skin: Warm, dry, normal color and texture, no rash. HEENT: Normocephalic atraumatic, mucous membranes moist and pink. Neck: Cervical and supraclavicular nodes normal without enlargement, trachea is midline, thyroid gland is normal without masses. Pulmonary: Diminished breath sounds bilaterally Cardiac: Regular rate and rhythm. No murmur Abdomen: Soft, nontender, nondistended, bowel sounds present all 4 quadrants, no guarding, no rigidity, no organomegaly. Extremities: No cyanosis, clubbing, no edema Neuro: Cranial nerves II through XII grossly intact, normal affect and speech, no focal motor deficits. Labs/Xrays ORDERING PHYSICIAN: MICHELLE ALDRIDGE MD PROCEDURE(s): CXR1 - CHEST XRAY 1 VIEW REASON: SOB ORDER NUMBER(s): [id number], ACCESSION NUMBER(s): [id number] CHEST RADIOGRAPH Indication: SOB Technique: Single frontal view of the chest was obtained COMPARISON: XY CHEST PORTABLE on DOS: 10/19/24, XY CHEST XRAY 1 VIEW on DOS: 10/17/24, XY CHEST XRAY 1 VIEW on DOS: 10/17/24, XY CHEST PORTABLE on DOS: 10/17/24, CT CHEST WITHOUT CONTRAST on DOS: 09/20/24 FINDINGS: Dense opacity along the periphery of both mid lungs worse than left. No pleural effusions. Cardiac silhouette and sharon are within normal limits. Bones and soft tissues demonstrate no significant abnormality. IMPRESSION: Dense opacity along the periphery of both lungs. It is uncertain if this related to overlying soft tissue or represents true airspace disease. Please correlate with a strong concern for pneumonia. Labs Test 01/17/25 01:43 01/16/25 22:07 01/16/25 20:06 Range/Units Troponin I High Sensitivity 24 </=54 ng/L White Blood Count 7.1 4.4-10.8 10^3/uL Red Blood Count 4.91 4.5-5.90 10^6/uL Hemoglobin 13.3 L 13.5-17.5 g/dL Hematocrit 41.0 41.0-53.0 % Mean Corpuscular Volume 83.5 80.0-100.0 fL Mean Corpuscular Hemoglobin 27.1 L 28.0-32.0 pg Mean Corpuscular Hemoglobin Concent 32.5 32.0-36.0 g/dL Red Cell Distribution Width 16.0 H 11.8-14.3 % Platelet Count 236 140-450 10^3/uL Mean Platelet Volume 7.8 6.9-10.8 fL Neutrophils (%) (Auto) 62.4 37.0-80.0 % Lymphocytes (%) (Auto) 19.2 10.0-50.0 % Monocytes (%) (Auto) 5.2 0.0-12.0 % Eosinophils (%) (Auto) 12.9 H 0.0-7.0 % Basophils (%) (Auto) 0.3 0.0-2.0 % Neutrophils # (Auto) 4.4 1.6-8.6 10 ^3/uL Lymphocytes # (Auto) 1.4 0.4-5.4 10 ^3/uL Monocytes # (Auto) 0.4 0-1.3 10 ^3/uL Eosinophils # (Auto) 0.9 H 0-0.8 10 ^3/uL Basophils # (Auto) 0 0-0.2 10 ^3/uL Nucleated Red Blood Cells 0.1 % Sodium Level 141 136-145 mmol/L Potassium Level 4.1 3.5-5.1 mmol/L Chloride Level 107 98-107 mmol/L Carbon Dioxide Level 24 20-31 mmol/L Anion Gap 10 5-15 Blood Urea Nitrogen 23 9-23 mg/dL Creatinine 2.05 H 0.700-1.30 mg/dL Glomerular Filtration Rate Calc 37 >90 mL/min BUN/Creatinine Ratio 11.2 10.0-20.0 Serum Glucose 99 74-106 mg/dL Lactic Acid Level 1.5 0.4-2.0 mmol/L Calcium Level 9.2 8.7-10.4 mg/dL Total Bilirubin 0.4 0.2-1.0 mg/dL Aspartate Amino Transferase (AST) 18 13-40 U/L Alanine Aminotransferase (ALT) 15 7-40 U/L Alkaline Phosphatase 62 46-116 U/L B-Type Natriuretic Peptide 24.42 0-100 pg/mL Total Protein 8.2 5.7-8.2 g/dL Albumin 4.6 3.2-4.8 g/dL Blood Gas Specimen Type Arterial Blood Gas Sample Site Right radial Blood Gas Patient Temperature 37.0 Arterial Blood Date Drawn [id number] Arterial Blood pH 7.381 7.350-7.450 Arterial Blood Partial Pressure CO2 43.7 35.0-48.0 mmHg Arterial Blood Partial Pressure O2 68.4 L 83.0-108.0 mmHg Arterial Blood HCO3 25.3 21.0-28.0 mmol/L Arterial Blood Oxygen Saturation 93.2 L 94.0-98.0 % Arterial Blood Base Excess 0.0 -2.0-3.0 mmol/L Arterial Blood Oxyhemoglobin 91.9 L 94.0-98.0 % Arterial Blood Carboxyhemoglobin 1.0 0.5-1.5 % Arterial Blood Methemoglobin 0.4 0.0-1.5 % Melvin Test Modified Blood Gas Total Hemoglobin 13.80 13.5-17.5 g/dL Blood Gas Liter Flow 4.00 Blood Gas Modality Nasal cannula FiO2 % 36.0 SEPSIS Sepsis Screen Date sepsis recognized/suspect: Jan 16, 2025 Time Sepsis recognized/suspect: 1938 Recent Procedure: No On Antibiotic Therapy: No Respiratory Rate >20: No Heart Rate >90: No Temp<36 C (96.8 F) or >38.3 C: No SBP <90 or MAP <65 mmHG: No New Acute Mental Status Change: No Is the patient on CPAP, BIPAP,: No Physician Orders Blood Culture (01/16/25 21:19) Azithromycin 500mg/ 250ml (Zithromax 50 (01/17/25 10:00) Ceftriaxone 1gm/50ml (Rocephin) (01/17/25 09:00) Albuterol Medneb (Ventolin Medneb) (01/17/25 04:00) Amlodipine Tablet (Norvasc Tablet) (01/17/25 10:00) Atorvastatin (Lipitor) (01/17/25 22:00) Levothyroxine Tablet (Synthroid Tablet) (01/17/25 06:00) Spironolactone (Aldactone) (01/17/25 10:00) Basic Metabolic Panel (01/18/25 04:00) Glucose Blood (Accu-Chek Comfort Curve T (01/17/25 07:00) Insulin R (Human) (Insulin R) (01/17/25 07:00) Dextrose 50% Syringe (01/17/25 04:00) Admit (01/17/25 03:55) Ondansetron Hcl (Zofran) (01/17/25 04:00) Complete Blood Count (01/18/25 04:00) Cardiac Diet-2gna,Lofat,Lochol (01/17/25 Breakfast) Condition: Stable (01/17/25 03:55) Acetaminophen Tablet (Tylenol Tablet) (01/17/25 04:00) Bedrest With Bathroom Privileg (01/17/25 03:55) Vital Signs Date Time Temp Pulse Resp B/P (MAP) Pulse Ox O2 Delivery O2 Flow Rate FiO2 01/17/25 04:05 99.1 86 20 161/113 94 6.0 44 99.1 01/17/25 04:05 94 6.0 44 01/17/25 00:21 20 94 Nasal Cannula* 6 44 Laboratory Tests Test 01/16/25 22:07 Lactic Acid Level 1.5 mmol/L (0.4-2.0) White Blood Count 7.1 10^3/uL (4.4-10.8) Medications Medications Dose Ordered Sig/Mari Route Start Time Stop Time Status Last Admin Dose Admin Albuterol 5 mg ONCE ONCE NEB 01/17/25 00:15 01/17/25 00:16 DC 01/17/25 00:18 5 MG Albuterol 10 mg ONCE ONCE NEB 01/16/25 20:00 01/16/25 20:01 DC 01/16/25 20:11 10 MG Ipratropium [place] 0.5 mg ONCE ONCE NEB 01/16/25 20:00 01/16/25 20:01 DC 01/16/25 20:11 0.5 MG Assessment/Plan Assessment/Plan Assessment Acute on chronic hypoxic respiratory failure COPD exacerbation Questionable pneumonia Diabetes mellitus Hypertension Acute kidney injury Plan Admit the patient to [facility] to the hospitalist Jarek toro Azithromycin Resume home medications Continue treatment per orders. Plan discussed with: Patient My Orders Orders - MILI DUBOSE AGACNP Procedure Category Date Status Time Azithromycin 500mg/ PHA 01/17/25 In Process 250ml (Zithromax 50 10:00 Ceftriaxone 1gm/50ml PHA 01/17/25 In Process (Rocephin) 09:00 Albuterol Medneb PHA 01/17/25 In Process (Ventolin Medneb) 04:00 Amlodipine Tablet PHA 01/17/25 In Process (Norvasc Tablet) 10:00 Atorvastatin (Lipitor) PHA 01/17/25 In Process 22:00 Levothyroxine Tablet PHA 01/17/25 In Process (Synthroid Tablet) 06:00 Spironolactone PHA 01/17/25 In Process (Aldactone) 10:00 Basic Metabolic Panel LAB 01/18/25 Verified 04:00 Glucose Blood PHA 01/17/25 In Process (Accu-Chek Comfort 07:00 Insulin R (Human) PHA 01/17/25 In Process (Insulin R) 07:00 Dextrose 50% Syringe PHA 01/17/25 In Process 04:00 Admit ADMIT 01/17/25 Transmitted 03:55 Ondansetron Hcl PHA 01/17/25 In Process (Zofran) 04:00 Complete Blood Count LAB 01/18/25 Verified 04:00 Cardiac DIET 01/17/25 Transmitted Diet-2gna,Lofat,Lochol Breakfast Condition: Stable ANGEL 01/17/25 In Process 03:55 Acetaminophen Tablet PHA 01/17/25 In Process (Tylenol Tablet) 04:00 Bedrest With Bathroom ANGEL 01/17/25 In Process Privileg 03:55 Date of Service: Jan 17, 2025 Billing Provider: MILI DUBOSE Common Visit Codes: [id number] INP/OBS CARE (HIGH) MILI DUBOSE Jan 17, 2025 04:38
[2025-01-17] MEDS: predniSONE 20 MG TAB PO ONE (04:42)
[2025-01-17] MEDS: ACETAMINOPHEN 325 MG TAB PO PRN (04:42)
[2025-01-17] MEDS: AZITHROMYCIN 500MG/ 250ML 250 ML IV ONE (05:36)
[2025-01-17] MEDS: LEVOTHYROXINE SODIUM 25 MCG TAB PO SCH (06:09)
[2025-01-17] MEDS: InsuLIN REG 1unit/0.01ml Soln (100units/ml) SC SCH (07:39)
[2025-01-17] MEDS: ACCU-CHEK COMFORT CURVE STRIP VI SCH (07:41)
[2025-01-17] MEDS: SPIRONOLACTONE 25 MG TAB PO SCH (08:06)
[2025-01-17] MEDS: AZITHROMYCIN 500MG/ 250ML 250 ML IV SCH (08:07)
[2025-01-17 13:19] VITALS: O2SAT 94
--- NOTE | 2025-01-17 17:26 | DVHPN2 ---
Subjective Patient continues to be short of breath, still coughing, seen at bedside today. Reviewed: H&P Changes from previous H/P or p: No Changes General: Per HPI Objective Vitals Vital Signs Date Time Temp Pulse Resp B/P (MAP) Pulse Ox O2 Delivery O2 Flow Rate FiO2 01/17/25 15:00 98.1 97 13 159/100 (119) 90 98.1 01/17/25 13:19 Nasal Cannula* 3 32 Exam GEN: Healthy appearing, well-developed, NAD. HEENT: NC/AT; MMM. CV: RRR, no m/r/g. LUNGS: Diffuse wheezing bilateral in all lung metz. ABD: Soft, NT/ND, NBS, no masses or organomegaly. EXT: skin Warm, well perfused. no rashes. No clubbing, cyanosis, or edema. NEURO: Ambulating with no limitations. No focal deficits. Medications Current Medications Medications Dose Ordered Sig/Mari Route Start Time Stop Time Status Last Admin Dose Admin Azithromycin 250 ml @ 125 mls/hr DAILY IV 01/17/25 10:00 01/17/25 08:07 125 MLS/HR Ceftriaxone Sodium 50 ml @ 100 mls/hr DAILY@09 IV 01/17/25 09:00 01/17/25 08:07 100 MLS/HR Albuterol 2.5 mg Q6HPRN PRN NEB 01/17/25 04:00 Amlodipine Besylate 10 mg DAILY PO 01/17/25 10:00 01/17/25 08:07 10 MG Atorvastatin Calcium 40 mg HS PO 01/17/25 22:00 Levothyroxine Sodium 75 mcg QAM@0600 PO 01/17/25 06:00 01/17/25 06:09 75 MCG Spironolactone 25 mg DAILY PO 01/17/25 10:00 01/17/25 08:06 25 MG Diagnostic Test (Pha) 1 strip ACHS 01/17/25 07:00 01/17/25 11:30 1 STRIP Insulin Human Regular ACHS SC 01/17/25 07:00 Dextrose 50 ml UD PRN IV 01/17/25 04:00 Ondansetron HCl 4 mg Q4HP PRN IV 01/17/25 04:00 Acetaminophen 650 mg Q6HP PRN PO 01/17/25 04:00 01/17/25 04:42 650 MG Laboratory Results Laboratory Tests 01/16/25 22:07 Chemistry Test 01/16/25 22:07 Albumin 4.6 g/dL (3.2-4.8) Calcium Level 9.2 mg/dL (8.7-10.4) Total Protein 8.2 g/dL (5.7-8.2) Cardiac Markers Test 01/16/25 22:07 B-Type Natriuretic Peptide 24.42 pg/mL (0-100) LFT Test 01/16/25 22:07 Alanine Aminotransferase (ALT) 15 U/L (7-40) Alkaline Phosphatase 62 U/L (46-116) Aspartate Amino Transferase (AST) 18 U/L (13-40) Total Bilirubin 0.4 mg/dL (0.2-1.0) Blood Gas Results Test 01/16/25 20:06 Arterial Blood pH 7.381 (7.350-7.450) FiO2 % 36.0 Labs and/or images reviewed: Labs reviewed by me, Image(s) reviewed by me Assessment/Plan Assessment/Plan 59 y/o obese M presents with c/c shortness of breath. Significant history for CKF, COPD - on home O2 (2LPM), DM II, HLD, HTN, NSTEMI II, PNA, hypothyroidism, and former tobacco cigarette use. Patient reports on becoming short of breath after running out his albuterol and nebulizer inhaler at around 1400, this afternoon. He comments on being unable to obtain a refill on his medications from his pharmacy until 01/19/25. Breathing worsens with mild exertion. No endorsement of any recent strenuous activities, sick contacts, travel, or further pertinent events or history. Denial of any chest pain, cough, congestion, or further associated symptoms. 01/17: Patient has diffuse wheezing, cough. Pneumonia possible, patient has exposure to environmental exposure at home as his stepson continues to smoke tobacco and marijuana. Significant cough, wheezing,. We will start Solu-Medrol 40 IV b.i.d., start Mucomyst b.i.d., continue nebulizers. Continue IV antibiotics. Diagnosis: Acute hypoxic respiratory failure, due to below Chronic CBD, in acute exacerbation, with pneumonitis Pneumonia, acute, Gram-negative/Gram-positive possible Tachypnea Tachycardia Sirs without AOD History CKD COPD, endorses no longer on home oxygen Type 2 diabetes Hyperlipidemia Hypertension, poorly controlled History of NSTEMI Hypothyroid Former smoker Plan: Continue nebulizers Start Solu-Medrol 40 IV b.i.d. Continuing IV antibiotics ceftriaxone azithromycin Start Mucomyst nebulizer b.i.d. Continuing nebulizers ipratropium and albuterol Q 6 H while awake Continue home medications Med surge Full code Plan discussed with: Patient Date of Service: Jan 17, 2025 Billing Provider: ADONIS BURNS MD Common Visit Codes: [id number] INP/OBS CARE(HIGH) ADONIS BURNS MD Jan 17, 2025 17:26
[2025-01-17] MEDS: ALBUTEROL SULF 2.5 MG/0.5ML(0.5%) NEB SOLN NEB SCH (18:43)
[2025-01-17] MEDS: IPRATROPIUM BROM 0.5 MG/2.5ML INH SOL NEB SCH (18:43)
[2025-01-17 18:50] VITALS: PULSE 85; RESP 18; O2SAT 94
[2025-01-17] MEDS: ACETYLCYSTEINE 10 %(100MG/ML) SOL 4ML NEB SCH (18:50)
[2025-01-17 19:00] VITALS: PULSE 87; RESP 18; O2SAT 100
[2025-01-17 20:00] VITALS: BP 149/92; PULSE 100; RESP 18; TEMP 97.4; O2SAT 100
[2025-01-17] MEDS: methylPREDNISolone SOD SUCC 40 MG/ML VL IV SCH (22:00)
[2025-01-17] MEDS: ATORVASTATIN 20 MG TAB PO SCH (22:13)
[2025-01-18] VITALS (15 sets, daily range): BP systolic 148–176; BP diastolic 86–108; PULSE 83–98; RESP 16–24; TEMP 97–98.1; O2SAT 96–100
[2025-01-18 06:25] LABS: Hematocrit 41.3 % (41.0-53.0); Hemoglobin 13.4 g/dL (13.5-17.5); Mean Corpuscular Hemoglobin 27.1 pg (28.0-32.0); Mean Corpuscular Volume 83.3 fL (80.0-100.0); Nucleated Red Blood Cells % 0.0 %
[2025-01-18 06:27] LABS: Anion Gap 11 (5-15); Carbon Dioxide 26 mmol/L (20-31); Chloride 104 mmol/L (98-107); Sodium 141 mmol/L (136-145)
[2025-01-18 06:29] LABS: Calcium 10.1 mg/dL (8.7-10.4)
[2025-01-18 06:30] LABS: Potassium 5.2 mmol/L (3.5-5.1)
[2025-01-18 06:33] LABS: BUN/Creatinine Ratio 13.7 (10.0-20.0)
[2025-01-18 06:34] LABS: Blood Urea Nitrogen 31 mg/dL (9-23); Glucose 121 mg/dL (74-106)
--- NOTE | 2025-01-18 16:27 | DVHPN2 ---
Subjective Patient continues to be short of breath, still coughing, seen at bedside today. Reviewed: H&P Changes from previous H/P or p: No Changes General: Per HPI Objective Vitals Vital Signs Date Time Temp Pulse Resp B/P (MAP) Pulse Ox O2 Delivery O2 Flow Rate FiO2 01/18/25 12:36 97.8 96 18 176/108 (130) 97 97.8 01/18/25 07:30 Nasal Cannula* 4 36 Intake/Output Intake and Output 01/18/25 07:00 Intake Total 0 ml Output Total 300 ml Balance -300 ml Intake Oral 0 ml Output Urine Total 300 ml Exam GEN: Healthy appearing, well-developed, NAD. HEENT: NC/AT; MMM. CV: RRR, no m/r/g. LUNGS: Diffuse wheezing bilateral in all lung metz. ABD: Soft, NT/ND, NBS, no masses or organomegaly. EXT: skin Warm, well perfused. no rashes. No clubbing, cyanosis, or edema. NEURO: Ambulating with no limitations. No focal deficits. Medications Current Medications Medications Dose Ordered Sig/Mari Route Start Time Stop Time Status Last Admin Dose Admin Azithromycin 250 ml @ 125 mls/hr DAILY IV 01/17/25 10:00 01/18/25 10:13 125 MLS/HR Ceftriaxone Sodium 50 ml @ 100 mls/hr DAILY@09 IV 01/17/25 09:00 01/18/25 08:43 100 MLS/HR Amlodipine Besylate 10 mg DAILY PO 01/17/25 10:00 01/18/25 08:44 10 MG Atorvastatin Calcium 40 mg HS PO 01/17/25 22:00 01/17/25 22:13 40 MG Levothyroxine Sodium 75 mcg QAM@0600 PO 01/17/25 06:00 01/18/25 05:57 75 MCG Spironolactone 25 mg DAILY PO 01/17/25 10:00 01/18/25 08:44 25 MG Diagnostic Test (Pha) 1 strip ACHS 01/17/25 07:00 01/18/25 11:27 1 STRIP Insulin Human Regular ACHS SC 01/17/25 07:00 01/18/25 11:39 2 UNITS Dextrose 50 ml UD PRN IV 01/17/25 04:00 Ondansetron HCl 4 mg Q4HP PRN IV 01/17/25 04:00 Acetaminophen 650 mg Q6HP PRN PO 01/17/25 04:00 01/17/25 04:42 650 MG Ipratropium [place] 0.5 mg Q6HWA [facility] 01/17/25 18:00 01/18/25 11:54 0.5 MG Albuterol 2.5 mg Q6HWA [facility] 01/17/25 18:00 01/18/25 11:54 2.5 MG Methylprednisolone Sodium Succinate 40 mg BID IV 01/17/25 22:00 01/18/25 08:43 40 MG Acetylcysteine 100 mg BID NEB 01/17/25 22:00 01/18/25 07:10 100 MG Laboratory Results Laboratory Tests 01/18/25 06:11 Chemistry Test 01/18/25 06:11 Calcium Level 10.1 mg/dL (8.7-10.4) Microbiology Microbiology Date/Time Source Procedure Growth Status 01/16/25 22:07 Blood Blood Culture - Preliminary NO GROWTH AFTER 24 HOURS OF INCUBATION. Resulted Labs and/or images reviewed: Labs reviewed by me, Image(s) reviewed by me Assessment/Plan Assessment/Plan 59 y/o obese M presents with c/c shortness of breath. Significant history for CKF, COPD - on home O2 (2LPM), DM II, HLD, HTN, NSTEMI II, PNA, hypothyroidism, and former tobacco cigarette use. Patient reports on becoming short of breath after running out his albuterol and nebulizer inhaler at around 1400, this afternoon. He comments on being unable to obtain a refill on his medications from his pharmacy until 01/19/25. Breathing worsens with mild exertion. No endorsement of any recent strenuous activities, sick contacts, travel, or further pertinent events or history. Denial of any chest pain, cough, congestion, or further associated symptoms. 01/17: Patient has diffuse wheezing, cough. Pneumonia possible, patient has exposure to environmental exposure at home as his stepson continues to smoke tobacco and marijuana. Significant cough, wheezing,. We will start Solu-Medrol 40 IV b.i.d., start Mucomyst b.i.d., continue nebulizers. Continue IV antibiotics. 01/18: Patient continues to wheezing cough, we will continue Mucomyst, duo nebs, Solu-Medrol 40 IV b.i.d.. We are continuing ceftriaxone and azithromycin. Diagnosis: Acute hypoxic respiratory failure, due to below Chronic CBD, in acute exacerbation, with pneumonitis Pneumonia, acute, Gram-negative/Gram-positive possible Tachypnea Tachycardia Sirs without AOD History CKD COPD, endorses no longer on home oxygen Type 2 diabetes Hyperlipidemia Hypertension, poorly controlled History of NSTEMI Hypothyroid Former smoker Plan: Continue nebulizers Start Solu-Medrol 40 IV b.i.d. Continuing IV antibiotics ceftriaxone azithromycin Start Mucomyst nebulizer b.i.d. Continuing nebulizers ipratropium and albuterol Q 6 H while awake Continue home medications Med surge Full code Plan discussed with: Patient My Orders Orders - ADONIS BURNS MD Procedure Category Date Status Time Ipratropium Medneb PHA 01/17/25 In Process (Atrovent Medneb) 18:00 Albuterol Medneb PHA 01/17/25 In Process (Ventolin Medneb) 18:00 Methylprednisolone PHA 01/17/25 In Process Sod Succ (Solu Medrol 22:00 Acetylcysteine PHA 01/17/25 In Process Inhalation 10% 22:00 Date of Service: Jan 18, 2025 Billing Provider: ADONIS BURNS MD Common Visit Codes: [id number] INP/OBS CARE(HIGH) ADONIS BURNS MD Jan 18, 2025 16:26
[2025-01-18] MEDS ORDERED: hydrALAZINE HCL 20 MG/ML VL IV PRN (17:15)
[2025-01-19] VITALS (13 sets, daily range): BP systolic 151–169; BP diastolic 93–108; PULSE 68–94; RESP 16–20; TEMP 36.7; O2SAT 94–100
[2025-01-19 05:18] LABS: Alanine Aminotransferase 16 U/L (7-40); Albumin 4.5 g/dL (3.2-4.8); Alkaline Phosphatase 64 U/L (46-116); Anion Gap 9 (5-15); BUN/Creatinine Ratio 17.3 (10.0-20.0); Calcium 10.1 mg/dL (8.7-10.4); Carbon Dioxide 27 mmol/L (20-31); Chloride 103 mmol/L (98-107); Sodium 139 mmol/L (136-145)
[2025-01-19 05:19] LABS: Bilirubin, Total 0.3 mg/dL (0.2-1.0); Blood Urea Nitrogen 39 mg/dL (9-23); Glucose 136 mg/dL (74-106); Potassium 5.3 mmol/L (3.5-5.1); Total Protein 8.3 g/dL (5.7-8.2)
[2025-01-19] MEDS ORDERED: LEVO500T91 PO (17:11)
[2025-01-19] MEDS ORDERED: PRED20TA2 PO (17:11)
--- NOTE | 2025-01-19 17:12 | DVHDS2 ---
Discharge Summary Date of Admission Jan 17, 2025 at 03:55 Date of Discharge: Jan 19, 2025 Labs/Diagnostic Data: Laboratory Results Test 01/19/25 11:27 01/19/25 04:43 01/18/25 06:11 01/17/25 01:43 POC Glucose 111 mg/dl (70-106) Sodium Level 139 mmol/L (136-145) Potassium Level 5.3 mmol/L (3.5-5.1) Chloride Level 103 mmol/L (98-107) Carbon Dioxide Level 27 mmol/L (20-31) Anion Gap 9 (5-15) Blood Urea Nitrogen 39 mg/dL (9-23) Creatinine 2.25 mg/dL (0.700-1.30) Glomerular Filtration Rate Calc 33 mL/min (>90) BUN/Creatinine Ratio 17.3 (10.0-20.0) Serum Glucose 136 mg/dL (74-106) Calcium Level 10.1 mg/dL (8.7-10.4) Total Bilirubin 0.3 mg/dL (0.2-1.0) Aspartate Amino Transferase (AST) 13 U/L (13-40) Alanine Aminotransferase (ALT) 16 U/L (7-40) Alkaline Phosphatase 64 U/L (46-116) Total Protein 8.3 g/dL (5.7-8.2) Albumin 4.5 g/dL (3.2-4.8) White Blood Count 13.1 10^3/uL (4.4-10.8) Red Blood Count 4.96 10^6/uL (4.5-5.90) Hemoglobin 13.4 g/dL (13.5-17.5) Hematocrit 41.3 % (41.0-53.0) Mean Corpuscular Volume 83.3 fL (80.0-100.0) Mean Corpuscular Hemoglobin 27.1 pg (28.0-32.0) Mean Corpuscular Hemoglobin Concent 32.6 g/dL (32.0-36.0) Red Cell Distribution Width 16.2 % (11.8-14.3) Platelet Count 247 10^3/uL (140-450) Mean Platelet Volume 7.6 fL (6.9-10.8) Neutrophils (%) (Auto) 86.7 % (37.0-80.0) Lymphocytes (%) (Auto) 8.4 % (10.0-50.0) Monocytes (%) (Auto) 4.8 % (0.0-12.0) Eosinophils (%) (Auto) 0.1 % (0.0-7.0) Basophils (%) (Auto) 0.0 % (0.0-2.0) Neutrophils # (Auto) 11.3 10 ^3/uL (1.6-8.6) Lymphocytes # (Auto) 1.1 10 ^3/uL (0.4-5.4) Monocytes # (Auto) 0.6 10 ^3/uL (0-1.3) Eosinophils # (Auto) 0 10 ^3/uL (0-0.8) Basophils # (Auto) 0 10 ^3/uL (0-0.2) Nucleated Red Blood Cells 0.0 % Troponin I High Sensitivity 24 ng/L (</=54) Test 01/16/25 22:07 01/16/25 20:06 Lactic Acid Level 1.5 mmol/L (0.4-2.0) B-Type Natriuretic Peptide 24.42 pg/mL (0-100) Blood Gas Specimen Type Arterial Blood Gas Sample Site Right radial Blood Gas Patient Temperature 37.0 Arterial Blood Date Drawn [id number] Arterial Blood pH 7.381 (7.350-7.450) Arterial Blood Partial Pressure CO2 43.7 mmHg (35.0-48.0) Arterial Blood Partial Pressure O2 68.4 mmHg (83.0-108.0) Arterial Blood HCO3 25.3 mmol/L (21.0-28.0) Arterial Blood Oxygen Saturation 93.2 % (94.0-98.0) Arterial Blood Base Excess 0.0 mmol/L (-2.0-3.0) Arterial Blood Oxyhemoglobin 91.9 % (94.0-98.0) Arterial Blood Carboxyhemoglobin 1.0 % (0.5-1.5) Arterial Blood Methemoglobin 0.4 % (0.0-1.5) Melvin Test Modified Blood Gas Total Hemoglobin 13.80 g/dL (13.5-17.5) Blood Gas Liter Flow 4.00 Blood Gas Modality Nasal cannula FiO2 % 36.0 Other Laboratory Tests 01/19/25 04:43 01/18/25 06:11 Brief Hx & Hospital Course: 59 y/o obese M presents with c/c shortness of breath. Significant history for CKF, COPD - on home O2 (2LPM), DM II, HLD, HTN, NSTEMI II, PNA, hypothyroidism, and former tobacco cigarette use. Patient reports on becoming short of breath after running out his albuterol and nebulizer inhaler at around 1400, this afternoon. He comments on being unable to obtain a refill on his medications from his pharmacy until 01/19/25. Breathing worsens with mild exertion. No endorsement of any recent strenuous activities, sick contacts, travel, or further pertinent events or history. Denial of any chest pain, cough, congestion, or further associated symptoms. 01/17: Patient has diffuse wheezing, cough. Pneumonia possible, patient has exposure to environmental exposure at home as his stepson continues to smoke tobacco and marijuana. Significant cough, wheezing,. We will start Solu-Medrol 40 IV b.i.d., start Mucomyst b.i.d., continue nebulizers. Continue IV antibiotics. 01/18: Patient continues to wheezing cough, we will continue Mucomyst, duo nebs, Solu-Medrol 40 IV b.i.d.. We are continuing ceftriaxone and azithromycin. 01/19: Patient wheezing much improved, cough still present, patient feels back at baseline. Chronic cough continuing. Patient ambulates and appear to wean off of oxygen saturating 9449 5% on room air. Patient vital signs stable, stable for discharge as per plan below. 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 Discuss need for new nebulizer machine with pulmonology. Condition at Discharge: Fair Final Diagnosis/Problems List Acute hypoxic respiratory failure, due to below Chronic CBD, in acute exacerbation, with pneumonitis Pneumonia, acute, Gram-negative/Gram-positive possible Tachypnea Tachycardia Sirs without AOD History CKD COPD, endorses no longer on home oxygen Type 2 diabetes Hyperlipidemia Hypertension, poorly controlled History of NSTEMI Hypothyroid Former smoker Discharge Disposition: Home Discharge Instruct/Medications Scheduled Albuterol Sulfate (Albuterol Sulfate), 1 VIAL NEB Q4HPRN, (Reported) Amlodipine Besylate (Norvasc Tablet), 10 MG PO DAILY, (Reported) Atorvastatin Calcium (Lipitor), 1 TAB PO DAILY, (Reported) Atorvastatin Calcium (Lipitor), 1 TAB PO QPM, (Reported) Azithromycin (Azithromycin), 1 TAB PO DAILY Cefdinir (Cefdinir), 1 CAP PO BID Chlorthalidone (Chlorthalidone), 25 MG PO DAILY, (Reported) Cholecalciferol (Vitamin D3), 25 MCG PO DAILY, (Reported) Epoetin Billy-Epbx (Retacrit), 10,000 UNIT IJ QWEEKLY, (Reported) Levofloxacin Hemihydrate (Levofloxacin), 1 TAB PO DAILY Levothyroxine Sodium (Levothyroxine Sodium), 75 MCG PO QAM, (Reported) Magnesium Oxide (Magnesium Oxide), 2 TAB PO DAILY, (Reported) Metformin Hydrochloride (Metformin Hcl), 500 MG PO DAILY, (Reported) Prednisone (Prednisone), 20 MG PO BID Spironolactone (Spironolactone), 25 MG PO DAILY@BREAKFAST, (Reported) Scheduled PRN Acetaminophen (Acetaminophen), 650 MG PO Q6HP PRN Albuterol Sulfate (Albuterol Sulfate), 1 VIAL NEB Q4HPRN PRN Ipratropium [place] Hfa (Atrovent Hfa), 2 PUFF INH QID PRN Miscellaneous Medications Albuterol Sulfate (Ventolin Mdi), 90 MCG IN, (Reported) Discharge Statement: "Patient was advised to return to the ER or call 911 if any headaches, dizziness, shortness of breath, chest pain, abdominal pain, bleeding, fevers, or worsening of medical condition. Patient was counseled about treatment plan, medications, possible side effects, patientverbalized understanding. All questions were answered to the best of my ability. This discharge took greater then 30 minutes in planning, reviewing documentation, counseling the patient, and discussing with other team members." ASSESSMENT ASSESSMENT Assessment Date of Service: Jan 19, 2025 Billing Provider: ADONIS UBRNS MD Common Visit Codes: [id number] DISCH DAY >30min ADONIS BURNS MD Jan 19, 2025 17:12
[2025-01-19] MEDS ORDERED: LEVO750T40 PO (17:14)
== END 2025-01-19 19:00 | disposition home or self-care (01) | DRG 133 ==
LOC: ER 19:28 → OVERFLOW 01-17 03:55 → EAST 01-18 03:56
PROVIDERS: ADMIT Student in an Organized Health Care Education/Training Program; ATTEND Student in an Organized Health Care Education/Training Program
DX: J96.21 Acute and chronic respiratory failure with hypoxia (principal); J15.69 Pneumonia due to other Gram-negative bacteria; J15.9 Unspecified bacterial pneumonia; N17.9 Acute kidney failure, unspecified; J44.1 Chronic obstructive pulmonary disease with (acute) exacerbation; E11.22 Type 2 diabetes mellitus with diabetic chronic kidney disease; J44.0 Chronic obstructive pulmonary disease with (acute) lower respiratory infection; R65.10 Systemic inflammatory response syndrome (SIRS) of non-infectious origin without acute organ dysfunction; Z99.81 Dependence on supplemental oxygen; E03.9 Hypothyroidism, unspecified; N18.9 Chronic kidney disease, unspecified; I12.9 Hypertensive chronic kidney disease with stage 1 through stage 4 chronic kidney disease, or unspecified chronic kidney disease; Z68.34 Body mass index [BMI] 34.0-34.9, adult; E66.9 Obesity, unspecified; E78.5 Hyperlipidemia, unspecified; J98.4 Other disorders of lung; R00.0 Tachycardia, unspecified; Z88.1 Allergy status to other antibiotic agents; Z87.891 Personal history of nicotine dependence; I25.2 Old myocardial infarction
CPT/HCPCS: 36415; 36600; 71045; 80048; 80053; 82805; 82962; 83605; 83880; 84484; 85025; 87040; 93005; 94640; G0378; J1815

== ENCOUNTER 2025-02-21 08:38 | Inpatient (IN) | payer OTHER ==
[2025-02-21] VITALS (9 sets, daily range): BP systolic 118–124; BP diastolic 66–72; PULSE 16–99; RESP 16–20; TEMP 97.6–98.1; O2SAT 92–100
[~2025-02-21] VITALS: Ht 188 cm; Wt 91.2 kg
[~2025-02-21 08:38] MED LIST changes: -CEFD300C2 PO; +IPRIH INH; +PRED20TA2 PO
--- NOTE | 2025-02-21 09:21 | ED.PDOC ---
History of Present Illness HPI Comments 59-year-old male BIBA with prior medical history of COPD, CHF, pneumonia, uses home O2, intubated, CPAP given in past and a chief complaint of shortness a breath. EMS report the patient having a loss of appetite for three days associated with sudden onset of shortness a breath while walking to the bathroom earlier today, body aches and chest tightness. When EMS arrived on scene for L of O2 satting at 95% for which EMS with the O2 up to 5L which brought the percentage down to 92%. Denies any other symptoms at this time. Denies chills, fever, N/V/D. No other associated symptoms, modifiers, recent injuries or sick contacts present at this time. Chief Complaint: Shortness of Breath Time Seen by MD: 09:15 Reviewed Notes: Nurses Notes, Medications, Allergies Allergies: Coded Allergies: Latex (Verified Allergy, Unknown, 01/17/25) Tetracycline (Verified Allergy, Unknown, 04/19/24) Home Meds Active Scripts Levofloxacin Hemihydrate (LEVOFLOXACIN) 750 Mg Tab, 1 TAB PO DAILY, #5 TAB Prov:ADONIS BURNS MD 01/19/25 Prednisone (Prednisone) 20 Mg Tab, 40 MG PO DAILY for 5 Days, #10 MG 0 Refills Prov:ADONIS BURNS MD 01/19/25 Ipratropium [place] Hfa (Atrovent Hfa) 17 Mcg Aer, 2 PUFF INH QID PRN, #12.9 GRAMS 5 Refills Prov:MICHELLE ALDRIDGE MD 01/16/25 Albuterol Sulfate (Albuterol Sulfate) 0.083 % Neb, 1 VIAL NEB Q4HPRN PRN, #50 VIAL 5 Refills Prov:MICHELLE ALDRIDGE MD 01/16/25 Acetaminophen (Acetaminophen) 325 Mg Tab, 650 MG PO Q6HP PRN for 30 Days, #240 TAB Prov:ANGIE AZAR 10/21/24 Reported Medications Chlorthalidone (Chlorthalidone) 25 Mg Tab, 25 MG PO DAILY, TAB 10/17/24 Cholecalciferol (VITAMIN D3) 400 Unit Cap, 25 MCG PO DAILY, CAP 10/17/24 Metformin Hydrochloride (Metformin Hcl) 500 Mg Tab, 500 MG PO DAILY for 30 Days, MG 10/17/24 Amlodipine Besylate (NORVASC TABLET) 5 Mg Tb, 10 MG PO DAILY, TAB 10/17/24 Epoetin Billy-Epbx (Retacrit) 10,000 Unit/Ml Inj, [id number] UNIT IJ QWEEKLY, INJ 07/22/24 Magnesium Oxide (MAGNESIUM OXIDE) 400 Mg Tab, 2 TAB PO DAILY, TAB 07/22/24 Spironolactone (Spironolactone) 25 Mg Tab, 25 MG PO DAILY@BREAKFAST, TAB 07/22/24 Albuterol Sulfate (Albuterol Sulfate) 0.083 % Neb, 1 VIAL NEB Q4HPRN, #50 VIAL 04/18/24 Albuterol Sulfate (VENTOLIN MDI) 90 Mcg Ih, 90 MCG IN, INH 04/18/24 Levothyroxine Sodium (Levothyroxine Sodium) 25 Mcg Tab, 75 MCG PO QAM, MCG 04/18/24 Atorvastatin Calcium (Lipitor) 40 Mg Tab, 1 TAB PO DAILY, #30 TAB 5 Refills 04/18/24 Information Source: Patient Mode of Arrival: EMS Severity: Moderate Timing: Hours Duration: Since onset, Hours Prehospital treatment: None Past Medical History PAST MEDICAL HISTORY: CHF, COPD Past Medical History (Other): Patient, pneumonia, CPAP in past Surgical History: Denies all surgeries Family History Family History: Reviewed,noncontributory to illness, Unknown Social History Smoker: Quit Greater Than 1 Year Alcohol: Denies ETOH Use Drugs: Denies Drug Use Lives In: Home Constitutional: denies: chills, diaphoresis, fatigue, fever, malaise, sweats, weakness, others EENTM: denies: blurred vision, double vision, ear bleeding, ear discharge, ear drainage, ear pain, ear ringing, eye pain, eye redness, hearing loss, mouth pain, mouth swelling, nasal discharge, nose bleeding, nose congestion, nose pain, photophobia, tearing, throat pain, throat swelling, voice changes, others Respiratory: reports: shortness of breath; denies: cough, hemoptysis, orthopnea, SOB at rest, SOB with excertion, stridor, wheezing, others Cardiovascular: reports: chest pain; denies: dizzy spells, diaphoresis, Dyspnea on exertion, edema, irregular heart beat, left arm pain, lightheadedness, palpitations, PND, syncope, others Gastrointestinal: denies: abdomen distended, abdominal pain, blood streaked bowels, constipated, diarrhea, dysphagia, difficulty swallowing, hematemesis, melena, nausea, poor appetite, poor fluid intake, rectal bleeding, rectal pain, vomiting, others Genitourinary: denies: burning, dysuria, flank pain, frequency, hematuria, incontinence, penile discharge, penile sore, pain, testicle pain, testicle swelling, urgency, others Neurological: denies: dizziness, fainting, headache, left sided numbness, left sided weakness, numbness, paresthesia, pre-existing deficit, right sided numbness, right sided weakness, seizure, speech problems, tingling, tremors, weakness, others Musculoskeletal: denies: back pain, gout, joint pain, joint swelling, muscle pain, muscle stiffness, neck pain, others Integumetry: denies: bruises, change in color, change in hair/nails, dryness, laceration, lesions, lumps, rash, wounds, others Allergic/Immunocompromised: denies: Difficulty Healing, Frequent Infections, Hives, Itching, others Hematologic/Lymphatic: denies: anemia, blood clots, easy bleeding, easy bruising, swollen glands, others Endocrine: denies: excessive hunger, excessive sweating, excessive thirst, excessive urination, flushing, intolerance to cold, intolerance to heat, unexplained weight gain, unexplained weight loss, others Psychiatric: denies: anxiety, bipolar disorder, depression, hopeless, panic disorder, schizophrenia, sleepless, suicidal, others All Other Systems: Reviewed and Negative Physical Exam General Appearance: Moderate Distress, Normal HEENT: Normal ENT Inspection, Pharynx Normal, TMs Normal Neck: Full Range of Motion, Non-Tender, Normal, Normal Inspection Respiratory: Accessory Muscle Use, Chest Non-Tender, Other (Coarse breath sounds) Cardiovascular: No Edema, No JVD, No Murmur, No Gallop, Normal Peripheral Pulses, Regular Rate/Rhythm Breast Exam: Deferred Gastrointestinal: No Organomegaly, Non Tender, No Pulsatile Mass, Normal Bowel Sounds, Soft Genitalia: Deferred Pelvic: Deferred Rectal: Deferred Extremities: No calf tenderness, Normal capillary refill, Normal inspection, Normal range of motion, Non-tender, No pedal edema Musculoskeletal : Apperance: Normal Neurologic: Alert, red cap II-XII nml as Tested, No Motor Deficits, Normal Affect, Normal Mood, No Sensory Deficits Cerebellar Function: NOT DONE Reflexes: NOT DONE Skin: Dry, Normal Color, Warm Peripheral Pulses: 3+ Radial (R), 3+ Radial (L) Lymphatic: No Adenopathy Was a procedure done? Was a procedure done?: No Differential Dx Considerations may include: CHF Electrolyte imbalance X-Ray, Labs, Meds, VS Vital Signs Date Time Temp Pulse Resp B/P (MAP) Pulse Ox O2 Delivery O2 Flow Rate FiO2 02/21/25 11:20 92 18 109/72 (84) 94 02/21/25 09:50 127/82 02/21/25 09:27 98 18 92 Nasal Cannula* 3 32 02/21/25 09:26 97.5 98 18 127/82 (97) 92 97.5 02/21/25 08:42 98.0 108 22 129/66 95 98.0 02/21/25 08:40 104 Lab Test 02/21/25 13:04 02/21/25 11:30 02/21/25 10:47 02/21/25 09:30 Range/Units Troponin I High Sensitivity 21 21 22 </=54 ng/L Urine Color Light-yellow Yellow Urine Clarity Clear Clear Urine pH 5.5 5.0-9.0 Urine Specific [place] 1.013 1.001-1.035 Urine Protein 1+ H Negative Urine Ketones Negative Negative Urine Blood Negative Negative /uL Urine Nitrite Negative Negative Urine Bilirubin Negative Negative Urine Urobilinogen Normal Negative mg/dL Urine Leukocyte Esterase Negative Negative /uL Urine RBC None seen 0 - 3 /hpf Urine Microscopic WBC < 1 0-3 /HPF Urine Squamous Epithelial Cells None seen <5 /hpf Urine Bacteria None seen None Seen /hpf Urine Mucus Few None Seen Urine Glucose Normal Normal mg/dL White Blood Count 9.1 4.4-10.8 10^3/uL Red Blood Count 5.21 4.5-5.90 10^6/uL Hemoglobin 14.5 13.5-17.5 g/dL Hematocrit 44.6 41.0-53.0 % Mean Corpuscular Volume 85.7 80.0-100.0 fL Mean Corpuscular Hemoglobin 27.8 L 28.0-32.0 pg Mean Corpuscular Hemoglobin Concent 32.4 32.0-36.0 g/dL Red Cell Distribution Width 15.9 H 11.8-14.3 % Platelet Count 238 140-450 10^3/uL Mean Platelet Volume 7.9 6.9-10.8 fL Neutrophils (%) (Auto) 75.8 37.0-80.0 % Lymphocytes (%) (Auto) 9.9 L 10.0-50.0 % Monocytes (%) (Auto) 5.0 0.0-12.0 % Eosinophils (%) (Auto) 9.0 H 0.0-7.0 % Basophils (%) (Auto) 0.3 0.0-2.0 % Neutrophils # (Auto) 6.9 1.6-8.6 10 ^3/uL Lymphocytes # (Auto) 0.9 0.4-5.4 10 ^3/uL Monocytes # (Auto) 0.5 0-1.3 10 ^3/uL Eosinophils # (Auto) 0.8 0-0.8 10 ^3/uL Basophils # (Auto) 0 0-0.2 10 ^3/uL Nucleated Red Blood Cells 0.0 % Sodium Level 138 136-145 mmol/L Potassium Level 4.2 3.5-5.1 mmol/L Chloride Level 105 98-107 mmol/L Carbon Dioxide Level 23 20-31 mmol/L Anion Gap 10 5-15 Blood Urea Nitrogen 23 9-23 mg/dL Creatinine 2.40 H 0.700-1.30 mg/dL Glomerular Filtration Rate Calc 31 >90 mL/min BUN/Creatinine Ratio 9.6 L 10.0-20.0 Serum Glucose 110 H 74-106 mg/dL Calcium Level 9.4 8.7-10.4 mg/dL B-Type Natriuretic Peptide 7.13 0-100 pg/mL Current Medications Medications (Trade) Dose Ordered Sig/Mari Route Start Time Stop Time Status Last Admin Furosemide (Lasix Injection) 40 mg ONCE ONCE IV 02/21/25 09:30 02/21/25 09:31 DC 02/21/25 09:50 PROCEDURE(s): CXRP - CHEST PORTABLE IMPRESSION: Dense opacity along the periphery of both lungs. It is uncertain if this related to overlying soft tissue or represents true airspace disease. Please correlate with a strong concern for pneumonia. Patient alert. Complaining of shortness a breath. Answering questions. On oxygen. Was given Lasix. History of CHF. Chest x-ray reviewed does show pneumonia. Explained to the patient. Continue monitoring. Time of 1ST Reevaluation: 09:45 Reevaluation 1ST: Unchanged Patient Education/Counseling: Diagnosis, Treatment, Prognosis Family Education/Counseling: No Family Present SEPSIS Sepsis Screen Physician Orders Chest Portable (02/21/25 09:20) Ceftriaxone 1gm/50ml (Rocephin) (02/21/25 14:15) Azithromycin 500mg/ 250ml (Zithromax 50 (02/21/25 14:15) Vital Signs Date Time Temp Pulse Resp B/P (MAP) Pulse Ox O2 Delivery O2 Flow Rate FiO2 02/21/25 11:20 92 18 109/72 (84) 94 02/21/25 09:50 127/82 02/21/25 09:27 98 18 92 Nasal Cannula* 3 32 02/21/25 09:26 97.5 98 18 127/82 (97) 92 97.5 02/21/25 08:42 98.0 108 22 129/66 95 98.0 02/21/25 08:40 104 Laboratory Tests Test 02/21/25 09:30 White Blood Count 9.1 10^3/uL (4.4-10.8) Medications Medications Dose Ordered Sig/Mari Route Start Time Stop Time Status Last Admin Dose Admin Furosemide 40 mg ONCE ONCE IV 02/21/25 09:30 02/21/25 09:31 DC 02/21/25 09:50 Departure 1 Departure Time of Disposition: 14:04 Impression: Primary Impression: Acute respiratory distress Additional Impression: Pneumonia, unspecified organism Qualified Codes: J18.9 - Pneumonia, unspecified organism Disposition: ADMITTED INPATIENT Admit to: Med Surg Condition: Guarded Critical Care Note Critical Care Time?: Yes (90 min-critical care time only) Stability Stability form required: No Heart Score Heart Score: Heart Score Response (Comments) Value History Slightly Suspicious 0 EKG Normal 0 Age 45-64 1 Risk Factors >3 or Hx ASHD 2 Troponin Normal limit 0 Total 3 I personally scribed for MAURI TORRE MD ([email or web address]) on 02/21/25 at 09:21. Electronically submitted by Janes Benítez ([email or web address]). I personally scribed for MAURI TORRE MD ([email or web address]) on 10/28/25 at 10:38. Electronically submitted by Jaylon Holman ([email or web address]). MAURI TORRE MD Feb 21, 2025 09:21
[2025-02-21] MEDS: FUROSEMIDE 40 MG/4 ML VIAL IV ONE (09:50)
--- NOTE | 2025-02-21 09:58 | DVH ---
INDICATION: sob TECHNIQUE: Single frontal view of the chest was obtained COMPARISON: XY CHEST XRAY 1 VIEW on DOS: 01/16/25, XY CHEST PORTABLE on DOS: 10/19/24, XY CHEST XRAY 1 VIEW on DOS: 10/17/24, XY CHEST XRAY 1 VIEW on DOS: 10/17/24, XY CHEST PORTABLE on DOS: 10/17/24, XY SHARATH ST XRAY 1 VIEW on DOS: 01/16/25 FINDINGS: Dense opacity along the periphery of both mid lungs worse than left. No pleural effusions. Cardiac silhouette and sharon are within normal limits. Bones and soft tissues demonstrate no signific ant abnormality. IMPRESSION: Dense opacity along the periphery of both lungs. It is uncertain if this related to overlying soft ti ssue or represents true airspace disease. Please correlate with a strong concern for pneumonia.
[2025-02-21 10:05] LABS: Hematocrit 44.6 % (41.0-53.0); Hemoglobin 14.5 g/dL (13.5-17.5); Mean Corpuscular Hemoglobin 27.8 pg (28.0-32.0); Mean Corpuscular Volume 85.7 fL (80.0-100.0); Nucleated Red Blood Cells % 0.0 %
[2025-02-21 10:09] LABS: Chloride 105 mmol/L (98-107); Potassium 4.2 mmol/L (3.5-5.1); Sodium 138 mmol/L (136-145)
[2025-02-21 10:10] LABS: Anion Gap 10 (5-15); Calcium 9.4 mg/dL (8.7-10.4); Carbon Dioxide 23 mmol/L (20-31)
[2025-02-21 10:15] LABS: BUN/Creatinine Ratio 9.6 (10.0-20.0)
[2025-02-21 10:18] LABS: Blood Urea Nitrogen 23 mg/dL (9-23); Glucose 110 mg/dL (74-106)
[2025-02-21 11:45] LABS: Urine Protein, UAD 1+ (Negative)
--- NOTE | 2025-02-21 13:28 | ECG ---
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
--- NOTE | 2025-02-21 15:34 | DVHHPRES ---
History of Present Illness Resident Creating Document: SANTO WILKS RESIDENT History of Present Illness This is a 59-year-old male with past medical history of COPD, CHF, CKD, recurrent pneumonia presented to the ED with a chief complaint of shortness of breath since last night prior to this visit. The patient stated that since last night he started having shortness of breath associated with cough and productive sputum which is yellowish in color and chills. He also mentioned positive sick contact in last 3 days. Patient was admitted in [facility] on 01/19 and was treated for pneumonia. He denies recent traveling. fever, nausea, vomiting, abdominal pain, dysuria, hematuria or any altered bowel habit. Past Medical History COPD, CHF, CKD, recurrent pneumonia Past Surgical History: None Past Surgical History Unknown Family History Noncontributory Past Social History Lives with friends Former smoker, quit 2 months ago, nonalcoholic and never tried any drugs Review of Systems Constitutional: Yes: Chills; No: Fever, Sweats, Weakness, Malaise, Other Eyes: No: Pain, Vision change, Conjunctivae inflammation, Eyelid inflammation, Other, Redness ENT: No: Ear pain, Ear discharge, Nose pain, Nose discharge, Nose congestion, Mouth pain, Mouth swelling, Throat pain, Throat swelling, Other Respiratory: Cough, Shortness of breath, Sputum; No: Dry, SOB with excertion, Wheezing, Hemoptysis, Pleuritic Pain, Wheezing, Other Cardiovascular: No: Chest Pain, Palpitations, Orthopnea, Paroxysmal Noc. Dyspnea, Edema, Lt Headedness, Other Gastrointestinal: No: Nausea, Vomiting, Abdominal Pain, Diarrhea, Constipation, Melena, Hematochezia, Other Genitourinary: No Dysuria, No Frequency, No Incontinence, No Hematuria, No Retention, No Other Musculoskeletal: No: other, neck pain, shoulder pain, arm pain, back pain, hand pain, leg pain, foot pain Skin: No: Rash, Lesions, Jaundice, Bruising, Other Neurological: No: Weakness, Numbness, Incoordination, Change in speech, Confusi on, Seizures, Other Allergies: Coded Allergies: Latex (Verified Allergy, Unknown, 01/17/25) Tetracycline (Verified Allergy, Unknown, 04/19/24) Exam Vital Signs Vital Signs Date Time Temp Pulse Resp B/P (MAP) Pulse Ox O2 Delivery O2 Flow Rate FiO2 02/21/25 11:20 92 18 109/72 (84) 94 02/21/25 09:27 Nasal Cannula* 3 32 02/21/25 09:26 97.5 97.5 Exam Physical examination: General Appearance: Alert, Oriented X3, Cooperative, No acute distress HEENT: Atraumatic, PERRLA, EOMI, Mucous membrane moist/pink Respiratory: Bilateral wheezing. Cardiovascular: Regular rate, Normal S1, Normal S2, No murmurs, no chest wall tenderness Abdominal: Normal bowel sounds, Soft, No tenderness, No hepatospenomegaly, No masses Extremities: No clubbing, No cyanosis, No edema, Normal pulses, No tenderness/swelling Skin: No rashes, No breakdown, No significant lesion Neuro: Normal gait, Normal speech, Strength at 5/5 X4 ext, Normal tone, Sensation intact, Cranial nerves 3-12 NL, Reflexes 2+ Psych/Mental Status: Mental status NL, Mood NL Labs/Xrays Labs Test 02/21/25 13:04 02/21/25 11:30 02/21/25 09:30 Range/Units Troponin I High Sensitivity 21 </=54 ng/L Urine Color Light-yellow Yellow Urine Clarity Clear Clear Urine pH 5.5 5.0-9.0 Urine Specific [place] 1.013 1.001-1.035 Urine Protein 1+ H Negative Urine Ketones Negative Negative Urine Blood Negative Negative /uL Urine Nitrite Negative Negative Urine Bilirubin Negative Negative Urine Urobilinogen Normal Negative mg/dL Urine Leukocyte Esterase Negative Negative /uL Urine RBC None seen 0 - 3 /hpf Urine Microscopic WBC < 1 0-3 /HPF Urine Squamous Epithelial Cells None seen <5 /hpf Urine Bacteria None seen None Seen /hpf Urine Mucus Few None Seen Urine Glucose Normal Normal mg/dL White Blood Count 9.1 4.4-10.8 10^3/uL Red Blood Count 5.21 4.5-5.90 10^6/uL Hemoglobin 14.5 13.5-17.5 g/dL Hematocrit 44.6 41.0-53.0 % Mean Corpuscular Volume 85.7 80.0-100.0 fL Mean Corpuscular Hemoglobin 27.8 L 28.0-32.0 pg Mean Corpuscular Hemoglobin Concent 32.4 32.0-36.0 g/dL Red Cell Distribution Width 15.9 H 11.8-14.3 % Platelet Count 238 140-450 10^3/uL Mean Platelet Volume 7.9 6.9-10.8 fL Neutrophils (%) (Auto) 75.8 37.0-80.0 % Lymphocytes (%) (Auto) 9.9 L 10.0-50.0 % Monocytes (%) (Auto) 5.0 0.0-12.0 % Eosinophils (%) (Auto) 9.0 H 0.0-7.0 % Basophils (%) (Auto) 0.3 0.0-2.0 % Neutrophils # (Auto) 6.9 1.6-8.6 10 ^3/uL Lymphocytes # (Auto) 0.9 0.4-5.4 10 ^3/uL Monocytes # (Auto) 0.5 0-1.3 10 ^3/uL Eosinophils # (Auto) 0.8 0-0.8 10 ^3/uL Basophils # (Auto) 0 0-0.2 10 ^3/uL Nucleated Red Blood Cells 0.0 % Sodium Level 138 136-145 mmol/L Potassium Level 4.2 3.5-5.1 mmol/L Chloride Level 105 98-107 mmol/L Carbon Dioxide Level 23 20-31 mmol/L Anion Gap 10 5-15 Blood Urea Nitrogen 23 9-23 mg/dL Creatinine 2.40 H 0.700-1.30 mg/dL Glomerular Filtration Rate Calc 31 >90 mL/min BUN/Creatinine Ratio 9.6 L 10.0-20.0 Serum Glucose 110 H 74-106 mg/dL Calcium Level 9.4 8.7-10.4 mg/dL B-Type Natriuretic Peptide 7.13 0-100 pg/mL SEPSIS Sepsis Screen Date sepsis recognized/suspect: Feb 21, 2025 Time Sepsis recognized/suspect: 0842 Recent Procedure: No On Antibiotic Therapy: No Respiratory Rate >20: Yes Heart Rate >90: No Temp<36 C (96.8 F) or >38.3 C: No SBP <90 or MAP <65 mmHG: No New Acute Mental Status Change: No Is the patient on CPAP, BIPAP,: No Physician Orders Chest Portable (02/21/25 09:20) Azithromycin 500mg/ 250ml (Zithromax 50 (02/21/25 14:15) Vital Signs Date Time Temp Pulse Resp B/P (MAP) Pulse Ox O2 Delivery O2 Flow Rate FiO2 02/21/25 11:20 92 18 109/72 (84) 94 02/21/25 09:50 127/82 02/21/25 09:27 98 18 92 Nasal Cannula* 3 32 02/21/25 09:26 97.5 98 18 127/82 (97) 92 97.5 02/21/25 08:42 98.0 108 22 129/66 95 98.0 02/21/25 08:40 104 Laboratory Tests Test 02/21/25 09:30 White Blood Count 9.1 10^3/uL (4.4-10.8) Medications Medications Dose Ordered Sig/Mari Route Start Time Stop Time Status Last Admin Dose Admin Ceftriaxone Sodium 50 ml @ 100 mls/hr ONCE ONCE IV 02/21/25 14:15 02/21/25 14:44 DC 02/21/25 14:49 100 MLS/HR Furosemide 40 mg ONCE ONCE IV 02/21/25 09:30 02/21/25 09:31 DC 02/21/25 09:50 40 MG Assessment/Plan Assessment/Plan Assessment and plan: # Acute hypoxic respiratory failure likely secondary to community-acquired Gram-positive/Gram-negative pneumonia # Acute on chronic exacerbation of COPD - CxR demonstrated dense opacity along the periphery of both lungs. - pending COVID, flu and sputum culture - DuoNeb with albuterol and ipratropium q.6 hours - IV methylprednisolone 40 mg b.i.d. - IV ceftriaxone 1 g daily and IV azithromycin 500 mg daily # MALACHI superimposed on CKD likely hemodynamically mediated/VMN - Ordered kidney ultrasound - Monitor BMP # Hypertensive heart disease with possible chronic diastolic heart failure - Hold antihypertensive as blood pressure is on the lower side - Pending echo # DVT prophylaxis - Lovenox 30 mg SC daily Goal of care discussed with the patient for more than 20 minutes full code Plan discussed with Dr. Carpio Plan discussed with: Patient, Other (RN) Date of Service: Feb 21, 2025 Billing Provider: YENI CARPIO MD Common Visit Codes: [id number] INP/OBS CARE (HIGH) SANTO WILKS RESIDENT Feb 21, 2025 15:33 YENI CARPIO MD Feb 22, 2025 21:34
[2025-02-21] MEDS: AZITHROMYCIN 500MG/ 250ML 250 ML IV ONE ×2 (16:17→16:20)
[2025-02-21] MEDS: ALBUTEROL SULF 2.5 MG/0.5ML(0.5%) NEB SOLN ONE (16:26)
[2025-02-21] MEDS: IPRATROPIUM BROM 0.5 MG/2.5ML INH SOL ONE (16:26)
[2025-02-21] MEDS: ALBUTEROL SULF 2.5 MG/0.5ML(0.5%) NEB SOLN NEB ONE (16:27)
[2025-02-21] MEDS: IPRATROPIUM BROM 0.5 MG/2.5ML INH SOL NEB ONE (16:27)
[2025-02-21] MEDS: methylPREDNISolone SOD SUCC 40 MG/ML VL IV ONE (16:44)
[2025-02-21] MEDS: methylPREDNISolone SOD SUCC 40 MG/ML VL ONE (16:54)
[2025-02-21 17:45] LABS: COVID19 ANTIGEN SOFIA FIA NEGATIVE (NEGATIVE)
--- NOTE | 2025-02-21 17:51 | DVH ---
CLINICAL HISTORY: MALACHI on CKD TECHNIQUE: Complete ultrasound exam of the kidneys and bladder was performed. COMPARISON: KIDNEY on DOS: 02/21/25, US BILAT LOWER DVT on DOS: 10/17/24 FINDINGS: The right kidney has increased echogenicity and measures 8.4 cm. There is no focal parenchymal abnorm ality or evidence for stone. There is no hydronephrosis. The left kidney has increased echogenicity and measures 9.4 cm. There is no focal parenchymal abnorm ality or evidence for stone. There is no hydronephrosis. The bladder demonstrates mild 4 mm diffuse wall thickening. The prevoid bladder volume is 1302 mL and postvoid bladder volume is 142 mL. IMPRESSION: Echogenic kidneys, compatible medical renal disease. Mild diffuse bladder wall thickening. Please correlate with the urinalysis. Postvoid bladder volume is 142 mL.
[2025-02-21] MEDS: IPRATROPIUM BROM 0.5 MG/2.5ML INH SOL NEB SCH (18:43)
[2025-02-21] MEDS: ALBUTEROL SULF 2.5 MG/0.5ML(0.5%) NEB SOLN NEB SCH (18:44)
[2025-02-21 21:19] LABS: Opiate Scree,Urine Neg (NEGATIVE); Phencyclidine Screen, Urine Neg (NEGATIVE)
[2025-02-21 21:26] LABS: Amphetamine Screen, Urine Neg (NEGATIVE); Barbiturate Scree,Urine Neg (NEGATIVE); Benzodiazephine Screen, Urine Neg (NEGATIVE); Cannabinoid Screen, Urine Neg (NEGATIVE); Cocaine Screen, Urine Neg (NEGATIVE)
[2025-02-21] MEDS: methylPREDNISolone SOD SUCC 40 MG/ML VL IV SCH (22:06)
--- NOTE | 2025-02-21 22:39 | DVHSR ---
APPROVED REPORT EXAM: Two-dimensional and M-mode echocardiogram with Doppler and color Doppler. Blood Pressure: 109/72 mmHg INDICATION SOB RISK FACTORS Height: 72, Weight: 244 DIMENSIONS LVDd4.6 (3.8-5.7cm)LA (2D)3.4 (1.9-4.0cm)Aortic Root3.9 (2.0-3.7cm) LVDs3.2 (2.5-4.0cm)LA (MM) (1.9-4.0cm)Aortic Cusp Exc2.0 (1.5-2.0cm) EF (%) 58.0 (55-70%)Rt. Atrium4.1 (1.9-4.0cm)Asc. Aorta cm Mitral Valve MitralMitral Stenosis E wave0.47m/sMV Mean GR.mmHg A wave0.75m/sMV Peak GR.mmHg E/A ratio0.62D MVAcm2 DECEL [id number] 1/2 [id number] IVRTmsDop MVA4.89cm2 Aortic Valve Aortic ValveAortic Stenosis V11.10m/Gian Mean GR.3mmHg V21.14m/Gian Peak GR.5mmHg LVOT Diameter2.3 (1.8-2.4cm)Doppler AVA4.01cm2 Other Information Technically limited study due to body habitus. Conclusion MODERATE DEGREE LVH AND MODERATE DEGREE LV DIASTOLIC DYSFUNCTION LV EF IS 60% MODERATELY DILATED RV MOST LIKELY CHRONIC RV STRAIN PATTERN NORMAL VALVES NO EFFUSION
[2025-02-22] VITALS (21 sets, daily range): BP systolic 129–148; BP diastolic 73–94; PULSE 82–111; RESP 14–99; TEMP 97–98.1; O2SAT 93–100
[2025-02-22 06:05] LABS: Hematocrit 41.1 % (41.0-53.0); Hemoglobin 13.8 g/dL (13.5-17.5); Mean Corpuscular Hemoglobin 28.0 pg (28.0-32.0); Mean Corpuscular Volume 83.6 fL (80.0-100.0); Nucleated Red Blood Cells % 0.1 %
[2025-02-22 06:30] LABS: Alanine Aminotransferase 15 U/L (7-40); Albumin 4.6 g/dL (3.2-4.8); Alkaline Phosphatase 66 U/L (46-116); Anion Gap 10 (5-15); BUN/Creatinine Ratio 12.2 (10.0-20.0); Calcium 9.3 mg/dL (8.7-10.4); Carbon Dioxide 25 mmol/L (20-31); Chloride 103 mmol/L (98-107); Sodium 138 mmol/L (136-145)
[2025-02-22 06:31] LABS: Bilirubin, Total 0.3 mg/dL (0.2-1.0); Blood Urea Nitrogen 35 mg/dL (9-23); Glucose 146 mg/dL (74-106); Potassium 5.2 mmol/L (3.5-5.1); Total Protein 8.3 g/dL (5.7-8.2)
[2025-02-22] MEDS: InsuLIN REG 1unit/0.01ml Soln (100units/ml) IV ONE ×2 (08:30→20:44)
[2025-02-22] MEDS: SODIUM ZIRCONIUM CYCL 10 GM PAK PO ONE ×2 (10:01→20:34)
[2025-02-22] MEDS: DEXTROSE (50%) 50ML SYRG IV ONE ×2 (10:01→20:33)
[2025-02-22] MEDS: ENOXAPARIN SOD 30 MG/0.3 ML SYRINGE SC SCH (10:02)
[2025-02-22] MEDS: AZITHROMYCIN 500MG/ 250ML 250 ML IV SCH (10:02)
[2025-02-22] MEDS: SODIUM CHLORIDE 0.9% 1,000 ML IV SCH (10:56)
[2025-02-22] MEDS: ALBUTEROL SULF 2.5 MG/0.5ML(0.5%) NEB SOLN NEB ONE (19:33)
--- NOTE | 2025-02-22 19:48 | DVHPNRES ---
Progress Note Date Seen: Feb 22, 2025 Resident Creating Document: LIZA PURDY RESIDENT Has the PT tested + for MRSA If YES, has PT been informed?: No Medical Necessity Reason Pt with a Central, PICC or Fol: No Subjective Review of Systems Be Loo is a 59-year-old male, with past medical history of COPD ( no home O2), CHF, CKD stage IV and recurrent pneumonia (Last pneumonia 01/19). The patient came to the ED with a chief complaint of 2 days of shortness of breath. The patient stated that he start experiencing worsening of shortness of breath from his regular baseline, associated with chills, productive cough with yellowish sputum. On further questioning the patient reports a sick contact. Patient was admitted in [facility] on 01/19 and was treated for pneumonia. He denies recent traveling. fever, nausea, vomiting, abdominal pain, dysuria, hematuria or chest pain. The patient report his cough and sob worsen and his rescue inhaler did not improved the symptoms, this prompted his visit to the ED his HR:105bpm, RR:22 , Osat 92% on room air. He was placed on O2 at 3L, Chest xray showed: Dense opacity along the periphery of both lungs. It is uncertain if this related to overlying soft tissue or represents true airspace disease. Please correlate with a strong concern for pneumonia.and was admitted for further management Past Medical History COPD, CHF, CKD, recurrent pneumonia Past Surgical History: None Family History:Noncontributory Past Social History: methamphetamine user. Live:s with friends Former smoker, quit 2 months ago, nonalcoholic. Hospital course: On 02/22/25, the patient was evaluated and examined at bedside. VS, Labs and chart was reviewed. Patient was hyperkalemic, hyperkalemia protocol was started. New EKG was ordered. The patient is receiving IV antibiotics: ceftriaxone and azithromycin. Creatinine has increased from baseline, kidney ultrasound was ordered. COVID and influenza test came back negative. UDS is positive for methamphetamines. ECHO is still pending. The patient reports still has shortness of breath and cough, the patient continues with O2 via NC. The patient reports no other complaints today. Cultures are pending at this time. We will continue following the progress of this patient. ROS: Constitutional: Yes: Malaise, chills; No: Fever, Sweats, Weakness, Other Eyes: No: Pain, Vision change, Conjunctivae inflammation, Eyelid inflammation, Other, Redness ENT: No: Ear pain, Ear discharge, Nose pain, Nose discharge, Nose congestion, Mouth pain, Mouth swelling, Throat pain, Throat swelling, Other Respiratory: wet cough, Shortness of breath, abundant sputum; No: Dry, Wheezing, Hemoptysis, Pleuritic Pain, Wheezing, Other Cardiovascular: No: Chest Pain, Palpitations, Orthopnea, Paroxysmal Noc. Dyspnea, Edema, Lt Headedness, Other Gastrointestinal: No: Nausea, Vomiting, Abdominal Pain, Diarrhea, Constipation, Melena, Hematochezia, Other Genitourinary: No Dysuria, No Frequency, No Incontinence, No Hematuria, No Retention, No Other Musculoskeletal: No: other, neck pain, shoulder pain, arm pain, back pain, hand pain, leg pain, foot pain Skin: No: Rash, Lesions, Jaundice, Bruising, Other Neurological: No: Weakness, Numbness, Incoordination, Change in speech, Confusion, Seizures, Other Allergies: Latex (Verified Allergy, Unknown, 01/17/25) Tetracycline (Verified Allergy, Unknown, 04/19/24) Objective vital signs Vital Sign Date Time Temp Pulse Resp B/P (MAP) Pulse Ox O2 Delivery O2 Flow Rate FiO2 02/22/25 17:08 97.1 93 18 144/90 (108) 96 97.1 02/22/25 15:35 3.0 02/22/25 14:00 Nasal Cannula* 32 Total Intake and Output 02/21/25 02/21/25 02/22/25 15:00 23:00 07:00 Intake Total 175 ml 400 ml Balance 175 ml 400 ml medications Current Medications Medications Dose Ordered Sig/Mari Route Start Time Stop Time Status Last Admin Dose Admin Enoxaparin Sodium 30 mg DAILY SC 02/22/25 10:00 02/22/25 10:02 30 MG Ceftriaxone Sodium 50 ml @ 100 mls/hr DAILY IV 02/22/25 10:00 02/22/25 10:02 100 MLS/HR Azithromycin 250 ml @ 125 mls/hr DAILY IV 02/22/25 10:00 02/22/25 10:02 125 MLS/HR Methylprednisolone Sodium Succinate 40 mg BID IV 02/21/25 22:00 02/22/25 10:02 40 MG Albuterol 2.5 mg Q4HR NEB 02/21/25 18:00 02/22/25 14:00 2.5 MG Ipratropium [place] 0.5 mg Q4HR NEB 02/21/25 18:00 02/22/25 14:00 0.5 MG Sodium Chloride 1,000 ml @ 75 mls/hr [id number] IV 02/22/25 10:30 02/22/25 10:56 75 MLS/HR Examination General Appearance: Alert, Oriented X3, Cooperative, mild distress HEENT: Atraumatic, PERRLA, EOMI, Mucous membrane moist/pink Respiratory: Bilateral wheezing, and roncus. Cardiovascular: Regular rate, Normal S1, Normal S2, No murmurs, no chest wall tenderness Abdominal: Normal bowel sounds, Soft, No tenderness, No hepatospenomegaly, No masses Extremities: No clubbing, No cyanosis, No edema, Normal pulses, No tenderness/swelling Skin: No rashes, No breakdown, No significant lesion Neuro: Normal gait, Normal speech, Strength at 5/5 X4 ext, Normal tone, Sensation intact, Cranial nerves 3-12 NL, Reflexes 2+ Psych/Mental Status: Mental status NL, Mood NL laboratory and microbiology Laboratory Tests 02/22/25 13:11 02/22/25 05:03 Test 02/22/25 05:03 Range/Units Serum Glucose 146 H 74-106 mg/dL Problem List/Assessment/Plan Problem List/Assessment/Plan # Acute hypoxic respiratory failure likely secondary to community-acquired Gram-positive/Gram-negative pneumonia # Acute on chronic exacerbation of COPD - CxR demonstrated dense opacity along the periphery of both lungs. - pending COVID, flu and sputum culture - DuoNeb with albuterol and ipratropium q.6 hours - IV methylprednisolone 40 mg b.i.d. - IV ceftriaxone 1 g daily and IV azithromycin 500 mg daily # MALACHI superimposed on CKD stage IV likely hemodynamically mediated/VMN - Ordered kidney ultrasound - Monitor BMP # Hypertensive heart disease with possible chronic diastolic heart failure - Hold antihypertensive as blood pressure is on the lower side - Pending echo #Hyperkalemia K: 5.2 hyperkalemia protocol Diet: cardiac diet DVT prophylaxis Goals of care discussed with the patient > 35 min. Discussed plan of care with Dr. Carpio Code status: Full code PCP: Does not recall name at this time. Plan discussed with: Patient, the patient agrees with the plan. Plan discussed with: Patient My Orders My Orders Orders - LIZA PURDY Procedure Category Date Status Time Electrocardigram EKG 02/22/25 Logged 08:22 Electrocardigram EKG 02/22/25 Logged 19:15 Potassium LAB 02/22/25 Logged 23:15 Date of Service: Feb 22, 2025 Billing Provider: YENI CARPIO MD Common Visit Codes: [id number] INP/OBS CARE(HIGH) LIZA PURDY Feb 22, 2025 19:48 YENI CARPIO MD Feb 22, 2025 21:37
[2025-02-22] MEDS: FUROSEMIDE 20 MG/2 ML VIAL IV ONE (20:34)
[2025-02-23] VITALS (20 sets, daily range): BP systolic 123–159; BP diastolic 70–109; PULSE 86–111; RESP 17–22; TEMP 97.2–98.7; O2SAT 90–100
[2025-02-23 05:16] LABS: Hematocrit 39.7 % (41.0-53.0); Hemoglobin 13.0 g/dL (13.5-17.5); Mean Corpuscular Hemoglobin 27.5 pg (28.0-32.0); Mean Corpuscular Volume 84.3 fL (80.0-100.0); Nucleated Red Blood Cells % 0.1 %
[2025-02-23 05:35] LABS: Chloride 105 mmol/L (98-107); Potassium 4.6 mmol/L (3.5-5.1); Sodium 140 mmol/L (136-145)
[2025-02-23 05:36] LABS: Anion Gap 10 (5-15); Calcium 9.7 mg/dL (8.7-10.4); Carbon Dioxide 25 mmol/L (20-31)
[2025-02-23 05:42] LABS: BUN/Creatinine Ratio 13.3 (10.0-20.0)
[2025-02-23 05:44] LABS: Blood Urea Nitrogen 32 mg/dL (9-23); Glucose 172 mg/dL (74-106)
--- NOTE | 2025-02-23 07:37 | ECG ---
[facility] Test Date: 2025-02-22 Test Time: 10:24:56 Pat Name: YANY RODNEY Department: Respiratoy Room: 0217 B Gender: M [employer]: KEVON : 1965 Requested By: LIZA PURDY Order Number: [id number] Reading MD: Amor Decker Measurements Intervals [place] Rate: 90 P: 39 MO: 151 QRS: 44 QRSD: 94 T: 49 QT: 385 QTc: 471 Interpretive Statements Pediatric ECG interpretation Sinus bradycardia Prolonged MO interval Left atrial enlargement Left bundle branch block Borderline prolonged QT interval Baseline wander in lead(s) V1 Electronically Signed On 02-28-2025 12:49:37 PST by Amor Decker Please click the below link to view image of tracing.
[2025-02-23] MEDS ORDERED: DEXTROSE (50%) 50ML SYRG IV PRN (10:15)
[2025-02-23] MEDS: ACCU-CHEK COMFORT CURVE STRIP VI SCH (12:38)
[2025-02-23] MEDS: InsuLIN REG 1unit/0.01ml Soln (100units/ml) SC SCH (12:55)
[2025-02-23 14:24] LABS: Base Excess -1.6 mmol/L (-2.0-3.0)
[2025-02-24] VITALS (18 sets, daily range): BP systolic 138–180; BP diastolic 95–114; PULSE 86–109; RESP 18–20; TEMP 97.5–98.5; O2SAT 91–100
[2025-02-24 06:41] LABS: Hematocrit 38.1 % (41.0-53.0); Hemoglobin 12.7 g/dL (13.5-17.5); Mean Corpuscular Hemoglobin 28.1 pg (28.0-32.0); Mean Corpuscular Volume 84.3 fL (80.0-100.0); Nucleated Red Blood Cells % 0.1 %
[2025-02-24 07:24] LABS: Calcium 9.3 mg/dL (8.7-10.4)
[2025-02-24 07:25] LABS: Anion Gap 12 (5-15); Carbon Dioxide 21 mmol/L (20-31)
[2025-02-24 07:28] LABS: Chloride 106 mmol/L (98-107); Potassium 5.4 mmol/L (3.5-5.1); Sodium 139 mmol/L (136-145)
[2025-02-24 07:30] LABS: BUN/Creatinine Ratio 15.4 (10.0-20.0)
[2025-02-24 07:31] LABS: Blood Urea Nitrogen 35 mg/dL (9-23); Glucose 114 mg/dL (74-106)
[2025-02-24] MEDS: ALBUTEROL SULF 2.5 MG/0.5ML(0.5%) NEB SOLN NEB ONE (09:37)
[2025-02-24] MEDS: DEXTROSE (50%) 50ML SYRG IV ONE (10:04)
[2025-02-24] MEDS: SODIUM BICARB 8.4% 50Meq/50ml SYR INJ IV ONE (10:04)
[2025-02-24] MEDS: SODIUM ZIRCONIUM CYCL 10 GM PAK PO ONE (10:04)
[2025-02-24] MEDS: FUROSEMIDE 20 MG/2 ML VIAL IV ONE (10:05)
[2025-02-24] MEDS: InsuLIN REG 1unit/0.01ml Soln (100units/ml) IV ONE (10:07)
[2025-02-24] MEDS ORDERED: LEVO750T40 PO (10:39)
[2025-02-24] MEDS ORDERED: METH4PAK PO (10:39)
[2025-02-24] MEDS ORDERED: UMEC1AER IN (10:39)
--- NOTE | 2025-02-24 11:05 | DVHPNRES ---
Progress Note Date Seen: Feb 23, 2025 Resident Creating Document: LIZA PURDY RESIDENT Has the PT tested + for MRSA If YES, has PT been informed?: No Medical Necessity Reason Pt with a Central, PICC or Fol: No Subjective Review of Systems Be Loo is a 59-year-old male, with past medical history of COPD ( no home O2), CHF, CKD stage IV and recurrent pneumonia (Last pneumonia 01/19). The patient came to the ED with a chief complaint of 2 days of shortness of breath. The patient stated that he start experiencing worsening of shortness of breath from his regular baseline, associated with chills, productive cough with yellowish sputum. On further questioning the patient reports a sick contact. Patient was admitted in [facility] on 01/19 and was treated for pneumonia. He denies recent traveling. fever, nausea, vomiting, abdominal pain, dysuria, hematuria or chest pain. The patient report his cough and sob worsen and his rescue inhaler did not improved the symptoms, this prompted his visit to the ED his HR:105bpm, RR:22 , Osat 92% on room air. He was placed on O2 at 3L, Chest xray showed: Dense opacity along the periphery of both lungs. It is uncertain if this related to overlying soft tissue or represents true airspace disease. Please correlate with a strong concern for pneumonia.and was admitted for further management Past Medical History COPD, CHF, CKD, recurrent pneumonia Past Surgical History: None Family History:Noncontributory Past Social History: methamphetamine user. Live:s with friends Former smoker, quit 2 months ago, nonalcoholic. Hospital course: On 02/22/25, the patient was evaluated and examined at bedside. VS, Labs and chart was reviewed. Patient was hyperkalemic, hyperkalemia protocol was started. New EKG was ordered. The patient is receiving IV antibiotics: ceftriaxone and azithromycin. Creatinine has increased from baseline, kidney ultrasound was ordered. COVID and influenza test came back negative. UDS is positive for methamphetamines. ECHO is still pending. The patient reports still has shortness of breath and cough, the patient continues with O2 via NC. The patient reports no other complaints today. Cultures are pending at this time. We will continue following the progress of this patient. On 02/23/25, the patient was evaluated and examined at bedside. VS, Labs and chart was reviewed. The hyperkalemia resolved. The patient is receiving IV antibiotics: ceftriaxone and azithromycin. Creatinine has improved. Kidney ultrasound was ordered reports renal disease. ECHO showed moderate degree hyperplasia with diastolic disfunction, moderate dilated RV. The patient reports still has shortness of breath and cough, the patient continues with O2 via NC 3L. The patient reports feeling better, no other complaints today. Cultures: Rare Gram Positive Cocci in pairs, we will wait for the final result and sensitivity test. We will continue following the progress of this patient. ROS: Constitutional: Yes: Malaise, chills; No: Fever, Sweats, Weakness, Other Eyes: No: Pain, Vision change, Conjunctivae inflammation, Eyelid inflammation, Other, Redness ENT: No: Ear pain, Ear discharge, Nose pain, Nose discharge, Nose congestion, Mouth pain, Mouth swelling, Throat pain, Throat swelling, Other Respiratory: wet cough, Shortness of breath, abundant sputum; No: Dry, Wheezing, Hemoptysis, Pleuritic Pain, Wheezing, Other Cardiovascular: No: Chest Pain, Palpitations, Orthopnea, Paroxysmal Noc. Dyspnea, Edema, Lt Headedness, Other Gastrointestinal: No: Nausea, Vomiting, Abdominal Pain, Diarrhea, Constipation, Melena, Hematochezia, Other Genitourinary: No Dysuria, No Frequency, No Incontinence, No Hematuria, No Retention, No Other Musculoskeletal: No: other, neck pain, shoulder pain, arm pain, back pain, hand pain, leg pain, foot pain Skin: No: Rash, Lesions, Jaundice, Bruising, Other Neurological: No: Weakness, Numbness, Incoordination, Change in speech, Confusion, Seizures, Other Allergies: Latex (Verified Allergy, Unknown, 01/17/25) Tetracycline (Verified Allergy, Unknown, 04/19/24) Objective vital signs Vital Sign Date Time Temp Pulse Resp B/P (MAP) Pulse Ox O2 Delivery O2 Flow Rate FiO2 02/23/25 08:31 98.0 106 17 159/93 (115) 93 98.0 02/23/25 06:13 Nasal Cannula 3.0 02/23/25 06:13 32 Total Intake and Output 02/22/25 02/22/25 02/23/25 15:00 23:00 07:00 Intake Total 1000 ml 925 ml Output Total 1500 ml 900 ml Balance -500 ml 25 ml medications Current Medications Medications Dose Ordered Sig/Mari Route Start Time Stop Time Status Last Admin Dose Admin Enoxaparin Sodium 30 mg DAILY SC 02/22/25 10:00 02/22/25 10:02 30 MG Ceftriaxone Sodium 50 ml @ 100 mls/hr DAILY IV 02/22/25 10:00 02/22/25 10:02 100 MLS/HR Azithromycin 250 ml @ 125 mls/hr DAILY IV 02/22/25 10:00 02/22/25 10:02 125 MLS/HR Methylprednisolone Sodium Succinate 40 mg BID IV 02/21/25 22:00 02/22/25 22:59 40 MG Albuterol 2.5 mg Q4HR NEB 02/21/25 18:00 02/23/25 06:13 2.5 MG Ipratropium [place] 0.5 mg Q4HR NEB 02/21/25 18:00 02/23/25 06:13 0.5 MG Examination General Appearance: Alert, Oriented X3, Cooperative, mild distress, on O2 via [place] 3L HEENT: Atraumatic, PERRLA, EOMI, Mucous membrane moist/pink Respiratory: Bilateral wheezing, and roncus. Cardiovascular: Regular rate, Normal S1, Normal S2, No murmurs, no chest wall tenderness Abdominal: Normal bowel sounds, Soft, No tenderness, No hepatospenomegaly, No masses Extremities: No clubbing, No cyanosis, No edema, Normal pulses, No tenderness/swelling Skin: No rashes, No breakdown, No significant lesion Neuro: Normal gait, Normal speech, Strength at 5/5 X4 ext, Normal tone, Sensation intact, Cranial nerves 3-12 NL, Reflexes 2+ Psych/Mental Status: Mental status NL, Mood NL laboratory and microbiology Laboratory Tests 02/23/25 04:57 Test 02/23/25 04:57 Range/Units Serum Glucose 172 H 74-106 mg/dL Microbiology Date/Time Source Procedure Growth Status 02/21/25 23:14 Sputum Gram Stain Pending Resulted 02/21/25 23:14 Sputum Respiratory Culture - Preliminary Resulted Problem List/Assessment/Plan Problem List/Assessment/Plan # Acute hypoxic respiratory failure likely secondary to acute community-acquired Gram-positive/Gram-negative pneumonia # Acute on chronic exacerbation of COPD - CxR demonstrated dense opacity along the periphery of both lungs. - pending COVID, flu and sputum culture - DuoNeb with albuterol and ipratropium q.6 hours - IV methylprednisolone 40 mg b.i.d. - IV ceftriaxone 1 g daily and IV azithromycin 500 mg daily # MALACHI superimposed on CKD stage IV likely hemodynamically mediated/VMN - Ordered kidney ultrasound: chronic kidney disease - Monitor BMP, creatinine 2.40 # Chronic Hypertensive heart disease with possible chronic diastolic heart failure - Hold antihypertensive as blood pressure is on the lower side - Pending echo #Acute Hyperkalemia K: 5.2 on 02/22/25 resolved, K: 4.1 on 02/23/25 #Chronic polysubstance abuse. Counseling about quitting. Diet: cardiac diet DVT prophylaxis Goals of care discussed with the patient > 35 min. Discussed plan of care with Dr. Carpio Code status: Full code PCP: Does not recall name at this time. Plan discussed with: Patient, the patient agrees with the plan. Plan discussed with: Patient My Orders My Orders Orders - LIZA PURDY Procedure Category Date Status Time Complete Blood Count LAB 02/24/25 Verified 04:00 Basic Metabolic Panel LAB 02/24/25 Verified 04:00 Date of Service: Feb 23, 2025 Billing Provider: YENI CARPIO MD Common Visit Codes: [id number] INP/OBS CARE(HIGH) LIZA PURDY RESIDENT Feb 23, 2025 09:41 YENI CARPIO MD Feb 23, 2025 22:40
[2025-02-24 11:52] LABS: Potassium 4.0 mmol/L (3.5-5.1)
[2025-02-24 12:00] LABS: Magnesium 2.2 mg/dL (1.6-2.6)
--- NOTE | 2025-02-24 14:23 | DVHDSRES ---
Discharge Summary Date of Admission Resident Creating Document: LIZA PURDY RESIDENT Feb 21, 2025 at 15:31 Date of Discharge: Feb 24, 2025 Admitting Diagnosis #Acute hypoxic respiratory failure likely secondary to acute community-acquired Gram-positive/Gram-negative pneumonia #Acute on chronic COPD exacerbation #MALACHI superimposed on CKD stage IV likely hemodynamically mediated/VMN #Chronic Hypertensive heart disease with possible chronic diastolic/systomic heart failure Wounds: No wounds Labs/Diagnostic Data: Laboratory Results Test 02/24/25 12:01 02/24/25 11:02 02/24/25 05:17 02/23/25 14:04 POC Glucose 183 mg/dl (70-106) Potassium Level 4.0 mmol/L (3.5-5.1) Magnesium Level 2.2 mg/dL (1.6-2.6) White Blood Count 10.9 10^3/uL (4.4-10.8) Red Blood Count 4.52 10^6/uL (4.5-5.90) Hemoglobin 12.7 g/dL (13.5-17.5) Hematocrit 38.1 % (41.0-53.0) Mean Corpuscular Volume 84.3 fL (80.0-100.0) Mean Corpuscular Hemoglobin 28.1 pg (28.0-32.0) Mean Corpuscular Hemoglobin Concent 33.3 g/dL (32.0-36.0) Red Cell Distribution Width 16.5 % (11.8-14.3) Platelet Count 266 10^3/uL (140-450) Mean Platelet Volume 8.1 fL (6.9-10.8) Neutrophils (%) (Auto) 83.4 % (37.0-80.0) Lymphocytes (%) (Auto) 11.7 % (10.0-50.0) Monocytes (%) (Auto) 4.3 % (0.0-12.0) Eosinophils (%) (Auto) 0.4 % (0.0-7.0) Basophils (%) (Auto) 0.2 % (0.0-2.0) Neutrophils # (Auto) 9.1 10 ^3/uL (1.6-8.6) Lymphocytes # (Auto) 1.3 10 ^3/uL (0.4-5.4) Monocytes # (Auto) 0.5 10 ^3/uL (0-1.3) Eosinophils # (Auto) 0 10 ^3/uL (0-0.8) Basophils # (Auto) 0 10 ^3/uL (0-0.2) Nucleated Red Blood Cells 0.1 % Sodium Level 139 mmol/L (136-145) Chloride Level 106 mmol/L (98-107) Carbon Dioxide Level 21 mmol/L (20-31) Anion Gap 12 (5-15) Blood Urea Nitrogen 35 mg/dL (9-23) Creatinine 2.27 mg/dL (0.700-1.30) Glomerular Filtration Rate Calc 33 mL/min (>90) BUN/Creatinine Ratio 15.4 (10.0-20.0) Serum Glucose 114 mg/dL (74-106) Calcium Level 9.3 mg/dL (8.7-10.4) Blood Gas Specimen Type Arterial Blood Gas Sample Site Left radial Blood Gas Patient Temperature 37.0 Arterial Blood Date Drawn [id number] Arterial Blood pH 7.356 (7.350-7.450) Arterial Blood Partial Pressure CO2 44.0 mmHg (35.0-48.0) Arterial Blood Partial Pressure O2 69.9 mmHg (83.0-108.0) Arterial Blood HCO3 24.1 mmol/L (21.0-28.0) Arterial Blood Oxygen Saturation 92.0 % (94.0-98.0) Arterial Blood Base Excess -1.6 mmol/L (-2.0-3.0) Arterial Blood Oxyhemoglobin 91.5 % (94.0-98.0) Arterial Blood Carboxyhemoglobin 0.2 % (0.5-1.5) Arterial Blood Methemoglobin 0.3 % (0.0-1.5) Melvin Test Yes Blood Gas Total Hemoglobin 13.90 g/dL (13.5-17.5) Blood Gas Modality Room air FiO2 % 21.0 Test 02/22/25 05:03 02/21/25 17:16 02/21/25 16:03 02/21/25 13:04 Total Bilirubin 0.3 mg/dL (0.2-1.0) Aspartate Amino Transferase (AST) 14 U/L (13-40) Alanine Aminotransferase (ALT) 15 U/L (7-40) Alkaline Phosphatase 66 U/L (46-116) Total Protein 8.3 g/dL (5.7-8.2) Albumin 4.6 g/dL (3.2-4.8) Lactic Acid Level 0.9 mmol/L (0.4-2.0) Influenza Type A Antigen Negative (Negative) Influenza Type B Antigen Negative (Negative) SARS-CoV-2 Antigen (Rapid) Negative (NEGATIVE) Troponin I High Sensitivity 21 ng/L (</=54) Thyroid Stimulating Hormone (TSH) 1.91 uIU/mL (0.55-4.78) Test 02/21/25 11:30 02/21/25 09:30 Urine Color Light-yellow (Yellow) Urine Clarity Clear (Clear) Urine pH 5.5 (5.0-9.0) Urine Specific [place] 1.013 (1.001-1.035) Urine Protein 1+ (Negative) Urine Ketones Negative (Negative) Urine Blood Negative /uL (Negative) Urine Nitrite Negative (Negative) Urine Bilirubin Negative (Negative) Urine Urobilinogen Normal mg/dL (Negative) Urine Leukocyte Esterase Negative /uL (Negative) Urine RBC None seen /hpf (0 - 3) Urine Microscopic WBC < 1 /HPF (0-3) Urine Squamous Epithelial Cells None seen /hpf (<5) Urine Bacteria None seen /hpf (None Seen) Urine Mucus Few (None Seen) Urine Glucose Normal mg/dL (Normal) Urine Opiates Screen Neg (NEGATIVE) Urine Fentanyl Screen Pos (NEGATIVE) Urine Barbiturates Screen Neg (NEGATIVE) Urine Phencyclidine Screen Neg (NEGATIVE) Urine Amphetamines Screen Neg (NEGATIVE) Urine Benzodiazepines Screen Neg (NEGATIVE) Urine Cocaine Screen Neg (NEGATIVE) Urine Cannabinoids Screen Neg (NEGATIVE) Hemoglobin A1c 6.3 % A1C (<5.7) B-Type Natriuretic Peptide 7.13 pg/mL (0-100) Other Laboratory Tests 02/24/25 11:02 02/24/25 05:17 Brief Hx & Hospital Course: Be Loo is a 59-year-old male, with past medical history of COPD ( no home O2), CHF, CKD stage IV and recurrent pneumonia (Last pneumonia 01/19). The patient came to the ED with a chief complaint of 2 days of shortness of breath. The patient stated that he start experiencing worsening of shortness of breath from his regular baseline, associated with chills, productive cough with yellowish sputum. On further questioning the patient reports a sick contact. Patient was admitted in [facility] on 01/19 and was treated for pneumonia. He denies recent traveling. fever, nausea, vomiting, abdominal pain, dysuria, hematuria or chest pain. The patient report his cough and sob worsen and his rescue inhaler did not improved the symptoms, this prompted his visit to the ED his HR:105bpm, RR:22 , Osat 92% on room air. He was placed on O2 at 3L, Chest xray showed: Dense opacity along the periphery of both lungs. It is uncertain if this related to overlying soft tissue or represents true airspace disease. Please correlate with a strong concern for pneumonia.and was admitted for further management Past Medical History COPD, CHF, CKD, recurrent pneumonia Past Surgical History: None Family History:Noncontributory Past Social History: methamphetamine user. Live:s with friends Former smoker, quit 2 months ago, nonalcoholic. Hospital course: On 02/22/25, the patient was evaluated and examined at bedside. VS, Labs and chart was reviewed. Patient was hyperkalemic, hyperkalemia protocol was started. New EKG was ordered. The patient is receiving IV antibiotics: ceftriaxone and azithromycin. Creatinine has increased from baseline, kidney ultrasound was ordered. COVID and influenza test came back negative. UDS is positive for methamphetamines. ECHO is still pending. The patient reports still has shortness of breath and cough, the patient continues with O2 via NC. The patient reports no other complaints today. Cultures are pending at this time. We will continue following the progress of this patient. On 02/23/25, the patient was evaluated and examined at bedside. VS, Labs and chart was reviewed. The hyperkalemia resolved. The patient is receiving IV antibiotics: ceftriaxone and azithromycin. Creatinine has improved. Kidney ultrasound was ordered reports renal disease. ECHO showed moderate degree hyperplasia with diastolic disfunction, moderate dilated RV. The patient reports still has shortness of breath and cough, the patient continues with O2 via NC 3L. The patient reports feeling better, no other complaints today. Cultures: Rare Gram Positive Cocci in pairs, we will wait for the final result and sensitivity test. We will continue following the progress of this patient. On 02/24/25, the patient was evaluated and examined at bedside. VS, Labs and chart was reviewed. The hyperkalemia resolved. The patient is receiving IV antibiotics: ceftriaxone and azithromycin. Creatinine has improved. The patient reports still has shortness of breath and cough, the patient continues with O2 via NC 3L. The patient reports feeling better today, he is in room oxygen, with 98% O2sat, reports no new complaints. Due to clinical improvement the patient is being discharge home, he will f/u with pulmonologyst, cardiology and pcp in one week. the patient already has these appointments. ROS: Constitutional: No: Fever, chills, malaise, Sweats, Weakness, Other Eyes: No: Pain, Vision change, Conjunctivae inflammation, Eyelid inflammation, Other, Redness ENT: No: Ear pain, Ear discharge, Nose pain, Nose discharge, Nose congestion, Mouth pain, Mouth swelling, Throat pain, Throat swelling, Other Respiratory: improved of cough and sob; No: Dry, Wheezing, Hemoptysis, Pleuritic Pain, Wheezing, Other Cardiovascular: No: Chest Pain, Palpitations, Orthopnea, Paroxysmal Noc. Dyspnea, Edema, Lt Headedness, Other Gastrointestinal: No: Nausea, Vomiting, Abdominal Pain, Diarrhea, Constipation, Melena, Hematochezia, Other Genitourinary: No Dysuria, No Frequency, No Incontinence, No Hematuria, No Retention, No Other Musculoskeletal: No: other, neck pain, shoulder pain, arm pain, back pain, hand pain, leg pain, foot pain Skin: No: Rash, Lesions, Jaundice, Bruising, Other Neurological: No: Weakness, Numbness, Incoordination, Change in speech, Confusion, Seizures, Other Allergies: Latex (Verified Allergy, Unknown, 01/17/25) Tetracycline (Verified Allergy, Unknown, 04/19/24) Physical Exam General Appearance: Alert, Oriented X3, Cooperative, mild distress, on room air HEENT: Atraumatic, PERRLA, EOMI, Mucous membrane moist/pink Respiratory: normal lung expansion, minimal wheezing. Cardiovascular: Regular rate, Normal S1, Normal S2, No murmurs, no chest wall tenderness Abdominal: Normal bowel sounds, Soft, No tenderness, No hepatospenomegaly, No masses Extremities: No clubbing, No cyanosis, No edema, Normal pulses, No tenderness/swelling Skin: No rashes, No breakdown, No significant lesion Neuro: Normal gait, Normal speech, Strength at 5/5 X4 ext, Normal tone, Sensation intact, Cranial nerves 3-12 NL, Reflexes 2+ Psych/Mental Status: Mental status NL, Mood NL Operations or Procedures PROCEDURE(s): CXRP - CHEST PORTABLE REASON: sob ORDER NUMBER(s): [id number], ACCESSION NUMBER(s): [id number] INDICATION: sob TECHNIQUE: Single frontal view of the chest was obtained COMPARISON: XY CHEST XRAY 1 VIEW on DOS: 01/16/25, XY CHEST PORTABLE on DOS: 10/19/24, XY CHEST XRAY 1 VIEW on DOS: 10/17/24, XY CHEST XRAY 1 VIEW on DOS: 10/17/24, XY CHEST PORTABLE on DOS: 10/17/24, XY CHEST XRAY 1 VIEW on DOS: 01/16/25 FINDINGS: Dense opacity along the periphery of both mid lungs worse than left. No pleural effusions. Cardiac silhouette and sharon are within normal limits. Bones and soft tissues demonstrate no significant abnormality. IMPRESSION: Dense opacity along the periphery of both lungs. It is uncertain if this related to overlying soft tissue or represents true airspace disease. Please correlate with a strong concern for pneumonia. EDURE(s): KIDUS - KIDNEY REASON: MALACHI on CKD ORDER NUMBER(s): [id number], ACCESSION NUMBER(s): [id number] CLINICAL HISTORY: MALACHI on CKD TECHNIQUE: Complete ultrasound exam of the kidneys and bladder was performed. COMPARISON: KIDNEY on DOS: 02/21/25, US BILAT LOWER DVT on DOS: 10/17/24 FINDINGS: The right kidney has increased echogenicity and measures 8.4 cm. There is no focal parenchymal abnormality or evidence for stone. There is no hydronephrosis. The left kidney has increased echogenicity and measures 9.4 cm. There is no focal parenchymal abnormality or evidence for stone. There is no hydronephrosis. The bladder demonstrates mild 4 mm diffuse wall thickening. The prevoid bladder volume is 1302 mL and postvoid bladder volume is 142 mL. IMPRESSION: Echogenic kidneys, compatible medical renal disease. Mild diffuse bladder wall thickening. Please correlate with the urinalysis. Postvoid bladder volume is 142 mL. Condition at Discharge: Stable Final Diagnosis/Problems List Sespis due to acute community adcquired pneumonia gram -/+ Acute on chronic COPD exacerbation Discharge Disposition: Home SNF Discharge Will this Physician continue t: No Discharge Instruct/Medications Diet: Cardiac 2g Na,low cholest, Renal Activity: No Restrictions, As Tolerated Follow Up/Referral: F/U with PCP in 1 week F/U with Pulmonologys 1 week. F/U with cardiology in 1 week Medications: Medrol pack Levofloxacine 4750mg po bid for 10days Anoro inhaler Scheduled Amlodipine Besylate (Norvasc Tablet), 10 MG PO DAILY, (Reported) Atorvastatin Calcium (Lipitor), 1 TAB PO DAILY, (Reported) Levofloxacin Hemihydrate (Levofloxacin), 1 TAB PO DAILY Levothyroxine Sodium (Levothyroxine Sodium), 75 MCG PO QAM, (Reported) Magnesium Oxide (Magnesium Oxide), 2 TAB PO DAILY, (Reported) Metformin Hydrochloride (Metformin Hcl), 500 MG PO DAILY, (Reported) Methylprednisolone (Medrol Dosepak), 4 MG PO UD Umeclidinium-Vilanterol (Anoro Ellipta 62.5-25 Mcg/INH), 1 AER IN DAILY Scheduled PRN Ipratropium Brashear Hfa (Atrovent Hfa), 2 PUFF INH QID PRN Miscellaneous Medications Albuterol Sulfate (Ventolin Mdi), 90 MCG IN, (Reported) Discontinued Medications Acetaminophen (Acetaminophen), 650 MG PO Q6HP PRN Albuterol Sulfate (Albuterol Sulfate), 1 VIAL NEB Q4HPRN, (Reported) Albuterol Sulfate (Albuterol Sulfate), 1 VIAL NEB Q4HPRN PRN Chlorthalidone (Chlorthalidone), 25 MG PO DAILY, (Reported) Cholecalciferol (Vitamin D3), 25 MCG PO DAILY, (Reported) Epoetin Billy-Epbx (Retacrit), 10,000 UNIT IJ QWEEKLY, (Reported) Levofloxacin Hemihydrate (Levofloxacin), 1 TAB PO DAILY Prednisone (Prednisone), 40 MG PO DAILY Spironolactone (Spironolactone), 25 MG PO DAILY@BREAKFAST, (Reported) Discharge Statement: "Patient was advised to return to the ER or call 911 if any headaches, dizziness, shortness of breath, chest pain, abdominal pain, bleeding, fevers, or worsening of medical condition. Patient was counseled about treatment plan, medications, possible side effects, patientverbalized understanding. All questions were answered to the best of my ability. This discharge took greater then 30 minutes in planning, reviewing documentation, counseling the patient, and discussing with other team members." ASSESSMENT ASSESSMENT Assessment #Acute hypoxic respiratory failure likely secondary to acute community-acquired Gram-positive/Gram-negative pneumonia #Acute on chronic COPD exacerbation #MALACHI superimposed on CKD stage IV likely hemodynamically mediated/VMN #Chronic Hypertensive heart disease with possible chronic diastolic/systomic heart failure #Acute Hyperkalemia #Chronic polysubstance abuse Diet: Cardiac diet, renal diet Goals of care discussed with the patient for more than 35 minutes: Code Status: Full code PCP: Dr. De Santiago Case discussed with Dr. Esquivel The patient agrees with discharge plan. Date of Service: Feb 24, 2025 Billing Provider: YENI ESQUIVEL MD Common Visit Codes: 07975-LXY/OBS DISCH DAY >30min LIZA PURDY RESIDENT Feb 24, 2025 14:23 YENI ESQUIVEL MD Feb 24, 2025 23:40
== END 2025-02-24 16:55 | disposition home or self-care (01) | DRG 720 ==
LOC: ER 08:38 → EDBD 08:38 → OVERFLOW 15:31 → CENTRAL 17:48
PROVIDERS: ADMIT Internal Medicine; ATTEND Internal Medicine
DX: A41.59 Other Gram-negative sepsis (principal); N17.0 Acute kidney failure with tubular necrosis; J96.01 Acute respiratory failure with hypoxia; J15.69 Pneumonia due to other Gram-negative bacteria; I13.0 Hypertensive heart and chronic kidney disease with heart failure and stage 1 through stage 4 chronic kidney disease, or unspecified chronic kidney disease; J15.9 Unspecified bacterial pneumonia; I50.42 Chronic combined systolic (congestive) and diastolic (congestive) heart failure; J44.0 Chronic obstructive pulmonary disease with (acute) lower respiratory infection; E11.22 Type 2 diabetes mellitus with diabetic chronic kidney disease; J44.1 Chronic obstructive pulmonary disease with (acute) exacerbation; N18.4 Chronic kidney disease, stage 4 (severe); E87.5 Hyperkalemia; F19.10 Other psychoactive substance abuse, uncomplicated; Z91.040 Latex allergy status; Z79.84 Long term (current) use of oral hypoglycemic drugs; Z79.899 Other long term (current) drug therapy; Z87.891 Personal history of nicotine dependence
CPT/HCPCS: 36415; 36600; 71045; 76775; 80048; 80053; 80307; 81001; 82805; 82962; 83036; 83605; 83735; 83880; 84132; 84443; 84484; 85025; 87070; 87081; 87205; 87426; 87804; 93005; 93306; 94640; 96365; 96375; G0378; J1815

== ENCOUNTER 2025-03-05 16:31 | Inpatient (IN) | payer OTHER ==
[~2025-03-05] VITALS: Ht 188 cm; Wt 109.0 kg
[~2025-03-05 16:31] MED LIST changes: -ACET-1882 PO; -ALBU0.084 NEB; -CHLO25TA2 PO; -CHOL400C15 PO; -EPOE10004 IJ; +METH4PAK PO; -PRED20TA2 PO; -SPIR25TA8 PO; +UMEC1AER IN
[2025-03-05 16:35] VITALS: BP 144/101; PULSE 91; TEMP 98.6
--- NOTE | 2025-03-05 16:59 | ED.PDOC ---
SOB-HPI HPI Comments 59-year-old male, with past medical history of COPD and pneumonia presents to the emergency department for chief complaint of shortness of breath. Patient states, he has been experiencing increased shortness of breath x1 week. Patient reports, he was recently admitted for same symptoms x1 week ago and since, symptoms have exacerbated. Patient further comments on associated symptoms of a productive cough with phlegm that is "yellow" in appearance. Patient relays using his home rescue inhaler and breathing treatments with no relief. Patient denies chest pain, palpitations, fever, or chills. Chief Complaint: Shortness of Breath Time Seen by MD: 16:50 Reviewed notes: Nurses Notes, Medications, Allergies Information Source: Patient Mode of Arrival: Wheelchair Severity: Moderate Timing: Weeks Duration: Since onset Context: At Rest PE Risk Factors: None History of: COPD Prehospital treatment: Breathing Tx, Other (Albuterol) Modifying Factors: Nothing Associated Signs and Symptoms: None If cough with SOB: Yellow Past Medical History PAST MEDICAL HISTORY: CHF, COPD Surgical History: Denies all surgeries Family History Family History: Family hx of Cancer Social History Smoker: Quit Greater Than 1 Year Alcohol: Denies ETOH Use Drugs: Denies Drug Use Lives In: Home Constitutional: denies: chills, diaphoresis, fatigue, fever, malaise, sweats, weakness, others EENTM: denies: blurred vision, double vision, ear bleeding, ear discharge, ear drainage, ear pain, ear ringing, eye pain, eye redness, hearing loss, mouth pain, mouth swelling, nasal discharge, nose bleeding, nose congestion, nose pain, photophobia, tearing, throat pain, throat swelling, voice changes, others Respiratory: reports: cough, shortness of breath; denies: hemoptysis, orthopnea, SOB at rest, SOB with excertion, stridor, wheezing, others Cardiovascular: denies: chest pain, dizzy spells, diaphoresis, Dyspnea on exertion, edema, irregular heart beat, left arm pain, lightheadedness, palpitations, PND, syncope, others Gastrointestinal: denies: abdomen distended, abdominal pain, blood streaked bowels, constipated, diarrhea, dysphagia, difficulty swallowing, hematemesis, melena, nausea, poor appetite, poor fluid intake, rectal bleeding, rectal pain, vomiting, others Genitourinary: denies: burning, dysuria, flank pain, frequency, hematuria, incontinence, penile discharge, penile sore, pain, testicle pain, testicle swelling, urgency, others Neurological: denies: dizziness, fainting, headache, left sided numbness, left sided weakness, numbness, paresthesia, pre-existing deficit, right sided numbness, right sided weakness, seizure, speech problems, tingling, tremors, weakness, others Musculoskeletal: denies: back pain, gout, joint pain, joint swelling, muscle pain, muscle stiffness, neck pain, others Integumetry: denies: bruises, change in color, change in hair/nails, dryness, laceration, lesions, lumps, rash, wounds, others Allergic/Immunocompromised: denies: Difficulty Healing, Frequent Infections, Hives, Itching, others Hematologic/Lymphatic: denies: anemia, blood clots, easy bleeding, easy bruising, swollen glands, others Endocrine: denies: excessive hunger, excessive sweating, excessive thirst, excessive urination, flushing, intolerance to cold, intolerance to heat, unexplained weight gain, unexplained weight loss, others Psychiatric: denies: anxiety, bipolar disorder, depression, hopeless, panic disorder, schizophrenia, sleepless, suicidal, others All Other Systems: Reviewed and Negative Physical Exam General Appearance: Moderate Distress HEENT: Normal ENT Inspection, Pharynx Normal, TMs Normal Neck: Full Range of Motion, Non-Tender, Normal, Normal Inspection Respiratory: Chest Non-Tender, Decreased Breath Sounds, No Accessory Muscle Use, Respiratory Distress, Wheezing Cardiovascular: No Edema, No JVD, No Murmur, No Gallop, Normal Peripheral Pulses, Regular Rate/Rhythm Breast Exam: Deferred Gastrointestinal: No Organomegaly, Non Tender, No Pulsatile Mass, Normal Bowel Sounds, Soft Genitalia: Deferred Pelvic: Deferred Rectal: Deferred Extremities: No calf tenderness, Normal capillary refill, Normal inspection, Normal range of motion, Non-tender, No pedal edema Musculoskeletal : Apperance: Normal Neurologic: Alert, state tested nursing assistant II-XII nml as Tested, No Motor Deficits, Normal Affect, Normal Mood, No Sensory Deficits Cerebellar Function: Normal Reflexes: Normal Skin: Dry, Normal Color, Warm Lymphatic: No Adenopathy Was a procedure done? Was a procedure done?: No Differential Dx Differential Diagnosis: Bronchitis, COPD, Pneumonia, Sinusitis, Pharyngitis, URI X-Ray, Labs, Meds, VS Vital Signs Date Time Temp Pulse Resp B/P (MAP) Pulse Ox O2 Delivery O2 Flow Rate FiO2 03/05/25 17:19 20 96 Nasal Cannula* 4 36 03/05/25 16:35 98.6 91 18 144/101 94 98.6 Lab Test 03/05/25 17:10 Range/Units White Blood Count 8.4 4.4-10.8 10^3/uL Red Blood Count 5.04 4.5-5.90 10^6/uL Hemoglobin 14.1 13.5-17.5 g/dL Hematocrit 42.1 41.0-53.0 % Mean Corpuscular Volume 83.5 80.0-100.0 fL Mean Corpuscular Hemoglobin 27.9 L 28.0-32.0 pg Mean Corpuscular Hemoglobin Concent 33.4 32.0-36.0 g/dL Red Cell Distribution Width 16.1 H 11.8-14.3 % Platelet Count 288 140-450 10^3/uL Mean Platelet Volume 7.8 6.9-10.8 fL Neutrophils (%) (Auto) 57.3 37.0-80.0 % Lymphocytes (%) (Auto) 19.7 10.0-50.0 % Monocytes (%) (Auto) 7.9 0.0-12.0 % Eosinophils (%) (Auto) 14.7 H 0.0-7.0 % Basophils (%) (Auto) 0.4 0.0-2.0 % Neutrophils # (Auto) 4.8 1.6-8.6 10 ^3/uL Lymphocytes # (Auto) 1.7 0.4-5.4 10 ^3/uL Monocytes # (Auto) 0.7 0-1.3 10 ^3/uL Eosinophils # (Auto) 1.2 H 0-0.8 10 ^3/uL Basophils # (Auto) 0 0-0.2 10 ^3/uL Nucleated Red Blood Cells 0.3 % Sodium Level 142 136-145 mmol/L Potassium Level 4.1 3.5-5.1 mmol/L Chloride Level 107 98-107 mmol/L Carbon Dioxide Level 27 20-31 mmol/L Anion Gap 8 5-15 Blood Urea Nitrogen 26 H 9-23 mg/dL Creatinine 2.42 H 0.700-1.30 mg/dL Glomerular Filtration Rate Calc 30 >90 mL/min BUN/Creatinine Ratio 10.7 10.0-20.0 Serum Glucose 98 74-106 mg/dL Calcium Level 9.2 8.7-10.4 mg/dL B-Type Natriuretic Peptide Pending Current Medications Medications (Trade) Dose Ordered Sig/Mari Route Start Time Stop Time Status Last Admin Ipratropium Aubrey (Atrovent Medneb) 1 mg ONCE ONCE [facility] 03/05/25 17:00 03/05/25 17:01 DC 03/05/25 17:18 Albuterol (Ventolin Medneb) 20 mg ONCE ONCE [facility] 03/05/25 17:00 03/05/25 17:01 DC 03/05/25 17:18 The chest x-ray does not seem to show any signs of pneumonia. The patient's CBC is within normal limits The chemistry panel shows a BUN of 26 and a creatinine of 2.42 The BNP is pending The patient was given a continuous breathing treatment of albuterol and Atrovent An IV Hep-Lock was established and the patient was given Solu-Medrol 125 mg IV push The patient is being admitted The patient has been somewhat hypoxic so was placed on 4 L of oxygen and went up to 96% The patient is admitted Images Reviewed?: Images reviewed and evaluated by me Time of 1ST Reevaluation: 17:20 Reevaluation 1ST: Unchanged Patient Education/Counseling: Diagnosis, Treatment, Prognosis Family Education/Counseling: No Family Present SEPSIS Sepsis Screen Date sepsis recognized/suspect: Mar 05, 2025 Time Sepsis recognized/suspect: 1636 Recent Procedure: No On Antibiotic Therapy: No Respiratory Rate >20: No Heart Rate >90: No Temp<36 C (96.8 F) or >38.3 C: No SBP <90 or MAP <65 mmHG: No New Acute Mental Status Change: No Is the patient on CPAP, BIPAP,: No Physician Orders B-Type Natriuretic Peptide (03/05/25 16:53) Chest Portable (03/05/25 16:53) Urinalysis (03/05/25 16:53) Heplock Iv (03/05/25 16:53) Dressmaker Helper (03/05/25 16:53) Blood Pressure (03/05/25 16:53) Pulse Oximetry (03/05/25 16:53) Electrocardigram (03/05/25 16:53) Med Neb Initial Treatment (03/05/25 16:53) Vital Signs Date Time Temp Pulse Resp B/P (MAP) Pulse Ox O2 Delivery O2 Flow Rate FiO2 03/05/25 17:19 20 96 Nasal Cannula* 4 36 03/05/25 16:35 98.6 91 18 144/101 94 98.6 Laboratory Tests Test 03/05/25 17:10 White Blood Count 8.4 10^3/uL (4.4-10.8) Medications Medications Dose Ordered Sig/Mari Route Start Time Stop Time Status Last Admin Dose Admin Albuterol 20 mg ONCE ONCE N 03/05/25 17:00 03/05/25 17:01 DC 03/05/25 17:18 Ipratropium Aubrey 1 mg ONCE ONCE [facility] 03/05/25 17:00 03/05/25 17:01 DC 03/05/25 17:18 Departure 1 Departure Time of Disposition: 18:04 Impression: Primary Impression: Acute and chronic respiratory failure Additional Impression: COPD exacerbation Disposition: 09 ADMITTED INPATIENT Admit to: Tele Condition: Fair Critical Care Note Critical Care Time?: Yes (55 min-critical care time only) Stability Stability form required: Yes Unstable for transfer: Telemetry monitoring (Telemetry monitoring required), ED Physician Assesment (Clinical assesment) Heart Score Heart Score: Heart Score Response (Comments) Value History N/A 0 EKG N/A 0 Age N/A 0 Risk Factors N/A 0 Troponin N/A 0 Total 0 I personally scribed for CARLA KELLER MD ([email or web address]) on 03/05/25 at 16:59. Electronically submitted by Chanel Sparks ([email or web address]). CARLA KELLER MD Mar 05, 2025 16:59
[2025-03-05] MEDS ORDERED: methylPREDNISolone SOD SUCC 125 MG/2 ML VL IV ONE (17:00)
[2025-03-05] MEDS: ALBUTEROL SULF 2.5 MG/0.5ML(0.5%) NEB SOLN HHN ONE (17:18)
[2025-03-05] MEDS: IPRATROPIUM BROM 0.5 MG/2.5ML INH SOL HHN ONE (17:18)
[2025-03-05 17:19] VITALS: RESP 20; O2SAT 96
[2025-03-05 17:28] LABS: Chloride 107 mmol/L (98-107); Potassium 4.1 mmol/L (3.5-5.1); Sodium 142 mmol/L (136-145)
[2025-03-05 17:29] LABS: Anion Gap 8 (5-15); Calcium 9.2 mg/dL (8.7-10.4); Carbon Dioxide 27 mmol/L (20-31)
[2025-03-05 17:34] LABS: BUN/Creatinine Ratio 10.7 (10.0-20.0); Glucose 98 mg/dL (74-106)
[2025-03-05 17:41] LABS: Hematocrit 42.1 % (41.0-53.0); Hemoglobin 14.1 g/dL (13.5-17.5); Mean Corpuscular Hemoglobin 27.9 pg (28.0-32.0); Mean Corpuscular Volume 83.5 fL (80.0-100.0); Nucleated Red Blood Cells % 0.3 %
[2025-03-05 17:43] LABS: Blood Urea Nitrogen 26 mg/dL (9-23)
--- NOTE | 2025-03-05 18:07 | DVH ---
CHEST RADIOGRAPH Indication: sob Technique: Single frontal view of the chest was obtained Comparison: XY CHEST PORTABLE on DOS: 02/21/25, XY CHEST XRAY 1 VIEW on DOS: 01/16/25, XY CHEST PORTABLE on DOS: 10/19/24 FINDINGS: Lines and Tubes: None Lungs: No focal consolidation. Pleura: No effusion. No pneumothorax. Cardiomediastinal contours: Unremarkable Bones: No acute osseous abnormality. IMPRESSION: 1. No acute cardiopulmonary disease.
[2025-03-05 19:19] LABS: Urine Protein, UAD 2+ (Negative)
[2025-03-05] MEDS ORDERED: AZITHROMYCIN 500MG/ 250ML 250 ML IV ONE (20:15)
[2025-03-05] MEDS ORDERED: IPRATROPIUM BROM 0.5 MG/2.5ML INH SOL NEB PRN (20:15)
[2025-03-05] MEDS ORDERED: ALBUTEROL SULF 2.5 MG/0.5ML(0.5%) NEB SOLN NEB PRN (20:15)
--- NOTE | 2025-03-05 21:09 | DVHHP2 ---
History of Present Illness Reason for Visit: Shortness for breath History of Present Illness Patient 9-year-old male presents for evaluation of shortness for breath. Patient reports a one-week history of worsening shortness for breath with associated productive cough with yellow phlegm and chills. Past Medical History Hypertension, diabetes mellitus, COPD Past Surgical History Denies Family History Cancer Smoke: Quit ALCOHOL: none Drugs: None Lives: with Family Review of Systems Review of Systems Review of systems are currently negative otherwise addressed in HPI. Allergies: Coded Allergies: Latex (Verified Allergy, Unknown, 01/17/25) Tetracycline (Verified Allergy, Unknown, 04/19/24) Medications Current Medications Medications Dose Ordered Sig/Mari Route Start Time Stop Time Status Last Admin Dose Admin Albuterol 2.5 mg Q6HPRN PRN NEB 03/05/25 20:15 Ipratropium [place] 0.5 mg Q6HPRN PRN NEB 03/05/25 20:15 Methylprednisolone Sodium Succinate 40 mg DAILY IV 03/06/25 10:00 Azithromycin 250 ml @ 125 mls/hr DAILY IV 03/06/25 10:00 Amlodipine Besylate 10 mg DAILY PO 03/06/25 10:00 Hydralazine HCl 50 mg Q8HR PO 03/05/25 22:00 Furosemide 40 mg DAILY PO 03/06/25 10:00 Levothyroxine Sodium 25 mcg QAM@0600 PO 03/06/25 06:00 Atorvastatin Calcium 40 mg HS PO 03/05/25 22:00 Exam Vital Signs Vital Signs Date Time Temp Pulse Resp B/P (MAP) Pulse Ox O2 Delivery O2 Flow Rate FiO2 03/05/25 17:19 20 96 Nasal Cannula* 4 36 03/05/25 16:35 98.6 91 144/101 98.6 Exam Gen: 59-year-old male in mild distress Skin: Warm, dry, normal color and texture, no rash. HEENT: Normocephalic atraumatic, mucous membranes moist and pink. Neck: Cervical and supraclavicular nodes normal without enlargement, trachea is midline, thyroid gland is normal without masses. Pulmonary: Clear to auscultation and percussion bilaterally. Cardiac: Regular rate and rhythm. No murmur Abdomen: Soft, nontender, nondistended, bowel sounds present all 4 quadrants, no guarding, no rigidity, no organomegaly. Extremities: No cyanosis, clubbing, no edema Neuro: Cranial nerves II through XII grossly intact, normal affect and speech, no focal motor deficits. Labs/Xrays ORDERING PHYSICIAN: CARLA KELLER MD PROCEDURE(s): CXRP - CHEST PORTABLE REASON: sob ORDER NUMBER(s): [id number], ACCESSION NUMBER(s): [id number] CHEST RADIOGRAPH Indication: sob Technique: Single frontal view of the chest was obtained Comparison: XY CHEST PORTABLE on DOS: 02/21/25, XY CHEST XRAY 1 VIEW on DOS: 01/16/25, XY CHEST PORTABLE on DOS: 10/19/24 FINDINGS: Lines and Tubes: None Lungs: No focal consolidation. Pleura: No effusion. No pneumothorax. Cardiomediastinal contours: Unremarkable Bones: No acute osseous abnormality. IMPRESSION: 1. No acute cardiopulmonary disease. Labs Test 03/05/25 18:09 03/05/25 17:10 Range/Units Urine Color Yellow Yellow Urine Clarity Clear Clear Urine pH 5.5 5.0-9.0 Urine Specific [place] 1.028 1.001-1.035 Urine Protein 2+ H Negative Urine Ketones Negative Negative Urine Blood 1+ H Negative /uL Urine Nitrite Negative Negative Urine Bilirubin Negative Negative Urine Urobilinogen Normal Negative mg/dL Urine Leukocyte Esterase Negative Negative /uL Urine RBC 1 0 - 3 /hpf Urine Microscopic WBC 3 0-3 /HPF Urine Squamous Epithelial Cells Few <5 /hpf Urine Bacteria None seen None Seen /hpf Urine Mucus Few None Seen Urine Glucose Normal Normal mg/dL White Blood Count 8.4 4.4-10.8 10^3/uL Red Blood Count 5.04 4.5-5.90 10^6/uL Hemoglobin 14.1 13.5-17.5 g/dL Hematocrit 42.1 41.0-53.0 % Mean Corpuscular Volume 83.5 80.0-100.0 fL Mean Corpuscular Hemoglobin 27.9 L 28.0-32.0 pg Mean Corpuscular Hemoglobin Concent 33.4 32.0-36.0 g/dL Red Cell Distribution Width 16.1 H 11.8-14.3 % Platelet Count 288 140-450 10^3/uL Mean Platelet Volume 7.8 6.9-10.8 fL Neutrophils (%) (Auto) 57.3 37.0-80.0 % Lymphocytes (%) (Auto) 19.7 10.0-50.0 % Monocytes (%) (Auto) 7.9 0.0-12.0 % Eosinophils (%) (Auto) 14.7 H 0.0-7.0 % Basophils (%) (Auto) 0.4 0.0-2.0 % Neutrophils # (Auto) 4.8 1.6-8.6 10 ^3/uL Lymphocytes # (Auto) 1.7 0.4-5.4 10 ^3/uL Monocytes # (Auto) 0.7 0-1.3 10 ^3/uL Eosinophils # (Auto) 1.2 H 0-0.8 10 ^3/uL Basophils # (Auto) 0 0-0.2 10 ^3/uL Nucleated Red Blood Cells 0.3 % Sodium Level 142 136-145 mmol/L Potassium Level 4.1 3.5-5.1 mmol/L Chloride Level 107 98-107 mmol/L Carbon Dioxide Level 27 20-31 mmol/L Anion Gap 8 5-15 Blood Urea Nitrogen 26 H 9-23 mg/dL Creatinine 2.42 H 0.700-1.30 mg/dL Glomerular Filtration Rate Calc 30 >90 mL/min BUN/Creatinine Ratio 10.7 10.0-20.0 Serum Glucose 98 74-106 mg/dL Calcium Level 9.2 8.7-10.4 mg/dL B-Type Natriuretic Peptide 2.57 0-100 pg/mL SEPSIS Sepsis Screen Date sepsis recognized/suspect: Mar 05, 2025 Time Sepsis recognized/suspect: 1636 Recent Procedure: No On Antibiotic Therapy: No Respiratory Rate >20: No Heart Rate >90: No Temp<36 C (96.8 F) or >38.3 C: No SBP <90 or MAP <65 mmHG: No New Acute Mental Status Change: No Is the patient on CPAP, BIPAP,: No Physician Orders Chest Portable (03/05/25 16:53) Heplock Iv (03/05/25 16:53) Financial Sales Consultant (03/05/25 16:53) Blood Pressure (03/05/25 16:53) Pulse Oximetry (03/05/25 16:53) Electrocardigram (03/05/25 16:53) Med Neb Initial Treatment (03/05/25 16:53) Admit (03/05/25 19:52) Albuterol Medneb (Ventolin Medneb) (03/05/25 20:15) Ipratropium Medneb (Atrovent Medneb) (03/05/25 20:15) Methylprednisolone Sod Succ (Solu Medrol (03/06/25 10:00) Azithromycin 500mg/ 250ml (Zithromax 50 (03/06/25 10:00) Azithromycin 500mg/ 250ml (Zithromax 50 (03/05/25 20:15) Amlodipine Tablet (Norvasc Tablet) (03/06/25 10:00) Hydralazine Hcl Tablet (Apresoline Table (03/05/25 22:00) Furosemide Tablet (Lasix Tablet) (03/06/25 10:00) Levothyroxine Tablet (Synthroid Tablet) (03/06/25 06:00) Atorvastatin (Lipitor) (03/05/25 22:00) Vital Signs Date Time Temp Pulse Resp B/P (MAP) Pulse Ox O2 Delivery O2 Flow Rate FiO2 03/05/25 17:19 20 96 Nasal Cannula* 4 36 03/05/25 16:35 98.6 91 18 144/101 94 98.6 Laboratory Tests Test 03/05/25 17:10 White Blood Count 8.4 10^3/uL (4.4-10.8) Medications Medications Dose Ordered Sig/Mari Route Start Time Stop Time Status Last Admin Dose Admin Albuterol 20 mg ONCE ONCE [facility] 03/05/25 17:00 03/05/25 17:01 DC 03/05/25 17:18 20 MG Ipratropium [place] 1 mg ONCE ONCE N 03/05/25 17:00 03/05/25 17:01 DC 03/05/25 17:18 1 MG Assessment/Plan Assessment/Plan Assessment Acute on chronic respiratory failure COPD exacerbation Pneumonitis Hypertension Plan Admit the patient to Med surge to the hospitalist Jarek toros Azithromycin Resume home medications Continue treatment per orders. Plan discussed with: Patient My Orders Orders - MILI DUBOSE AGACNP Procedure Category Date Status Time Admit ADMIT 03/05/25 Transmitted 19:52 Albuterol Medneb PHA 03/05/25 In Process (Ventolin Medneb) 20:15 Ipratropium Medneb PHA 03/05/25 In Process (Atrovent Medneb) 20:15 Methylprednisolone PHA 03/06/25 In Process Sod Succ (Solu Medrol 10:00 Azithromycin 500mg/ PHA 03/06/25 In Process 250ml (Zithromax 50 10:00 Azithromycin 500mg/ PHA 03/05/25 In Process 250ml (Zithromax 50 20:15 Amlodipine Tablet PHA 03/06/25 In Process (Norvasc Tablet) 10:00 Hydralazine Hcl PHA 03/05/25 In Process Tablet (Apresoline 22:00 Furosemide Tablet PHA 03/06/25 In Process (Lasix Tablet) 10:00 Levothyroxine Tablet PHA 03/06/25 In Process (Synthroid Tablet) 06:00 Atorvastatin (Lipitor) PHA 03/05/25 In Process 22:00 Date of Service: Mar 05, 2025 Billing Provider: MILI DUBOSE Common Visit Codes: [id number] INP/OBS CARE (MOD) MILI DUBOSE Mar 05, 2025 21:09
[2025-03-05] MEDS ORDERED: ATORVASTATIN 20 MG TAB PO SCH (22:00)
[2025-03-06] MEDS ORDERED: LEVOTHYROXINE SODIUM 25 MCG TAB PO SCH (06:00)
[2025-03-06] MEDS ORDERED: FUROSEMIDE 40 MG TAB PO SCH (10:00)
[2025-03-06] MEDS ORDERED: AZITHROMYCIN 500MG/ 250ML 250 ML IV SCH (10:00)
[2025-03-06] MEDS ORDERED: methylPREDNISolone SOD SUCC 40 MG/ML VL IV SCH (10:00)
== END 2025-03-05 20:39 | disposition left against medical advice (07) | DRG 144 ==
LOC: ER 16:31 → OVERFLOW 19:52
PROVIDERS: ADMIT Nurse Practitioner; ATTEND Nurse Practitioner
DX: J98.4 Other disorders of lung (principal); J96.20 Acute and chronic respiratory failure, unspecified whether with hypoxia or hypercapnia; I50.9 Heart failure, unspecified; I11.0 Hypertensive heart disease with heart failure; J44.1 Chronic obstructive pulmonary disease with (acute) exacerbation; E11.9 Type 2 diabetes mellitus without complications; Z53.29 Procedure and treatment not carried out because of patient's decision for other reasons; Z87.891 Personal history of nicotine dependence; Z80.9 Family history of malignant neoplasm, unspecified; Z88.1 Allergy status to other antibiotic agents; Z91.040 Latex allergy status
CPT/HCPCS: 36415; 71045; 80048; 81001; 83880; 85025; 94640; 99291; G0378

== ENCOUNTER 2025-03-10 09:20 | Inpatient (IN) | payer OTHER ==
[~2025-03-10] VITALS: Ht 175.3 cm; Wt 106.5 kg
[2025-03-10] VITALS (7 sets, daily range): BP systolic 124; BP diastolic 77; PULSE 76–93; RESP 14–20; TEMP 98; O2SAT 91–97
[2025-03-10] MEDS: methylPREDNISolone SOD SUCC 125 MG/2 ML VL IV ONE (09:30)
--- NOTE | 2025-03-10 09:34 | ED.PDOC ---
SOB-HPI HPI Comments 59-year-old male, with past medical history of COPD CHF, and pneumonia presents to the emergency department for chief complaint of shortness of breath. Patient states, he has been experiencing increased shortness of breath since 03/05/25 and came to the ED in which he was given oxygen and admitted, however signed AMA. Now symptoms are worse and has continuous wheezing. Patient reports, he was previously admitted for same symptoms x2 weeks ago. Patient further comments on associated symptoms of a productive cough with phlegm that is "yellow" in appearance. Patient relays using his home rescue inhaler and breathing treatments with no relief. Today, patient was seen at the clinic, SPO2 read 85% on room air and was placed on 3 liters oxygen via NC with SPO2 improving to 95%. Chief Complaint: Shortness of Breath Time Seen by MD: 09:27 Reviewed notes: Nurses Notes, Medications, Allergies Information Source: Patient Mode of Arrival: Wheelchair Severity: Moderate Timing: Days Duration: Since onset Context: At Rest PE Risk Factors: None History of: COPD Modifying Factors: Nothing Associated Signs and Symptoms: Wheeze Past Medical History PAST MEDICAL HISTORY: CHF, COPD Surgical History: Denies all surgeries Family History Family History: Family hx of Cancer Social History Smoker: Quit Greater Than 1 Year Alcohol: Denies ETOH Use Drugs: Denies Drug Use Lives In: Home Constitutional: denies: chills, diaphoresis, fatigue, fever, malaise, sweats, weakness, others EENTM: denies: blurred vision, double vision, ear bleeding, ear discharge, ear drainage, ear pain, ear ringing, eye pain, eye redness, hearing loss, mouth pain, mouth swelling, nasal discharge, nose bleeding, nose congestion, nose pain, photophobia, tearing, throat pain, throat swelling, voice changes, others Respiratory: reports: SOB at rest, shortness of breath, SOB with excertion, wheezing; denies: cough, hemoptysis, orthopnea, stridor, others Cardiovascular: denies: chest pain, dizzy spells, diaphoresis, Dyspnea on exer tion, edema, irregular heart beat, left arm pain, lightheadedness, palpitations, PND, syncope, others Gastrointestinal: denies: abdomen distended, abdominal pain, blood streaked bowels, constipated, diarrhea, dysphagia, difficulty swallowing, hematemesis, melena, nausea, poor appetite, poor fluid intake, rectal bleeding, rectal pain, vomiting, others Genitourinary: denies: burning, dysuria, flank pain, frequency, hematuria, incontinence, penile discharge, penile sore, pain, testicle pain, testicle swelling, urgency, others Neurological: denies: dizziness, fainting, headache, left sided numbness, left sided weakness, numbness, paresthesia, pre-existing deficit, right sided numbness, right sided weakness, seizure, speech problems, tingling, tremors, weakness, others Musculoskeletal: denies: back pain, gout, joint pain, joint swelling, muscle pain, muscle stiffness, neck pain, others Integumetry: denies: bruises, change in color, change in hair/nails, dryness, laceration, lesions, lumps, rash, wounds, others Allergic/Immunocompromised: denies: Difficulty Healing, Frequent Infections, Hives, Itching, others Hematologic/Lymphatic: denies: anemia, blood clots, easy bleeding, easy bruising, swollen glands, others Endocrine: denies: excessive hunger, excessive sweating, excessive thirst, excessive urination, flushing, intolerance to cold, intolerance to heat, unexplained weight gain, unexplained weight loss, others Psychiatric: denies: anxiety, bipolar disorder, depression, hopeless, panic disorder, schizophrenia, sleepless, suicidal, others All Other Systems: Reviewed and Negative Physical Exam General Appearance: Moderate Distress HEENT: Normal ENT Inspection, Pharynx Normal, TMs Normal Neck: Full Range of Motion, Non-Tender, Normal, Normal Inspection Respiratory: Chest Non-Tender, Lungs Clear, No Accessory Muscle Use, Respiratory Distress, Wheezing Cardiovascular: No Edema, No JVD, No Murmur, No Gallop, Normal Peripheral Pulses, Regular Rate/Rhythm Breast Exam: Deferred Gastrointestinal: No Organomegaly, Non Tender, No Pulsatile Mass, Normal Bowel Sounds, Soft Genitalia: Deferred Pelvic: Deferred Rectal: Deferred Extremities: No calf tenderness, Normal capillary refill, Normal inspection, Normal range of motion, Non-tender, No pedal edema Musculoskeletal : Apperance: Normal Neurologic: Alert, safety glass installer II-XII nml as Tested, No Motor Deficits, Normal Affect, Normal Mood, No Sensory Deficits Cerebellar Function: Normal Reflexes: Normal Skin: Dry, Normal Color, Warm Lymphatic: No Adenopathy Was a procedure done? Was a procedure done?: No Differential Dx Differential Diagnosis: Asthma, Bronchitis, COPD, Pneumonia, Respiratory Distress, URI X-Ray, Labs, Meds, VS Vital Signs Date Time Temp Pulse Resp B/P (MAP) Pulse Ox O2 Delivery O2 Flow Rate FiO2 03/10/25 09:45 18 97 Nasal Cannula* 3 32 03/10/25 09:33 85 03/10/25 09:22 98.9 93 20 149/93 95 98.9 Lab Test 03/10/25 10:50 03/10/25 09:45 Range/Units Troponin I High Sensitivity Pending 14 </=54 ng/L White Blood Count 9.0 4.4-10.8 10^3/uL Red Blood Count 4.99 4.5-5.90 10^6/uL Hemoglobin 13.6 13.5-17.5 g/dL Hematocrit 41.4 41.0-53.0 % Mean Corpuscular Volume 83.0 80.0-100.0 fL Mean Corpuscular Hemoglobin 27.2 L 28.0-32.0 pg Mean Corpuscular Hemoglobin Concent 32.8 32.0-36.0 g/dL Red Cell Distribution Width 16.1 H 11.8-14.3 % Platelet Count 247 140-450 10^3/uL Mean Platelet Volume 7.8 6.9-10.8 fL Neutrophils (%) (Auto) 37.0-80.0 % Lymphocytes (%) (Auto) 10.0-50.0 % Monocytes (%) (Auto) 0.0-12.0 % Eosinophils (%) (Auto) 0.0-7.0 % Basophils (%) (Auto) 0.0-2.0 % Neutrophils # (Auto) 1.6-8.6 10 ^3/uL Lymphocytes # (Auto) 0.4-5.4 10 ^3/uL Monocytes # (Auto) 0-1.3 10 ^3/uL Differential Total Cells Counted 100.0 100 Neutrophils % (Manual) 57 37.0-80.0 Band Neutrophils % (Manual) 0 Lymphocytes % (Manual) 20 10.0-50.0 Monocytes % (Manual) 4 0-12 Eosinophils % (Manual) 19 H 0-7 Basophils % (Manual) 0 0.0-2.0 Metamyelocytes % (manual) 0 Myelocytes % (Manual) 0 Promyelocytes % (Manual) 0 Blast Cells % (Manual) 0 Reactive Lymphocytes 0 Platelet Estimate Adequate Sodium Level 143 136-145 mmol/L Potassium Level 4.4 3.5-5.1 mmol/L Chloride Level 106 98-107 mmol/L Carbon Dioxide Level 27 20-31 mmol/L Anion Gap 10 5-15 Blood Urea Nitrogen 20 9-23 mg/dL Creatinine 2.11 H 0.700-1.30 mg/dL Glomerular Filtration Rate Calc 36 >90 mL/min BUN/Creatinine Ratio 9.5 L 10.0-20.0 Serum Glucose 93 74-106 mg/dL Calcium Level 9.3 8.7-10.4 mg/dL B-Type Natriuretic Peptide 12.53 0-100 pg/mL Current Medications Medications (Trade) Dose Ordered Sig/Mari Route Start Time Stop Time Status Last Admin Methylprednisolone Sodium Succinate (Solu Medrol) 125 mg ONCE ONCE IV 03/10/25 09:30 03/10/25 09:33 DC 03/10/25 09:30 Ipratropium [place] (Atrovent Medneb) 1 mg ONCE ONCE N 03/10/25 09:30 03/10/25 09:33 DC 03/10/25 09:44 Albuterol (Ventolin Medneb) 20 mg ONCE ONCE [facility] 03/10/25 09:30 03/10/25 09:33 DC 03/10/25 09:44 IV Hep-Lock was established. The patient was given Solu-Medrol 125 mg IV push The patient was placed on an albuterol treatment with albuterol and Atrovent. The BNP is within normal limits The BUN is 20 and the creatinine is 2.11 The chemistry panel is within normal limits. The CBC is within normal limits. The troponin is negative At this time, the patient is being admitted to the hospitalist We did advise the patient that he does need to stay in the hospital although he states that he has left in the past agrees to stay at this time Images Reviewed?: Images reviewed and evaluated by me Time of 1ST Reevaluation: 09:31 Reevaluation 1ST: Worsened Patient Education/Counseling: Diagnosis, Treatment, Prognosis Family Education/Counseling: No Family Present SEPSIS Sepsis Screen Date sepsis recognized/suspect: Mar 10, 2025 Time Sepsis recognized/suspect: 0923 Recent Procedure: No On Antibiotic Therapy: No Respiratory Rate >20: No Heart Rate >90: Yes Temp<36 C (96.8 F) or >38.3 C: No SBP <90 or MAP <65 mmHG: No New Acute Mental Status Change: No Is the patient on CPAP, BIPAP,: No Physician Orders Electrocardigram (03/10/25 09:29) Med Neb Initial Treatment (03/10/25 09:30) Heplock Iv (03/10/25 09:30) Pulse Oximetry (03/10/25 09:30) Quality Nurse (03/10/25 09:30) Blood Pressure (03/10/25 09:30) Chest Two Views Routine (03/10/25 09:30) Troponin-I Hs (03/10/25 10:30) Troponin-I Hs (03/10/25 12:30) Vital Signs Date Time Temp Pulse Resp B/P (MAP) Pulse Ox O2 Delivery O2 Flow Rate FiO2 03/10/25 09:45 18 97 Nasal Cannula* 3 32 03/10/25 09:33 85 03/10/25 09:22 98.9 93 20 149/93 95 98.9 Laboratory Tests Test 03/10/25 09:45 White Blood Count 9.0 10^3/uL (4.4-10.8) Medications Medications Dose Ordered Sig/Mari Route Start Time Stop Time Status Last Admin Dose Admin Albuterol 20 mg ONCE ONCE [facility] 03/10/25 09:30 03/10/25 09:33 DC 03/10/25 09:44 Ipratropium [place] 1 mg ONCE ONCE N 03/10/25 09:30 03/10/25 09:33 DC 03/10/25 09:44 Methylprednisolone Sodium Succinate 125 mg ONCE ONCE IV 03/10/25 09:30 03/10/25 09:33 DC 03/10/25 09:30 Departure 1 Departure Time of Disposition: 11:32 Impression: Primary Impression: Acute and chronic respiratory failure Additional Impression: COPD with acute exacerbation Disposition: ADMITTED INPATIENT Admit to: [facility] Condition: Fair Critical Care Note Critical Care Time?: Yes (35 min-critical care time only) Stability Stability form required: Yes Unstable for transfer: Telemetry monitoring (Telemetry monitoring required), ED Physician Assesment (Clinical assesment) I personally scribed for CARLA KELLER MD ([email or web address]) on 03/10/25 at 09:34. Electronically submitted by Deborah Teixeira ([facility]). CARLA KELLER MD Mar 10, 2025 09:34
[2025-03-10] MEDS: ALBUTEROL SULF 2.5 MG/0.5ML(0.5%) NEB SOLN HHN ONE (09:44)
[2025-03-10] MEDS: IPRATROPIUM BROM 0.5 MG/2.5ML INH SOL HHN ONE (09:44)
[2025-03-10 10:03] LABS: Hematocrit 41.4 % (41.0-53.0); Hemoglobin 13.6 g/dL (13.5-17.5); Mean Corpuscular Hemoglobin 27.2 pg (28.0-32.0); Mean Corpuscular Volume 83.0 fL (80.0-100.0)
[2025-03-10 10:04] LABS: Chloride 106 mmol/L (98-107); Potassium 4.4 mmol/L (3.5-5.1); Sodium 143 mmol/L (136-145)
[2025-03-10 10:05] LABS: Anion Gap 10 (5-15); Calcium 9.3 mg/dL (8.7-10.4); Carbon Dioxide 27 mmol/L (20-31)
[2025-03-10 10:10] LABS: BUN/Creatinine Ratio 9.5 (10.0-20.0); Blood Urea Nitrogen 20 mg/dL (9-23); Glucose 93 mg/dL (74-106)
[2025-03-10 11:16] LABS: Total Cells Counted 100.0 (100)
--- NOTE | 2025-03-10 11:28 | DVH ---
XY CHEST TWO VIEWS ROUTINE CLINICAL HISTORY: sob COMPARISON: None TECHNIQUE: Frontal and lateral view of the chest was obtained FINDINGS: Lines and Tubes: None Lungs: No focal consolidation. Pleura: Pleural thickening along the minor fissure on the right Cardiomediastinal contours: Unremarkable Bones: No acute osseous abnormality. IMPRESSION: 1. Pleural thickening of the minor fissure on the right. No lateral film since study of 10/19/2024 demonstrated some pleural thickening along the minor fissure on the right.
[2025-03-10] MEDS ORDERED: ACETAMINOPHEN 325 MG TAB PO PRN (14:15)
[2025-03-10] MEDS ORDERED: DEXTROSE (50%) 50ML SYRG IV PRN (14:15)
--- NOTE | 2025-03-10 14:33 | DVHHP2 ---
History of Present Illness History of Present Illness This is a 59-year-old male with a past medical history of COPD not on home oxygen, CHF, CKD stage 4, hypothyroidism, and recurrent pneumonia, who presents with worsening shortness of breath. He was admitted on March 05 for dyspnea but left AMA. Since then, his symptoms have progressively worsened. He reports being in and out of the hospital, and although he frequently desaturates, he has repeatedly been told he does not qualify for home oxygen. He is currently on 3 L nasal cannula. He reports chronic baseline dyspnea but feels this episode is worse. He denies fever, chills, chest pain, cough with sputum, or recent sick contacts. On arrival, CBC is normal. Chemistry shows creatinine 2.1 (baseline for CKD stage 4). BNP is negative. Chest imaging reveals pleural thickening of the minor fissure. A prior CT chest from August demonstrated Minimal tree-in-bud opacities of the right lower lobe which may represent infectious bronchiolitis.. He reportedly had an upcoming pulmonology appointment. Echocardiogram shows LVH with preserved LVEF of 60%, dilated RV, and chronic RV strain. He also had a cardiac arrest in September of this year requiring intubation at that time. Given the acute worsening of dyspnea, elevated oxygen requirement, and COPD history, he will be admitted for acute on chronic hypoxic respiratory failure likely secondary to COPD exacerbation, and for reassessment of home oxygen qualification. His home medications include amlodipine, albuterol metformin,and umeclidiniumvilanterol. Past Medical History PAST MEDICAL HISTORY: CHF, COPD, CKD, hypothyroidism Surgical History: Denies all surgeries Family History Family History: Family hx of Cancer Social History Smoker: Quit Greater Than 1 Year Alcohol: Denies ETOH Use Drugs: Denies Drug Use Lives In: Home Review of Systems Allergies: Coded Allergies: Latex (Verified Allergy, Unknown, 01/17/25) Tetracycline (Verified Allergy, Unknown, 04/19/24) Medications Current Medications Medications Dose Ordered Sig/Mari Route Start Time Stop Time Status Last Admin Dose Admin Acetaminophen 650 mg Q6HP PRN PO 03/10/25 14:15 Enoxaparin Sodium 40 mg DAILY SC 03/11/25 10:00 Furosemide 40 mg DAILY IV 03/10/25 14:15 Ipratropium [place] 0.5 mg Q6HWA NEB 03/10/25 18:00 Albuterol 2.5 mg Q6HWA NEB 03/10/25 18:00 Amlodipine Besylate 10 mg DAILY PO 03/10/25 14:15 Ceftriaxone Sodium 50 ml @ 100 mls/hr DAILY@09 IV 03/10/25 14:15 Azithromycin 250 ml @ 125 mls/hr DAILY IV 03/10/25 14:15 Diagnostic Test (Pha) 1 strip ACHS 03/10/25 17:00 Insulin Human Regular ACHS SC 03/10/25 17:00 Dextrose 50 ml UD PRN IV 03/10/25 14:15 Exam Vital Signs Vital Signs Date Time Temp Pulse Resp B/P (MAP) Pulse Ox O2 Delivery O2 Flow Rate FiO2 03/10/25 13:49 98.8 93 19 114/75 (88) 93 98.8 03/10/25 09:45 Nasal Cannula* 3 32 Exam General: Mild respiratory distress, speaking in short sentences on 3 L NC. HEENT: No JVD, moist mucous membranes. CV: Regular rate and rhythm, no murmurs, rubs, or gallops. Respiratory: Diminished breath sounds bilaterally, end-expiratory wheezes, no crackles. Abdomen: Soft, non-tender, nondistended. Extremities: No edema. Neuro: Alert and oriented 3, no focal deficits. Skin: Warm, dry, no rashes. Labs/Xrays Labs Test 03/10/25 12:55 03/10/25 09:45 Range/Units Troponin I High Sensitivity 19 </=54 ng/L White Blood Count 9.0 4.4-10.8 10^3/uL Red Blood Count 4.99 4.5-5.90 10^6/uL Hemoglobin 13.6 13.5-17.5 g/dL Hematocrit 41.4 41.0-53.0 % Mean Corpuscular Volume 83.0 80.0-100.0 fL Mean Corpuscular Hemoglobin 27.2 L 28.0-32.0 pg Mean Corpuscular Hemoglobin Concent 32.8 32.0-36.0 g/dL Red Cell Distribution Width 16.1 H 11.8-14.3 % Platelet Count 247 140-450 10^3/uL Mean Platelet Volume 7.8 6.9-10.8 fL Neutrophils (%) (Auto) 37.0-80.0 % Lymphocytes (%) (Auto) 10.0-50.0 % Monocytes (%) (Auto) 0.0-12.0 % Eosinophils (%) (Auto) 0.0-7.0 % Basophils (%) (Auto) 0.0-2.0 % Neutrophils # (Auto) 1.6-8.6 10 ^3/uL Lymphocytes # (Auto) 0.4-5.4 10 ^3/uL Monocytes # (Auto) 0-1.3 10 ^3/uL Differential Total Cells Counted 100.0 100 Neutrophils % (Manual) 57 37.0-80.0 Band Neutrophils % (Manual) 0 Lymphocytes % (Manual) 20 10.0-50.0 Monocytes % (Manual) 4 0-12 Eosinophils % (Manual) 19 H 0-7 Basophils % (Manual) 0 0.0-2.0 Metamyelocytes % (manual) 0 Myelocytes % (Manual) 0 Promyelocytes % (Manual) 0 Blast Cells % (Manual) 0 Reactive Lymphocytes 0 Platelet Estimate Adequate Sodium Level 143 136-145 mmol/L Potassium Level 4.4 3.5-5.1 mmol/L Chloride Level 106 98-107 mmol/L Carbon Dioxide Level 27 20-31 mmol/L Anion Gap 10 5-15 Blood Urea Nitrogen 20 9-23 mg/dL Creatinine 2.11 H 0.700-1.30 mg/dL Glomerular Filtration Rate Calc 36 >90 mL/min BUN/Creatinine Ratio 9.5 L 10.0-20.0 Serum Glucose 93 74-106 mg/dL Calcium Level 9.3 8.7-10.4 mg/dL B-Type Natriuretic Peptide 12.53 0-100 pg/mL SEPSIS Sepsis Screen Date sepsis recognized/suspect: Mar 10, 2025 Time Sepsis recognized/suspect: 922 Recent Procedure: No On Antibiotic Therapy: No Respiratory Rate >20: No Heart Rate >90: Yes Temp<36 C (96.8 F) or >38.3 C: No SBP <90 or MAP <65 mmHG: No New Acute Mental Status Change: No Is the patient on CPAP, BIPAP,: No Physician Orders Electrocardigram (03/10/25 09:29) Med Neb Initial Treatment (03/10/25 09:30) Heplock Iv (03/10/25 09:30) Pulse Oximetry (03/10/25 09:30) Manager Icu (03/10/25 09:30) Blood Pressure (03/10/25 09:30) Chest Two Views Routine (03/10/25 09:30) Admit (03/10/25 14:08) Code Status (03/10/25 14:08) Vital Signs .PER UNIT PROTOCOL (03/10/25 14:08) Review Orders With Adm.Md (03/10/25 14:08) [facility]Diabetes (03/10/25 Dinner) Acetaminophen Tablet (Tylenol Tablet) (03/10/25 14:15) Notify Md Of Changes From Base (03/10/25 14:08) Advance Directive (03/10/25 14:08) Urinalysis (03/10/25 14:08) Patient Condition (03/10/25 14:08) Allergies (03/10/25 14:08) Drug Screen (03/10/25 14:08) Enoxaparin Sodium (Lovenox) (03/11/25 10:00) Furosemide Injection (Lasix Injection) (03/10/25 14:15) Ipratropium Medneb (Atrovent Medneb) (03/10/25 18:00) Albuterol Medneb (Ventolin Medneb) (03/10/25 18:00) Amlodipine Tablet (Norvasc Tablet) (03/10/25 14:15) Ceftriaxone 1gm/50ml (Rocephin) (03/10/25 14:15) Azithromycin 500mg/ 250ml (Zithromax 50 (03/10/25 14:15) Glucose Blood (Accu-Chek Comfort Curve T (03/10/25 17:00) Insulin R (Human) (Insulin R) (03/10/25 17:00) Dextrose 50% Syringe (03/10/25 14:15) Vital Signs Date Time Temp Pulse Resp B/P (MAP) Pulse Ox O2 Delivery O2 Flow Rate FiO2 03/10/25 13:49 98.8 93 19 114/75 (88) 93 98.8 03/10/25 09:45 18 97 Nasal Cannula* 3 32 03/10/25 09:33 85 03/10/25 09:22 98.9 93 20 149/93 95 98.9 Laboratory Tests Test 03/10/25 09:45 White Blood Count 9.0 10^3/uL (4.4-10.8) Medications Medications Dose Ordered Sig/Mari Route Start Time Stop Time Status Last Admin Dose Admin Albuterol 20 mg ONCE ONCE [facility] 03/10/25 09:30 03/10/25 09:33 DC 03/10/25 09:44 20 MG Ipratropium [place] 1 mg ONCE ONCE [facility] 03/10/25 09:30 03/10/25 09:33 DC 03/10/25 09:44 1 MG Methylprednisolone Sodium Succinate 125 mg ONCE ONCE IV 03/10/25 09:30 03/10/25 09:33 DC 03/10/25 09:30 125 MG Assessment/Plan Assessment/Plan #Acute on chronic hypoxic respiratory failure due to COPD exacerbation The patient presents with worsening shortness of breath, increased oxygen re quirements, diffuse wheezing on exam, and a normal BNP, making COPD exacerbation the most likely cause. His chronic respiratory disease is supported by prior CT showing bronchiolitis and pulmonary artery dilation as well as echo demonstrating chronic RV strain. He was started on Duonebs, systemic steroids, azithromycin, and ceftriaxone for possible infectious trigger. Will continue oxygen therapy targeting SpO? > 90%, monitor for improvement Obtain a home oxygen evaluation prior to discharge given his chronic symptoms and recurrent admissions. #CHF: BNP negative today and no signs of volume overload on exam. Chronic RV strain is likely related to underlying lung disease and pulmonary hypertension. No acute decompensation suspected: gentle diuresis Continue home medications and monitor fluid status. #CKD stage 4: Creatinine 2.1 is near baseline. Avoid nephrotoxins #History of cardiac arrest (September 2023) Patient required intubation at that time. No current evidence of cardiac ischemia or arrhythmia. #Diabetes ISS #Hypertension Amlodipine #Hypothyroidism Levothyroxine Case discussed with Dr Anne Plan discussed with: Patient, Other (rn) My Orders Orders - CATALINA ROSS RESIDENT Procedure Category Date Status Time Admit ADMIT 03/10/25 Transmitted 14:08 Code Status CODE 03/10/25 Transmitted 14:08 Vital Signs ANGEL 03/10/25 In Process 14:08 Review Orders With ANGEL 03/10/25 In Process Adm. 14:08 Consistent DIET 03/10/25 Transmitted Carb(Ccho)Diabetes Dinner Acetaminophen Tablet PHA 03/10/25 In Process (Tylenol Tablet) 14:15 Notify Of Changes ANGEL 03/10/25 In Process From Base 14:08 Advance Directive ANGEL 03/10/25 In Process 14:08 Urinalysis LAB 03/10/25 Logged 14:08 Patient Condition ORDERS 03/10/25 Transmitted 14:08 Allergies ANGEL 03/10/25 In Process 14:08 Drug Screen LAB 03/10/25 Logged 14:08 Enoxaparin Sodium PHA 03/11/25 In Process (Lovenox) 10:00 Furosemide Injection PHA 03/10/25 In Process (Lasix Injection) 14:15 Ipratropium Medneb PHA 03/10/25 In Process (Atrovent Medneb) 18:00 Albuterol Medneb PHA 03/10/25 In Process (Ventolin Medneb) 18:00 Amlodipine Tablet PHA 03/10/25 In Process (Norvasc Tablet) 14:15 Ceftriaxone 1gm/50ml PHA 03/10/25 In Process (Rocephin) 14:15 Azithromycin 500mg/ PHA 03/10/25 In Process 250ml (Zithromax 50 14:15 Glucose Blood PHA 03/10/25 In Process (Accu-Chek Comfort 17:00 Insulin R (Human) PHA 03/10/25 In Process (Insulin R) 17:00 Dextrose 50% Syringe PHA 03/10/25 In Process 14:15 Date of Service: Mar 10, 2025 Billing Provider: MATTHIEU ANNE MD Common Visit Codes: [id number] INP/OBS CARE (HIGH) CATALINA ROSS Mar 10, 2025 14:33
[2025-03-10] MEDS: LEVOTHYROXINE SODIUM 25 MCG TAB PO ONE (14:52)
[2025-03-10] MEDS: FUROSEMIDE 40 MG/4 ML VIAL IV SCH (14:53)
[2025-03-10] MEDS: AZITHROMYCIN 500MG/250ML 250 ML IV SCH (15:50)
[2025-03-10] MEDS: ACCU-CHEK COMFORT CURVE STRIP VI SCH (17:00)
[2025-03-10] MEDS ORDERED: CHOL25CH3 PO (17:34)
[2025-03-10] MEDS ORDERED: BUDE2SUS3 IN (17:34)
[2025-03-10] MEDS ORDERED: HYDR50TA47 PO (17:34)
[2025-03-10] MEDS ORDERED: CHLO25TA2 PO (17:34)
[2025-03-10] MEDS ORDERED: AZIT-43 PO (17:34)
[2025-03-10] MEDS ORDERED: HYD20I PO (17:34)
[2025-03-10] MEDS ORDERED: AML5T PO (17:34)
[2025-03-10] MEDS ORDERED: [UNRECOGNIZED DRUG - CODE] PO (17:34)
[2025-03-10] MEDS ORDERED: LISI2.5T47 PO (17:34)
[2025-03-10] MEDS ORDERED: FURO40TA4 PO (17:34)
[2025-03-10] MEDS: InsuLIN REG 1unit/0.01ml Soln (100units/ml) SC SCH (18:05)
[2025-03-10 19:05] LABS: Alanine Aminotransferase 19 U/L (7-40); Albumin 4.4 g/dL (3.2-4.8); Alkaline Phosphatase 76 U/L (46-116); Total Protein 7.4 g/dL (5.7-8.2)
[2025-03-10 19:08] LABS: Bilirubin, Direct < 0.1 mg/dL (<0.3); Bilirubin, Total 0.3 mg/dL (0.2-1.0)
[2025-03-10] MEDS: ALBUTEROL SULF 2.5 MG/0.5ML(0.5%) NEB SOLN NEB SCH (19:10)
[2025-03-10] MEDS: IPRATROPIUM BROM 0.5 MG/2.5ML INH SOL NEB SCH (19:10)
[2025-03-10 20:26] LABS: Urine Protein, UAD 1+ (Negative)
[2025-03-10 20:40] LABS: Amphetamine Screen, Urine Neg (NEGATIVE); Barbiturate Scree,Urine Neg (NEGATIVE); Benzodiazephine Screen, Urine Neg (NEGATIVE); Cannabinoid Screen, Urine Neg (NEGATIVE); Cocaine Screen, Urine Neg (NEGATIVE); Opiate Scree,Urine Neg (NEGATIVE); Phencyclidine Screen, Urine Neg (NEGATIVE)
[2025-03-11] VITALS (17 sets, daily range): BP systolic 109–153; BP diastolic 73–104; PULSE 67–91; RESP 16–24; TEMP 97.8–98.5; O2SAT 91–100
[2025-03-11] MEDS: ENOXAPARIN SOD 40 MG/0.4 ML SYRINGE SC SCH (10:00)
[2025-03-11] MEDS: methylPREDNISolone SOD SUCC 40 MG/ML VL IV SCH (10:00)
[2025-03-11] MEDS: HYDROMORPHONE HCL 1 MG/ML INJ IV PRN (11:26)
[2025-03-11] MEDS ORDERED: ALBUTEROL SULF 2.5 MG/0.5ML(0.5%) NEB SOLN NEB PRN (11:45)
[2025-03-11] MEDS ORDERED: IPRATROPIUM BROM 0.5 MG/2.5ML INH SOL NEB PRN (11:45)
--- NOTE | 2025-03-11 13:37 | DVHPN2 ---
Subjective still having some chest tightness Reviewed: H&P Changes from previous H/P or p: No Changes Objective Vitals Vital Signs Date Time Temp Pulse Resp B/P (MAP) Pulse Ox O2 Delivery O2 Flow Rate FiO2 03/11/25 12:41 98.5 85 16 153/104 (120) 97 98.5 03/11/25 12:01 Nasal Cannula* 2 28 Intake/Output Intake and Output 03/11/25 07:00 Intake Total 2195 ml Output Total 1750 ml Balance 445 ml Intake Oral 2145 ml IV Total 50 ml Output Urine Total 1750 ml # Bowel Movements 1 General Appearance: Alert, Oriented X3 Lungs: Other (wheezing all over) Cardiovascular: Regular rate, Normal S1, Normal S2 Medications Current Medications Medications Dose Ordered Sig/Mari Route Start Time Stop Time Status Last Admin Dose Admin Acetaminophen 650 mg Q6HP PRN PO 03/10/25 14:15 Enoxaparin Sodium 40 mg DAILY SC 03/11/25 10:00 03/11/25 10:00 40 MG Furosemide 40 mg DAILY IV 03/10/25 14:15 03/11/25 10:00 40 MG Ipratropium [place] 0.5 mg Q6HWA NEB 03/10/25 18:00 03/11/25 12:01 0.5 MG Albuterol 2.5 mg Q6HWA NEB 03/10/25 18:00 03/11/25 12:01 2.5 MG Amlodipine Besylate 10 mg DAILY PO 03/10/25 14:15 03/11/25 10:00 10 MG Ceftriaxone Sodium 50 ml @ 100 mls/hr DAILY@09 IV 03/10/25 14:15 03/11/25 09:00 100 MLS/HR Azithromycin 250 ml @ 125 mls/hr DAILY IV 03/10/25 14:15 03/11/25 10:00 125 MLS/HR Diagnostic Test (Pha) 1 strip ACHS 03/10/25 17:00 03/11/25 07:00 1 STRIP Insulin Human Regular ACHS SC 03/10/25 17:00 03/10/25 21:21 3 UNITS Dextrose 50 ml UD PRN IV 03/10/25 14:15 Methylprednisolone Sodium Succinate 40 mg DAILY IV 03/11/25 10:00 03/11/25 10:00 40 MG Hydromorphone HCl 1 mg Q3HPRN PRN IV 03/11/25 11:30 03/11/25 11:26 1 MG Albuterol 2.5 mg Q4HPRN PRN NEB 03/11/25 11:45 Ipratropium [place] 0.5 mg Q4HPRN PRN NEB 03/11/25 11:45 Laboratory Results Laboratory Tests 03/10/25 09:45 Urinalysis Test 03/10/25 16:00 Urine Color Light-yellow (Yellow) Urine Clarity Clear (Clear) Urine pH 5.5 (5.0-9.0) Urine Specific [place] 1.013 (1.001-1.035) Urine Protein 1+ (Negative) H Urine Ketones Negative (Negative) Urine Blood Negative /uL (Negative) Urine Nitrite Negative (Negative) Urine Bilirubin Negative (Negative) Urine Urobilinogen Normal mg/dL (Negative) Urine Leukocyte Esterase Negative /uL (Negative) Urine RBC None seen /hpf (0 - 3) Urine Microscopic WBC < 1 /HPF (0-3) Urine Squamous Epithelial Cells Few /hpf (<5) Urine Bacteria None seen /hpf (None Seen) Urine Mucus Few (None Seen) Urine Glucose Normal mg/dL (Normal) Microbiology Microbiology Date/Time Source Procedure Growth Status 03/10/25 18:30 Nose MRSA Screen - Final Complete Assessment/Plan Assessment/Plan #Acute on chronic hypoxic respiratory failure due to COPD exacerbation The patient presents with worsening shortness of breath, increased oxygen requirements, diffuse wheezing on exam, and a normal BNP, making COPD exacerbation the most likely cause. His chronic respiratory disease is supported by prior CT showing bronchiolitis and pulmonary artery dilation as well as echo demonstrating chronic RV strain. He was started on Duonebs, systemic steroids, azithromycin, and ceftriaxone for possible infectious trigger. Will continue oxygen therapy targeting SpO? > 90%, monitor for improvement Obtain a home oxygen evaluation prior to discharge given his chronic symptoms and recurrent admissions. #CHF: BNP negative today and no signs of volume overload on exam. Chronic RV strain is likely related to underlying lung disease and pulmonary hypertension. No acute decompensation suspected: gentle diuresis Continue home medications and monitor fluid status. #CKD stage 4: Creatinine 2.1 is near baseline. Avoid nephrotoxins #History of cardiac arrest (September 2023) Patient required intubation at that time. No current evidence of cardiac ischemia or arrhythmia. #Diabetes ISS #Hypertension Amlodipine #Hypothyroidism Levothyroxine Plan discussed with: Patient My Orders Orders - ELISEO ARAGON MD Procedure Category Date Status Time Hydromorphone Hcl Inj PHA 03/11/25 In Process (Dilaudid Injectio 11:30 Albuterol Medneb PHA 03/11/25 In Process (Ventolin Medneb) 11:45 Ipratropium Medneb PHA 03/11/25 In Process (Atrovent Medneb) 11:45 Cont Med Neb Intial Tx RT 03/11/25 Logged 11:32 Date of Service: Mar 11, 2025 Billing Provider: ELISEO ARAGON MD Common Visit Codes: [id number] INP/OBS CARE(HIGH) ELISEO ARAGON MD Mar 11, 2025 13:37
[2025-03-11] MEDS: IPRATROPIUM BROM 0.5 MG/2.5ML INH SOL NEB SCH (18:56)
[2025-03-11] MEDS: ALBUTEROL SULF 2.5 MG/0.5ML(0.5%) NEB SOLN NEB SCH (18:56)
--- NOTE | 2025-03-11 19:37 | ECG ---
[facility] Test Date: 2025-03-10 Test Time: 09:33:44 Pat Name: YANY RODNEY Department: ED Room: 0296T B Gender: M Manager Banquet: GERALDO : [id number] Requested By: CARLA KELLER Order Number: [id number] Reading MD: Amor Decker Measurements Intervals Louann Rate: 85 P: 53 ID: [id number] QRS: 66 QRSD: 95 T: 60 QT: 380 QTc: 452 Interpretive Statements Sinus rhythm Electronically Signed On 03-14-2025 17:42:00 PST by Amor Decker Please click the below link to view image of tracing.
[2025-03-12] VITALS (18 sets, daily range): BP systolic 114–139; BP diastolic 67–96; PULSE 76–100; RESP 16–22; TEMP 97.8–98.3; O2SAT 90–99
--- NOTE | 2025-03-12 13:11 | DVHPN2 ---
Subjective Still on 2L NC, having wheezing on exam Reviewed: H&P Changes from previous H/P or p: No Changes Objective Vitals Vital Signs Date Time Temp Pulse Resp B/P (MAP) Pulse Ox O2 Delivery O2 Flow Rate FiO2 03/12/25 12:52 98.0 80 17 136/87 (103) 94 98.0 03/12/25 09:53 Nasal Cannula* 3 32 Intake/Output Intake and Output 03/12/25 07:00 Intake Total 3445 ml Output Total 2000 ml Balance 1445 ml Intake Oral 3445 ml Output Urine Total 2000 ml # Voids 2 General Appearance: Alert, Oriented X3 Lungs: Other (wheezing all over) Cardiovascular: Regular rate, Normal S1, Normal S2 Medications Current Medications Medications Dose Ordered Sig/Mari Route Start Time Stop Time Status Last Admin Dose Admin Acetaminophen 650 mg Q6HP PRN PO 03/10/25 14:15 Enoxaparin Sodium 40 mg DAILY SC 03/11/25 10:00 03/12/25 10:00 40 MG Furosemide 40 mg DAILY IV 03/10/25 14:15 03/12/25 10:00 40 MG Amlodipine Besylate 10 mg DAILY PO 03/10/25 14:15 03/12/25 10:00 10 MG Ceftriaxone Sodium 50 ml @ 100 mls/hr DAILY@09 IV 03/10/25 14:15 03/12/25 09:00 100 MLS/HR Azithromycin 250 ml @ 125 mls/hr DAILY IV 03/10/25 14:15 03/12/25 10:00 125 MLS/HR Diagnostic Test (Pha) 1 strip ACHS 03/10/25 17:00 03/12/25 11:02 1 STRIP Insulin Human Regular ACHS SC 03/10/25 17:00 03/11/25 17:00 12 UNITS Dextrose 50 ml UD PRN IV 03/10/25 14:15 Methylprednisolone Sodium Succinate 40 mg DAILY IV 03/11/25 10:00 03/12/25 10:00 40 MG Hydromorphone HCl 1 mg Q3HPRN PRN IV 03/11/25 11:30 03/11/25 11:26 1 MG Albuterol 2.5 mg Q4HPRN PRN NEB 03/11/25 11:45 Ipratropium [place] 0.5 mg Q4HPRN PRN NEB 03/11/25 11:45 Albuterol 2.5 mg Q4HR NEB 03/11/25 18:00 03/12/25 09:53 2.5 MG Ipratropium [place] 0.5 mg Q4HR NEB 03/11/25 18:00 03/12/25 09:53 0.5 MG Laboratory Results Laboratory Tests 03/10/25 09:45 Urinalysis Test 03/10/25 16:00 Urine Color Light-yellow (Yellow) Urine Clarity Clear (Clear) Urine pH 5.5 (5.0-9.0) Urine Specific [place] 1.013 (1.001-1.035) Urine Protein 1+ (Negative) H Urine Ketones Negative (Negative) Urine Blood Negative /uL (Negative) Urine Nitrite Negative (Negative) Urine Bilirubin Negative (Negative) Urine Urobilinogen Normal mg/dL (Negative) Urine Leukocyte Esterase Negative /uL (Negative) Urine RBC None seen /hpf (0 - 3) Urine Microscopic WBC < 1 /HPF (0-3) Urine Squamous Epithelial Cells Few /hpf (<5) Urine Bacteria None seen /hpf (None Seen) Urine Mucus Few (None Seen) Urine Glucose Normal mg/dL (Normal) Microbiology Microbiology Date/Time Source Procedure Growth Status 03/10/25 18:30 Nose MRSA Screen - Final Complete Assessment/Plan Assessment/Plan #Acute on chronic hypoxic respiratory failure due to COPD exacerbation The patient presents with worsening shortness of breath, increased oxygen requirements, diffuse wheezing on exam, and a normal BNP, making COPD exacerbation the most likely cause. His chronic respiratory disease is supported by prior CT showing bronchiolitis and pulmonary artery dilation as well as echo demonstrating chronic RV strain. He was started on Duonebs, systemic steroids, azithromycin, and ceftriaxone for possible infectious trigger. Will continue oxygen therapy targeting SpO? > 90%, monitor for improvement Obtain a home oxygen evaluation prior to discharge given his chronic symptoms and recurrent admissions. Increase IV steroids today and duonebs to q 4 hours #CHF: BNP negative today and no signs of volume overload on exam. Chronic RV strain is likely related to underlying lung disease and pulmonary hypertension. No acute decompensation suspected: gentle diuresis Continue home medications and monitor fluid status. #CKD stage 4: Creatinine 2.1 is near baseline. Avoid nephrotoxins #History of cardiac arrest (September 2023) Patient required intubation at that time. No current evidence of cardiac ischemia or arrhythmia. #Diabetes ISS #Hypertension Amlodipine #Hypothyroidism Levothyroxine Plan discussed with: Patient My Orders Orders - ELISEO ARAGON MD Procedure Category Date Status Time Albuterol Medneb PHA 03/11/25 In Process (Ventolin Medneb) 18:00 Ipratropium Medneb PHA 03/11/25 In Process (Atrovent Medneb) 18:00 Date of Service: Mar 12, 2025 Billing Provider: ELISEO ARAGON MD Common Visit Codes: [id number] INP/OBS CARE(HIGH) ELISEO ARAGON MD Mar 12, 2025 13:11
[2025-03-12] MEDS: methylPREDNISolone SOD SUCC 125 MG/2 ML VL IV SCH (14:00)
[2025-03-13] VITALS (15 sets, daily range): BP systolic 122–133; BP diastolic 80–95; PULSE 81–110; RESP 16–22; TEMP 97.2–98.5; O2SAT 93–98
[2025-03-13 15:58] LABS: Chloride 102 mmol/L (98-107); Potassium 5.1 mmol/L (3.5-5.1); Sodium 140 mmol/L (136-145)
[2025-03-13 15:59] LABS: Anion Gap 12 (5-15); Calcium 10.1 mg/dL (8.7-10.4); Carbon Dioxide 26 mmol/L (20-31)
[2025-03-13 16:04] LABS: BUN/Creatinine Ratio 18.2 (10.0-20.0)
[2025-03-13 16:05] LABS: Blood Urea Nitrogen 43 mg/dL (9-23); Glucose 174 mg/dL (74-106)
[2025-03-13] MEDS ORDERED: ALB5IS NEB (16:06)
[2025-03-13] MEDS ORDERED: AUG875T PO (16:06)
[2025-03-13] MEDS ORDERED: IPR002IS NEB (16:06)
[2025-03-13] MEDS ORDERED: METH4PAK PO (16:06)
--- NOTE | 2025-03-13 16:12 | DVHDS2 ---
Discharge Summary Date of Admission Mar 10, 2025 at 14:08 Date of Discharge: Mar 13, 2025 Labs/Diagnostic Data: Laboratory Results Test 03/13/25 15:27 03/13/25 11:39 03/10/25 16:00 03/10/25 12:55 Sodium Level 140 mmol/L (136-145) Potassium Level 5.1 mmol/L (3.5-5.1) Chloride Level 102 mmol/L (98-107) Carbon Dioxide Level 26 mmol/L (20-31) Anion Gap 12 (5-15) Blood Urea Nitrogen 43 mg/dL (9-23) Creatinine 2.36 mg/dL (0.700-1.30) Glomerular Filtration Rate Calc 31 mL/min (>90) BUN/Creatinine Ratio 18.2 (10.0-20.0) Serum Glucose 174 mg/dL (74-106) Calcium Level 10.1 mg/dL (8.7-10.4) POC Glucose 165 mg/dl (70-106) Urine Color Light-yellow (Yellow) Urine Clarity Clear (Clear) Urine pH 5.5 (5.0-9.0) Urine Specific [place] 1.013 (1.001-1.035) Urine Protein 1+ (Negative) Urine Ketones Negative (Negative) Urine Blood Negative /uL (Negative) Urine Nitrite Negative (Negative) Urine Bilirubin Negative (Negative) Urine Urobilinogen Normal mg/dL (Negative) Urine Leukocyte Esterase Negative /uL (Negative) Urine RBC None seen /hpf (0 - 3) Urine Microscopic WBC < 1 /HPF (0-3) Urine Squamous Epithelial Cells Few /hpf (<5) Urine Bacteria None seen /hpf (None Seen) Urine Mucus Few (None Seen) Urine Glucose Normal mg/dL (Normal) Urine Opiates Screen Neg (NEGATIVE) Urine Fentanyl Screen Neg (NEGATIVE) Urine Barbiturates Screen Neg (NEGATIVE) Urine Phencyclidine Screen Neg (NEGATIVE) Urine Amphetamines Screen Neg (NEGATIVE) Urine Benzodiazepines Screen Neg (NEGATIVE) Urine Cocaine Screen Neg (NEGATIVE) Urine Cannabinoids Screen Neg (NEGATIVE) Total Bilirubin 0.3 mg/dL (0.2-1.0) Direct Bilirubin < 0.1 mg/dL (<0.3) Aspartate Amino Transferase (AST) 18 U/L (13-40) Alanine Aminotransferase (ALT) 19 U/L (7-40) Alkaline Phosphatase 76 U/L (46-116) Troponin I High Sensitivity 19 ng/L (</=54) Total Protein 7.4 g/dL (5.7-8.2) Albumin 4.4 g/dL (3.2-4.8) Test 03/10/25 09:45 White Blood Count 9.0 10^3/uL (4.4-10.8) Red Blood Count 4.99 10^6/uL (4.5-5.90) Hemoglobin 13.6 g/dL (13.5-17.5) Hematocrit 41.4 % (41.0-53.0) Mean Corpuscular Volume 83.0 fL (80.0-100.0) Mean Corpuscular Hemoglobin 27.2 pg (28.0-32.0) Mean Corpuscular Hemoglobin Concent 32.8 g/dL (32.0-36.0) Red Cell Distribution Width 16.1 % (11.8-14.3) Platelet Count 247 10^3/uL (140-450) Mean Platelet Volume 7.8 fL (6.9-10.8) Neutrophils (%) (Auto) % (37.0-80.0) Lymphocytes (%) (Auto) % (10.0-50.0) Monocytes (%) (Auto) % (0.0-12.0) Eosinophils (%) (Auto) % (0.0-7.0) Basophils (%) (Auto) % (0.0-2.0) Neutrophils # (Auto) 10 ^3/uL (1.6-8.6) Lymphocytes # (Auto) 10 ^3/uL (0.4-5.4) Monocytes # (Auto) 10 ^3/uL (0-1.3) Differential Total Cells Counted 100.0 (100) Neutrophils % (Manual) 57 (37.0-80.0) Band Neutrophils % (Manual) 0 Lymphocytes % (Manual) 20 (10.0-50.0) Monocytes % (Manual) 4 (0-12) Eosinophils % (Manual) 19 (0-7) Basophils % (Manual) 0 (0.0-2.0) Metamyelocytes % (manual) 0 Myelocytes % (Manual) 0 Promyelocytes % (Manual) 0 Blast Cells % (Manual) 0 Reactive Lymphocytes 0 Platelet Estimate Adequate B-Type Natriuretic Peptide 12.53 pg/mL (0-100) Other Laboratory Tests 03/13/25 15:27 03/10/25 09:45 Brief Hx & Hospital Course: 59-year-old male with a known history of COPD, previous history of tobacco use disorder quit in 2017, hypertension, dyslipidemia, hypothyroidism presented to the hospital with the increasing shortness a breath found to have acute hypoxic respiratory failure secondary to acute COPD exacerbation as well as acute bronchitis. Patient also found to have pleural thickening on the right side in the minor facial. Patient was given IV antibiotics med nebs O2 supplementation. Patient's currently improved significantly and saturating more than 92% on room air. Patient is requesting to go home. Patient does have pleural thickening on chest x-ray of the right side, outpatient repeat chest x-ray is recommended in 1-2 weeks follow up with the PCP and get a CT chest with contrast to evaluate pleural thickening to make sure there was no cancer. Outpatient follow up with the PCP and Pulmonary. Plan of care discussed with the patient in the presence of bedside RN, patient understand verbalized understanding and agreeable to plan. Patient is requesting med nebs which will be prescribed. Condition at Discharge: Stable Final Diagnosis/Problems List 1. Acute hypoxic respiratory failure secondary to acute COPD exacerbation, currently on room air 2. Acute COPD exacerbation, currently compensated 3. Acute bronchitis 4. Hypertension 5. Dyslipidemia 6. Hypothyroidism 7. Previous history of tobacco use disorder 30+ year, quit in 2017 8. Pleural thickening of the minor patient of the right side, repeat chest x-ray as an outpatient with a in 1-2 weeks and follow up with the PCP, if still saying pleural thickening need CT chest with the contrast and follow up with the PCP and Pulmonary as an outpatient Discharge Disposition: Home SNF Discharge Will this Physician continue t: No Discharge Instruct/Medications Diet: Cardiac 2g Na,low cholest Activity: No Restrictions, As Tolerated Follow Up/Referral: Follow up with the PCP in 1-2 weeks with a repeat chest x-ray, if still saying pleural thickening, need CT chest and pulmonary consultation Medications: Med nebs, antibiotics, Medrol Dosepak as prescribed New Medications: Amoxicillin & Pot Clavulanate (Augmentin Tablet) 875 Mg Tb 875 MG PO BID for 3 Days, #6 TAB Methylprednisolone (Medrol Dosepak) 4 Mg Miguel 4 MG PO UD, #21 TAB UAD Albuterol Sulfate (Ventolin) 2.5 Mg/0.5 Ml Nb 2.5 MG NEB Q4HR for 30 Days, #90 INH Ipratropium [place] (Ipratropium [place]) 0.02 % [place] 0.5 MG NEB Q4HPRN PRN, #90 ML Continued Medications: Albuterol Sulfate (Ventolin Mdi) 90 Mcg Ih 90 MCG IN, INH Amlodipine Besylate (Norvasc Tablet) 5 Mg Tb 10 MG PO DAILY, TAB Atorvastatin Calcium (Lipitor) 40 Mg Tab 1 TAB PO DAILY, #30 TAB 5 Refills Budesonide (Inhalation) (Budesonide) 1 Mg/2 Ml Yesenia 160 MCG IN, ML Chlorthalidone (Chlorthalidone) 25 Mg Tab 25 MG PO DAILY, TAB Cholecalciferol (D3) 25 Mcg Chw 25 MCG PO, TAB.CHEW Furosemide (Furosemide) 40 Mg Tab 40 MG PO DAILY for 30 Days Hydralazine Hcl (Hydralazine Hcl) 50 Mg Tab 50 MG PO TID for 30 Days, MG Ipratropium [place] Hfa (Atrovent Hfa) 17 Mcg Aer 2 PUFF INH QID PRN, #12.9 GRAMS 5 Refills Levothyroxine Sodium (Levothyroxine Sodium) 25 Mcg Tab 75 MCG PO QAM, MCG Lisinopril (Lisinopril) 2.5 Mg Tab 2.5 MG PO DAILY for 30 Days, MG Magnesium Oxide (Magnesium Oxide) 400 Mg Tab 2 TAB PO DAILY, TAB Metformin Hydrochloride (Metformin Hcl) 500 Mg Tab 500 MG PO DAILY for 30 Days, MG Phenylephrine W/ Acetaminophen (Panadol Cold/Flu 5-325 mg) 1 Tab Tab 1 TAB PO, TAB Umeclidinium-Vilanterol (Anoro Ellipta 62.5-25 Mcg/INH) 1 Aer Aer 1 AER IN DAILY for 30 Days, #1 AER 1 Refill Discontinued Medications: Amlodipine Besylate (Norvasc Tablet) 5 Mg Tb 1 TAB PO DAILY, #30 TAB 5 Refills Azithromycin (Azithromycin) 250 Mg Tab 250 MG PO DAILY, #4 Hydralazine Hcl (Apresoline) 20 Mg/Ml Ij 50 MG PO, INJ Levofloxacin Hemihydrate (Levofloxacin) 750 Mg Tab 1 TAB PO DAILY for 10 Days, #10 TAB Methylprednisolone (Medrol Dosepak) 4 Mg Miguel 4 MG PO UD, #21 TAB UAD Scheduled Albuterol Sulfate (Ventolin), 2.5 MG NEB Q4HR Amlodipine Besylate (Norvasc Tablet), 10 MG PO DAILY, (Reported) Amlodipine Besylate (Norvasc Tablet), 1 TAB PO DAILY, (Reported) Amoxicillin & Pot Clavulanate (Augmentin Tablet), 875 MG PO BID Atorvastatin Calcium (Lipitor), 1 TAB PO DAILY, (Reported) Azithromycin (Azithromycin), 250 MG PO DAILY, (Reported) Chlorthalidone (Chlorthalidone), 25 MG PO DAILY, (Reported) Furosemide (Furosemide), 40 MG PO DAILY, (Reported) Hydralazine Hcl (Hydralazine Hcl), 50 MG PO TID, (Reported) Levofloxacin Hemihydrate (Levofloxacin), 1 TAB PO DAILY Levothyroxine Sodium (Levothyroxine Sodium), 75 MCG PO QAM, (Reported) Lisinopril (Lisinopril), 2.5 MG PO DAILY, (Reported) Magnesium Oxide (Magnesium Oxide), 2 TAB PO DAILY, (Reported) Metformin Hydrochloride (Metformin Hcl), 500 MG PO DAILY, (Reported) Methylprednisolone (Medrol Dosepak), 4 MG PO UD Methylprednisolone (Medrol Dosepak), 4 MG PO UD Umeclidinium-Vilanterol (Anoro Ellipta 62.5-25 Mcg/INH), 1 AER IN DAILY Scheduled PRN Ipratropium [place] (Ipratropium [place]), 0.5 MG NEB Q4HPRN PRN Ipratropium [place] Hfa (Atrovent Hfa), 2 PUFF INH QID PRN Miscellaneous Medications Albuterol Sulfate (Ventolin Mdi), 90 MCG IN, (Reported) Budesonide (Inhalation) (Budesonide), 160 MCG IN, (Reported) Cholecalciferol (D3), 25 MCG PO, (Reported) Hydralazine Hcl (Apresoline), 50 MG PO, (Reported) Phenylephrine W/ Acetaminophen (Panadol Cold/Flu 5-325 mg), 1 TAB PO, (Reported) Discharge Statement: "Patient was advised to return to the ER or call 911 if any headaches, dizziness, shortness of breath, chest pain, abdominal pain, bleeding, fevers, or worsening of medical condition. Patient was counseled about treatment plan, medications, possible side effects, patientverbalized understanding. All questions were answered to the best of my ability. This discharge took greater then 30 minutes in planning, reviewing documentation, counseling the patient, and discussing with other team members." ASSESSMENT ASSESSMENT Assessment 1. Acute hypoxic respiratory failure secondary to acute COPD exacerbation, currently on room air 2. Acute COPD exacerbation, currently compensated 3. Acute bronchitis 4. Hypertension 5. Dyslipidemia 6. Hypothyroidism 7. Previous history of tobacco use disorder 30+ year, quit in 2017 8. Pleural thickening of the minor patient of the right side, repeat chest x-ray as an outpatient with a in 1-2 weeks and follow up with the PCP, if still saying pleural thickening need CT chest with the contrast and follow up with the PCP and Pulmonary as an outpatient Date of Service: Mar 13, 2025 Billing Provider: BRENT ROWAN MD Common Visit Codes: 56209-HVI/OBS DISCH DAY >30min BRENT ROWAN MD Mar 13, 2025 16:12
== END 2025-03-13 17:30 | disposition home or self-care (01) | DRG 145 ==
LOC: ER 09:20 → OVERFLOW 14:08 → TELE-WESTW 16:46
PROVIDERS: ADMIT Internal Medicine; ATTEND Internal Medicine
DX: J20.9 Acute bronchitis, unspecified (principal); J96.21 Acute and chronic respiratory failure with hypoxia; J44.1 Chronic obstructive pulmonary disease with (acute) exacerbation; J44.0 Chronic obstructive pulmonary disease with (acute) lower respiratory infection; I50.9 Heart failure, unspecified; N18.4 Chronic kidney disease, stage 4 (severe); E03.9 Hypothyroidism, unspecified; E11.22 Type 2 diabetes mellitus with diabetic chronic kidney disease; E78.5 Hyperlipidemia, unspecified; Z87.891 Personal history of nicotine dependence; Z88.1 Allergy status to other antibiotic agents; Z91.040 Latex allergy status; Z86.74 Personal history of sudden cardiac arrest
CPT/HCPCS: 36415; 71046; 80048; 80076; 80307; 81001; 82962; 83880; 84484; 85007; 85027; 87081; 93005; 94640; 94644; 96374; 99291; G0378; J1815